=== PATIENT | female | born 1975 | race Caucasian/White ===

== ENCOUNTER 2022-09-10 20:58 | Emergency (ER) | payer OTHER, SELFPAY ==
[2022-09-10 21:10] VITALS: BP 178/85; PULSE 69; RESP 18; TEMP 36.7; O2SAT 99; BMI 34.5
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
--- NOTE | 2022-09-10 21:30 | CRLHL7_ITS ---
For Patients: As a result of the Century Cures Act, medical imaging exams and procedure reports are released immediately into your electronic medical record. You may view this report before your referring provider. If you have questions, please contact your health care provider. INDICATION: .hit head, left temporal area, REID, tinnitus TECHNIQUE: Head CT without contrast. COMPARISON: None. FINDINGS: Motion and beam hardening artifact predominantly the skullbase degrades evaluation at these levels. No intracranial hemorrhage. No discrete mass or mass effect. There is no midline shift. The basilar cisterns are patent. No hydrocephalus. The ye-white matter interface is otherwise preserved. No acute osseous abnormality. No extracalvarial soft tissue abnormality. The mastoid air cells are clear. The paranasal sinuses are well-aerated. The visualized portions of the orbits and globes are unremarkable. IMPRESSION: No acute intracranial process per unenhanced head CT given the above constraints. Please note that all CT scans at this facility use dose modulation, iterative reconstruction, and/or weight-based dosing when appropriate to reduce radiation dose to as low as reasonably achievable. Dictated by Vini Vyas MD @ 09/10/2022 10:15:53 PM (Electronically Signed)
[2022-09-10 22:59] VITALS: BP 169/84; PULSE 69; RESP 18; TEMP 36.7; O2SAT 99
[2022-09-10 23:31] VITALS: BP 169/84; PULSE 69; RESP 18; TEMP 36.7
== END 2022-09-10 23:32 | disposition home or self-care (01) ==
PROVIDERS: Emergency Provider Family Medicine
DX: S09.90XA Unspecified injury of head, initial encounter (principal); W22.8XXA Striking against or struck by other objects, initial encounter; Y99.0 Civilian activity done for income or pay
CPT/HCPCS: 70450; 99283

== ENCOUNTER 2023-03-07 12:46 | Emergency (ER) | payer OTHER, SELFPAY ==
[2023-03-07 13:13] VITALS: BP 124/81; PULSE 69; RESP 16; TEMP 36.6; O2SAT 97; BMI 37.8
[2023-03-07] MEDS: predniSONE 20 MG TABLET 60 MG PO (17:05)
--- NOTE | 2023-03-07 17:34 | ED.GENADULT ---
HPI - General Adult General Date Seen: 03/07/23 Chief complaint: Skin/Abscess/Foreign Body Stated complaint: Post op rash Time Seen by Provider: 03/07/23 16:27 Source: patient Mode of arrival: ambulatory Limitations: no limitations History of Present Illness HPI narrative: Patient is a 47-year-old who had surgery for an abdominal wall hernia on 02/27 at [facility]. She had a telephone follow-up visit with them on SaturdayMarch 05. At that time, she mentions that she developed a rash today after surgery. This started off in a rectangular area which she thought was related to the binder that she had been wearing after the surgery. They recommended that she use Dial soap and take Benadryl. She has been taking Benadryl orally once or twice a day and using topical Benadryl, but she called them today and said that the rash had spread. It is intensely itchy. She has pain related to the surgery although she is no longer using oxycodone is just using Tylenol. Apparently when she talked to the clinic today they told her it could be toxic shock and told her she needed to go to the ER right away. She has not had fevers. She did say that yesterday she felt sort of tawana, but nothing very specific. Today she feels fine. She was waiting in the lobby for almost 4 hours, and she said sitting up for that length of time was intensely uncomfortable, so when I got into the room she was tearful, because she said she was having pain from having to sit for so long. She declined any ibuprofen or Tylenol here, she says she can take some when she gets home and after we talked for a bit she was feeling much better. She has not had any vomiting since the day after surgery. The rash itself is pinpoint red spots which have spread across her abdominal wall down toward her thighs. She still has the original rectangular area as well. It remains itchy. Related Data Home Medications Medication Instructions Recorded Confirmed Benadryl 03/07/23 Tylenol 03/07/23 Zyrtec 03/07/23 albuterol sulfate 90 mcg/actuation 2 puff inhalation Q4H PRN dyspnea 03/07/23 03/07/23 aerosol inhaler (Ventolin HFA) ibuprofen 600 mg tablet 600 mg PO 3XD 03/07/23 03/07/23 methocarbamol 750 mg tablet mg PO 03/07/23 senna 03/07/23 Allergies Allergy/AdvReac Type Severity Reaction Status Date / Time albuterol AdvReac Mild Tachycardia Verified 03/07/23 16:33 [From Proventil HFA] [facility] Medical History (Updated 03/07/23 @ 16:58 by Wendy Pérez MD) History of atrial fibrillation ?Z86.79 - Personal history of other diseases of the circulatory system (ICD-10) TBI (traumatic brain injury) ?S06.9XAA - Unspecified intracranial injury with loss of consciousness status unknown, initial encounter (ICD-10) Asthma ?J45.909 - Unspecified asthma, uncomplicated (ICD-10) Surgical History History of cardiac radiofrequency ablation ?Z98.890 - Other specified postprocedural states (ICD-10) Social History Smoking Status: Never smoker Do you use any of these nicotine containing products: None Second hand tobacco smoke exposure: No How often do you have a drink containing alcohol: 2-3 times a week AUDIT-C Alcohol total score: 3 Non-prescribed substance use: denies use Exam Narrative: Exam Narrative: Vital signs reviewed. She is afebrile. In general, alert, well-appearing woman. She is breathing easily, nontoxic. Heart: Regular rate and rhythm. Lungs: Clear, no wheezes or increased work of breathing. Abdomen: She has couple of port sites, there is a small amount of erythema around these but no warmth or tenderness. No drainage. Skin: On her abdomen, she has a rectangular area of what appears to be a contact dermatitis with patchy speckled erythema, and that she has more diffuse pinpoint erythematous rash across her entire abdomen that extends down toward her thighs. There is no blistering, no dense erythema, no warmth. Const: Vital Signs, click to edit/add: Vital Signs - 24 hr 03/07/23 13:13 Temperature 97.8 F Pulse Rate [Left P ulse Oximeter] 69 Respiratory Rate 16 Blood Pressure [Ri ght Upper Arm] 124/81 Pulse Oximetry 97 Oxygen Delivery Me thod Room Air Documenting provider has reviewed patient's vital signs: yes Course Course ED Course: Reassured her that I do not see anything here that makes me suspicious for toxic shock. This does appear to have at least started as a contact dermatitis. She has been taking subtherapeutic doses of Benadryl, I think I am going to have her switch to a nonsedating antihistamine so that she does not have to take a 4 times daily dose, and I am going to add in some prednisone. I think this probably is related to something topical from her surgery, and hopefully with a little more dedicated regimen we can get this settled down. I did review with her that if the rash is changing, if she develops blistering, more dense erythema, pain, fevers, etcetera, that she should be seen again as these could indicate more infection rather than dermatitis. Likewise, if the rash does not improve or continues to worsen with this treatment, we may need to get dermatology involved. Discussed options to that pathway including talk to primary care, talking to her surgeon, or calling dermatology directly. She seems to be feeling much better at this point. Again declines the need for anything for pain here. Vital Signs Vital signs: Initial Vital Signs Temperature 97.8 F 03/07/23 13:13 Temperature Source Temporal Artery Scan 03/07/23 13:13 Pulse Rate 69 03/07/23 13:13 Respiratory Rate 16 03/07/23 13:13 Blood Pressure 124/81 03/07/23 13:13 Blood Pressure Mean 95 03/07/23 13:13 Blood Pressure Position Sitting 03/07/23 13:13 Pulse Oximetry 97 03/07/23 13:13 Oxygen Delivery Method Room Air 03/07/23 13:13 Vital Signs Temperature 97.8 F 03/07/23 13:13 Pulse Rate 69 03/07/23 13:13 Respiratory Rate 16 03/07/23 13:13 Blood Pressure 124/81 03/07/23 13:13 Pulse Oximetry 97 03/07/23 13:13 Oxygen Delivery Method Room Air 03/07/23 13:13 Temperature 97.8 F 03/07/23 13:13 Pulse Rate 69 03/07/23 13:13 Respiratory Rate 16 03/07/23 13:13 Blood Pressure 124/81 03/07/23 13:13 Pulse Oximetry 97 03/07/23 13:13 Oxygen Delivery Method Room Air 03/07/23 13:13 Discharge Plan Discharge Clinical Impression: Contact dermatitis Patient Disposition: Home, Self-Care Condition: Stable Instructions: Contact Dermatitis (DC) Additional Instructions: I would recommend switching antihistamine from Benadryl twice a day to Zyrtec or Claritin or Giselle twice a day. Take prednisone as prescribed. It seems unlikely that the reaction is related to the mesh in is more likely something that was used topically, as such, this should settle down over the next few days. If it continues to spread or does not improve, we will likely need to have you follow-up with a school examiner. If your symptoms change, if you have consolidated redness, blisters, fevers, worsening pain, etcetera, you should be seen again in the ER. Otherwise, continue your regimen as suggested by your surgeon, and contact them with any other questions. Activity Level: No Restrictions Discharge Diet: Regular Prescriptions: No Action methocarbamol 750 mg tablet PO ibuprofen 600 mg tablet 600 mg PO 3XD albuterol sulfate [Ventolin HFA] 90 mcg/actuation HFA aerosol inhaler 2 puff INHALATION Q4H PRN (Reason: dyspnea) senna Tylenol Benadryl Zyrtec Follow Up/Referrals: Provider,Not a Local [Primary Care Provider] - Stand Alone Forms: [employer] Info Instructions
== END 2023-03-07 17:14 | disposition home or self-care (01) ==
LOC: ED 17:10
PROVIDERS: Emergency Provider Emergency Medicine
DX: L25.9 Unspecified contact dermatitis, unspecified cause (principal)
CPT/HCPCS: 99282; 99283; J7512

== ENCOUNTER 2023-12-17 09:05 | Outpatient (CLI) | payer OTHER, SELFPAY | END 2023-12-17 09:06 | disposition home or self-care (01) | LOC: INJ CL 09:06 | PROVIDERS: Visit Provider Family Medicine | DX: M54.16 Radiculopathy, lumbar region (principal) | CPT/HCPCS: 64483; J1100; Q9966 ==

== ENCOUNTER 2024-07-04 15:35 | Emergency (ER) | payer OTHER, SELFPAY ==
[2024-07-04 15:38] VITALS: BP 139/87; PULSE 72; RESP 16; TEMP 36.2; O2SAT 98; BMI 38.6
--- OUTSIDE RECORDS SUMMARY | 2024-07-04 15:38 | XMS_ITS | Encounter Summary ---
Author Organization [facility] Address [address] [place] [address] Care Team Providers Care Access Tech Name Role Phone Sherin Garza MD Primary Care Provider [phone] Tanvir Peñaloza PA-C Unavailable Unavailab Johanna Swenson LPN Unavailable Unavailable Sherin Garza MD Unavailable [phone] Alisson Roth PA-C Unavailable [phone] Adelaida Waterman PA-C Unavailable [phone] Roberta Galvan [facility] Unavailable Jeremy Camejo MD Unavailable [phone] Nicolas Barragan MD Unavailable Encounter Details Date Type Department Care Team (Late st Contact Info) Description 07/27/2022 MyC Medical Advice [facility] [place] [address] [place] [address] Roberta Galvan, [facility] [address] [place] [address] Social History Tobacco Use Types Packs/Day Years Used Date Smoking Tobacco: Never Smokeless Tobacco: Never Alcohol Use Standard Drinks/Week Comments Yes 0 (1 standard drink = 0.6 oz pur e alcohol) Occasionally 1-2 /week Social Connection and Isolat ion Panel [NHANES] Answer Date Recorded In a typical week, how many times do you talk on the phone with family, friends, or neighbors? More than three times a week 02/23/2022 How often do you get togethe r with friends or relatives? Once a week 02/23/2022 How often do you attend [facility] or hindu services? More than 4 times per year 02/23/2022 Do you belong to any clubs o r organizations such as catholic groups, unions, fraternal or athletic groups, or school groups? Yes 02/23/2022 Attends Club or Organization Meetings Not on justin e 02/23/2022 Are you , , di vorced, , never , or living with a partner? Never 02/23/2022 AUDIT-C Answer Date Recorded Q1: How often do you have a drink containing alc ohol? 2-4 times a month 02/23/2022 Q2: How many drinks containi ng alcohol do you have on a typical day when you are drinking? 1 or 2 02/23/2022 Q3: How often do you have si x or more drinks on one occasion? Never 02/23/2022 Overall Financial Resource Strain (CARDIA) Answe r Date Recorded How hard is it for you to pa y for the very basics like food, housing, medical care, and heating? Somewhat hard 02/23/2022 PHQ-2 Answer Date Recorded PHQ-2 Score 1 02/23/2022 [facility] Questionnaire Answer Date Recorded Do you feel stress - tense, restless, nervous, or anxious, or unable to sleep at night because your mind is troubled all the time - these days? To some extent 02/23/2022 Exercise Vital Sign Answer Date Recorde d On average, how many days pe r week do you engage in moderate to strenuous exercise (like a brisk walk)? 2 days 02/23/2022 On average, how many minutes do you engage in exercise at this level? 60 min 02/23/2022 Hunger Vital Sign Answer Date Recorded Within the past 12 months, y ou worried that your food would run out before you got the money to buy more. Sometimes true Within the past 12 months, t he food you bought just didn't last and you didn't have money to get more. Sometimes true PRAPARE - Transportation Answer Date Re corded In the past 12 months, has l ack of transportation kept you from medical appointments or from getting medications? No 01/30 In the past 12 months, has l ack of transportation kept you from meetings, work, or from getting things needed for daily living? No 02/23/2022 Housing Stability Vital Sign Answer Stone e Recorded In the last 12 months, was t here a time when you were not able to pay the mortgage or rent on time? Patient refused 02/24/20 22 In the last 12 months, how many places have you lived? 1 02/23/2022 In the last 12 months, was t here a time when you did not have a steady place to sleep or slept in a prison (including now)? No 02/23/2022 Education Answer Date Recorded What is the highest level of school you have completed or the highest degree you have received? 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 Gender Identity Female 09/17/2018 1:36 AM CDT Sexual Orientation Straight 09/17/2018 1: 36 AM CDT Occupation Industry Job Start Date Job End Date Not on file Not on file Not on file Not on file documented as of this encounter Plan of Treatment Not on file documented as of this encounter Visit Diagnoses Not on filedocumented in this encounter Additional Health Concerns Assessment Noted Time PHQ-9 Depression Total Score: 1 01/30/20 22 10:10 AM CDT documented as of this encounter Care Teams Access Tech Relationship Specialty Start Date End Date Sherin Garza MD [address] [place] [id number] PCP - General 08/16/01 [employer], PAArsh[facility] [address] [facility] [place] [address] Physician Vat Cleaner 12/27/17 Johanna Rodríguez LPN Nurse Coordinator 12/27/17 Sherin Garza MD [address] [facility] [facility] [place] [address] Assigned PCP 06/15/18 Alisson Roth PA-C [address] [place] [address] Assigned Surgical Provider 05/14/2102/01/23 Adelaida Waterman PA-C [address] [place] [address] Assigned Sleep Provider 08/06/2104/19 [facility] [address] [place] [address] Assigned MTM Pharmacist 03/28/22 Jeremy Camejo MD [address] [place] [address] Assigned OBGYN Provider 05/26/22 Nicolas Barragan MD [address] [place] [address] Assigned Surgical Provider 02/02/23 documented as of this encounter
--- OUTSIDE RECORDS SUMMARY | 2024-07-04 15:38 | XMS_ITS | Encounter Summary ---
Author Organization [facility] Address [address] [facility] [place] [address] Care Team Providers Care Inspector Barrel Name Role Phone Sherin Garza MD Primary Care Provider [phone] Tanvir Peñaloza PA-C Unavailable Unavailab Johanna Swenson LPN Unavailable Unavailable Sherin Garza MD Unavailable [phone] Alisson Roth PA-C Unavailable [phone] Adelaida Waterman PA-C Unavailable [phone] Jeremy Camejo MD Unavailable Nicolas Barragan MD Unavailable Encounter Details Date Type Department Care Team (Late st Contact Info) Description 01/14/2023 [facility] [place] [facility] Medical Advice [facility] [address] [place] [address] [address] [place] [address] Fransisca Brown MA Social History Tobacco Use Types Packs/Day Years [...] week 02/23/2022 How often do you attend chur ch or pentecostalism services? More than 4 times per year 02/23/2022 Do you belong to any clubs o r organizations such as congregation groups, unions, fraternal or athletic groups, or [...] Answer Date Recorded PHQ-2 Score 1 02/23/2022 [facility] - Occupational Stress Questionnaire Answer Date Recorded [...] place to sleep or slept in a [place] [facility] [place] facility (including now)? No 02/23/2022 Education Answer Date Recorded What is the highest level of school you have completed or the highest degree you have received? 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 [employer] Gender Identity Female 09/17/2018 1:36 AM CDT [...] Time PHQ-9 Depression Total Score: 1 01/30/20 10:10 AM CDT documented as of this encounter Care Teams Inspector Barrel Relationship Specialty Start Date End Date Sherin Garza MD [address] [address] PCP - General 08/16/01 Tanvir Peñaloza PA-C [address] [address] Physician Molded Goods Spot Picker 12/27/17 Johanna Rodríguez LPN Nurse Coordinator 12/27/17 Sherin Garza MD [address] [address] Assigned PCP 06/15/18 Alisson Roth PA-C [address] [place] [address] Assigned Surgical Provider 05/14/2102/01/23 Adelaida Waterman PA-C [address] [place] [address] Assigned Sleep Provider 08/06/2104/19 Jeremy Camejo MD [address] [place] [address] Assigned OBGYN Provider 05/26/22 Nicolas Barragan MD [address] [place] [address] Assigned Surgical Provider 02/02/23 documented as of this encounter
--- OUTSIDE RECORDS SUMMARY | 2024-07-04 15:38 | XMS_ITS | Clinical Summary ---
Author Organization [facility] Address [address] [place] [address] Care Team Providers Care Drapery Hemmer Automatic Name Role Phone Sherin Garza MD Primary Care Provider [phone] Tanvir Peñaloza PA-C Unavailable Unavailab Johanna Swenson LPN Unavailable Unavailable Sherin Garza MD Unavailable [phone] Allergies Active Allergy Reactions Criticality Noted Date Comments Food Anaphylaxis High 11/09/2011 Strawberries, mushrooms Albuterol Palpitations Low 01/04/2012 Proventil Brand only. Tachycardia. Tolerates albuterol. Seasonal Allergies Other (See Comments) Medium 014 Runny Nose, Itchy eyes. [place] Extract Anaphylaxis High 09/22/2009 Medications Multiple Vitamins-Minerals (MULTIVITAL PO) Take 1 tablet by mouth daily Active calcium carb 1250 mg, 500 mg mash[place],/vitamin D 200 units (OSCAL WITH D) 500-200 MG-UNIT per tabletIndications :Unspecified vitamin D deficiency Take 1 tablet by mouth 2 times daily (with meals) 90 tablet 1 11/04/19 15 Active Additional Information Patient taking differently:1 tablet Oral2 TIMES DAILY, Reported on 12/12/2021 cetirizine (ZYRTEC) 10 MG tabletIndications :Allergic rhinitis Take 1 tablet (10 mg) by mouth every evening 90 tablet 1 10/24/19 19 Active amphetamine-dextr oamphetamine (ADDERALL XR) 30 MG 24 hr capsuleIndication s:Attention deficit hyperactivity disorder (ADHD), unspecified ADHD type Take 1 capsule (30 mg) by mouth daily 30 capsule 05/01/20 19 Active tiZANidine (ZANAFLEX) 4 MG tabletIndications :Lumbar back pain TAKE 1 TABLET(4 MG) BY MOUTH THREE TIMES DAILY NEEDED FOR MUSCLE SPASMS 90 tablet 3 09/14/19 20 Active buPROPion (WELLBUTRIN XL) 300 MG 24 hr tablet TK 1 T PO QD IN THE MORNING 05/12/20 20 Active hydrOXYzine (ATARAX) 25 MG tabletIndications :Generalized anxiety disorder Take 1-4 tablets (25-100 mg) by mouth 4 times daily as needed for anxiety Use 3-4 at bedtime for sleep. 1-2 during the day for anxiety. 60 tablet 1 06/10/20 20 Active EPINEPHrine (ANY BX GENERIC EQUIV) 0.3 MG/0.3ML injection 2-packIndications :Mild persistent asthma without complication Inject 0.3 mLs (0.3 mg) into the muscle once as needed for anaphylaxis 2 mL 1 06/21/20 21 Active cyanocobalamin (VITAMIN B-12) 100 MCG tablet Take 100 mcg by mouth daily Active vitamin D3 (CHOLECALCIFEROL) 10 MCG (400 UNIT) capsule Take 1 capsule by mouth daily Active naltrexone (DEPADE/REVIA) 50 MG tabletIndications :Class 2 severe obesity due to excess calories with serious comorbidity and body mass index (BMI) of 35.0 to 35.9 in adult (H) Take 1/2 tablet at noon for 1 week, then increase to 1/2 tablet in the morning and at noon as if tolerating 30 tablet 2 12/13/19 22 Active albuterol (PROVENTIL) (2.5 MG/3ML) 0.083% neb solutionIndicatio ns:Mild persistent asthma without complication Take 1 vial (2.5 mg) by nebulization every 6 hours as needed for shortness of breath / dyspnea 60 mL 1 01/05/20 22 Active albuterol (VENTOLIN HFA) 108 (90 Base) MCG/ACT inhalerIndication s:Moderate persistent asthma without complication INHALE 2 PUFFS EVERY 4 HOURS NEEDED FOR SHORTNESS OF BREATH/DYSPNEA 18 g 1 01/10/20 22 Active SUMAtriptan (IMITREX) 100 MG tabletIndications :Migraine with aura and without status migrainosus, not intractable Take 1 tablet (100 mg) by mouth at onset of headache for migraine May repeat in 2 hours if needed: max 2/da 9 tablet 4 02/24/20 22 Active fluticasone-salme terol (ADVAIR HFA) 230-21 MCG/ACT inhalerIndication s:Moderate persistent asthma without complication Inhale 2 puffs into the lungs 2 times daily 12 g 4 02/24/20 22 Active fluticasone (FLONASE) 50 MCG/ACT nasal sprayIndications: Seasonal allergic rhinitis, unspecified trigger Collins 2 sprays into both nostrils daily 48 g 4 02/24/20 22 Active gabapentin (NEURONTIN) 300 MG capsuleIndication s:Chronic midline low back pain without sciatica Take 1 capsule (300 mg) by mouth 3 times daily 90 capsule 4 03/26/20 22 Active bisacodyl (DULCOLAX) 5 MG EC tabletIndications :Colon cancer screening Take 2 tablets at 3 pm the day before your procedure. If your procedure is before 11 am, take 2 additional tablets at 11 pm. If your procedure is after 11 am, take 2 additional tablets at 6 am. For additional instructions refer to your colonoscopy prep instructions. 4 tablet 07/13/19 23 Active polyethylene glycol (GOLYTELY) 236 g suspensionIndicat ions:Colon cancer screening The night before the exam at 6 pm drink an 8-ounce glass every 15 minutes until the jug is half empty. If you arrive before 11 AM: Drink the other half of the Golytely jug at 11 PM night before procedure. If you arrive after 11 AM: Drink the other half of the Golytely jug at 6 AM day of procedure. For additional instructions refer to your colonoscopy prep instructions. 4000 mL 07/13/19 23 Active FLOVENT DISKUS 250 MCG/BLIST inhalerIndication s:Mild persistent asthma without complication INHALE 1 PUFF INTO THE LUNGS EVERY 12 HOURS 3 Inhaler 1 01/19/20 20 022 Discontin ued(Reord er (No AVS)) Active Problems Problem Noted Date Diagnosed Date Postconcussion syndrome 06/02/2021 Breast cancer screening, high risk patient 03/15 Family history of malignant neoplasm of breast 0 03/13/2021 Overview (03/13/2021): Genetic Testing Result: NEGATIVE Alla is negative for mutations in the 23 genes analyzed: JOSE ANGEL, BARD1, BRCA1, BRCA2, BRIP1, CDH1, CHEK2, DICER1, MLH1, MSH2, MSH6, NBN, NF1, PALB2, PMS2, PTEN, RAD51C, RAD51D, RECQL, SMARCA4, STK11 and TP53 (sequencing and deletion/duplication); EPCAM (deletion/duplication only). Screening: Based on this negative test result, it is important for Alla and her relatives to refer back to the family history for appropriate cancer screening. ? Based on the personal and family history information she provided, Alla has an estimated 33.3% lifetime risk of developing breast cancer based on the STEVO Risk Evaluation v8 model. As such, Alla meets current National Comprehensive Cancer Network (NCCN) guidelines for high risk breast screening. This includes annual breast MRI in addition to annual mammogram, alternating every 6 months. In addition, Alla should be receiving clinical breast exams by her physician. We discussed that Alla could participate in our Cancer Risk Management Program in which our geriatric nursing assistant provides an individual screening plan and assists with medical management. A referral was made to see DOMO Donald, for this service. ? Due to Alla's family history of ovarian cancer in her sister, Alla and other close female relatives remain at slightly increased risk for ovarian cancer. We discussed available ovarian cancer screening (pelvic exams, CA-125 blood tests, and transvaginal ultrasounds) as well as the significant limitations of this screening. As such, this screening is not typically recommended. That being said, women in this family should discuss this screening and the signs and symptoms of ovarian cancer with their primary PULL OVER MACHINE OPERATOR provider, as they may have individualized recommendations. ? Other population cancer screening options, such as those recommended by the [place] [employer] and the National Comprehensive Cancer Network (NCCN), are also appropriate for Alla and her family. These screening recommendations may change if there are changes to Alla's personal and/or family history of cancer. Final screening recommendations should be made by each individual's managing physician. Subcutaneous mass of back 01/23/2021 Overview (01/23/2021): Added automatically from request for surgery [id number] S/P LES (total abdominal hysterectomy) H/O cystostomy 12/07/2020 Chronic right shoulder pain 10/21/2013 ADHD (attention deficit hyperactivity disorder) 02/13/2013 OCD (obsessive compulsive disorder) 02/02/2013 Overview (02/02/2013): Going to [place] [facility] Generalized anxiety disorder 02/02/2013 Chronic midline low back pain without sciatica 1 08/14/2011 IBS (irritable bowel syndrome) -- age 21 012 PCOS (polycystic ovarian syndrome) -- age 23 Migraine headache 07/14/2010 Major depressive disorder, recurrent, moderate 0 12/20/2008 Overview (12/01/2013): Was on zoloft initially but had weird dreams and jittery. Did well on prozac plus wellbutrin but now worse. Obesity 04/10/2007 Assessment & Plan (12/12/2021 4:35 PM CDT): Patient was congratulated on wt loss success thus far. Healthy habits to assist with further weight loss were discussed. Liliana will start naltrexone We discussed healthy habits to assist with weight loss. Risks/ benefits and possible side effects were discussed and questions were answered. Written information was given. Moderate persistent asthma without complication 09/01/2004 Assessment & Plan (12/12/2021 4:36 PM CDT): May improve with weight loss. Liliana will continue to pre treat with Albuterol before exercise. Allergic rhinitis 05/12/2004 Resolved Problems Problem Noted Date Diagnosed Date Resolved Date Gross hematuria 12/07/2020 12/09/2020 Pelvic mass 11/30/2020 12/09/2020 Overview (11/30/2020): Added automatically from request for surgery [id number] Ovarian cyst, right 11/30/2020 12/10/19 21 Overview (11/30/2020): Added automatically from request for surgery [id number] Right ovarian cyst 11/22/2020 Neck sprain, subsequent encounter 03/24/2018 09/10/2018 Back strain, subsequent encounter 03/24/2018 09/10/2018 Episodic tension-type headac he, not intractable 03/24/2018 09/10/2018 Sprain of right rotator cuff capsule, initial encounter 12/14/2015 11/02/2020 Shoulder pain 10/26/2013 12/06/2014 [facility] 02/25/2013 12/16/2023 Overview (02/25/2013): Pt not in active care coordination. Endometriosis -- age 14 11/27/201112/30 Fibroid uterus age 14 11/27/20112017 Female genital symptoms 11/27/201112/30 CARDIOVASCULAR SCREENING; LD L GOAL LESS THAN 160 08/10/2009 12/20/2017 Moderate major depression 10/01/2008 Excessive or frequent menstruation 05/12/2004 01/17/2018 Immunizations Name Administration Dates Next Due COVID-19 MONOVALENT 12+ (Pfizer) 11/10/2020,09/30 DTAP (<7y) [birth year] Influenza (IIV3) PF 03/19/2014, 3,05/01/2012,2010,05/01/2010,05/12/2004 Influenza (intradermal) 04/06/2020 Influenza (prior to 2023) 02/24/2015,04/05/2009 Influenza Vaccine >6 months,quad, PF ,2018,04/20/2017,2015 Influenza Vaccine, 6+MO IM (QUADRIVALENT W/PRESERVATIVES) 03/22/2019 MMR 02/10/1975 Pneumococcal 23 valent 02/27/2015 Polio, Unspecified 1973,1973 TD,PF 7+ (Tenivac) 06/03/2014 TDAP Vaccine (Adacel) 12/11/2016,04/10/2007 Family History Medical History Relation Comments Heart Disease Brother 2 Narcolepsy Cousin Asthma Father Coronary Artery Disease Father Has pace maker and defibrillator Hyperlipidemia Father Hypertension Father Obesity Father Prostate Cancer Father Stomach Cancer Father Breast Cancer Maternal Aunt Three maternal a unts with breast cancer Prostate Cancer Maternal Grandfather Breast Cancer Maternal Grandmother Obesity Maternal Grandmother Asthma Mother Breast Cancer Mother diagnosed in mid -50's Restless Leg Syndrome Mother Heart Disease Other neice hole in heart Anxiety Disorder Sister Asthma Sister Cancer Sister Precancerous maximo ls in ovarian region Depression Sister Hypertension Sister Obesity Sister Restless Leg Syndrome Sister Substance Abuse Sister Colon Cancer No family hx of Relation Status Comments Brother 1 (Age 1 day) heart failu re Brother 2 Cousin Father Alive Maternal Aunt Maternal Grandfather Maternal Grandmother Mother Alive Other Paternal Grandfather Paternal Grandmother Sister Alive Social History Tobacco Use Types Packs/Day Years Used Date Smoking Tobacco: Never Smokeless Tobacco: Never Tobacco Cessation:Counseling Given: Not Answered Alcohol Use Standard Drinks/Week Comments Yes 0 [...] 02/23/2022 How often do you attend chur or rastafari services? More than 4 times per year 02/23/2022 Do you belong to any clubs o r organizations such as samaritan groups, unions, fraternal or athletic groups, or [...] Answer Date Recorded PHQ-2 Score 1 02/23/2022 [facility] - Occupational Stress [...] place to sleep or slept in a penitentiary (including now)? No 02/23/2022 Adolescent Education Answer Date Record ed Getting School Help Needed Not on file 03/29 Education Answer Date Recorded What is the highest level of school you have completed or the highest degree you have received? 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 GASOLINE LOCOMOTIVE CRANE OPERATOR Gender Identity Female 09/17/2018 1:36 AM CDT Sexual Orientation Straight 09/17/2018 1: 36 AM CDT Occupation Industry Job Start Date Job End Date Not on file Not on file Not on file Not on file Last Filed Vital Signs Vital Sign Reading Time Taken Comments Blood Pressure 120/82 08/06/2022 12:20 PM GASOLINE LOCOMOTIVE CRANE OPERATOR Pulse 63 08/06/2022 12:00 PM GASOLINE LOCOMOTIVE CRANE OPERATOR Temperature 36.6 C (97.9 F) 08/06/2022 10:50 AM GASOLINE LOCOMOTIVE CRANE OPERATOR Respiratory Rate 16 08/06/2022 12:20 PM GASOLINE LOCOMOTIVE CRANE OPERATOR Oxygen Saturation 98% 08/06/2022 12:20 PM GASOLINE LOCOMOTIVE CRANE OPERATOR Inhaled Oxygen Concentration - - Weight 99.8 kg (220 lb) 08/06/2022 10:50 AM GASOLINE LOCOMOTIVE CRANE OPERATOR Height 162.6 cm (5' 4) 08/06/2022 10:50 AM GASOLINE LOCOMOTIVE CRANE OPERATOR Body Mass Index 37.76 08/06/2022 10:50 AM GASOLINE LOCOMOTIVE CRANE OPERATOR Plan of Treatment Health Maintenance Due Date Last Done Comments CT COLONOGRAPHY 1973 FIT 1973 FLEX SIG 1975 sDNA (Cologuard) 1973 HEPATITIS B IMMUNIZATION (1 of 3 - 19+ 3-dose series) 1992 Pneumococcal Vaccine: 50+ Years (2 of 2 - PCV) 02/28/2016 02/27/2015 ASTHMA CONTROL TEST 04/04/2022 10/03/2021, 03/15/2021, 06/10/2020, Additional history exists ASTHMA ACTION PLAN 05/17/2022 05/17/2021, 1 08/11/2019, 06/10/2020, Additional history exists PHQ-9 08/01/2022 01/29/2022, 08/0 07/2021, 08/29/2021, Additional history exists MAMMO SCREENING 08/09/2022 08/09/2021, 10/29, 02/10/2020, Additional history exists ANNUAL REVIEW OF HM ORDERS 01/29/202301/29, 06/10/2020, 05/01/2019 YEARLY PREVENTIVE VISIT 02/23/2023 02/24/20 22, 01/17/2021, 05/01/2019, Additional history exists ZOSTER IMMUNIZATION (1 of 2) 2023 COVID-19 Vaccine (3 - season) 2024 11/10/2020, 10/20/2020 INFLUENZA VACCINE (#1) 2024 0, 03/22/2019, 03/22/2019, Additional history exists GLUCOSE 02/23/2025 02/23/2022, 08/0 07/2021, 08/17/2021, Additional history exists ADVANCE CARE PLANNING 01/17/2026 01/17/2021, 021 DTAP/TDAP/TD IMMUNIZATION (7 - Td or Tdap) 12/11/2026 12/11/2016, 06/03/2014, 04/10/2007, Additional history exists LIPID 02/23/2027 02/23/2022, 12/30, 05/01/2019, Additional history exists COLONOSCOPY 08/06/2032 08/06/2022, 02/0 11/2022, 09/24/2006 COLORECTAL CANCER SCREENING 08/06/2032 RSV VACCINE (1 - 1-dose 75+ series) 2048 HIV SCREENING Completed 07/01/1993 MIGRAINE ACTION PLAN Completed 07/14/2010 DEPRESSION ACTION PLAN Completed 7, 04/02/2017, 11/22/2015, Additional history exists HPV TEST Discontinued 11/04/2020, 11/03/2014 PAP Discontinued 11/04/2020, 05/0 11/2014, 02/01/2012, Additional history exists HEPATITIS C SCREENING Completed 01/29/2022 HPV IMMUNIZATION Aged Out No longer e ligible based on patient's age to complete this topic MENINGITIS IMMUNIZATION Aged Out No l onger eligible based on patient's age to complete this topic RSV MONOCLONAL ANTIBODY Aged Out No l onger eligible based on patient's age to complete this topic Procedures Procedure Name Priority Date/Time Associated Diagnosis Comments COLONOSCOPY Routine 08/06/2022 10:50 AM GASOLINE LOCOMOTIVE CRANE OPERATOR GLUCOSE Routine 02/23/2022 10:48 AM CDT Screening for diabetes mellitus LIPID REFLEX TO DIRECT LDL PANEL Routine 02/23/2022 10:48 AM CDT Screening for lipid disorders HEPATITIS C SCREEN REFLEX TO HCV RNA QUANT AND GENOTYPE Routine 01/29/2022 10:59 AM CDT Need for hepatitis C screening test MA SCREENING BILATERAL W/ ANTHONY Routine 08/09/2021 4:38 PM GASOLINE LOCOMOTIVE CRANE OPERATOR Visit for screening mammogram PAP IMAGED THIN LAYER SCREEN Routine 11/04/2020 9:00 AM CDT Screening for malignant neoplasm of cervix HPV HIGH RISK TYPES DNA CERVICAL Routine 11/04/2020 8:59 AM CDT Screening for malignant neoplasm of cervix PHQ-9 DEPRESSION SCREENING ORDER Routine 10/30/2019 ASTHMA ACTION PLAN Routine 04/02/2017 8: 56 AM CDT Mild persistent asthma without complication from Last 3 Months or Most Recently Relevant to Health Maintenance Results * COLONOSCOPY (08/06/2022 10:50 AM GASOLINE LOCOMOTIVE CRANE OPERATOR) COLONOSCOPY [facility] Patient Name: Alla Love Dias Procedure Date: 08/06/2022 10:50 AM Date of : 1975 Admit Type: Outpatient Age: 47 Gender: Female Attending MD: RUDY CUETO MD Total Sedation Time: 30 mins Instrument Name: 251 - Pediatric Colonoscope Procedure: Colonoscopy Indications: Screening for colorectal malignant neoplasm Providers: RUDY CUETO MD (Doctor) Referring MD: SHERIN GARZA MD (Referring MD) Medicines: Midazolam 2 mg IV, Fentanyl 100 micrograms IV Complications: No immediate complications. Procedure: Pre-Anesthesia Assessment: - Prior to the procedure, a History and Physical was performed, and patient medications and allergies were reviewed. The risks and benefits of the procedure and the sedation options and risks were discussed with the patient. All questions were answered and informed consent was obtained. Patient identification and proposed procedure were verified by the physician. Mental Status Examination: normal. Airway Examination: normal oropharyngeal airway and neck mobility. Prophylactic Antibiotics: The patient does not require prophylactic antibiotics. Prior Anticoagulants: The patient has taken no anticoagulant or antiplatelet agents. ASA Grade Assessment: I - A normal, healthy patient. After reviewing the risks and benefits, the patient was deemed in satisfactory condition to undergo the procedure. The anesthesia plan was to use moderate sedation / analgesia (conscious sedation). Immediately prior to administration of medications, the patient was re-assessed for adequacy to receive sedatives. The heart rate, respiratory rate, oxygen saturations, blood pressure, adequacy of pulmonary ventilation, and response to care were monitored throughout the procedure. The physical status of the patient was re-assessed after the procedure. After obtaining informed consent, the colonoscope was passed under direct vision. Throughout the procedure, the patient's blood pressure, pulse, and oxygen saturations were monitored continuously. The Olympus Pediatric Colonoscope, Model #[id number], [place] #[id number], SN#[id number] was introduced through the anus and advanced to the terminal ileum, with identification of the appendiceal orifice and IC valve. The colonoscopy was performed without difficulty. The patient tolerated the procedure well. The quality of the bowel preparation was evaluated using the BBPS ([place] Bowel Preparation Scale) with scores of: Right Colon = 3, Transverse Colon = 3 and Left Colon = 3 (entire mucosa seen well with no residual staining, small fragments of stool or opaque liquid). The total BBPS score equals 9. Findings: The perianal and digital rectal examinations were normal. The terminal ileum appeared normal. The colon (entire examined portion) appeared normal. External hemorrhoids were found during retroflexion. The hemorrhoids were small. Impression: - The examined portion of the ileum was normal. - The entire examined colon is normal. - External hemorrhoids. - No specimens collected. Recommendation: - Discharge patient to home. - Resume regular diet. - Continue present medications. - Repeat colonoscopy in 10 years for screening purposes. Procedure Code(s): --- Professional --- G0121, Colorectal cancer screening; colonoscopy on individual not meeting criteria for high risk Diagnosis Code(s): --- Professional --- Z12.11, Encounter for screening for malignant neoplasm of colon K64.4, Residual hemorrhoidal skin tags CPT copyright 2020 [place] [employer]. All rights reserved. The codes documented in this report are preliminary and upon medical research associate review may be revised to meet current compliance requirements. Electronic Signature by Dr. Rudy Cueto RUDY CUETO MD 08/06/2022 11:55:18 AM I was physically present for the entire viewing portion of the exam. RUDY CUETO MD Number of Addenda: 0 Note Initiated On: 08/06/2022 10:50 AM Procedure Date: 08/06/2022 10:50:32 AM Scope Withdrawal Time: 0 hours 9 minutes 38 seconds Total Procedure Duration: 0 hours 12 minutes 51 seconds Estimated Blood Loss: Scope In: 11:35:12 AM Scope Out: 11:48:03 AM RADIOLOGY RESULTS 08/06/2022 10:5 0 AM GASOLINE LOCOMOTIVE CRANE OPERATOR us Sherin Garza MD PROCEDURES Final Result RADIOLOGY RESULTS * (ABNORMAL) Lipid panel reflex to direct LDL Fasting (02/23/2022 10:48 AM CDT) Cholesterol 160 <200 mg/dL 02/24/2022 12:19 PM CDT [facility] Triglycerides 161(H) <150 mg/dL 02/24/2022 12:19 PM CDT [facility] Direct Measure HDL 46(L) >=50 mg/dL 02/24/2022 12:19 PM CDT [facility] LDL Cholesterol Calculated 82 <=100 mg/dL 02/24/2022 12:19 PM CDT [facility] Non HDL Cholesterol 114 <130 mg/dL 02/24/2022 12:19 PM CDT [facility] Patient Fasting > 8hrs? Yes 02/24/2022 12:19 PM CDT [facility] Blood STRUCTURE OF LEFT UPPER LIMB / Unknown Venipuncture / Unknown 02/23/2022 10:48 AM CDT 02/23/2022 11:10 AM CDT Narrative [facility] - 02/24/2022 12:19 PM CDT Cholesterol Desirable: <200 mg/dL Triglycerides Normal: Less than 150 mg/dL Borderline High: 150-199 mg/dL High: 200-499 mg/dL Very High: Greater than or equal to 500 mg/dL Direct Measure HDL Female: Greater than or equal to 50 mg/dL Male: Greater than or equal to 40 mg/dL LDL Cholesterol Desirable: <100mg/dL Above Desirable: 100-129 mg/dL Borderline High: 130-159 mg/dL High: 160-189 mg/dL Very High: >= 190 mg/dL Non HDL Cholesterol Desirable: 130 mg/dL Above Desirable: 130-159 mg/dL Borderline High: 160-189 mg/dL High: 190-219 mg/dL Very High: Greater than or equal to 220 mg/dL us Sherin Garza MD LAB - BLOOD ORDERABLES Final Re sult [facility] [address] Lab (no room number, 1st floor of clinic) [place] [address], [facility] [phone] * Glucose (02/23/2022 10:48 AM CDT) Glucose 98 70 - 99 mg/dL 02/24/2022 11:50 AM CDT [facility] Patient Fasting > 8hrs? Yes 02/24/2022 11:50 AM CDT [facility] Blood STRUCTURE OF LEFT UPPER LIMB / Unknown Venipuncture / Unknown 02/23/2022 10:48 AM CDT 02/23/2022 11:10 AM CDT us Sherin Garza MD LAB - BLOOD ORDERABLES Final Re sult LABORATORY [facility] [address] Lab (no room number, 1st floor of clinic) [place] [address], [facility] [phone] * Hepatitis C Screen Reflex to HCV RNA Quant and Genotype (01/29/2022 10:59 AM CDT) Hepatitis C Antibody Nonreactive Nonreactive 01/30/2022 10:41 AM CDT [facility] DO Blood BLOOD SPECIMEN / Unknown Venipuncture / Unknown 01/29/2022 10:59 AM CDT 01/29/2022 11:00 AM CDT Narrative [facility] - 01/30/2022 10:41 AM CDT Assay performance characteristics have not been established for newborns, infants, and children. us Estrada Shea MD LAB - BLOOD ORDERABLES [place] l Result [facility] [address] [facility] [address] [address], [facility] [phone] * MA Screen Bilateral w/Anthony (08/09/2021 4:38 PM GASOLINE LOCOMOTIVE CRANE OPERATOR) Anatomical Region Laterality Modality Breast Bilateral Mammography Narrative 08/10/2021 7:43 AM GASOLINE LOCOMOTIVE CRANE OPERATOR BILATERAL FULL FIELD DIGITAL SCREENING MAMMOGRAM WITH TOMOSYNTHESIS Performed on: 08/09/21 Compared to: 11/10/2020 and 10/09/2017 Technique: This study was evaluated with the assistance of Computer-Aided Detection. Breast Tomosynthesis was used in interpretation. Findings: The breasts are heterogeneously dense, which may obscure small masses. There is no radiographic evidence of malignancy. IMPRESSION: ACR BI-RADS Category 1: Negative RECOMMENDED FOLLOW-UP: Annual routine screening mammogram The results and recommendations of this examination will be communicated to the patient. us Sherin Garza MD IMG MAMMOGRAPHY ORDERABLES Chantale segura Result * Pap imaged thin layer screen with HPV - recommended age 30 - 65 years (select HPV order below) (11/04/2020 9:00 AM CDT) PAP NIL COPATH Copath Report Patient Name: ALLA DIAS MR#: [id number] Specimen #: [id number] Collected: 11/04/2020 Received: 11/07/2020 Reported: 11/08/2020 10:57 Ordering Phy(s): CHRIS GALVAN For improved result formatting, select 'View Enhanced Report Format' under Linked Documents section. SPECIMEN/STAIN PROCESS: Pap imaged thin layer prep screening (Surepath, FocalPoint with guided screening) Pap-Cyto x 1, HPV ordered x 1 SOURCE: Cervical Pap imaged thin layer prep screening (Surepath, FocalPoint with guided screening) SPECIMEN ADEQUACY: Satisfactory for evaluation. -Transformation zone component present. CYTOLOGIC INTERPRETATION: Negative for intraepithelial lesion or malignancy Electronically signed out by: ANGELA Mendez (ASCP) CLINICAL HISTORY: Papanicolaou Test Limitations: Cervical cytology is a screening test with limited sensitivity; regular screening is critical for cancer prevention; Pap tests are primarily effective for the diagnosis/preventi on of squamous cell carcinoma, not adenocarcinomas or other cancers. COLLECTION SITE: Client: [facility] Location: LUIS ([place]) The technical component of this testing was completed at the [facility] [employer] [facility], with the professional component performed at the [facility], [address] [place] [address] [phone] ([phone]) COPATH Cytology 11/04/2020 9:00 AM CDT 11/07/2020 9:38 AM CDT Crhis Galvan MD LAB - OPTIME CLINICAL SPECIMEN Final Result COPATH * HPV High Risk Types DNA Cervical (11/04/2020 8:59 AM CDT) HPV Source SurePath 11/04/2020 9:00 AM CDT [facility] BIPIN HPV 16 DNA Negative NEG^Nega tive 11/10/2020 2:[address] [facility] HPV 18 DNA Negative NEG^Nega tive 11/10/2020 2:[address] [facility] Other HR HPV Negative NEG^Nega tive 11/10/2020 2:[address] [facility] Final Diagnosis This patient's sample is negative for HPV DNA. 11/10/2020 2:[address] [facility] Comment: This test was developed and its performance characteristics determined by the [facility], Molecular Diagnostics Laboratory. It has not been cleared or approved by the FDA. The laboratory is regulated under CLIA as qualified to perform high-complexity testing. This test is used for clinical purposes. It should not be regarded as investigational or for research. (Note) METHODOLOGY: The Margaret roxy 4800 system uses automated extraction, simultaneous amplification of HPV (L1 region) and beta-globin, followed by real time detection of fluorescent labeled HPV and beta globin using specific oligonucleotide probes . The test specifically identifies types HPV 16 DNA and HPV 18 DNA while concurrently detecting the rest of the high risk types (31, 33, 35, 39, 45, 51, 52, 56, 58, 59, 66 or 68). COMMENTS: This test is not intended for use as a screening device for women under age 30 with normal cervical cytology. Results should be correlated with cytologic and histologic findings. Close clinical followup is recommended. Specimen Description Cervical Cells 11/04/2020 9:00 AM CDT [facility] BIPIN Cervical Cells CERVIX UTERI STRUCTURE / Unknown 11/04/2020 8:59 AM CDT 11/04/2020 9:04 AM CDT us Chris Galvan MD LAB - BLOOD ORDERABLES Final R esult [address] [address] * PHQ-9 DEPRESSION SCREENING ORDER (10/30/2019) PHQ9 SCORE 4 Narrative Hallie Amos - 10/30/2019 [facility] PROGRESS NOTE us Provider Outside OTHER Final Result from Last 3 Months or Most Recently Relevant to Health Maintenance Insurance [employer] COMMERCIAL [facility] ANTHONY CABRERA [facility] * Guarantor: Alla Dias Account Type Relation to Patient Date of Phone Billing Address Medication Therapy Self 1975 [address] [place] [address] Advance Directives For more information, please contact: [phone] Documents on File Type Date Recorded Patient Beer Cooler Expl anation Advance Directives and Living Will 01/17/2021 Health Care Directiv e 12/06/2020 * Full Code (Latest Code Status on File) Date Activated Date Inactivated Comments 12/09/2020 7:45 AM 12/21/2020 12:10 PM Question Answer Comments Code status determined by: Discussion with titus nt/ legal decision maker * Full Code Date Activated Date Inactivated Comments 12/07/2020 9:33 PM 12/09/2020 7:45 AM All basic and advanced life-sustaining interventions are performed as appropriate Question Answer Comments Code status determined by: Discussion with titus nt/ legal decision maker Healthcare Agents on File Name Relationship Healthcare Agent [facility] p Communication Shama Cabrera Sister Health Care Agent Kvng Dias Father First Alternate Health Care Agent Care Teams Drapery Hemmer Automatic Relationship Specialty Start Date End Date Sherin Garza MD [address] [place] [address] PCP - General 08/16/01 Tanvir Peñaloza, PAAsrhC [address] [place] [address] Physician Bronc Breaker 12/27/17 Johanna Rodríguez LPN Nurse Coordinator 12/27/17 Sherin Garza MD [address] [place] [address] Assigned PCP 06/15/18
--- OUTSIDE RECORDS SUMMARY | 2024-07-04 15:38 | XMS_ITS | Encounter Summary ---
Author Organization [place] Address [address] [place] [address] Care Team Providers Care County Director Welfare Name Role Phone Sherin Garza MD Primary Care Provider [phone] Tanvir Peñaloza PA-C Unavailable Unavailab Johanna Swenson LPN Unavailable Unavailable Sherin Garza MD Unavailable [phone] Roberta Galvan [facility] Unavailable [phone] Alisson Roth PA-C Unavailable [phone] Adelaida Waterman PA-C Unavailable [phone] Roberta Galvan [facility] Unavailable Jeremy Camejo MD Unavailable Nicolas Barragan MD Unavailable Encounter Details Date Type Department Care Team (Late st Contact Info) Description 06/01/2022 [facility] [place] [address] [place] [address] Roberta Galvan, [facility] [address] [facility] [place] [address] Social History Tobacco Use [...] week 02/23/2022 How often do you attend [facility] or catholic services? More than 4 times per year 02/23/2022 Do you belong to any clubs o r organizations such as sikhism groups, unions, fraternal or athletic groups, or [...] Date Recorded PHQ-2 Score 1 02/23/2022 [facility] - Occupational Stress Questionnaire Answer Date [...] place to sleep or slept in a skilled nursing (including now)? No 02/23/2022 Education Answer Date Recorded What is the highest level of school you have completed or the highest degree you have received? 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 Gender Identity Female 09/17/2018 1:36 AM CDT [...] documented as of this encounter Care Teams County Director Welfare Relationship Specialty Start Date End Date Sherin Garza MD [address] [place] [address] PCP - General 08/16/01 Tanvir Peñaloza PA-C [address] [place] [address] Physician Dual Rate Supervisor 12/27/17 Johanna Rodríguez LPN Nurse Coordinator 12/27/17 hSerin Garza MD [address] [facility] [place] [address] Assigned PCP 06/15/18 Roberta Galvan, [facility] [address] [address] Pharmacist Pharmacist 05/17/21 07/26/22 Alisson Roth PA-C [address] [place] [address] Assigned Surgical Provider 05/14/2102/01/23 Adelaida Waterman PA-C [address] [place] [address] Assigned Sleep Provider 08/06/2104/19 Roberta Galvan, [facility] [address] [address] Assigned MTM Pharmacist 03/28/22 Jeremy Camejo MD [address] [place] [address] Assigned OBGYN Provider 05/26/22 Nicolas Barragan MD [address] [place] [address] Assigned Surgical Provider 02/02/23 documented as of this encounter
--- OUTSIDE RECORDS SUMMARY | 2024-07-04 15:38 | XMS_ITS | Referral Summary ---
Author Organization [place] Address [address] [place] [address] Care Team Providers Care Traffic Coordinator Name Role Phone Sherin Garza MD Primary Care Provider [phone] Tanvir Peñaloza PA-C Unavailable Unavailab Johanna Swenson LPN Unavailable Unavailable Sherin Garza MD Unavailable [phone] Allergies Active Allergy Reactions Criticality Noted Date Comments Food Anaphylaxis High 11/09/2011 Strawberries, mushrooms Albuterol Palpitations Low 01/04/2012 Proventil Brand only. Tachycardia. Tolerates albuterol. Seasonal Allergies Other (See Comments) Medium 014 Runny Nose, Itchy eyes. [place] Extract Anaphylaxis High 09/22/2009 Medications Multiple Vitamins-Minerals (MULTIVITAL PO) Take 1 tablet by mouth daily Active calcium carb 1250 mg, 500 mg inupiat,/vitamin D 200 units (OSCAL WITH D) 500-200 [...] nasal sprayIndications: Seasonal allergic rhinitis, unspecified trigger Sherwood 2 sprays into both nostrils daily 48 [...] Cancer Risk Management Program in which our certified nursing assistant instructor provides an individual screening plan and assists [...] symptoms of ovarian cancer with their primary HYDRAULIC PRESS SERVICER provider, as they may have individualized recommendations. ? Other population cancer screening options, such as those recommended by the [place] [employer] and the National Comprehensive Cancer Network (NCCN), are also appropriate for Alla and her family. These screening recommendations may change if there are changes to Alla's personal and/or family history of cancer. Final screening recommendations should be made by each individual's managing physician. Subcutaneous mass of back 01/23/2021 Overview (01/23/2021): Added automatically from request for surgery [id number] S/P LES (total abdominal hysterectomy) H/O cystostomy 12/07/2020 Chronic right shoulder pain 10/21/2013 ADHD (attention deficit hyperactivity disorder) 02/13/2013 OCD (obsessive compulsive disorder) 02/02/2013 Overview (02/02/2013): Going to [place] [facility] Generalized anxiety disorder 02/02/2013 Chronic midline [...] (11/30/2020): Added automatically from request for surgery [id number] Ovarian cyst, right 11/30/2020 12/10/19 21 Overview (11/30/2020): Added automatically from request for surgery [id number] Right ovarian cyst 11/22/2020 Neck sprain, subsequent encounter 03/24/2018 09/10/2018 Back strain, subsequent encounter 03/24/2018 09/10/2018 Episodic tension-type headac he, not intractable 03/24/2018 09/10/2018 Sprain of right rotator cuff capsule, initial encounter 12/14/2015 11/02/2020 Shoulder pain 10/26/2013 12/06/2014 Health Fpc 02/25/2013 12/16/2023 Overview (02/25/2013): Pt not in [...] 7+ (Tenivac) 06/03/2014 TDAP Vaccine (Adacel) 12/11/2016,04/10/2007 Social History Tobacco Use Types Packs/Day Years [...] How often do you attend chur or adventism services? More than 4 times per year [...] Answer Date Recorded PHQ-2 Score 1 02/23/2022 [facility] - Occupational [...] place to sleep or slept in a correction (including now)? No 02/23/2022 Adolescent Education Answer [...] PM CDT Legal Sex Female 4:00 AM CONTINUOUS IMPROVEMENT LEAD Gender Identity Female 09/17/2018 1:36 AM CDT Sexual Orientation Straight 09/17/2018 1: 36 AM CDT Occupation Industry Job Start Date Job End Date Not on file Not on file Not on file Not on file Last Filed Vital Signs Vital Sign Reading Time Taken Comments Blood Pressure 120/82 08/06/2022 12:20 PM CONTINUOUS IMPROVEMENT LEAD Pulse 63 08/06/2022 12:00 PM CONTINUOUS IMPROVEMENT LEAD Temperature 36.6 C (97.9 F) 08/06/2022 10:50 AM CONTINUOUS IMPROVEMENT LEAD Respiratory Rate 16 08/06/2022 12:20 PM CONTINUOUS IMPROVEMENT LEAD Oxygen Saturation 98% 08/06/2022 12:20 PM CONTINUOUS IMPROVEMENT LEAD Inhaled Oxygen Concentration - - Weight 99.8 kg (220 lb) 08/06/2022 10:50 AM CONTINUOUS IMPROVEMENT LEAD Height 162.6 cm (5' 4) 08/06/2022 10:50 AM CONTINUOUS IMPROVEMENT LEAD Body Mass Index 37.76 08/06/2022 10:50 AM CONTINUOUS IMPROVEMENT LEAD Plan of Treatment Not on file Procedures Procedure Name Priority Date/Time Associated Diagnosis Comments COLONOSCOPY Routine 08/06/2022 10:50 AM CONTINUOUS IMPROVEMENT LEAD GLUCOSE Routine 02/23/2022 10:48 AM CDT Screening for diabetes mellitus LIPID REFLEX TO DIRECT LDL PANEL Routine 02/23/2022 10:48 AM CDT Screening for lipid disorders HEPATITIS C SCREEN REFLEX TO HCV RNA QUANT AND GENOTYPE Routine 01/29/2022 10:59 AM CDT Need for hepatitis C screening test MA SCREENING BILATERAL W/ ANTHONY Routine 08/09/2021 4:38 PM CONTINUOUS IMPROVEMENT LEAD Visit for screening mammogram PAP IMAGED THIN [...] Maintenance Results * COLONOSCOPY (08/06/2022 10:50 AM CONTINUOUS IMPROVEMENT LEAD) COLONOSCOPY [facility] Patient Name: Alla Dias Procedure Date: 08/06/2022 10:50 AM Date [...] monitored continuously. The Olympus Pediatric Colonoscope, Model #[id number]-LM418N, Endora #251, SN#[id number] was introduced through the anus and advanced to the terminal ileum, with identification of the appendiceal orifice and IC valve. The colonoscopy was performed without difficulty. The patient tolerated the procedure well. The quality of the bowel preparation was evaluated using the BBPS ([place] Bowel Preparation Scale) with scores of: Right [...] Residual hemorrhoidal skin tags CPT copyright 2020 [place] [employer]. All rights reserved. The codes documented in this report are preliminary and upon commissary agent review may be revised to meet current [...] AM RADIOLOGY RESULTS 08/06/2022 10:5 0 AM CONTINUOUS IMPROVEMENT LEAD Sherin Garza MD PROCEDURES Final Result RADIOLOGY [...] - BLOOD ORDERABLES Final Re sult LABORATORY [facility] [address] [place] [address] Lab (no room number, 1st [facility] [place] [address], [facility] [phone] * Glucose (02/23/2022 10:48 AM CDT) Glucose 98 70 - 99 mg/dL 02/24/2022 11:50 AM CDT OX LABORATORY Patient Fasting > 8hrs? Yes 02/24/2022 11:50 AM CDT OX LABORATORY Blood STRUCTURE OF LEFT UPPER LIMB / Unknown Venipuncture / Unknown 02/23/2022 10:48 AM CDT 02/23/2022 11:10 AM CDT Sherin Garza MD LAB - BLOOD ORDERABLES Final Re sult Performing Organization Address City/[facility]/ZIP Co de Phone Number LABORATORY [facility] [address] [place] [address] Lab (no room number, [facility]st [facility]) [place] [address], [facility] [phone] * Hepatitis C Screen Reflex to HCV [...] been established for newborns, infants, and children. Estrada Shea MD LAB - BLOOD ORDERABLES Chantale l Result UM SPECIALTY CORE/PROT/ENDO UM Specialty Core/Prot/Endo [address] [facility] [address], [address] [place] [address], [facility] [phone] * MA Screen Bilateral w/Anthony (08/09/2021 4:38 PM CONTINUOUS IMPROVEMENT LEAD) Anatomical Region Laterality Modality Breast Bilateral Mammography Narrative 08/10/2021 7:43 AM CONTINUOUS IMPROVEMENT LEAD BILATERAL FULL FIELD DIGITAL SCREENING MAMMOGRAM WITH [...] order below) (11/04/2020 9:00 AM CDT) PAP JIMBO Reddy Report Patient Name: ALLA DIAS MR#: [id number] Specimen #: [id number] Collected: 11/04/2020 Received: 11/07/2020 Reported: 11/08/2020 10:57 [...] adenocarcinomas or other cancers. COLLECTION SITE: Client: [facility] Location: EAOB (R) The technical component of this testing was completed at the [facility], with the professional component performed at the [facility], [address] [place] [phone] ([phone]) COPATH Cytology 11/04/2020 9:00 AM CDT 11/07/2020 9:38 AM CDT Chris Galvan MD LAB - OPTIME CLINICAL SPECIMEN Final Result COPATH * HPV High Risk Types DNA Cervical (11/04/2020 8:59 AM CDT) HPV Source SurePath 11/04/2020 9:00 AM CDT [facility] BIP[facility] HPV 16 DNA Negative NEG^Nega tive 11/10/2020 2:11 PM CDT [facility] HPV 18 DNA Negative NEG^Nega tive 11/10/2020 2:11 PM CDT [facility] Other HR HPV Negative NEG^Nega tive 11/10/2020 2:11 PM CDT [facility] Final Diagnosis This patient's sample is negative for HPV DNA. 11/10/2020 2:11 PM CDT [facility] Comment: This test was developed and its performance characteristics determined by the [facility], Molecular Diagnostics Laboratory. It has not been [...] Description Cervical Cells 11/04/2020 9:00 AM CDT [facility] Cervical Cells CERVIX UTERI STRUCTURE / Unknown 11/04/2020 8:59 AM CDT 11/04/2020 9:04 AM CDT Chris Galvan MD LAB - BLOOD ORDERABLES Final R esult [facility] [address] [place] [address] [address] [address] * PHQ-9 DEPRESSION SCREENING ORDER (10/30/2019) PHQ9 SCORE 4 Narrative Hallie Amos - 10/30/2019 [facility] PROGRESS NOTE us Provider Outside OTHER Final Result from Last 3 Months or Most Recently Relevant to Health Maintenance Insurance [facility] COMMERCIAL [employer] * Guarantor: Alla Dias Account Type Relation to Patient Date of Phone Billing Address Medication Therapy Self 1975 [address] [address] Advance Directives For more information, please contact: [phone] Documents on File Type Date Recorded Patient 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 Expl 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 Advance Directives and Living Will 01/17/2021 Health Care Directiv e 12/06/2020 * Full Code (Latest Code Status on File) Date Activated Date Inactivated Comments 12/09/2020 7:45 AM 12/21/2020 12:10 PM Question Answer Comments Code status determined by: Discussion with patie nt/ legal decision maker * Full Code Date Activated Date Inactivated Comments 12/07/2020 9:33 PM 12/09/2020 7:45 AM All basic and advanced life-sustaining interventions are performed as appropriate Question Answer Comments Code status determined by: Discussion with patie nt/ legal decision maker Healthcare Agents on File Name Relationship Healthcare Agent Relationshi p Communication Shama Palencia Health Care Agent Kvng Parr First Alternate Health Care Agent Care Teams Traffic Coordinator Relationship Specialty Start Date End Date Sherin Garza MD [address] [employer] [place] [id number] PCP - General 08/16/01 Tanvir Peñaloza PA-C [address] [place] [address] Physician Coal Mine Inspector 12/27/17 Johanna Rodríguez LPN Nurse Coordinator 12/27/17 Sherin Garza MD [address] [employer] [place] [address] Assigned PCP 06/15/18
--- OUTSIDE RECORDS SUMMARY | 2024-07-04 15:38 | XMS_ITS | Encounter Summary ---
Author Organization [place] Address [address] [place] [address]. [place] [address] Care Team Providers Care Communicable Disease Specialist Name Role Phone Sherin Garza MD Primary Care Provider [phone] Tanvir Peñaloza PA-C Unavailable Unavailab Johanna Swenson LPN Unavailable Unavailable Sherin Garza MD Unavailable [phone] Chris Galvan MD Unavailable [phone] Roberta Galvan [facility] Unavailable Alisson Roth PA-C Unavailable [phone] Adelaida Waterman PA-C Unavailable [phone] Roberta Galvan [facility] Unavailable [phone] Jeremy Camejo MD Unavailable Nicolas Barragan MD Unavailable [phone] Encounter Details Date Type Department Care Team (Late st Contact Info) Description 05/09/2022 [facility] [address] [place] [phone] Nikki Ferris Social History Tobacco Use Types Packs/Day Years [...] How often do you attend chur or voodoo services? More than 4 times per year 02/23/2022 Do you belong to any clubs o r organizations such as quaker groups, unions, fraternal or athletic groups, or [...] Answer Date Recorded PHQ-2 Score 1 02/23/2022 [facility] - Occupational Stress Questionnaire Answer Date Recorded [...] place to sleep or slept in a halfway (including now)? No 02/23/2022 Education Answer Date Recorded What is the highest level of school you have completed or the highest degree you have received? 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 No / Unsure 04/18/2022 10:06 AM CDT documented as of this encounter Plan of Treatment Not on file documented as of this encounter Visit Diagnoses Not on filedocumented in this encounter Additional Health Concerns Assessment Noted Time PHQ-9 Depression Total Score: 1 01/30/20 22 10:10 AM CDT documented as of this encounter Care Teams Communicable Disease Specialist Relationship Specialty Start Date End Date Sherin Garza MD [address] [place] [address] PCP - General 08/16/01 Tanvir Peñaloza PA-C [address] [facility] [place] [address] Physician Public Affairs Manager 12/27/17 Johanna Rodríguez LPN Nurse Coordinator 12/27/17 Sherin Garza MD [address] [facility] [place] [address] Assigned PCP 06/15/18 Chris Galvan MD [address] [facility] [address] [place] [address] Assigned OBGYN Provider 11/13/2005/25 Roberta Galvan, [facility] [address] [address] Pharmacist Pharmacist 05/17/21 07/26/22 Alisson Roth PA-C [address] [place] [id number] Assigned Surgical Provider 05/14/2102/01/23 Adelaida Waterman PA-C [address] [place] [address] Assigned Sleep Provider 08/06/2104/19 Roberta Galvan, [facility] [address] [address] Assigned MTM Pharmacist 03/28/22 Jeremy Camejo MD [address] [place] [address] Assigned OBGYN Provider 05/26/22 Nicolas Barragan MD [address] [place] [address] Assigned Surgical Provider 02/02/23 documented as of this encounter
--- OUTSIDE RECORDS SUMMARY | 2024-07-04 15:38 | XMS_ITS | Clinical Summary ---
Author Organization [facility] Address [address] [place] [id number] Phone [email or web address] Care Team Providers Care Senior Private Client Advisor Name Role Phone Unavailable Primary Care Provider Unavailabl e Allergies No known active allergies Medications albuterol (2.5 MG/3ML) 0.083% nebulizer solution Inhale 2.5 mg every 6 hours as needed. 01/04/2022 Active albuterol HFA 108 (90 Base) MCG/ACT inhaler Inhale 2 puffs every 30 minutes as needed. 01/09/2022 Active amphetamine-dex troamphetamine XR (ADDERALL XR) 30 MG 24 hr capsule Take 30 mg by mouth once daily as needed. 12/03/2022 Active Active Problems Problem Noted Date Diagnosed Date Closed head injury 07/11/2023 Asthma 06/12/2006 Social History Tobacco Use Types Packs/Day Years Used Date Smoking Tobacco: Never Assessed Stress Answer Date Recorded Stress in your Life Not on file 05/04/2024 Dealing with Stress 3 05/04/2024 Comments Unknown Sex and Gender Information Value Date Recorded Sex Assigned at Female 07/11/2023 3:34 PM [employer] Legal Sex Female 8:35 AM CDT Gender Identity Female 07/11/2023 3:34 PM [employer] Sexual Orientation Not on file Plan of Treatment Health Maintenance Due Date Last Done Comments Dental Cleaning/Exam 1973 HIV Screening 1973 Hepatitis C Screening 1973 Polio Immunization (3 of 3 - 4-dose series) 1977 1973, 1973 Asthma Spirometry 1978 Cervical Cancer Screening 1989 Hep B Infection Screening - Triple Screen 1991 Hepatitis B Immunization (1 of 3 - 19+ 3-dose series) 1992 Breast Cancer Screening 2003 Colorectal Cancer Screening 2003 Pneumococcal: Ped (0 to 5 Yrs) and At-Risk Member (6 to 64 Yrs) (2 of 2 - PCV) 02/28/2016 02/27/2015 Annual Preventive Exam 05/01/2020 , 01/17/2018, 12/11/2016, Additional history exists Zoster Immunization (1 of 2) 2023 Covid-19 Immunization (3 - season) 2024 11/10/2020, 10/20/2020 Influenza Immunization (#1) 03/01/202401/30, 03/19/2014, 03/11/2013, Additional history exists Tetanus Diphtheria and Pertussis Immunization (7 - Td or Tdap) 12/11/2026 12/11/2016, 06/03/2014, 04/10/2007, Additional history exists HIB Immunization Aged Out No longer e ligible based on patient's age to complete this topic HPV Immunization Aged Out No longer e ligible based on patient's age to complete this topic Hepatitis A Immunization Aged Out No longer eligible based on patient's age to complete this topic Insurance [facility]
--- OUTSIDE RECORDS SUMMARY | 2024-07-04 15:38 | XMS_ITS | Clinical Summary ---
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 medical imagingexams and procedure reports are released immediately into your electronicmedical record. You may view this report before your referring provider.If you have questions, please contact your health care provider. Indication: Injury and pain Technique: Right ankle 3 views. Comparison: None Findings: Lateral soft tissue swelling. No acute fracture. Small chronic ossicleadjacent to the tip of the lateral malleolus and additional chronicossicle adjacent to the tip of the medial malleolus. Narrowing at themedial mortise with mild spurring at the anterior tibial plafond. Normalcalcaneal alignment. Small posterior calcaneal spur. Impression: No evidence of acute fracture. Sequela of prior trauma to the ankle withmild tibiotalar degenerative joint disease. Dictated by Vini Reyes MD @ 04/05/2024 9:24:41 PM (Electronically Signed) us Yeison Villalta MD GENERAL IMAGING Final Resul t * SCAN-OPERATIVE/PROCEDURE REPORT (04/03/2024 12:00 AM CDT) us Scanner OTHER Final Result * XR MAMMO LOU BILAT SCREEN (03/12/2024 7:30 AM CDT) Anatomical Region Laterality Modality BREASTS, Breast Left, Breast Right Bilateral Mammography Impressions 03/12/2024 2:33 PM CDT There is no radiographic evidence for malignancy. Recommend annual mammograms. MAMMOGRAM ASSESSMENT: ACR 1 Negative PATIENTS: You will also receive a letter with your examination results in an easy to read format. If you have questions about your results, please contact your referring provider. Narrative 03/12/2024 2:33 PM CDT For Patients: As a result of the Century Cures Act, medical imaging exams and procedure reports are released immediately into your electronic medical record. You may view this report before your referring provider. If you have questions, please contact your health care provider. XR MAMMO LOU BILAT SCREEN [[id number]] CLINICAL HISTORY: This is an asymptomatic 48 y.o. patient. INDICATION FOR EXAM: Mammogram Screening. TECHNIQUE: CC & MLO views were obtained. This study was evaluated with the assistance of Computer-Aided Detection. Breast Tomosynthesis was used in interpretation. COMPARISON FILM: Yes 11/28/22 [facility] 08/09/21 [facility] FINDINGS: The breasts are heterogeneously dense, which may obscure small masses. There are no dominant masses, suspicious micro calcifications or areas of architectural distortion. us Amy FRANCOIS MAMMO Final Res ult from Last 3 Months or Most Recently Relevant to Health Maintenance Insurance HP BIPINJEFF [id number] ALLEGIANCE CBCS NON CORVEL Advance Directives * Full Code (Latest Code Status on File) Date Activated Date Inactivated Comments 02/27/2023 10:18 AM 02/28/2023 2:41 PM Question Answer Comments Code Status Discussion: Reviewed Preferences Care Teams Fountain Dispenser Relationship Specialty Start Date End Date Pcp, No . PCP - General 03/05/24 Vini Gong PsyD, LP [address] [place] [address] Psychology 11/29/21 Morelia Tineo, NIKKI [address] [id number] [place] [address] Occupational Therapy 11/30/21 Danuta Mata [address] [place] [address] Care Guide 01/17/22
--- OUTSIDE RECORDS SUMMARY | 2024-07-04 15:38 | XMS_ITS | Encounter Summary ---
Author Organization [place] Address [address] [facility] [place] [address] Care Team Providers Care Chemical Milling Processor Name Role Phone Sherin Garza MD Primary Care Provider [phone] Tanvir Peñaloza PA-C Unavailable Unavailab Johanna Swenson LPN Unavailable Unavailable Sherin Garza MD Unavailable [phone] Roberta Galvan [facility] Unavailable Alisson Roth PA-C Unavailable [phone] Adelaida Waterman PA-C Unavailable [phone] Roberta Galvan [facility] Unavailable Jeremy Camejo MD Unavailable Nicolas Barragan MD Unavailable [phone] Encounter Details Date Type Department Care Team (Late st Contact Info) Description 06/11/2022 [facility] [place] [address] [facility] [address] [place] [address] Sherin Garza MD [address] [facility] [place] [address] Social History Tobacco Use Types Packs/Day Years [...] week 02/23/2022 How often do you attend [facility] or worship services? 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 Gender Identity Female 09/17/2018 1:36 AM CDT [...] documented as of this encounter Care Teams Chemical Milling Processor Relationship Specialty Start Date End Date Sherin Garza MD [address] [facility] [place] [address] PCP - General 08/16/01 O'Tanvir Brothers PA-C [address] [facility] [place] [address] Physician Machine Zipper Trimmer 12/27/17 Johanna Rodríguez LPN Nurse Coordinator 12/27/17 Sherin Garza MD [address] [facility] [place] [address] Assigned PCP 06/15/18 Roberta Galvan, [facility] [address] [place] [address] Pharmacist Pharmacist 05/17/21 07/26/22 Alisson Roth PA-C [address] [place] [address] Assigned Surgical Provider 05/14/2102/01/23 Adelaida Waterman PA-C [address] [place] [address] Assigned Sleep Provider 08/06/2104/19 Roberta Galvan, [facility] [address] [address] Assigned MTM Pharmacist 03/28/22 Jeremy Camejo MD [address] [place] [address] Assigned OBGYN Provider 05/26/22 Nicolas Barragan MD 9 [place] [address] Assigned Surgical Provider 02/02/23 documented as of this encounter
--- OUTSIDE RECORDS SUMMARY | 2024-07-04 15:38 | XMS_ITS | Encounter Summary ---
Author Organization [place] Address [address] [place] [address]. [place] [address] Care Team Providers Care Wharf Tally Clerk Name Role Phone Sherin Garza MD Primary Care Provider [phone] Tanvir Peñaloza PA-C Unavailable Unavailab Johanna Swenson LPN Unavailable Unavailable Sherin Garza MD Unavailable [phone] Chris Galvan MD Unavailable [phone] Roberta Galvan [facility] Unavailable [phone] Alisson Roth PA-C Unavailable + [phone] Adelaida Waterman PA-C Unavailable [phone] Roberta Galvan [facility] Unavailable [phone] Jeremy Camejo MD Unavailable [phone] Nicolas Barragan MD Unavailable [phone] Encounter Details Date Type Department Care Team (Late st Contact Info) Description 05/09/2022 [facility] [address] [place] [address] Nikki Ferris Social History Tobacco Use [...] any clubs o r organizations such as moravian groups, unions, fraternal or athletic groups, or [...] Answer Date Recorded PHQ-2 Score 1 02/23/2022 [facility] - Occupational Stress Questionnaire Answer [...] place to sleep or slept in a nursing home (including now)? No 02/23/2022 Education Answer Date Recorded What is the highest level of school you have completed or the highest degree you have received? 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 Gender Identity Female 09/17/2018 1:36 AM CDT [...] documented as of this encounter Care Teams Wharf Tally Clerk Relationship Specialty Start Date End Date Sherin Garza MD [address] [place] [address] PCP - General 08/16/01 Tanvir Peñaloza PA-C [address] [facility] [place] [address] Physician Windmill Mechanic 12/27/17 Johanna Rodríguez LPN Nurse Coordinator 12/27/17 Sherin Garza MD [address] [facility] [place] [address] Assigned PCP 06/15/18 Chris Galvan MD [address] [facility] [address] [place] [address] Assigned OBGYN Provider 11/13/2005/25 Roberta Galvan, [facility] [address] [address] Pharmacist Pharmacist 05/17/21 07/26/22 Alisson Roth PA-C [address] [place] [address] Assigned Surgical Provider 05/14/2102/01/23 Adelaida Waterman PA-C [address] [place] [address] Assigned Sleep Provider 08/06/2104/19 Roberta Galvan, [facility] [address] [address] Assigned MTM Pharmacist 03/28/22 Jeremy Camejo MD [address] [place] [address] Assigned OBGYN Provider 05/26/22 Nicolas Barragan MD 9 [place] [address] Assigned Surgical Provider 02/02/23 documented as of this encounter
--- OUTSIDE RECORDS SUMMARY | 2024-07-04 15:39 | XMS_ITS | Encounter Summary ---
Author Organization [place] Address [address] [facility] [address] Care Team Providers Care Wrestling Coach Name Role Phone Sherin Garza MD Primary Care Provider [phone] Tanvir Peñaloza PA-C Unavailable Unavailab Johanna Swenson LPN Unavailable Unavailable Sherin Garza MD Unavailable [phone] Chris Galvan MD Unavailable [phone] Roberta Galvan [facility] Unavailable Alisson Roth PA-C Unavailable [phone] Adelaida Waterman PA-C Unavailable [phone] Roberta Galvan [facility] Unavailable [phone] Roberta Galvan [facility] Unavailable [phone] Jeremy Camejo MD Unavailable [phone] Nicolas Barragan MD Unavailable [phone] Encounter Details Date Type Department Care Team (Late st Contact Info) Description 07/20/2021 [facility] [place] [address] [facility] [address] [place] [address] Sherin Garza MD [address] [facility] [place] [address] Social History Tobacco Use Types Packs/Day Years Used Date Smoking Tobacco: Never Smokeless Tobacco: Never Alcohol Use Standard Drinks/Week Comments Yes 0 (1 standard drink = 0.6 oz pur e alcohol) Occasionally 1-2 /week Social Connection and Isolation Panel [NHANES] A nswer Date Recorded Frequency of Communication w ith Friends and Family Twice a week 05/01/2019 Frequency of Social Gatherin gs with Friends and Family Once a week 05/01/2019 Attends [employer] Services Patient declined 07/2018 Active Member of Clubs or Organizations Yes 05/01/2019 Attends Club or Organization Meetings 1 to 4 lu es per year 05/01/2019 Marital Status Never 05/01/2019 AUDIT-C Answer Date Recorded Q1: How often do you have a drink containing alc ohol? 2-3 times a week 05/01/2019 Q2: How many drinks containi ng alcohol do you have on a typical day when you are drinking? 1 or 2 05/01/2019 Q3: How often do you have si x or more drinks on one occasion? Never 05/01/2019 Overall Financial Resource Strain (CARDIA) Answe r Date Recorded How hard is it for you to pa y for the very basics like food, housing, medical care, and heating? Somewhat hard 05/01/2019 PHQ-2 Answer Date Recorded PHQ-2 Total Score (Adult) - Positive if 3 or more points; Administer PHQ-9 if positive 1 01/17/2021 [facility] - Occupational Stress Questionnaire Answer Date Recorded Feeling of Stress Very much 05/01/2019 Hunger Vital Sign Answer Date Recorded Within the past 12 months, y ou worried that your food would run out before you got the money to buy more. Often true Within the past 12 months, t he food you bought just didn't last and you didn't have money to get more. Sometimes true 07/2018 PRAPARE - Transportation Answer Date Re corded In the past 12 months, has l ack of transportation kept you from medical appointments or from getting medications? No 07/2018 In the past 12 months, has l ack of transportation kept you from meetings, work, or from getting things needed for daily living? No 05/01/2019 Education Answer Date Recorded What is the highest level of school you have completed or the highest degree you have received? 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 D RING ASSEMBLER documented in this encounter Plan of Treatment Not on file documented as of this encounter Visit Diagnoses Not on filedocumented in this encounter Additional Health Concerns Assessment Noted Time PHQ-9 Depression Total Score: 3 01/19/20 21 7:03 AM CDT documented as of this encounter Care Teams Wrestling Coach Relationship Specialty Start Date End Date Sherin Garza MD [address] [place] [address] PCP - General 08/16/01 Tanvir Peñaloza PAArshC [address] [place] [address] Physician Mailroom Supervisor 12/27/17 Johanna Rodríguez LPN Nurse Coordinator 12/27/17 Sherin Garza MD [address] [place] [address] Assigned PCP 06/15/18 Chris Galvan MD [address] [facility] [address] [place] [address] Assigned OBGYN Provider 11/13/2005/25 Roberta Galvan [facility] [address] [address] Pharmacist Pharmacist 05/17/21 07/26/22 Alisson Roth PA-C [address] [place] [address] Assigned Surgical Provider 05/14/2102/01/23 Adelaida Waterman PA-C [address] [place] [address] Assigned Sleep Provider 08/06/2104/19 Roberta Galvan [facility] [address] [address] Assigned MTM Pharmacist 12/23/21 Roberta Galvan [facility] [address] [address] Assigned MTM Pharmacist 03/28/22 Jeremy Camejo MD [facility] [place] [address] Assigned OBGYN Provider 05/26/22 Nicolas Barragan MD [address] [place] [address] Assigned Surgical Provider 02/02/23 documented as of this encounter
--- OUTSIDE RECORDS SUMMARY | 2024-07-04 15:39 | XMS_ITS | Encounter Summary ---
Author Organization [place] Address [address] [facility] [place] [address] Care Team Providers Care Single Pass Soil Stabilizer Operator Name Role Phone Sherin Garza MD Primary Care Provider [phone] Tanvir Peñaloza PA-C Unavailable Unavailab Johanna Swenson LPN Unavailable Unavailable Sherin Garza MD Unavailable [phone] Chris Galvan MD Unavailable [phone] Roberta Galvan [facility] Unavailable [phone] Alisson Roth PA-C Unavailable [phone] Adelaida Waterman PA-C Unavailable [phone] Roberta Galvan [facility] Unavailable [phone] Roberta Galvan [facility] Unavailable [phone] Jeremy Camejo MD Unavailable Nicolas Barragan MD Unavailable [phone] Encounter Details Date Type Department Care Team (Late st Contact Info) Description 08/29/2021 [facility] Medical Advice [facility] [address] [place] [address] [address] [place] [address] Peace Llanos CMA Social History Tobacco Use Types Packs/Day Years [...] and Family Once a week 05/01/2019 Attends [employer] Patient declined 07/2018 Active Member of [...] points; Administer PHQ-9 if positive 1 01/17/2021 [facility] Occupat ional Health - Occupational Stress [...] PM CDT Legal Sex Female 4:00 AM VAT PACKER Gender Identity Female 09/17/2018 1:36 AM CDT Sexual Orientation Straight 09/17/2018 1: 36 AM CDT Occupation Industry Job Start Date Job End Date Not on file Not on file Not on file Not on file COVID-19 Exposure Response Date Recorded In the last month, have you been in contact with someone who was confirmed or suspected to have Coronavirus / COVID-19? No / Unsure 08/17/2021 3:57 PM VAT PACKER documented as of this encounter Plan of Treatment Not on file documented as of this encounter Visit Diagnoses Not on filedocumented in this encounter Additional Health Concerns Assessment Noted Time PHQ-9 Depression Total Score: 5 09/09/19 7:01 AM VAT PACKER documented as of this encounter Care Teams Single Pass Soil Stabilizer Operator Relationship Specialty Start Date End Date Sherin Garza MD [address] [employer] [facility] [place] [address] PCP - General 08/16/01 Tanvir Peñaloza, PA-C [address] [facility] [place] [address] Physician Osteopathic Physician 12/27/17 Johanna Rodríguez LPN Nurse Coordinator 12/27/17 Sherin Garza MD [address] [facility] [place] [address] Assigned PCP 06/15/18 Chris Galvan MD [address] [facility] [address] [place] [address] Assigned OBGYN Provider 11/13/2005/25 Roberta Galvan, [facility] [address] [address] Pharmacist Pharmacist 05/17/21 07/26/22 Alisson Roth PA-C [address] [place] [address] Assigned Surgical Provider 05/14/2102/01/23 Adelaida Waterman PA-C [address] [place] [address] Assigned Sleep Provider 08/06/2104/19 Roberta Galvan, [facility] [address] [id number] Assigned MTM Pharmacist 12/23/21 Roberta Galvan, [facility] [address] [address] Assigned MTM Pharmacist 03/28/22 Jeremy Camejo MD [address] [place] [address] Assigned OBGYN Provider 05/26/22 Nicolas Barragan MD [address] [place] [address] Assigned Surgical Provider 02/02/23 documented as of this encounter
--- OUTSIDE RECORDS SUMMARY | 2024-07-04 15:39 | XMS_ITS | Encounter Summary ---
Author Organization [place] Address [facility] [place] [address] Care Team Providers Care It Operations Specialist Name Role Phone Sherin Garza MD Primary Care Provider [phone] Tanvir Peñaloza PA-C Unavailable Unavailab Johanna Swenson LPN Unavailable Unavailable Sherin Garza MD Unavailable [phone] Jose M Bearden Unavailable Unavailable Chris Galvan MD Unavailable [phone] Roberta Galvan [facility] Unavailable [phone] Alisson Roth PA-C Unavailable [phone] Adelaida Waterman PA-C Unavailable [phone] Roberta Galvan [facility] Unavailable Roberta Galvan [facility] Unavailable [phone] Jeremy Camejo MD Unavailable [phone] Nicolas Barragan MD Unavailable [phone] Encounter Details Date Type Department Care Team (Late st Contact Info) Description 05/14/2021 [facility] Medical Advice [facility] Scheduling [facility] [place] [address] [address] Alex Social History Tobacco Use Types Packs/Day Years [...] and Family Once a week 05/01/2019 Attends [employer] Services Patient declined 07/2018 Active Member of [...] points; Administer PHQ-9 if positive 1 01/17/2021 [facility] Occupat ional Health - [...] PM CDT Legal Sex Female 4: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 [place] [address] PCP - General 08/16/01 Tanvir Peñaloza PA-C [address] [place] [employer] [facility] [place] [address] Physician Copper Roller Handler Printing 12/27/17 Johanna Rodríguez LPN Nurse Coordinator 12/27/17 Sherin Garza MD [address] [facility] [place] [address] Assigned PCP 06/15/18 Jose M Bearden Personal Advocate & Liaison (PAL) 05/01/19 05/16/21 Chris Galvan MD [address] [facility] [address] [place] [address] Assigned OBGYN Provider 11/13/2005/25 Roberta Galvan [facility] [address] [place] [address] Pharmacist Pharmacist 05/17/21 07/26/22 Alisson Roth PA-C [address] [place] [address] Assigned Surgical Provider 05/14/2102/01/23 Adelaida Waterman PA-C [address] [place] [address] Assigned Sleep Provider 08/06/2104/19 Roberta Galvan, [facility] [address] [address] Assigned MTM Pharmacist 12/23/21 Roberta Galvan, [facility] [address] [address] Assigned MTM Pharmacist 03/28/22 Jeremy Camejo MD [address] [place] [address] Assigned OBGYN Provider 05/26/22 Nicolas Barragan MD [address] [place] [address] Assigned Surgical Provider 02/02/23 documented as of this encounter
--- OUTSIDE RECORDS SUMMARY | 2024-07-04 15:39 | XMS_ITS | Encounter Summary ---
Author Organization [place] Address [address] [place] [address] Care Team Providers Care Payroll Accounting Clerk Name Role Phone Sherin Garza MD Primary Care Provider [phone] Tanvir Peñaloza PA-C Unavailable Unavailab Johanna Swenson LPN Unavailable Unavailable Sherin Garza MD Unavailable [phone] Chris Galvan MD Unavailable [phone] Roberta Galvan [facility] Unavailable Alisson Roth PA-C Unavailable + [phone] Adelaida Waterman PA-C Unavailable [phone] Roberta Galvan [facility] Unavailable Roberta Galvan [facility] Unavailable [phone] Jeremy Camejo MD Unavailable [phone] Nicolas Barragan MD Unavailable [phone] Encounter Details Date Type Department Care Team (Late st Contact Info) Description 07/10/2021 [facility] [address] [address] Alayna Garcia Social History Tobacco Use Types Packs/Day Years [...] and Family Once a week 05/01/2019 Attends [employer] Services Patient declined 07/2018 Active Member of [...] points; Administer PHQ-9 if positive 1 01/17/2021 [facility] Occupat ional Health - Occupational [...] PM CDT Legal 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 Female 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 Gender Identity Female 09/17/2018 1:36 AM CDT [...] documented as of this encounter Care Teams Payroll Accounting Clerk Relationship Specialty Start Date End Date Sherin Garza MD [address] [facility] [place] [address] PCP - General 08/16/01 Tanvir Peñaloza PA-C [address] [place] [address] [place] [address] Physician Drawing Tender 12/27/17 Johanna Rodríguez LPN Nurse Coordinator 12/27/17 Sherin Garza MD [address] [facility] [place] [address] Assigned PCP 06/15/18 Chris Galvan MD [address] [facility] [address] [place] [address] Assigned OBGYN Provider 11/13/2005/25 Roberta Galvan [facility] [address] [id number] Pharmacist Pharmacist 05/17/21 07/26/22 Alisson Roth PA-C [address] [place] [address] Assigned Surgical Provider 05/14/2102/01/23 Adelaida Waterman PA-C [address] [address] Assigned Sleep Provider 08/06/2104/19 Roberta Galvan [facility] [address] [place] [address] Assigned MTM Pharmacist 12/23/21 Roberta Galvan [facility] [address] [place] [address] Assigned MTM Pharmacist 03/28/22 Jeremy Camejo MD [facility] [place] [address] Assigned OBGYN Provider 05/26/22 Nicolas Barragan MD [address] [place] [address] Assigned Surgical Provider 02/02/23 documented as of this encounter
--- OUTSIDE RECORDS SUMMARY | 2024-07-04 15:39 | XMS_ITS | Encounter Summary ---
Author Organization [place] Address [address] [facility] [place] [address] Care Team Providers Care 3Rd Mate Name Role Phone Sherin Garza MD Primary Care Provider [phone] Tanvir Peñaloza PA-C Unavailable Unavailab Johanna Swenson LPN Unavailable Unavailable Sherin Garza MD Unavailable [phone] Chris Galvan MD Unavailable [phone] Roberta Galvan [facility] Unavailable Alisson Roth PA-C Unavailable + [phone] Adelaida Waterman PA-C Unavailable [phone] Roberta Galvan [facility] Unavailable [phone] Roberta Galvan [facility] Unavailable [phone] Jeremy Camejo MD Unavailable Nicolas Barragan MD Unavailable [phone] Encounter Details Date Type Department Care Team (Late st Contact Info) Description 10/13/[address] 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 No / Unsure 10/05/2021 7:05 AM CDT documented as of this encounter Plan of Treatment Not on file documented as of this encounter Visit Diagnoses Not on filedocumented in this encounter Additional Health Concerns Assessment Noted Time PHQ-9 Depression Total Score: 5 09/09/19 7:01 AM STILL OPERATOR WHISKEY documented as of this encounter Care Teams 3Rd Mate Relationship Specialty Start Date End Date Sherin Garza MD [address] [facility] [place] [address] PCP - General 08/16/01 Tanvir Peñaloza, PA-C [address] [facility] [place] [address] Physician Transcribing Machine Mechanic 12/27/17 Johanna Rodríguez LPN Nurse Coordinator 12/27/17 Sherin Garza MD [address] [facility] [place] [address] Assigned PCP 06/15/18 Chris Galvan MD [address] [facility] [address] [place] [address] Assigned OBGYN Provider 11/13/2005/25 Roberta Galvan, [facility] [address] [address] Pharmacist Pharmacist 05/17/21 07/26/22 Alisson Roth PA-C [address] [place] [address] Assigned Surgical Provider 05/14/2102/01/23 Adelaida Waterman PA-C [address] [place] [address] Assigned Sleep Provider 08/06/2104/19 Roberta Galvan, [facility] [address] [address] Assigned MTM Pharmacist 12/23/21 Roberta Galvan, [facility] [address] [address] Assigned MTM Pharmacist 03/28/22 Jeremy Camejo MD [address] [place] [address] Assigned OBGYN Provider 05/26/22 Nicolas Barragan MD [address] [place] [address] Assigned Surgical Provider 02/02/23 documented as of this encounter
--- OUTSIDE RECORDS SUMMARY | 2024-07-04 15:39 | XMS_ITS | Encounter Summary ---
Author Organization [place] Address [facility] [place] [address] Care Team Providers Care Homebirth Midwife Name Role Phone Sherin Garza MD Primary Care Provider [phone] Tanvir Peñaloza PA-C Unavailable Unavailab Johanna Swenson LPN Unavailable Unavailable Sherin Garza MD Unavailable [phone] Chris Galvan MD Unavailable [phone] Roberta Galvan [facility] Unavailable Alisson Roth PA-C Unavailable + [phone] Adelaida Waterman PA-C Unavailable + [phone] Roberta Galvan [facility] Unavailable [phone] Jeremy Camejo MD Unavailable Nicolas Barragan MD Unavailable [phone] Reason for Visit * Reason Onset Date Comments MyChart Communication 04/23/2022 Nebulizer supplies Encounter Details Date Type Department Care Team (Latest Contact Info) Description 04/23/2022 [facility] [place] [address] [facility] [address] [place] [address] Sherin Garza MD [address] [facility] [place] [address] [place] Communication (Nebulizer supplies) Social History Tobacco Use Types Packs/Day Years [...] week 02/23/2022 How often do you attend [facility] or restorationist services? More than 4 times per year 02/23/2022 Do you belong to any clubs o r organizations such as caodaism groups, unions, fraternal or athletic groups, or [...] Answer Date Recorded PHQ-2 Score 1 02/23/2022 [facility] of Occupat ional Health - Occupational Stress [...] place to sleep or slept in a mcfp (including now)? No 02/23/2022 Education Answer Date Recorded What is the highest level of school you have completed or the highest degree you have received? 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 Carleen Sánchez on 04/24/2022 at 7:22 AM * Telephone Encounter - Sherin Garza MD - 04/23/2022 5:11 PM CDT Please hand fax * Telephone Encounter - Chelo Victoria RN - 04/23/2022 2:[address] Garza, Please se [facility] message from pt regarding nebulizer supplies. DME order pended Thank you Chelo Victoria RN on 04/23/2022 at 3:11 PM documented in this encounter Plan of Treatment Not on file documented as of this encounter Visit Diagnoses Diagnosis Moderate persistent asthma without complication- Primary Unspecified asthma documented in this encounter Additional Health Concerns Assessment Noted Time PHQ-9 Depression Total Score: 1 01/30/20 22 10:10 AM CDT documented as of this encounter Care Teams Homebirth Midwife Relationship Specialty Start Date End Date Sherin Garza MD [address] [place] [address] PCP - General 08/16/01 Tanvir Peñaloza, PAArshC [address] [place] [address] Physician Recycle Driver 12/27/17 Johanna Rodríguez LPN Nurse Coordinator 12/27/17 Sherin Garza MD [address] [place] [address] Assigned PCP 06/15/18 Chris Galvan MD [address] [address] Assigned OBGYN Provider 11/13/2005/25 Roberta Galvan, [facility] [address] [address] Pharmacist Pharmacist 05/17/21 07/26/22 Alisson Roth PA-C [address] [place] [address] Assigned Surgical Provider 05/14/2102/01/23 Adelaida Waterman PA-C [address] [place] [address] Assigned Sleep Provider 08/06/2104/19 Roberta Galvan [facility] [address] [address] Assigned MTM Pharmacist 03/28/22 Jeremy Camejo MD [address] [place] [address] Assigned OBGYN Provider 05/26/22 Nicolas Barragan MD [address] [place] [address] Assigned Surgical Provider 02/02/23 documented as of this encounter
--- OUTSIDE RECORDS SUMMARY | 2024-07-04 15:39 | XMS_ITS | Encounter Summary ---
Author Organization [place] Address [address] [facility] [place] [address] Care Team Providers Care Grounds/Maintenance Specialist Name Role Phone Sherin Garza MD Primary Care Provider [phone] Tanvir Peñaloza PA-C Unavailable Unavailab Johanna Swenson LPN Unavailable Unavailable Sherin Garza MD Unavailable [phone] Chris Galvan MD Unavailable [phone] Roberta Galvan [facility] Unavailable [phone] Alisson Roth PA-C Unavailable [phone] Adelaida Waterman PA-C Unavailable + [phone] Roberta Galvan [facility] Unavailable [phone] Roberta Galvan [facility] Unavailable [phone] Jeremy Camejo MD Unavailable Nicolas Barragan MD Unavailable [phone] Encounter Details Date Type Department Care Team (Late st Contact Info) Description 08/08/2021 [facility] [place] [address] [facility] [address] [place] [address] Sherin Garza MD [address] [facility] [place] [address] Social History Tobacco Use Types Packs/Day Years [...] and Family Once a week 05/01/2019 Attends Adventism Services Patient declined 07/2018 Active Member of [...] points; Administer PHQ-9 if positive 1 01/17/2021 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 No / Unsure 08/09/2021 9:40 AM BASKETBALL REFEREE documented as of this encounter Miscellaneous Notes * Telephone Encounter - Jayda Nesbitt LPN - 08/09/2021 7:50 AM CST Referral is not in chart, tried to do referral for ENT specialty care and it does not come up, states not found.please put referral in, it is in message dated 07/31/21. Jayda Nesbitt LPN ETBALL REFEREE documented in this encounter Plan of Treatment Not on file documented as of this encounter Visit Diagnoses Not on filedocumented in this encounter Additional Health Concerns Assessment Noted Time PHQ-9 Depression Total Score: 3 01/19/20 21 7:03 AM CDT documented as of this encounter Care Teams Grounds/Maintenance Specialist Relationship Specialty Start Date End Date Sherin Garza MD [email or web address] [place] [address] PCP - General 08/16/01 Tanvir Peñaloza, TONY [address] [email or web address] [place] [address] Physician Telephone Lineman 12/27/17 Johanna Rodríguez LPN Nurse Coordinator 12/27/17 Sherin Garza MD [address] [facility] [place] [address] Assigned PCP 06/15/18 Chris Galvan MD [address] [facility] [address] [place] [address] Assigned OBGYN Provider 11/13/2005/25 Roberta Galvan, [facility] [address] [address] Pharmacist Pharmacist 05/17/21 07/26/22 Alisson Roth PA-C [address] [place] [address] Assigned Surgical Provider 05/14/2102/01/23 Adelaida Waterman PA-C [address] [place] [address] Assigned Sleep Provider 08/06/2104/19 Roberta Galvan, [facility] [address] [address] Assigned MTM Pharmacist 12/23/21 Roberta Galvan, [facility] [address] [address] Assigned MTM Pharmacist 03/28/22 Jeremy Camejo MD [address] [address] Assigned OBGYN Provider 05/26/22 Nicolas Barragan MD [address] [place] [address] Assigned Surgical Provider 02/02/23 documented as of this encounter
--- OUTSIDE RECORDS SUMMARY | 2024-07-04 15:39 | XMS_ITS | Encounter Summary ---
Author Organization [place] Address [address] [facility] [place] [address] Care Team Providers Care Sensor Specialist Name Role Phone Sherin Garza MD Primary Care Provider [phone] Tanvir Peñaloza PA-C Unavailable Unavailab Johanna Swenson LPN Unavailable Unavailable Sherin Garza MD Unavailable [phone] Chris Galvan MD Unavailable [phone] Roberta Galvan [facility] Unavailable Alisson Roth PA-C Unavailable + [phone] Adelaida Waterman PA-C Unavailable + [phone] Roberta Galvan [facility] Unavailable [phone] Jeremy Camejo MD Unavailable [phone] Nicolas Barragan MD Unavailable [phone] Encounter Details Date Type Department Care Team (Late st Contact Info) Description 05/07/2022 [facility] [address] [place] [address] Zackary Matamoros Social History Tobacco Use Types Packs/Day Years [...] week 02/23/2022 How often do you attend [facility] or baptism services? More than 4 times per year 02/23/2022 Do you belong to any clubs o r organizations such as anabaptist groups, unions, fraternal or athletic groups, or [...] Answer Date Recorded PHQ-2 Score 1 02/23/2022 [facility] Questionnaire Answer Date Recorded [...] place to sleep or slept in a long term (including now)? No 02/23/2022 Education Answer Date Recorded What is the highest level of school you have completed or the highest degree you have received? 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 Gender Identity Female 09/17/2018 1:36 AM CDT [...] documented as of this encounter Care Teams Sensor Specialist Relationship Specialty Start Date End Date Sherin Garza MD [address] [facility] [place] [address] PCP - General 08/16/01 Tanvir Peñaloza PA-C [address] [facility] [place] [address] Physician Pump Servicer 12/27/17 Johanna Rodríguez LPN Nurse Coordinator 12/27/17 Sherin Garza MD [address] [facility] [place] [address] Assigned PCP 06/15/18 Chris Galvan MD [address] [facility] [address] [place] [address] Assigned OBGYN Provider 11/13/2005/25 Roberta Galvan [facility] [address] [id number] Pharmacist Pharmacist 05/17/21 07/26/22 Alisson Roth PA-C [address] [place] [address] Assigned Surgical Provider 05/14/2102/01/23 Adelaida Waterman PA-C [address] [place] [address] Assigned Sleep Provider 08/06/2104/19 Roberta Galvan [facility] [address] [address] Assigned MTM Pharmacist 03/28/22 Jeremy Camejo MD [address] [place] [address] Assigned OBGYN Provider 05/26/22 Nicolas Barragan MD [address] [place] [address] Assigned Surgical Provider 02/02/23 documented as of this encounter
--- OUTSIDE RECORDS SUMMARY | 2024-07-04 15:39 | XMS_ITS | Encounter Summary ---
Author Organization [place] Address [address] [place] [address] Care Team Providers Care Real Time Trader Name Role Phone Sherin Garza MD Primary Care Provider [phone] Tanvir Peñaloza PA-C Unavailable Unavailab Johanna Swenson LPN Unavailable Unavailable Sherin Garza MD Unavailable [phone] Jose M Bearden Unavailable Unavailable Chris Galvan MD Unavailable [phone] Vini Joyce MD Unavailable [phone] Roberta Galvan [facility] Unavailable Alisson Roth PA-C Unavailable [phone] Adelaida Waterman PA-C Unavailable + [phone] Roberta Galvan [facility] Unavailable Roberta Galvan [facility] Unavailable [phone] Jeremy Camejo MD Unavailable [phone] Nicolas Barragan MD Unavailable [phone] Encounter Details Date Type Department Care Team (Late st Contact Info) Description 03/14/2021 [facility] Medical Advice [facility] [address] [place] [address] [address] [place] [address] Janina Hussein, MEDICAL COLLECTIONS SPECIALIST Social History Tobacco Use Types Packs/Day Years [...] and Family Once a week 05/01/2019 Attends Hoahaoism Services Patient declined 07/2018 Active Member of [...] points; Administer PHQ-9 if positive 1 01/17/2021 [facility] - Occupational Stress Questionnaire Answer [...] PM CDT Legal 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 [place] [address] Physician Marketing Representative 12/27/17 Johanna Rodríguez LPN Nurse Coordinator 12/27/17 Sherin Garza MD [address] [facility] [place] [address] Assigned PCP 06/15/18 Jose M Bearden Personal Advocate & Liaison (PAL) 05/01/19 05/16/21 Chris Galvan MD [address] [place] [address] Assigned OBGYN Provider 11/13/2005/25 Vini Joyce MD [address] [place] [address] Assigned Surgical Provider 01/29/21 Roberta Galvan, [facility] [address] [id number] Pharmacist Pharmacist 05/17/21 07/26/22 Alisson Roth PA-C [address] [place] [address] Assigned Surgical Provider 05/14/2102/01/23 Adelaida Waterman PA-C [address] [place] [address] Assigned Sleep Provider 08/06/2104/19 Roberta Galvan [facility] [address] [id number] Assigned MTM Pharmacist 12/23/21 Roberta Galvan, [facility] [address] [id number] Assigned MTM Pharmacist 03/28/22 Jeremy Camejo MD [address] [place] [address] Assigned OBGYN Provider 05/26/22 Nicolas Barragan MD 9 [place] [address] Assigned Surgical Provider 02/02/23 documented as of this encounter
--- OUTSIDE RECORDS SUMMARY | 2024-07-04 15:39 | XMS_ITS | Encounter Summary ---
Author Organization [place] Address [address] [facility] [place] [address] Care Team Providers Care Clinical Coordinator Name Role Phone Sherin Garza MD Primary Care Provider [phone] Tanvir Peñaloza PA-C Unavailable Unavailab Johanna Swenson LPN Unavailable Unavailable Sherin Garza MD Unavailable [phone] Chris Galvan MD Unavailable [phone] Roberta Galvan [facility] Unavailable Alisson Roth PA-C Unavailable + [phone] Adelaida Waterman PA-C Unavailable + [phone] Roberta Galvan [facility] Unavailable [phone] Roberta Galvan [facility] Unavailable [phone] Jeremy Camejo MD Unavailable Nicolas Barragan MD Unavailable [phone] Encounter Details Date Type Department Care Team (Late st Contact Info) Description 11/30/2021 [facility] [address] [address] Susie [place] RN Social History Tobacco Use Types Packs/Day Years [...] points; Administer PHQ-9 if positive 0 09/07/2021 [facility] of Occupat ional Health - Occupational Stress [...] PM CDT Legal Sex Female 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 No / Unsure 11/16/2021 3:58 PM CDT documented as of this encounter Plan of Treatment Not on file documented as of this encounter Visit Diagnoses Not on filedocumented in this encounter Additional Health Concerns Assessment Noted Time PHQ-9 Depression Total Score: 5 09/09/19 22 7:01 AM SHOT FIREMAN documented as of this encounter Care Teams Clinical Coordinator Relationship Specialty Start Date End Date Sherin Garza MD [address] [facility] [place] [address] PCP - General 08/16/01 Tanvir Peñaloza, PA-C [address] [facility] [place] [address] Physician Acid Tank Cleaner 12/27/17 Johanna Rodríguez LPN Nurse Coordinator 12/27/17 Sherin Garza MD [address] [facility] [place] [address] Assigned PCP 06/15/18 Chris Galvan MD [address] [facility] [address] [place] [address] Assigned OBGYN Provider 11/13/2005/25 Rboerta Galvan, [facility] [address] [address] Pharmacist Pharmacist 05/17/21 07/26/22 Alisson Roth PA-C [address] [place] [address] Assigned Surgical Provider 05/14/2102/01/23 Adelaida Waterman PA-C [address] [place] [address] Assigned Sleep Provider 08/06/2104/19 Roberta Galvan, [facility] [address] [id number] Assigned MTM Pharmacist 12/23/21 Roberta Galvan, [facility] [address] [address] Assigned MTM Pharmacist 03/28/22 Jeremy Camejo MD [address] [place] [address] Assigned OBGYN Provider 05/26/22 Nicolas Barragan MD [address] [place] [address] Assigned Surgical Provider 02/02/23 documented as of this encounter
--- OUTSIDE RECORDS SUMMARY | 2024-07-04 15:39 | XMS_ITS | Encounter Summary ---
Author Organization [place] Address [address] [facility] [place] [address] Care Team Providers Care Aquatics Lifeguard Name Role Phone Sherin Garza MD Primary Care Provider [phone] Tanvir Peñaloza PA-C Unavailable Unavailab Johanna Swenson LPN Unavailable Unavailable Sherin Garza MD Unavailable [phone] Chris Galvan MD Unavailable [phone] Roberta Galvan [facility] Unavailable [phone] Alisson Roth PA-C Unavailable [phone] Adelaida Waterman PA-C Unavailable [phone] Roberta Galvan [facility] Unavailable [phone] Roberta Galvan [facility] Unavailable [phone] Jeremy Camejo MD Unavailable [phone] Nicolas Barragan MD Unavailable [phone] Encounter Details Date Type Department Care Team (Late st Contact Info) Description 10/17/2021 [facility] [place] [address] [facility] [address] [place] [address] Alisson Roth PA-C [address] [place] [address] Social History Tobacco Use Types Packs/Day Years [...] and Family Once a week 05/01/2019 Attends [employer] Patient declined 07/2018 Active Member of [...] points; Administer PHQ-9 if positive 0 09/07/2021 [facility] of Occupat ional Health - Occupational Stress [...] PM CDT Legal 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 Female 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 Gender Identity Female 09/17/2018 1:36 AM [...] Depression Total Score: 5 09/09/19 7:01 AM CONVERTING SUPERVISOR documented as of this encounter Care Teams Aquatics Lifeguard Relationship Specialty Start Date End Date Sherin Garza MD [address] [employer] [facility] [place] [address] PCP - General 08/16/01 Tanvir Peñaolza PAArshC [address] [place] [address] [facility] [place] [address] Physician Mechanism Assembler 12/27/17 Johanna Rodríguez LPN Nurse Coordinator 12/27/17 Sherin Garza MD [address] [place] [address] [facility] [place] [address] Assigned PCP 06/15/18 Chris Galvan MD [address] [facility] [address] [place] [address] Assigned OBGYN Provider 11/13/2005/25 Roberta Galvan, [facility] [address] [address] Pharmacist Pharmacist 05/17/21 07/26/22 Alisson Roth PA-C [address] [place] [address] Assigned Surgical Provider 05/14/2102/01/23 Adelaida Waterman PA-C [address] [place] [address] Assigned Sleep Provider 08/06/2104/19 Roberta Galvan, [facility] [address] [address] Assigned MTM Pharmacist 12/23/21 [facility] [address] [address] Assigned MTM Pharmacist 03/28/22 Jeremy Camejo MD [address] [place] [address] Assigned OBGYN Provider 05/26/22 Nicolas Barragan MD [address] [place], [place] [address] Assigned Surgical Provider 02/02/23 documented as of this encounter
--- OUTSIDE RECORDS SUMMARY | 2024-07-04 15:39 | XMS_ITS | Encounter Summary ---
Author Organization [place] Address [address] [facility] [place] [address] Care Team Providers Care Shipping Manager Name Role Phone Sherin Garza MD Primary Care Provider [phone] Tanvir Peñaloza PA-C Unavailable Unavailab Johanna Swenson LPN Unavailable Unavailable Sherin Garza MD Unavailable [phone] Chris Galvan MD Unavailable [phone] Roberta Galvan [facility] Unavailable Alisson Roth PA-C Unavailable [phone] Adelaida Waterman PA-C Unavailable Roberta Galvan [facility] Unavailable Jeremy Camejo MD Unavailable Nicolas Barragan MD Unavailable [phone] Encounter Details Date Type Department Care Team (Late st Contact Info) Description 04/23/2022 [facility] [place] [address] [facility] [address] [place] [address] Sherin Garza MD [address] [place] [address] [place] [address] Social History Tobacco Use [...] often do you attend chur ch or uatsdin services? More than 4 times per year 02/23/2022 Do you belong to any clubs o r organizations such as worship groups, unions, fraternal or athletic groups, or [...] Answer Date Recorded PHQ-2 Score 1 02/23/2022 [facility] Occupat ional Health - Occupational [...] or rent on time? Patient refused 02/24/20 In the last 12 months, how many places have you lived? 1 02/23/2022 In the last 12 months, was t here a time when you did not have a steady place to sleep or slept in a mcc (including now)? No 02/23/2022 Education Answer Date Recorded What is the highest level of school you have completed or the highest degree you have received? 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 ASSESSMENT SPECIALIST Gender Identity Female 09/17/2018 1:36 AM CDT [...] documented as of this encounter Care Teams Shipping Manager Relationship Specialty Start Date End Date Sherin Garza MD [address] [facility] [address] PCP - General 08/16/01 Tanvir Peñaloza PA-C [address] [facility] [address] Physician Photo Mask Pattern Generator 12/27/17 Johanna Rodríguez LPN Nurse Coordinator 12/27/17 Sherin Garza MD [address] [facility] [place] [address] Assigned PCP 06/15/18 Chris Galvan MD [address] [facility] [address] [place] [address] Assigned OBGYN Provider 11/13/2005/25 Roberta Galvan, [facility] [address] [place], [place] [address] Pharmacist Pharmacist 05/17/21 07/26/22 Alisson Roth PA-C [address] [place] [address] Assigned Surgical Provider 05/14/2102/01/23 Adelaida Waterman PA-C [address] [place] [address] Assigned Sleep Provider 08/06/2104/19 Roberta Galvan, [facility] [address] [place] [address] Assigned MTM Pharmacist 03/28/22 Jeremy Camejo MD [address] [place] [address] Assigned OBGYN Provider 05/26/22 Nicolas Barragan MD 9 [place], [place] [address] Assigned Surgical Provider 02/02/23 documented as of this encounter
--- OUTSIDE RECORDS SUMMARY | 2024-07-04 15:39 | XMS_ITS | Encounter Summary ---
Author Organization [place] Address [address] [facility] [place] [address] Care Team Providers Care Slitter And Cutter Operator Name Role Phone Sherin Garza MD Primary Care Provider [phone] Tanvir Peñaloza PA-C Unavailable Unavailab Johanna Swenson LPN Unavailable Unavailable Sherin Garza MD Unavailable [phone] Chris Galvan MD Unavailable [phone] Roberta Galvan [facility] Unavailable [phone] Alisson Roth PA-C Unavailable [phone] Adelaida Waterman PA-C Unavailable + [phone] Roberta Galvan [facility] Unavailable [phone] Roberta Galvan [facility] Unavailable [phone] Jeremy Camejo MD Unavailable Nicolas Barragan MD Unavailable [phone] Encounter Details Date Type Department Care Team (Late st Contact Info) Description 12/11/2021 [facility] [address] [place] [address] Kaela Tee, TEJAS Social History Tobacco Use Types Packs/Day Years [...] points; Administer PHQ-9 if positive 0 09/07/2021 [facility] of Occupat ional Health - Occupational [...] CDT 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 No / Unsure 11/16/2021 3:58 PM CDT documented as of this encounter Plan of Treatment Not on file documented as of this encounter Visit Diagnoses Not on filedocumented in this encounter Additional Health Concerns Assessment Noted Time PHQ-9 Depression Total Score: 5 09/09/19 22 7:01 AM AUTO SUSPENSION AND STEERING MECHANIC documented as of this encounter Care Teams Slitter And Cutter Operator Relationship Specialty Start Date End Date Sherin Garza MD [address] [place] [employer] [facility] [place] [address] PCP - General 08/16/01 Tanvir Peñaloza PAArshC [address] [facility] [place] [address] Physician Lie Detector Operator 12/27/17 Johanna Rodríguez LPN Nurse Coordinator 12/27/17 Sherin Garza MD [address] [facility] [place] [address] Assigned PCP 06/15/18 Chris Galvan MD [address] [facility] [address] [place] [address] Assigned OBGYN Provider 11/13/2005/25 Roberta Galvan, [facility] [address] [address] Pharmacist Pharmacist 05/17/21 07/26/22 Alisson Roth PA-C [address] [place] [address] Assigned Surgical Provider 05/14/2102/01/23 Adelaida Waterman PA-C [address] [place] [address] Assigned Sleep Provider 08/06/2104/19 Roberta Galvan [facility] [address] [address] Assigned MTM Pharmacist 12/23/21 Roberta Galvan, [facility] [address] [place] [address] Assigned MTM Pharmacist 03/28/22 Jeremy Camejo MD [address] [place] [address] Assigned OBGYN Provider 05/26/22 Nicolas Barragan MD 9 [place] [address] Assigned Surgical Provider 02/02/23 documented as of this encounter
--- OUTSIDE RECORDS SUMMARY | 2024-07-04 15:39 | XMS_ITS | Encounter Summary ---
Author Organization [place] Address [address] [facility] [place] [address] Care Team Providers Care Spiritual Minister Name Role Phone Sherin Garza MD Primary Care Provider [phone] Tanvir Peñaloza PA-C Unavailable Unavailab Johanna Swenson LPN Unavailable Unavailable Sherin Garza MD Unavailable [phone] Chris Galvan MD Unavailable [phone] Roberta Galvan [facility] Unavailable Alisson Roth PA-C Unavailable + [phone] Adelaida Waterman PA-C Unavailable + [phone] Roberta Galvan [facility] Unavailable [phone] Roberta Galvan [facility] Unavailable [phone] Jeremy Camejo MD Unavailable Nicolas Barragan MD Unavailable [phone] Encounter Details Date Type Department Care Team (Late st Contact Info) Description 05/22/[address] 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 Gender Identity Female 09/17/2018 1:36 AM CDT [...] documented as of this encounter Care Teams Spiritual Minister Relationship Specialty Start Date End Date Sherin Garza MD [address] [facility] [place] [address] PCP - General 08/16/01 Tanvir Peñaloza PAArshC [address] [facility] [place] [address] Physician Prep Room Supervisor 12/27/17 Johanna Rodríguez LPN Nurse Coordinator 12/27/17 Sherin Garza MD [address] [facility] [place] [address] Assigned PCP 06/15/18 Chris Galvan MD [address] [facility] [address] [place] [address] Assigned OBGYN Provider 11/13/2005/25 Roberta Galvan [facility] [address] [address] Pharmacist Pharmacist 05/17/21 07/26/22 Alisson Roth PA-C [address] [place] [address] Assigned Surgical Provider 05/14/2102/01/23 Adelaida Waterman PA-C [address] [place] [address] Assigned Sleep Provider 08/06/2104/19 Roberta Galvan [facility] [address] [address] Assigned MTM Pharmacist 12/23/21 Roberta Galvan [facility] [address] [address] Assigned MTM Pharmacist 03/28/22 Jeremy Camejo MD [address] [place] [address] Assigned OBGYN Provider 05/26/22 Nicolas Barragan MD [address] [place] [address] Assigned Surgical Provider 02/02/23 documented as of this encounter
--- OUTSIDE RECORDS SUMMARY | 2024-07-04 15:39 | XMS_ITS | Encounter Summary ---
Author Organization [place] Address [address] [facility] [address] Care Team Providers Care Caterpillar Operator Name Role Phone Sherin Garza MD Primary Care Provider [phone] Tanvir Peñaloza PA-C Unavailable Unavailab Johanna Swenson LPN Unavailable Unavailable Sherin Garza MD Unavailable [phone] Chris Galvan MD Unavailable [phone] Roberta Galvan [facility] Unavailable [phone] Alisson Roth PA-C Unavailable [phone] Adelaida Waterman PA-C Unavailable + [phone] Roberta Galvan [facility] Unavailable [phone] Roberta Galvan [facility] Unavailable [phone] Jeremy Camejo MD Unavailable Nicolas Barragan MD Unavailable [phone] Encounter Details Date Type Department Care Team (Late st Contact Info) Description 10/20/2021 [facility] [address] [address] Adelaida Waterman PA-C [address] [facility] [address] [place] [address] Social History Tobacco Use Types Packs/Day Years [...] and Family Once a week 05/01/2019 Attends Mormonism Services Patient declined 07/2018 Active Member of [...] points; Administer PHQ-9 if positive 0 09/07/2021 [facility] Occupat ional [facility] - Occupational Stress Questionnaire Answer Date [...] PM CDT Legal Sex Female 4:00 AM 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 QUALITY Gender Identity Female 09/17/2018 1:36 AM CDT [...] Depression Total Score: 5 09/09/19 7:01 AM 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 QUALITY documented as of this encounter Care Teams Caterpillar Operator Relationship Specialty Start Date End Date Sherin Garza MD [address] [facility] [facility] [place] [address] PCP - General 08/16/01 Tanvir Peñaloza, PAArshC [address] [facility] [place] [address] Physician Sample Tester 12/27/17 Johanna Rodríguez LPN Nurse Coordinator 12/27/17 Sherin Garza MD [address] [facility] [place] [address] Assigned PCP 06/15/18 Chris Galvan MD [address] [facility] [address] [place] [address] Assigned OBGYN Provider 11/13/2005/25 Roberta Galvan [facility] [address] [address] Pharmacist Pharmacist 05/17/21 07/26/22 Alisson Roth PA-C [address] [place] [address] Assigned Surgical Provider 05/14/2102/01/23 Adelaida Waterman PA-C [address] [place] [address] Assigned Sleep Provider 08/06/2104/19 Roberta Galvan, [facility] [address] [address] Assigned MTM Pharmacist 12/23/21 Roberta Galavn, [facility] [address] [id number] Assigned MTM Pharmacist 03/28/22 Jeremy Camejo MD [address] [place] [address] Assigned OBGYN Provider 05/26/22 Nicolas Barragan MD [address] [place], [place] [address] Assigned Surgical Provider 02/02/23 documented as of this encounter
--- OUTSIDE RECORDS SUMMARY | 2024-07-04 15:39 | XMS_ITS | Encounter Summary ---
Author Organization [place] Address [address] [facility] [place] [address] Care Team Providers Care Approver Name Role Phone Sherin Garza MD Primary Care Provider [phone] Tanvir Peñaloza PA-C Unavailable Unavailab Johanna Swenson LPN Unavailable Unavailable Sherin Garza MD Unavailable [phone] Chris Galvan MD Unavailable [phone] Roberta Galvan [facility] Unavailable [phone] Alisson Roth PA-C Unavailable [phone] Adelaida Waterman PA-C Unavailable + [phone] Roberta Galvan [facility] Unavailable [phone] Roberta Galvan [facility] Unavailable [phone] Jeremy Camejo MD Unavailable Nicolas Barragan MD Unavailable [phone] Encounter Details Date Type Department Care Team (Late st Contact Info) Description 08/01/2021 [facility] [place] [address] [facility] [address] [place] [address] Alisson Roth PA-C [address] [place] [address] Social History Tobacco Use Types Packs/Day Years [...] and Family Once a week 05/01/2019 Attends Holiness Services Patient declined 07/2018 Active Member of [...] points; Administer PHQ-9 if positive 1 01/17/2021 [facility] of Occupat ional Health [...] PM CDT 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 Gender Identity Female 09/17/2018 1:36 AM CDT [...] documented as of this encounter Care Teams Approver Relationship Specialty Start Date End Date Sherin Garza MD [address] [facility] [place] [address] PCP - General 08/16/01 aTnvir Peñaloza, PA-C [address] [place] [address] Physician Core Feeder 12/27/17 Johanna Rodríguez LPN Nurse Coordinator 12/27/17 Sherin Garza MD [address] [facility] [place] [address] Assigned PCP 06/15/18 Chris Galvan MD [address] [facility] [address] [place] [address] Assigned OBGYN Provider 11/13/2005/25 Roberta Galvan, [facility] [address] [address] Pharmacist Pharmacist 05/17/21 07/26/22 Alisson Roth PA-C [address] [place] [address] Assigned Surgical Provider 05/14/2102/01/23 Adelaida Waterman PA-C [address] [place] [address] Assigned Sleep Provider 08/06/2104/19 Roberta Galvan, [facility] [address] [address] Assigned MTM Pharmacist 12/23/21 Roberta Galvan, [facility] [address] [address] Assigned MTM Pharmacist 03/28/22 Jeremy Camejo MD [address] [place] [address] Assigned OBGYN Provider 05/26/22 Nicolas Barragan MD [address] [place] [address] Assigned Surgical Provider 02/02/23 documented as of this encounter
--- OUTSIDE RECORDS SUMMARY | 2024-07-04 15:39 | XMS_ITS | Encounter Summary ---
Author Organization [place] Address [address] [facility] [place] [address] Care Team Providers Care Box Toe Stitcher Name Role Phone Sherin Garza MD Primary Care Provider [phone] Tanvir Peñaloza PA-C Unavailable Unavailab Johanna Swenson LPN Unavailable Unavailable Sherin Garza MD Unavailable [phone] Chris Galvan MD Unavailable [phone] Roberta Galvan [facility] Unavailable Alisson Roth PA-C Unavailable + [phone] Adelaida Waterman PA-C Unavailable + [phone] Roberta Galvan [facility] Unavailable [phone] Roberta Galvan [facility] Unavailable [phone] Jeremy Camejo MD Unavailable Nicolas Barragan MD Unavailable [phone] Encounter Details Date Type Department Care Team (Late st Contact Info) Description 08/09/2021 [facility] [address] [address] Nikki Ferris Social History Tobacco Use Types [...] and Family Once a week 05/01/2019 Attends Sikhism Services Patient declined 07/2018 Active Member of [...] points; Administer PHQ-9 if positive 1 01/17/2021 [facility] of Occupat ional Health - Occupational [...] PM CDT Legal Sex Female 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 No / Unsure 08/09/2021 9:40 AM TECHNICAL HEALTHCARE CONSULTANT documented as of this encounter Plan of Treatment Not on file documented as of this encounter Visit Diagnoses Not on filedocumented in this encounter Additional Health Concerns Assessment Noted Time PHQ-9 Depression Total Score: 3 01/19/20 7:03 AM CDT documented as of this encounter Care Teams Box Toe Stitcher Relationship Specialty Start Date End Date Sherin Garza MD [address] [place] [address] PCP - General 08/16/01 OTanvir Pierre, PA-C [address] [place] [address] Physician Back Digger Operator 12/27/17 Johanna Rodríguez LPN Nurse Coordinator 12/27/17 Sherin Garza MD [address] [place] [address] Assigned PCP 06/15/18 Chris Galvan MD [address] [facility] [address] [place] [address] Assigned OBGYN Provider 11/13/2005/25 Roberta Galvan [facility] [address] [address] Pharmacist Pharmacist 05/17/21 07/26/22 Alisson Roth PA-C [address] [place] [address] Assigned Surgical Provider 05/14/2102/01/23 Adelaida Waterman PA-C [address] [place] [address] Assigned Sleep Provider 08/06/2104/19 Roberta Galvan, [facility] [address] [id number] Assigned MTM Pharmacist 12/23/21 Roberta Galvan, [facility] [address] [address] Assigned MTM Pharmacist 03/28/22 Jeremy Camejo MD [address] [place] [address] Assigned OBGYN Provider 05/26/22 Nicolas Barragan MD [address] [place] [address] Assigned Surgical Provider 02/02/23 documented as of this encounter
--- OUTSIDE RECORDS SUMMARY | 2024-07-04 15:39 | XMS_ITS | Encounter Summary ---
Author Organization [place] Address [address] [facility] [place] [address] Care Team Providers Care Ring Facer Name Role Phone Sherin Garza MD Primary Care Provider [phone] Tanvir Peñaloza PA-C Unavailable Unavailab Johanna Swenson LPN Unavailable Unavailable Sherin Garza MD Unavailable [phone] Chris Galvan MD Unavailable [phone] Roberta Galvan [facility] Unavailable Alisson Roth PA-C Unavailable [phone] Adelaida Waterman PA-C Unavailable Roberta Galvan [facility] Unavailable Jeremy Camejo MD Unavailable Nicolas Barragan MD Unavailable Encounter Details Date Type Department Care Team (Late st Contact Info) Description 03/28/2022 [facility] Surgical Weight Loss [facility] [place] [address] [facility] [address] [place] [address] Alisson Roth PA-C [address] [facility] [address] [place] [address] Social History Tobacco Use Types Packs/Day Years [...] How often do you attend chur or jainism services? More than 4 times per year 02/23/2022 Do you belong to any clubs o r organizations such as restoration groups, unions, fraternal or athletic groups, or [...] Answer Date Recorded PHQ-2 Score 1 02/23/2022 [facility] of Occupat ional Health - Occupational Stress [...] PM CDT Legal Sex Female 4:00 AM STUDENT Gender Identity Female 09/17/2018 1:36 AM CDT [...] suspected to have Coronavirus/COVID-19? No / Unsure 03/14/2022 7:54 AM CDT documented as of this encounter Plan of Treatment Not on file documented as of this encounter Visit Diagnoses Not on filedocumented in this encounter Additional Health Concerns Assessment Noted Time PHQ-9 Depression Total Score: 1 01/30/20 22 10:10 AM CDT documented as of this encounter Care Teams Ring Facer Relationship Specialty Start Date End Date Sherin Garza MD [address] [facility] [place] [address] PCP - General 08/16/01 Tanvir Peñaloza PA-C [address] [facility] [place] [address] Physician Dental Amalgam Processor 12/27/17 Johanna Rodríguez LPN Nurse Coordinator 12/27/17 Sherin Garza MD [address] [facility] [place] [address] Assigned PCP 06/15/18 Chris Galvan MD [address] [facility] [address] [place] [address] Assigned OBGYN Provider 11/13/2005/25 Roberta Galvan, [facility] [address] [address] Pharmacist Pharmacist 05/17/21 07/26/22 Alisson Roth PA-C [address] [place] [address] Assigned Surgical Provider 05/14/2102/01/23 Adelaida Waterman PA-C [address] [place] [address] Assigned Sleep Provider 08/06/2104/19 Roberta Galvan, [facility] [address] [address] Assigned MTM Pharmacist 03/28/22 Jeremy Camejo MD [address] [facility] [place] [address] Assigned OBGYN Provider 05/26/22 Nicolas Barragan MD 9 [place] [address] Assigned Surgical Provider 02/02/23 documented as of this encounter
--- OUTSIDE RECORDS SUMMARY | 2024-07-04 15:39 | XMS_ITS | Encounter Summary ---
Author Organization [place] Address [address] [place] [address] Care Team Providers Care Mechanic Senior Name Role Phone Sherin Garza MD Primary Care Provider [phone] Tanvir Peñaloza PA-C Unavailable Unavailab Johanna Swenson LPN Unavailable Unavailable Sherin Garza MD Unavailable [phone] Chris Galvan MD Unavailable [phone] Roberta Galvan [facility] Unavailable Alisson Roth PA-C Unavailable [phone] Adelaida Waterman PA-C Unavailable + [phone] Roberta Galvan [facility] Unavailable Roberta Galvan [facility] Unavailable [phone] Jeremy Camejo MD Unavailable Nicolas Barragan MD Unavailable [phone] Encounter Details Date Type Department Care Team (Late st Contact Info) Description 05/17/2021 [facility] [place] [facility] [address] 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 Gender Identity Female 09/17/2018 1:36 AM [...] documented as of this encounter Care Teams Mechanic Senior Relationship Specialty Start Date End Date Sherin Garza MD [address] [employer] [facility] [place] [address] PCP - General 08/16/01 Tanvir Peñaloza, PA-C [address] [employer] [facility] [place] [address] Physician Senior Speech Pathologist 12/27/17 Johanna Rodríguez LPN Nurse Coordinator 12/27/17 Sherin Garza MD [address] [employer] [facility] [place] [address] Assigned PCP 06/15/18 Chris Galvan MD [address] [place] [address] Assigned OBGYN Provider 11/13/2005/25 Roberta Galvan, [facility] [address] [address] Pharmacist Pharmacist 05/17/21 07/26/22 Alisson Roth PA-C [address] [place] [address] Assigned Surgical Provider 05/14/2102/01/23 Adelaida Waterman PA-C [address] [place] [address] Assigned Sleep Provider 08/06/2104/19 Roberta Galvan, [facility] [address] [id number] Assigned MTM Pharmacist 12/23/21 Robetra Galvan, [facility] [address] [address] Assigned MTM Pharmacist 03/28/22 Jeremy Camejo MD [address] [place] [address] Assigned OBGYN Provider 05/26/22 Nicolas Barragan MD [address] [place] [address] Assigned Surgical Provider 02/02/23 documented as of this encounter
--- OUTSIDE RECORDS SUMMARY | 2024-07-04 15:39 | XMS_ITS | Encounter Summary ---
Author Organization [place] Address [address] [facility] [place] [address] Care Team Providers Care Front Desk Name Role Phone Sherin Garza MD Primary Care Provider [phone] Tanvir Peñaloza PA-C Unavailable Unavailab Johanna Swenson LPN Unavailable Unavailable Sherin Garza MD Unavailable [phone] Jose M Bearden Unavailable Unavailable Chris Galvan MD Unavailable [phone] Vini Joyce MD Unavailable [phone] Roberta Galvan [facility] Unavailable Alisson Roth PA-C Unavailable + [phone] Adelaida Waterman PA-C Unavailable + [phone] Roberta Galvan [facility] Unavailable Roberta Galvan [facility] Unavailable Jeremy Camejo MD Unavailable Nicolas Barragan MD Unavailable [phone] Reason for Visit * Reason Onset Date Comments MyChart Communication 05/05/2021 e-visit Encounter Details Date Type Department Care Team (Latest Contact Info) Description 05/05/2021 [facility] [address] [facility] [address] [place] [phone] Sherin Garza MD [address] [facility] [place] [address] MyChart Communication (e-visit) Social History Tobacco Use Types Packs/Day Years [...] and Family Once a week 05/01/2019 Attends Orthodoxy Services Patient declined 07/2018 Active Member of [...] points; Administer PHQ-9 if positive 1 01/17/2021 [facility] of Occupat ional Health - Occupational Stress [...] PM CDT 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 Gender Identity Female 09/17/2018 1:36 AM [...] documented as of this encounter Care Teams Front Desk Relationship Specialty Start Date End Date Sherin Garza MD [address] [employer] [facility] [place] [address] PCP - General 08/16/01 Tanvir Peñaloza, PAArshC [address] [employer] [address] [facility] [place] [address] Physician Language Instructor 12/27/17 Johanna Rodríguez LPN Nurse Coordinator 12/27/17 Sherin Garza MD [address] [employer] [facility] [place] [address] Assigned PCP 06/15/18 Jose M Bearden Personal Advocate & Liaison (PAL) 05/01/19 05/16/21 Chris Galvan MD [address] [facility] [address] [place] [address] Assigned OBGYN Provider 11/13/2005/25 Vini Joyce MD [address] [place] [address] Assigned Surgical Provider 01/29/21 Roberta Galvan, [facility] [address] [id number] Pharmacist Pharmacist 05/17/21 07/26/22 Alisson Roth PA-C [address] [place] [address] Assigned Surgical Provider 05/14/2102/01/23 Adelaida Waterman PA-C [address] [place] [address] Assigned Sleep Provider 08/06/2104/19 Roberta Galvan, [facility] [address] [id number] Assigned MTM Pharmacist 12/23/21 Roberta Galvan, [facility] [address] [id number] Assigned MTM Pharmacist 03/28/22 Jeremy Camejo MD [address] [place] [address] Assigned OBGYN Provider 05/26/22 Nicolas Barragan MD [address] [place] [address]24[address] Assigned Surgical Provider 02/02/23 documented as of this encounter
--- OUTSIDE RECORDS SUMMARY | 2024-07-04 15:39 | XMS_ITS | Encounter Summary ---
Author Organization [place] Address [address] [place] [address] Care Team Providers Care Parquetry Floor Layer Name Role Phone Sherin Garza MD Primary Care Provider [phone] Tanvir Peñaloza PA-C Unavailable Unavailab Johanna Swenson LPN Unavailable Unavailable Sherin Garza MD Unavailable [phone] Chris Galvan MD Unavailable [phone] Roberta Galvan [facility] Unavailable Alisson Roth PA-C Unavailable [phone] Adelaida Waterman PA-C Unavailable + [phone] Roberta Galvan [facility] Unavailable [phone] Roberta Galvan [facility] Unavailable [phone] Jeremy Camejo MD Unavailable Nicolas Barragan MD Unavailable [phone] Encounter Details Date Type Department Care Team (Late st Contact Info) Description 02/24/2022 [facility] [place] Medical [facility] [place] [address] [facility] [address] [place] [address] Sherin Garza MD [address] [facility] [place] [address] Social History Tobacco Use Types Packs/Day Years [...] How often do you attend chur or mandaeism services? 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 No / Unsure 02/23/2022 9:37 AM CDT documented as of this encounter Plan of Treatment Not on file documented as of this encounter Visit Diagnoses Not on filedocumented in this encounter Additional Health Concerns Assessment Noted Time PHQ-9 Depression Total Score: 1 01/30/20 22 10:10 AM CDT documented as of this encounter Care Teams Parquetry Floor Layer Relationship Specialty Start Date End Date Sherin Garza MD [address] [facility] [place] [address] PCP - General 08/16/01 Tanvir Peñaloza PA-C [address] [facility] [place] [address] Physician Director Stage 12/27/17 Johanna Rodríguez LPN Nurse Coordinator 12/27/17 Sherin Garza MD [address] [facility] [place] [address] Assigned PCP 06/15/18 Chris Galvan MD [address] [facility] [address] [place] [address] Assigned OBGYN Provider 11/13/2005/25 Roberta Galvan, [facility] [address] [id number] Pharmacist Pharmacist 05/17/21 07/26/22 Alisson Roth PA-C [address] [place] [address] Assigned Surgical Provider 05/14/2102/01/23 Adelaida Waterman PA-C [address] [place] [address] Assigned Sleep Provider 08/06/2104/19 Roberta Galvan, [facility] [address] [address] Assigned MTM Pharmacist 12/23/21 Roberta Galvan [facility] [address] [place] [address] Assigned MTM Pharmacist 03/28/22 Jeremy Camejo MD [address] [place] [address] Assigned OBGYN Provider 05/26/22 Nicolas Barragan MD 9 [place] [address] Assigned Surgical Provider 02/02/23 documented as of this encounter
--- OUTSIDE RECORDS SUMMARY | 2024-07-04 15:39 | XMS_ITS | Encounter Summary ---
Author Organization [place] Address [address] [facility] [place] [address] Care Team Providers Care Veneer Sorter Name Role Phone Sherin Garza MD Primary Care Provider [phone] Tanvir Peñaloza PA-C Unavailable Unavailab Johanna Swenson LPN Unavailable Unavailable Sherin Garza MD Unavailable [phone] Jose M Bearden Unavailable Unavailable Chris Galvan MD Unavailable [phone] Vini Joyce MD Unavailable [phone] Roberta Galvan [facility] Unavailable Alisson Roth PA-C Unavailable + [phone] Adelaida Waterman PA-C Unavailable [phone] Roberta Galvan [facility] Unavailable Roberta Galvan [facility] Unavailable Jeremy Camejo MD Unavailable Nicolas Barragan MD Unavailable [phone] Encounter Details Date Type Department Care Team (Late st Contact Info) Description 05/09/2021 [facility] [address] [facility] [address] [place] [address] Sherin Garza MD [address] [place] [address] Social History Tobacco Use Types Packs/Day Years [...] and Family Once a week 05/01/2019 Attends Quaker Services Patient declined 07/2018 Active Member of [...] points; Administer PHQ-9 if positive 1 01/17/2021 [facility] of Occupat ional Health - [...] PM CDT 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 Gender Identity Female 09/17/2018 1:36 AM CDT [...] documented as of this encounter Care Teams Veneer Sorter Relationship Specialty Start Date End Date Sherin Garza MD [address] [place] [address] PCP - General 08/16/01 Tanvir Peñaloza, PAArshC [address] [place] [address] Physician Boat Engines Installer 12/27/17 Johanna Rodríguez LPN Nurse Coordinator 12/27/17 Sherin Garza MD [address] [facility] [place] [address] Assigned PCP 06/15/18 Jose M Bearden Personal Advocate & Liaison (PAL) 05/01/19 05/16/21 Chris Galvan MD [address] [place] [address] Assigned OBGYN Provider 11/13/2005/25 Vini Joyce MD [address] [place] [address] Assigned Surgical Provider 01/29/21 Roberta Galvan, [facility] [address] [address] Pharmacist Pharmacist 05/17/21 07/26/22 Alisson Roth PA-C [address] [place] [address] Assigned Surgical Provider 05/14/2102/01/23 Adelaida Waterman PA-C [address] [place] [address] Assigned Sleep Provider 08/06/2104/19 Roberta Galvan, [facility] [address] [address] Assigned MTM Pharmacist 12/23/21 Roberta Galvan, [facility] [address] [address] Assigned MTM Pharmacist 03/28/22 Jeremy Camejo MD [address] [place] [address] Assigned OBGYN Provider 05/26/22 Nicolas Barragan MD [address] [place] [address] Assigned Surgical Provider 02/02/23 documented as of this encounter
--- OUTSIDE RECORDS SUMMARY | 2024-07-04 15:39 | XMS_ITS | Encounter Summary ---
Author Organization [place] Address [address] [facility] [place] [address] Care Team Providers Care Bariatric Physician Name Role Phone Sherin Garza MD Primary Care Provider [phone] Tanvir Peñaloza PA-C Unavailable Unavailab Johanna Swenson LPN Unavailable Unavailable Sherin Garza MD Unavailable [phone] Jose M Bearden Unavailable Unavailable Chris Galvan MD Unavailable [phone] Vini Joyce MD Unavailable [phone] Roberta Galvan [facility] Unavailable Alisson Roth PA-C Unavailable [phone] Adelaida Waterman PA-C Unavailable [phone] Roberta Galvan [facility] Unavailable Roberta Galvan [facility] Unavailable Jeremy Camejo MD Unavailable [phone] Nicolas Barragan MD Unavailable Encounter Details Date Type Department Care Team (Late st Contact Info) Description 05/05/2021 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 Gender Identity Female 09/17/2018 1:36 AM CDT [...] documented as of this encounter Care Teams Bariatric Physician Relationship Specialty Start Date End Date Sherin Garza MD [address] [facility] [place] [address] PCP - General 08/16/01 Tanvir Peñaloza, PA-C [address] [place] [employer] [facility] [place] [address] Physician Park Worker 12/27/17 Johanna Rodríguez LPN Nurse Coordinator 12/27/17 Sherin Garza MD [address] [employer] [facility] [place] [address] Assigned PCP 06/15/18 Jose M Bearden Personal Advocate & Liaison (PAL) 05/01/19 05/16/21 Chris Galvan MD [address] [place] [address] Assigned OBGYN Provider 11/13/2005/25 Vini Joyce MD [address] [place] [address] Assigned Surgical Provider 01/29/21 Roberta Galvan, [facility] [address] [address] Pharmacist Pharmacist 05/17/21 07/26/22 Alisson Roth PA-C [address] [place] [address] Assigned Surgical Provider 05/14/2102/01/23 Adelaida Waterman PA-C [address] [place] [address] Assigned Sleep Provider 08/06/2104/19 Roberta Galvan [facility] [address] [place] [address] Assigned MTM Pharmacist 12/23/21 [facility] [address] [address] Assigned MTM Pharmacist 03/28/[address] [facility] [place] [address] Assigned OBGYN Provider 05/26/22 Nicolas Barragan MD [address] [place] [address] Assigned Surgical Provider 02/02/23 documented as of this encounter
--- OUTSIDE RECORDS SUMMARY | 2024-07-04 15:40 | XMS_ITS | Encounter Summary ---
Author Organization [place] Address [address] [facility] [place] [address] Care Team Providers Care Dietary Cook Name Role Phone Sherin Garza MD Primary Care Provider [phone] Tanvir Peñaloza PA-C Unavailable Unavailab Johanna Swenson LPN Unavailable Unavailable Sherin Garza MD Unavailable [phone] Jose M Bearden Unavailable Unavailable Chris Galvan MD Unavailable [phone] Asaf Perales MD Unavailable Trinh Jacobson-C Unavailable Vini Joyce MD Unavailable [phone] Roberta Galvan [facility] Unavailable [phone] Alisson Roth-C Unavailable [phone] Adelaida Waterman-C Unavailable [phone] Roberta Galvan [facility] Unavailable [phone] Roberta Galvan [facility] Unavailable [phone] Jeremy Camejo MD Unavailable [phone] Nicolas Barragan MD Unavailable [phone] Encounter Details Date Type Department Care Team (Late st Contact Info) Description 12/07/2020 MyC Medical Advice [facility] [place] [address] [place] [address] Mack Brown Social History Tobacco Use Types Packs/Day Years Used Date Smoking Tobacco: Never Smokeless Tobacco: Never Alcohol Use Standard Drinks/Week Comments Yes 0 (1 standard drink = 0.6 oz pur e alcohol) 1-2 drinks a week Social Connection and Isolation Panel [NHANES] A nswer Date Recorded Frequency of Communication w ith Friends and Family Twice a week 05/01/2019 Frequency of Social Gatherin gs with Friends and Family Once a week 05/01/2019 Attends Cheondoism Services Patient declined 07/2018 Active Member of [...] hard 05/01/2019 PHQ-2 Answer Date Recorded PHQ-2 Score 2 07/05/2019 [facility] of Occupat ional Health - Occupational Stress [...] PM CDT 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 No / Unsure 12/07/2020 5:57 AM CDT documented as of this encounter Plan of Treatment Not on file documented as of this encounter Visit Diagnoses Not on filedocumented in this encounter Additional Health Concerns Assessment Noted Time PHQ-9 Depression Total Score: 12 020 7:08 AM CDT documented as of this encounter Care Teams Dietary Cook Relationship Specialty Start Date End Date Sherin Garza MD [address] [facility] [place] [address] PCP - General 08/16/01 Tanvir Peñaloza, PAArshC [address] [place] [address] Motility Count [facility] [place] [address] Physician Coke Wheeler 12/27/17 Johanna Rodríguez LPN Nurse Coordinator 12/27/17 Sherin Garza MD [address] [place] Motility Count [facility] [place] [address] Assigned PCP 06/15/18 Jose M Bearden Personal Advocate & Liaison (PAL) 05/01/19 05/16/21 Chris Galvan MD [address] [place] [address] Assigned OBGYN Provider 11/13/2005/25 Asaf Perales MD [address] [place] [address] Assigned Surgical Provider 12/18/2012/31/20 Trinh Jacobson PA-C [address] [place] [address] Assigned Surgical Provider 01/01/21 Vini Joyce MD [address] [facility] [address] [place] [address] Assigned Surgical Provider 01/29/21 Roberta Galvan [facility] [address] [place], [place] [address] Pharmacist Pharmacist 05/17/21 07/26/22 Alisson Roth PA-C [address] [place] [address] Assigned Surgical Provider 05/14/2102/01/23 Adelaida Waterman PA-C [address] [place] [address] Assigned Sleep Provider 08/06/2104/19 Roberta Galvan [facility] [address] [address] Assigned MTM Pharmacist 12/23/21 Roberta Galvan [facility] [address] [place] [address] Assigned MTM Pharmacist 03/28/22 Jeremy Camejo MD [address] [place] [address] Assigned OBGYN Provider 05/26/22 Nicolas Barragan MD [address] [place], [place] [address] Assigned Surgical Provider 02/02/23 documented as of this encounter
--- OUTSIDE RECORDS SUMMARY | 2024-07-04 15:40 | XMS_ITS | Encounter Summary ---
Author Organization [place] Address [address] [facility] [place] [address] Care Team Providers Care Footwear Sales Representative Name Role Phone Sherin Garza MD Primary Care Provider [phone] Tanvir Peñaloza PA-C Unavailable Unavailab Johanna Swenson LPN Unavailable Unavailable Sherin Garza MD Unavailable [phone] Jose M Bearden Unavailable Unavailable Chris Galvan MD Unavailable [phone] Asaf Perales MD Unavailable [phone] Trinh Jacobson-C Unavailable Vini Joyce MD Unavailable [phone] Roberta Galvan [facility] Unavailable Alisson Roth-C Unavailable [phone] Adelaida Waterman-C Unavailable [phone] Roberta Galvan [facility] Unavailable [phone] Roberta Galvan [facility] Unavailable [phone] Jeremy Camejo MD Unavailable Nicolas Barragan MD Unavailable [phone] Encounter Details Date Type Department Care Team (Late st Contact Info) Description 12/13/2020 MyC Medical Advice [facility] [address] [place] [address] Trinh Jacobson PA-C [address] [place] [address] Social History Tobacco Use Types Packs/Day Years [...] and Family Once a week 05/01/2019 Attends Baptism Services Patient declined 07/2018 Active Member of [...] 05/01/2019 PHQ-2 Answer Date Recorded PHQ-2 Score 1 12/15/2020 [facility] [place] of Occupat ional Health - Occupational Stress [...] PM CDT 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 No / Unsure 12/15/2020 4:33 PM CDT documented as of this encounter Plan of Treatment Not on file documented as of this encounter Visit Diagnoses Not on filedocumented in this encounter Additional Health Concerns Assessment Noted Time PHQ-9 Depression Total Score: 12 020 7:08 AM CDT documented as of this encounter Care Teams Footwear Sales Representative Relationship Specialty Start Date End Date Sherin Garza MD [address] [employer] [facility] [place] [address] PCP - General 08/16/01 Tanvir Peñaloza PAArshC [address] [place] [employer] [facility] [place] [address] Physician Storage Garage Manager 12/27/17 Johanna Rodríguez LPN Nurse Coordinator 12/27/17 Sherin Garza MD [address] [employer] [facility] [place] [address] Assigned PCP 06/15/18 Jose M Bearden Personal Advocate & Liaison (PAL) 05/01/19 05/16/21 Chris Galvan MD [address] [place] [address] Assigned OBGYN Provider 11/13/2005/25 Asaf Perales MD [address] [place] [address] Assigned Surgical Provider 12/18/2012/31/20 Trinh Jacobson PA-C [address] [place], [place] [address] Assigned Surgical Provider 01/01/21 Vini Joyce MD [address] [place] [address] Assigned Surgical Provider 01/29/21 Roberta Galvan [facility] [address] [place] [address] Pharmacist Pharmacist 05/17/21 07/26/22 Alisson Roth PA-C [address] [place] [address] Assigned Surgical Provider 05/14/2102/01/23 Adelaida Waterman PA-C [address] [place] [address] Assigned Sleep Provider 08/06/2104/19 Roberta Galvan [facility] [address] [place] [address] Assigned MTM Pharmacist 12/23/21 Roberta Galvan [facility] [address] [place] [address] Assigned MTM Pharmacist 03/28/22 Jeremy Camejo MD [address] [place] [address] Assigned OBGYN Provider 05/26/22 Nicolas Barragan MD [address] [place] [address] Assigned Surgical Provider 02/02/23 documented as of this encounter
--- OUTSIDE RECORDS SUMMARY | 2024-07-04 15:40 | XMS_ITS | Encounter Summary ---
Author Organization [place] Address [address] [facility] [place] [address] Care Team Providers Care Certified Diabetes Educator Name Role Phone Sherin Garza MD Primary Care Provider [phone] Tanvir Peñaloza PA-C Unavailable Unavailab Johanna Swenson LPN Unavailable Unavailable Sherin Garza MD Unavailable [phone] Jose M Bearden Unavailable Unavailable Chris Galvan MD Unavailable [phone] Vini Joyce MD Unavailable [phone] Roberta Galvan [facility] Unavailable [phone] Alisson Roth PA-C Unavailable [phone] Adelaida Waterman PA-C Unavailable [phone] Roberta Galvan [facility] Unavailable [phone] Roberta Galvan [facility] Unavailable [phone] Jeremy Camejo MD Unavailable Nicolas Barragan MD Unavailable [phone] Encounter Details Date Type Department Care Team (Late st Contact Info) Description 02/03/[address] [place] [address] Sherin Garza MD [address] [place] [address] Social History Tobacco Use Types Packs/Day Years [...] and Family Once a week 05/01/2019 Attends Evangelical Services Patient declined 07/2018 Active Member of [...] points; Administer PHQ-9 if positive 1 01/17/2021 [facility] of Occupat ional Health - Occupational [...] PM CDT 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 No / Unsure 01/23/2021 2:21 PM CDT documented as of this encounter Miscellaneous Notes * Telephone Encounter - Kaela Brewer RN - 02/03/2021 12:05 PM CDT Spoke to patient. She said she has never received a call from Nathaniel. Tried to connect patient with number provided. Number is disconnected (incorrect number) so unable to transfer. Patient states to call her back if Nathaniel gets in touch and can get correct phone number. Kaela Bolton RN, BSN * Telephone Encounter - Pema Mccall - 02/03/2021 11:14 AM CDT Reason for Call: Other Detailed comments: Nathaniel [facility] wants to give an FYI to Dr. Chris Galvan and I didn't see what pool I can rout it to, this is an FYI: Nathaniel is a cse software development manager for she has an open case for the patient and hasn't been able to reachher recently, she will attempt to reach out to the patient again and if she not able to reach her she will close the case, if patient comes into the clinic please advise that she can reach she can connect with case management at if she needs to. Nathaniel direct number is [phone] if any questions she asked for this FYI to be givento Dr. Galvan and her PCP, she had been disconnect and also waited over 13 minutes,and did not want to be transferred again Best Time: Anytime Can we leave a detailed message on this number? YES Call taken on 02/03/2021 at 11:23 AM by Pema Mccall documented in this encounter Plan of Treatment Not on file documented as of this encounter Visit Diagnoses Not on filedocumented in this encounter Additional Health Concerns Assessment Noted Time PHQ-9 Depression Total Score: 3 01/19/20 21 7:03 AM CDT documented as of this encounter Care Teams Certified Diabetes Educator Relationship Specialty Start Date End Date Sherin Garza MD [address] [place] [address] PCP - General 08/16/01 Tanvir Peñaloza, PAArshC [address] [place] [address] Physician Offshore Diver 12/27/17 Johanna Rodríguez LPN Nurse Coordinator 12/27/17 Sherin Garza MD [address] [place] [address] Assigned PCP 06/15/18 Jose M Bearden Personal Advocate & Liaison (PAL) 05/01/19 05/16/21 Chris Galvan MD [address] [place] [address] Assigned OBGYN Provider 11/13/2005/25 Vini Joyce MD [address] [place] [address] Assigned Surgical Provider 01/29/21 Roberta Galvan, [facility] [address] [address] Pharmacist Pharmacist 05/17/21 07/26/22 Alisson Roth PA-C [address] [place] [address] Assigned Surgical Provider 05/14/2102/01/23 Adelaida Waterman PA-C [address] [place] [address] Assigned Sleep Provider 08/06/2104/19 Roberta Galvan [facility] [address] [id number] Assigned MTM Pharmacist 12/23/21 Roberta Galvan, [facility] [address] [id number] Assigned MTM Pharmacist 03/28/22 Jeremy Camejo MD [address] [place] [address] Assigned OBGYN Provider 05/26/22 Nicolas Barragan MD [address] [place], [place] [address] Assigned Surgical Provider 02/02/23 documented as of this encounter
--- OUTSIDE RECORDS SUMMARY | 2024-07-04 15:40 | XMS_ITS | Encounter Summary ---
Author Organization [place] Address [address] [facility] [place] [address] Care Team Providers Care Geothermal Sheet Metal Worker Name Role Phone Sherin Garza MD Primary Care Provider [phone] Tanvir Peñaloza PA-C Unavailable Unavailab Johanna Swenson LPN Unavailable Unavailable Sherin Garza MD Unavailable [phone] Jose M Bearden Unavailable Unavailable Chris Galvan MD Unavailable [phone] Trinh JacobsonC Unavailable Vini Joyce MD Unavailable [phone] Roberta Galvan [facility] Unavailable Alisson RothC Unavailable Adelaida WatermanC Unavailable [phone] Roberta Galvan [facility] Unavailable Roberta Galvan [facility] Unavailable [phone] Jeremy Camejo MD Unavailable Nicolas Barragan MD Unavailable [phone] Encounter Details Date Type Department Care Team (Late st Contact Info) Description 01/19/2021 [facility] [address] 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 No / Unsure 01/18/2021 7:57 AM CDT documented as of this encounter Plan of Treatment Not on file documented as of this encounter Visit Diagnoses Not on filedocumented in this encounter Additional Health Concerns Assessment Noted Time PHQ-9 Depression Total Score: 3 01/19/20 7:03 AM CDT documented as of this encounter Care Teams Geothermal Sheet Metal Worker Relationship Specialty Start Date End Date Sherin Garza MD [address] [facility] [place] [address] PCP - General 08/16/01 Tanvir Peñaloza, PAArshC [address] [facility] [place] [address] Physician Forestry Workers 12/27/17 Johanna Rodríguez LPN Nurse Coordinator 12/27/17 Sherin Garza MD [address] [facility] [place] [address] Assigned PCP 06/15/18 Jose M Bearden Personal Advocate & Liaison (PAL) 05/01/19 05/16/21 Chris Galvan MD [address] [facility] [address] [place] [address] Assigned OBGYN Provider 11/13/2005/25 Trinh Jacobson PA-C [address] [place] [address] Assigned Surgical Provider 01/01/21 Vini Joyce MD [address] [place] [address] Assigned Surgical Provider 01/29/21 Roberta Galvan [facility] [address] [address] Pharmacist Pharmacist 05/17/21 07/26/22 Alisson Roth PA-C [address] [place] [address] Assigned Surgical Provider 05/14/2102/01/23 Adelaida Waterman PA-C [address] [place] [address] Assigned Sleep Provider 08/06/2104/19 Roberta Galvan [facility] [address] [id number] Assigned MTM Pharmacist 12/23/21 Roberta Galvan [facility] [address] [address] Assigned MTM Pharmacist 03/28/22 Jeremy Camejo MD [address] [place] [address] Assigned OBGYN Provider 05/26/22 Nicolas Barragan MD [address] [place] [address] Assigned Surgical Provider 02/02/23 documented as of this encounter
--- OUTSIDE RECORDS SUMMARY | 2024-07-04 15:40 | XMS_ITS | Encounter Summary ---
Author Organization [place] Address [address] [facility] [place] [address] Care Team Providers Care Manual Plate Filler Name Role Phone Sherin Garza MD Primary Care Provider [phone] Tanvir Peñaloza PA-C Unavailable Unavailab Johanna Swenson LPN Unavailable Unavailable Sherin Garza MD Unavailable [phone] Jose M Bearden Unavailable Unavailable Chris Galvan MD Unavailable [phone] Asaf Perales MD Unavailable [phone] Trinh Jacobson-C Unavailable Vini Joyce MD Unavailable [phone] Roberta Galvan [facility] Unavailable [phone] Alisson Roth-C Unavailable [phone] Adelaida Waterman PA-C Unavailable [phone] Roberta Galvan [facility] Unavailable [phone] Roberta Galvan [facility] Unavailable [phone] Jeremy Camejo MD Unavailable Nicolas Barragan MD Unavailable [phone] Reason for Visit * Reason Onset Date Comments Appointment 12/14/2020 2 week post surg stephen catheter removal Encounter Details Date Type Department Care Team (Late st Contact Info) Description 12/14/[address] 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 She is currently scheduled for 01/04/21, but that would be 4 weeks post surgery. Two weeks would be around 12/21/20. Please give her a call back to discuss scheduling options. Thank you! Action Taken: Message routed to: Other: Uro scheduling Travel Screening: Not Applicable documented in this encounter Plan of Treatment Not on file documented as of this encounter Visit Diagnoses Not on filedocumented in this encounter Additional Health Concerns Assessment Noted Time PHQ-9 Depression Total Score: 12 03/25/ 020 7:08 AM CDT documented as of this encounter Care Teams Manual Plate Filler Relationship Specialty Start Date End Date Sherin Garza MD [address] [place] [address] PCP - General 08/16/01 Tanvir Peñaloza PA-C [address] [place] [address] Physician Heavy Duty Truck Mechanic 12/27/17 Johanna Rodríguez LPN Nurse Coordinator 12/27/17 Sherin Garza MD [address] [place] [address] Assigned PCP 06/15/18 Jose M Bearden Personal Advocate & Liaison (PAL) 05/01/19 05/16/21 Chris Galvan MD [address] [place] [address] Assigned OBGYN Provider 11/13/2005/25 Asaf Perales MD [address] [place] [address] Assigned Surgical Provider 12/18/2012/31/20 Trinh Jacobson PA-C [address] [place] [address] Assigned Surgical Provider 01/01/21 Vini Joyce MD [address] [place] [address] Assigned Surgical Provider 01/29/21 [facility] [address] [place] [address] Pharmacist Pharmacist 05/17/21 07/26/22 Alisson Roth PA-C [address] [place] [address] Assigned Surgical Provider 05/14/2102/01/23 Adelaida Waterman PA-C [address] [place] [address] Assigned Sleep Provider 08/06/2104/19 Roberta Galvan [facility] [address] [place] [address] Assigned MTM Pharmacist 12/23/21 Roberta Galvan [facility] [address] [place] [address] Assigned MTM Pharmacist 03/28/22 Jeremy Camejo MD [address] [place] [address] Assigned OBGYN Provider 05/26/22 Nicolas Barragan MD [address] [place] [address] Assigned Surgical Provider 02/02/23 documented as of this encounter
--- OUTSIDE RECORDS SUMMARY | 2024-07-04 15:40 | XMS_ITS | Encounter Summary ---
Author Organization [place] Address [address] [facility] [address] Care Team Providers Care Trauma Registrar Name Role Phone Sherin Garza MD Primary Care Provider [phone] Tanvir Peñaloza PA-C Unavailable Unavailab Johanna Swenson LPN Unavailable Unavailable Sherin Garza MD Unavailable [phone] Jose M Bearden Unavailable Unavailable Chris Galvan MD Unavailable [phone] Vini Joyce MD Unavailable [phone] Roberta Galvan [facility] Unavailable Alisson Roth PA-C Unavailable [phone] Adelaida Waterman PA-C Unavailable [phone] Roberta Galvan [facility] Unavailable Roberta Gavlan [facility] Unavailable [phone] Jeremy Camejo MD Unavailable Nicolas Barragan MD Unavailable [phone] Encounter Details Date Type Department Care Team (Late st Contact Info) Description 02/28/2021 [facility] [address] [place] [address] Nikki Ferris Social History Tobacco Use Types [...] points; Administer PHQ-9 if positive 1 01/17/2021 [facility] of Occupat ional Health - [...] PM CDT 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 No / Unsure 02/10/2021 9:31 AM CDT documented as of this encounter Plan of Treatment Not on file documented as of this encounter Visit Diagnoses Not on filedocumented in this encounter Additional Health Concerns Assessment Noted Time PHQ-9 Depression Total Score: 3 01/19/20 7:03 AM CDT documented as of this encounter Care Teams Trauma Registrar Relationship Specialty Start Date End Date Sherin Garza MD [address] [facility] [place] [address] PCP - General 08/16/01 Tanvir Peñaloza PAArshC [address] [facility] [place] [address] Physician Replanting Machine Crewman 12/27/17 Johanna Rodríguez LPN Nurse Coordinator 12/27/17 Sherin Garza MD [address] [facility] [place] [address] Assigned PCP 06/15/18 Jose M Bearden Personal Advocate & Liaison (PAL) 05/01/19 05/16/21 Chris Galvan MD [address] [facility] [address] [place] [address] Assigned OBGYN Provider 11/13/2005/25 Vini Joyce MD [address] [place] [address] Assigned Surgical Provider 01/29/21 Roberta Galvan, [facility] [address] [address] Pharmacist Pharmacist 05/17/21 07/26/22 Alisson Roth PA-C [address] [place] [address] Assigned Surgical Provider 05/14/2102/01/23 Adelaida Waterman PA-C [address] [place] [address] Assigned Sleep Provider 08/06/2104/19 Roberta Galvan, [facility] [address] [address] Assigned MTM Pharmacist 12/23/21 Roberta Galvan, [facility] [address] [address] Assigned MTM Pharmacist 03/28/22 Jeremy Camejo MD [address] [place] [address] Assigned OBGYN Provider 05/26/22 Nicolas Barragan MD [address] [place] [address] Assigned Surgical Provider 02/02/23 documented as of this encounter
--- OUTSIDE RECORDS SUMMARY | 2024-07-04 15:40 | XMS_ITS | Encounter Summary ---
Author Organization [place] Address [address] [facility] [place] [address] Care Team Providers Care Fagot Heater Name Role Phone Sherin Garza MD Primary Care Provider [phone] Tanvir Peñaloza PA-C Unavailable Unavailab Johanna Swenson LPN Unavailable Unavailable Sherin Garza MD Unavailable [phone] Jose M Bearden Unavailable Unavailable Chris Galvan MD Unavailable [phone] Asaf Perales MD Unavailable [phone] Trinh Jacobson-C Unavailable Vini Joyce MD Unavailable [phone] Roberta Galvan [facility] Unavailable Alisson Roth-C Unavailable [phone] Adelaida Waterman-C Unavailable [phone] Roberta Galvan [facility] Unavailable [phone] Roberta Galvan [facility] Unavailable [phone] Jeremy Camejo MD Unavailable Nicolas Barragan MD Unavailable [phone] Encounter Details Date Type Department Care Team (Late st Contact Info) Description 11/15/2020 [facility] [address] [facility] [address] [place] [address] Chris Galvan MD [address] [facility] [address] [place] [address] Social History Tobacco Use Types Packs/Day Years [...] and Family Once a week 05/01/2019 Attends Spiritism Services Patient declined 07/2018 Active Member of [...] Answer Date Recorded PHQ-2 Score 2 07/05/2019 [facility] of Occupat ional Health - Occupational Stress [...] PM CDT 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 No / Unsure 11/15/2020 4:15 PM CDT documented as of this encounter Plan of Treatment Not on file documented as of this encounter Visit Diagnoses Not on filedocumented in this encounter Additional Health Concerns Assessment Noted Time PHQ-9 Depression Total Score: 12 020 7:08 AM CDT documented as of this encounter Care Teams Fagot Heater Relationship Specialty Start Date End Date Sherin Garza MD [address] [place] [address] PCP - General 08/16/01 Tanvir Peñaloza, PAArshC [address] [facility] [place] [address] Physician Substance Abuse Therapist 12/27/17 Johanna Rodríguez LPN Nurse Coordinator 12/27/17 Sherin Garza MD [address] [facility] [place] [address] Assigned PCP 06/15/18 Jose M Bearden Personal Advocate & Liaison (PAL) 05/01/19 05/16/21 Chris Galvan MD [address] [place] [address] Assigned OBGYN Provider 11/13/2005/25 Asaf Perales MD [address] [place], [place] [address] Assigned Surgical Provider 12/18/2012/31/20 Trinh Jacobson PA-C [address] [place], [place] [address] Assigned Surgical Provider 01/01/21 Vini Joyce MD [address] [place] [address] Assigned Surgical Provider 01/29/21 Roberta Galvan, [facility] [address] [address] Pharmacist Pharmacist 05/17/21 07/26/22 Alisson Roth PA-C [address] [place] [address] Assigned Surgical Provider 05/14/2102/01/23 Adelaida Waterman PA-C [address] [place] [address] Assigned Sleep Provider 08/06/2104/19 Roberta Galvan, [facility] [address] [id number] Assigned MTM Pharmacist 12/23/21 Roberta Galvan [facility] [address] [place] [address] Assigned MTM Pharmacist 03/28/22 Jeremy Camejo MD [address] [place] [address] Assigned OBGYN Provider 05/26/22 Nicolas Barragan MD [address] [place] [address] Assigned Surgical Provider 02/02/23 documented as of this encounter
--- OUTSIDE RECORDS SUMMARY | 2024-07-04 15:40 | XMS_ITS | Encounter Summary ---
Author Organization [place] Address [address] [facility] [place] [address] Care Team Providers Care Manager Cancer Name Role Phone Sherin Garza MD Primary Care Provider [phone] Tanvir Peñaloza PA-C Unavailable Unavailab Johanna Swenson LPN Unavailable Unavailable Sherin Garza MD Unavailable [phone] Jose M Bearden Unavailable Unavailable Chris Galvan MD Unavailable [phone] Asaf Perales MD Unavailable Trinh Jacobson-C Unavailable Vini Joyce MD Unavailable [phone] Roberta Galvan [facility] Unavailable [phone] Alisson Roth-C Unavailable [phone] Adelaida Waterman PA-C Unavailable [phone] Roberta Galvan [facility] Unavailable [phone] Roberta Galvan [facility] Unavailable [phone] Jeremy Camejo MD Unavailable Nicolas Barragan MD Unavailable [phone] Reason for Visit * Reason Onset Date Comments Refill Request 12/06/2020 montelukast (SIN GULAIR) 10 MG tablet Encounter Details Date Type Department Care Team (Late st Contact Info) Description 12/06/2020 Telephone [facility] [place] [address] [facility] [address] [place] [address] Sherin Garza MD [address] [facility] [place] [address] Refill Request (montelukast (SINGULAIR) 10 MG tablet) Social History Tobacco Use Types Packs/Day Years [...] and Family Once a week 05/01/2019 Attends Buddhism Services Patient declined 07/2018 Active Member of [...] Answer Date Recorded PHQ-2 Score 2 07/05/2019 [facility] [place] of Occupat ional Health - Occupational Stress [...] PM CDT Legal 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 She agreed toschedule Px, but decided she would call back at a later date. Susan Luevano CMA,AAMA * Telephone Encounter - Sherin Garza MD - 12/13/2020 10:30 PM CDT Still not scheduled, please call patient to schedule * Telephone Encounter - Peace Llanos CMA - 12/09/2020 7:28 AM CDT Message sent via App[employer] with act and to schedule physical Peace Llanos MA 7:28 AM 12/09/2020 * Telephone Encounter - Shrein Garza MD - 12/07/2020 4:34 PM CDT Please contact to get updated ACT and schedule physical, was due in August * Telephone Encounter - Phuc Coronado RN - 12/07/2020 4:05 PM CDT Routing refill request to provider for review/approval because: Labs out of range: ACT Phuc Mercado RN documented in this encounter Plan of Treatment Not on file documented as of this encounter Visit Diagnoses Diagnosis Moderate persistent asthma without complication Unspecified asthma documented in this encounter Additional Health Concerns Assessment Noted Time PHQ-9 Depression Total Score: 12 020 7:08 AM CDT documented as of this encounter Care Teams Manager Cancer Relationship Specialty Start Date End Date Sherin Garza MD [address] [facility] [place] [address] PCP - General 08/16/01 Tanvir Peñaloza, PAArshC [address] [facility] [place] [address] Physician Furniture Crater 12/27/17 Johanna Rodríguez LPN Nurse Coordinator 12/27/17 Sherin Garza MD [address] [facility] [place] [address] Assigned PCP 06/15/18 Jose M Bearden Personal Advocate & Liaison (PAL) 05/01/19 05/16/21 Chris Galvan MD [address] [facility] [address] [place] [address] Assigned OBGYN Provider 11/13/2005/25 Asaf Perales MD [address] [place] [address] Assigned Surgical Provider 12/18/2012/31/20 Trinh Jacobson PA-C [address] [place] [address] Assigned Surgical Provider 01/01/21 Vini Joyce MD [address] [place] [address] Assigned Surgical Provider 01/29/21 Roberta Galvan, [facility] [address] [address] Pharmacist Pharmacist 05/17/21 07/26/22 Alsison Roth PA-C [address] [place] [address] Assigned Surgical Provider 05/14/2102/01/23 Adelaida Waterman PA-C [address] [place] [address] Assigned Sleep Provider 08/06/2104/19 Roberta Galvan, [facility] [address] [address] Assigned MTM Pharmacist 12/23/21 Roberta Galvan, [facility] [address] [place] [address] Assigned MTM Pharmacist 03/28/22 Jeremy Cmaejo MD [address] [place] [address] Assigned OBGYN Provider 05/26/22 Nicolas Barragan MD [address] [place] [address] Assigned Surgical Provider 02/02/23 documented as of this encounter
--- OUTSIDE RECORDS SUMMARY | 2024-07-04 15:40 | XMS_ITS | Encounter Summary ---
Author Organization [place] Address [address] [place] [address] Care Team Providers Care Caterpillar Tractor Operator Name Role Phone Sherin Garza MD Primary Care Provider [phone] Tanvir Peñaloza PA-C Unavailable Unavailab Johanna Swenson LPN Unavailable Unavailable Sherin Garza MD Unavailable [phone] Jose M Bearden Unavailable Unavailable Chris Galvan MD Unavailable [phone] Asaf Perales MD Unavailable Trinh Jacobson-C Unavailable Vini Joyce MD Unavailable [phone] Roberta Galvan [facility] Unavailable [phone] Alisson Roth-C Unavailable [phone] Adelaida Waterman-C Unavailable [phone] Roberta Galvan [facility] Unavailable [phone] Roberta Galvan [facility] Unavailable [phone] Jeremy Camejo MD Unavailable Nicolas Barragan MD Unavailable [phone] Encounter Details Date Type Department Care Team (Late st Contact Info) Description 12/12/2020 [facility] [address] [facility] [address] [place] [address] Chris Galvan MD [address] [facility] [address] [place] [address] Social History Tobacco Use Types Packs/Day Years [...] and Family Once a week 05/01/2019 Attends Nondenominational Services Patient declined 07/2018 Active Member of [...] Answer Date Recorded PHQ-2 Score 1 12/15/2020 [facility] [place] of Occupat ional Health - Occupational Stress [...] PM CDT 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 Tigre Cortes RN * Telephone Encounter - Chris Galvan MD - 12/12/2020 2:20 PM CDT This drain port was placed by Urology (Dr. Perales), so see if they can get her in to look at it inthe next day or two. * Telephone Encounter - Sharon Cortes RN - 12/12/2020 1:54 PM CDT Please address the my chart message. Tigre Cortes RN documented in this encounter Plan of Treatment Not on file documented as of this encounter Visit Diagnoses Not on filedocumented in this encounter Additional Health Concerns Assessment Noted Time PHQ-9 Depression Total Score: 12 020 7:08 AM CDT documented as of this encounter Care Teams Caterpillar Tractor Operator Relationship Specialty Start Date End Date Sherin Garza MD [email or web address] [place] [address] PCP - General 08/16/01 Tanvir Peñaloza PA-C [email or web address] [place] [address] Physician Television News Anchor 12/27/17 Johanna Rodríguez LPN Nurse Coordinator 12/27/17 Sherin Garza MD [email or web address] [place] [address] Assigned PCP 06/15/18 Jose M Bearden Personal Advocate & Liaison (PAL) 05/01/19 05/16/21 Chris Galvan MD [address] [place] [address] Assigned OBGYN Provider 11/13/2005/25 Asaf Perales MD [address] [place] [address] Assigned Surgical Provider 12/18/2012/31/20 Trinh Jacobson PA-C [address] [place] [address] Assigned Surgical Provider 01/01/21 Vini Joyce MD [address] [place] [address] Assigned Surgical Provider 01/29/21 Roberta Galvan, [facility] [address] [address] Pharmacist Pharmacist 05/17/21 07/26/22 Alisson Roth PA-C [address] [place] [address] Assigned Surgical Provider 05/14/2102/01/23 Adelaida Waterman PA-C [address] [place] [address] Assigned Sleep Provider 08/06/2104/19 Roberta Galvan, [facility] [address] [place] [address] Assigned MTM Pharmacist 12/23/21 [facility] [address] [address] Assigned MTM Pharmacist 03/28/22 Jeremy Camejo MD [facility] [place] [place] [address] Assigned OBGYN Provider 05/26/22 Nicolas Barragan MD [address] [place] [address] Assigned Surgical Provider 02/02/23 documented as of this encounter
--- OUTSIDE RECORDS SUMMARY | 2024-07-04 15:40 | XMS_ITS | Encounter Summary ---
Author Organization [place] Address [address] [facility] [place] [address] Care Team Providers Care Tool Planner Name Role Phone Sherin Garza MD Primary Care Provider [phone] Tanvir Peñaloza PA-C Unavailable Unavailab Johanna Swenson LPN Unavailable Unavailable Sherin Garza MD Unavailable [phone] Jose M Bearden Unavailable Unavailable Chris Galvan MD Unavailable [phone] Vini Joyce MD Unavailable [phone] Roberta Galvan [facility] Unavailable Alisson Roth PA-C Unavailable [phone] Adelaida Waterman PA-C Unavailable [phone] Roberta Galvan [facility] Unavailable [phone] Roberta Galvan [facility] Unavailable Jeremy Camejo MD Unavailable [phone] Nicolas Barragan MD Unavailable [phone] Encounter Details Date Type Department Care Team (Late st Contact Info) Description 02/28/2021 [facility] Medical Advice [facility] [address] 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 Gender Identity Female 09/17/2018 1:36 AM [...] documented as of this encounter Care Teams Tool Planner Relationship Specialty Start Date End Date Sherin Garza MD [address] [facility] [place] [address] PCP - General 08/16/01 Tanvir Peñaloza, PA-C [address] [facility] [place] [address] Physician Diabetes Clinical Manager 12/27/17 Johanna Rodríguez LPN Nurse Coordinator 12/27/17 Sherin Garza MD [address] [facility] [place] [address] Assigned PCP 06/15/18 Jose M Bearden Personal Advocate & Liaison (PAL) 05/01/19 05/16/21 Chris Galvan MD [address] [facility] [address] [place] [address] Assigned OBGYN Provider 11/13/2005/25 Vini Joyce MD [address] [facility] [address] [place] [address] Assigned Surgical Provider 01/29/21 Roberta Galvan, [facility] [address] [place] [address] Pharmacist Pharmacist 05/17/21 07/26/22 Alisson Roth PA-C [address] [place] [address] Assigned Surgical Provider 05/14/2102/01/23 Adelaida Waterman PA-C [address] [place] [address] Assigned Sleep Provider 08/06/2104/19 Roberta Galvan, [facility] [address] [address] Assigned MTM Pharmacist 12/23/21 Roberta Galvan, [facility] [address] [address] Assigned MTM Pharmacist 03/28/22 Jeremy Camejo MD [address] [place] [address] Assigned OBGYN Provider 05/26/22 Nicolas Barragan MD [address] [place] [address] Assigned Surgical Provider 02/02/23 documented as of this encounter
--- OUTSIDE RECORDS SUMMARY | 2024-07-04 15:40 | XMS_ITS | Encounter Summary ---
Author Organization [place] Address [address] [place] [address] Care Team Providers Care Instructor Pilot Name Role Phone Sherin Garza MD Primary Care Provider [phone] Tanvir Peñaloza PA-C Unavailable Unavailab Johanna Swenson LPN Unavailable Unavailable Sherin Garza MD Unavailable [phone] Jose M Bearden Unavailable Unavailable Chris Galvan MD Unavailable [phone] Asaf Perales MD Unavailable [phone] Trinh Jacobson-C Unavailable Vini Joyce MD Unavailable [phone] Roberta Galvan [facility] Unavailable [phone] Alisson Roth-C Unavailable [phone] Adelaida Waterman PA-C Unavailable [phone] Roberta Galvan [facility] Unavailable [phone] Roberta Galvan [facility] Unavailable [phone] Jeremy Camejo MD Unavailable Nicolas Barragan MD Unavailable [phone] Reason for Visit * Reason Onset Date Comments Refill Request 09/12/2020 fluticasone-salm eterol (AIRDUO RESPICLICK) 232-14 MCG/ACT inhaler Encounter Details Date Type Department Care Team (Late st Contact Info) Description 09/12/2020 Refill M [facility] [place] [address] 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 Jayda Nesbitt LPN * Telephone Encounter - Janian Hussein CMA - 09/14/2020 9:48 AM CDT LVM to CB. Janina Hussein MA * Telephone Encounter - Sherin Garza MD - 09/13/2020 7:06 PM CDT Please call to schedule physical * Telephone Encounter - Yolie Fishman RN - 09/13/2020 2:32 PM CDT Routing refill request to provider for review/approval because: Labs not current: ACT Patient previously given praveena. Yolie Perez, RN, BSN documented in this encounter Plan of Treatment Not on file documented as of this encounter Visit Diagnoses Diagnosis Moderate persistent asthma without complication Unspecified asthma documented in this encounter Additional Health Concerns Assessment Noted Time PHQ-9 Depression Total Score: 12 020 7:08 AM CDT documented as of this encounter Care Teams Instructor Pilot Relationship Specialty Start Date End Date Sherin Garza MD [address] [facility] [place] [address] PCP - General 08/16/01 Tanvir Peñaloza PA-C [address] [facility] [place] [address] Physician Scrummaster 12/27/17 Johanna Rodríguez LPN Nurse Coordinator 12/27/17 Sherin Garza MD [address] [facility] [place] [address] Assigned PCP 06/15/18 Jose M Bearden Personal Advocate & Liaison (PAL) 05/01/19 05/16/21 Chris Galvan MD [address] [facility] [address] [place] [address] Assigned OBGYN Provider 11/13/2005/25 Asaf Perales MD [address] [place] [address] Assigned Surgical Provider 12/18/2012/31/20 Trinh Jacobson PA-C [address] [place] [address] Assigned Surgical Provider 01/01/21 Vini Joyce MD [address] [place] [address] Assigned Surgical Provider 01/29/21 Roberta Galvan, [facility] [address] [address] Pharmacist Pharmacist 05/17/21 07/26/22 Alisson Roth PA-C [address] [place] [address] Assigned Surgical Provider 05/14/2102/01/23 Adelaida Waterman PA-C [address] [place] [address] Assigned Sleep Provider 08/06/2104/19 Roberta Galvan, [facility] [address] [address] Assigned MTM Pharmacist 12/23/21 Roberta Galvan, [facility] [address] [address] Assigned MTM Pharmacist 03/28/22 Jeremy Camejo MD [address] [place] [address] Assigned OBGYN Provider 05/26/22 Nicolas Barragan MD [address] [place] [address] Assigned Surgical Provider 02/02/23 documented as of this encounter
--- OUTSIDE RECORDS SUMMARY | 2024-07-04 15:40 | XMS_ITS | Encounter Summary ---
Author Organization [place] Address [address] [facility] [address] Care Team Providers Care Finish Carpenter Name Role Phone Sherin Garza MD Primary Care Provider [phone] Tanvir Peñaloza PA-C Unavailable Unavailab Johanna Swenson LPN Unavailable Unavailable Sherin Garza MD Unavailable [phone] Jose M Bearden Unavailable Unavailable Chris Galvan MD Unavailable [phone] Asaf Perales MD Unavailable Trinh Jacobson-C Unavailable Vini Joyce MD Unavailable [phone] Roberta Galvan [facility] Unavailable [phone] Alisson Roth-C Unavailable [phone] Adelaida Waterman-C Unavailable [phone] Roberta Galvan [facility] Unavailable [phone] Roberta Galvan [facility] Unavailable [phone] Jeremy Camejo MD Unavailable Nicolas Barragan MD Unavailable [phone] Encounter Details Date Type Department Care Team (Late st Contact Info) Description 09/21/2020 MyC Medical Advice [facility] [place] [address] [facility] [address] [place] [address] Jayda Nesbitt LPN Social History Tobacco Use Types Packs/Day Years [...] and Family Once a week 05/01/2019 Attends Gnosticist Services Patient declined 07/2018 Active Member of [...] Answer Date Recorded PHQ-2 Score 2 07/05/2019 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 Gender Identity Female 09/17/2018 1:36 AM CDT [...] documented as of this encounter Care Teams Finish Carpenter Relationship Specialty Start Date End Date Sherin Garza MD [address] [facility] [place] [address] PCP - General 08/16/01 Tanvir Peñaloza, PA-C [address] [facility] [place] [address] Physician Screw Machine Setter 12/27/17 Johanna Rodríguez LPN Nurse Coordinator 12/27/17 Sherin Garza MD [address] [facility] [place] [address] Assigned PCP 06/15/18 Jsoe M Bearden Personal Advocate & Liaison (PAL) 05/01/19 05/16/21 Chris Galvan MD [address] [facility] [address] [place] [address] Assigned OBGYN Provider 11/13/2005/25 Asaf Perales MD [address] [place] [address] Assigned Surgical Provider 12/18/2012/31/20 Trinh Jacobson PA-C [address] [place] [address] Assigned Surgical Provider 01/01/21 Vini Joyce MD [address] [facility] [address] [place] [address] Assigned Surgical Provider 01/29/21 Roberta Galvan [facility] [address] [place], [place] [address] Pharmacist Pharmacist 05/17/21 07/26/22 Alisson Roth PA-C [address] [place] [address] Assigned Surgical Provider 05/14/2102/01/23 Adelaida Waterman PA-C [address] [place] [address] Assigned Sleep Provider 08/06/2104/19 Roberta Galvan [facility] [address] [place], [place] [address] Assigned MTM Pharmacist 12/23/21 Roberta Galvan, [facility] [address] [address] Assigned MTM Pharmacist 03/28/22 Jeremy Camejo MD [address] [place] [address] Assigned OBGYN Provider 05/26/22 Nicolas Barragan MD [address] [place] [address] Assigned Surgical Provider 02/02/23 documented as of this encounter
--- OUTSIDE RECORDS SUMMARY | 2024-07-04 15:40 | XMS_ITS | Encounter Summary ---
Author Organization [place] Address [address] [facility] [place] [address] Care Team Providers Care Grader Marker Name Role Phone Sherin Garza MD Primary Care Provider [phone] Tanvir Peñaloza PA-C Unavailable Unavailab Johanna Swenson LPN Unavailable Unavailable Sherin Garza MD Unavailable [phone] Jose M [place]arden Unavailable Unavailable Chris Galvan MD Unavailable [phone] Asaf Perales MD Unavailable Trinh Jacobson-C Unavailable [phone] Vini Joyce MD Unavailable [phone] Roberta Galvan [facility] Unavailable [phone] Alisson Roth-C Unavailable [phone] Adelaida Waterman-C Unavailable [phone] Roberta Galvan [facility] Unavailable [phone] Roberta Galvan [facility] Unavailable [phone] Jeremy Camejo MD Unavailable Nicolas Barragan MD Unavailable [phone] Encounter Details Date Type Department Care Team (Late st Contact Info) Description 11/16/2020 [facility] [address] [facility] [address] [place] [address] Chris Galvan MD [address] [facility] [address] [place] [address] Social History Tobacco Use Types Packs/Day Years [...] and Family Once a week 05/01/2019 Attends Anabaptism Services Patient declined 07/2018 Active Member of [...] Answer Date Recorded PHQ-2 Score 2 07/05/2019 [facility] [place] of Occupat ional Health - Occupational [...] PM CDT 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 So unfortunately I can't yet get her scheduled until those results are back. * Telephone Encounter - Ave Smith RN - 11/16/2020 12:35 PM CDT Please see my chart message. Ave Smith RN documented in this encounter Plan of Treatment Not on file documented as of this encounter Visit Diagnoses Not on filedocumented in this encounter Additional Health Concerns Assessment Noted Time PHQ-9 Depression Total Score: 12 020 7:08 AM CDT documented as of this encounter Care Teams Grader Marker Relationship Specialty Start Date End Date Sherin Garza MD [address] [facility] [place] [address] PCP - General 08/16/01 Tanvir Peñaloza PA-C [address] [place] [employer] [facility] [place] [address] Physician Pruner 12/27/17 Johanna Rodríguez LPN Nurse Coordinator 12/27/17 Sherin Garza MD [address] [employer] [facility] [place] [address] Assigned PCP 06/15/18 Jose M Bearden Personal Advocate & Liaison (PAL) 05/01/19 05/16/21 Chris Galvan MD [address] [place] [employer] [address] [place] [address] Assigned OBGYN Provider 11/13/2005/25 Asaf Perales MD [address] [place] [address] Assigned Surgical Provider 12/18/2012/31/20 Trinh Jacobson PA-C [address] [place] [address] Assigned Surgical Provider 01/01/21 Vini Joyce MD [address] [place] [address] Assigned Surgical Provider 01/29/21 [facility] [address] [address] Pharmacist Pharmacist 05/17/21 07/26/22 Alisson Roth PA-C [address] [place] [address] Assigned Surgical Provider 05/14/2102/01/23 Adelaida Waterman PA-C [address] [place] [address] Assigned Sleep Provider 08/06/2104/19 Roberta Galvan, [facility] [address] [address] Assigned MTM Pharmacist 12/23/21 Roberta Galvan, [facility] [address] [address] Assigned MTM Pharmacist 03/28/22 Jeremy Camejo MD [address] [place] [address] Assigned OBGYN Provider 05/26/22 Nicolas Barragan MD [address] [place], [place] [address] Assigned Surgical Provider 02/02/23 documented as of this encounter
--- OUTSIDE RECORDS SUMMARY | 2024-07-04 15:40 | XMS_ITS | Encounter Summary ---
Author Organization [place] Address [address] [facility] [place] [address] Care Team Providers Care Bundle Tier And Labeler Name Role Phone Sherin Garza MD Primary Care Provider [phone] Tanvir Peñaloza PA-C Unavailable Unavailab Johanna Swenson LPN Unavailable Unavailable Sherin Garza MD Unavailable [phone] Jose M Bearden Unavailable Unavailable Chris Galvan MD Unavailable [phone] Vini Joyce MD Unavailable [phone] Roberta Galvan [facility] Unavailable [phone] Alisson Roth PA-C Unavailable + [phone] Adelaida Waterman PA-C Unavailable [phone] Roberta Galvan [facility] Unavailable [phone] Roberta Galvan [facility] Unavailable [phone] Jeremy Camejo MD Unavailable Nicolas Barragan MD Unavailable [phone] Reason for Referral * Consultation (Routine) - Closed Specialty Diagnoses / Procedures Referred By Contac t Referred To Contact Bariatric Diagnoses Class 2 obesity due to excess calories without serious comorbidity with body mass index (BMI) of 39.0 to 39.9 in adult Sherin Garza MD [address] [place] [address] [place] [address] Phone: tel: fax: [facility] [place] [address], [address] [place] [address] Phone: tel: fax: Referral ID Status Reason Start Date Expiration Date Visits Re quested Visits Authorized [id number] Closed 03/15/2021 03/15/2022 1 1 Question Answer [facility] Medical Weight Management Preferred Location: [facility] Comprehensive Weight - [place] Scheduling Instructions: Please call to schedule your appointment Comments Please be aware that coverage of these services is subject to the terms and limitations of your health insurance plan. Call member services at your health plan with any benefit or coverage questions. Please call to schedule your appointment Encounter Details Date Type Department Care Team (Late st Contact Info) Description 03/13/2021 MyC Medical Advice [facility] [place] [address] [facility] [address] [place] [address] Sherin Garza MD [address] [place] [address] [place] [address] Family history of malignant neoplasm of breast (Primary Dx); Breast cancer screening, high risk patient; Class 2 obesity due to excess calories without serious comorbidity with body mass index (BMI) of 39.0 to 39.9 in adult Social History Tobacco Use Types Packs/Day Years [...] and Family Once a week 05/01/2019 Attends Faith Services Patient declined 07/2018 Active Member of [...] points; Administer PHQ-9 if positive 1 01/17/2021 [facility] of Occupat ional Health - Occupational Stress [...] PM CDT 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 as calculated from the following: Height as of 02/10/21: 1.626 m (5' 4). Weight as of 02/10/21: 101.7 kg (224 lb 4.8 oz). * Telephone Encounter - Janina Hussein CMA - 03/14/2021 7:50 AM CDT Mychart sent with ACT * Telephone Encounter - Sherin Garza MD - 03/13/2021 3:54 PM CDT Needs udpated ACT, please contact to obtain. ACT Total Scores 05/01/2019 07/10/2019 06/10/2020 ACT TOTAL SCORE - - - ASTHMA ER VISITS - - - ASTHMA HOSPITALIZATIONS - - - ACT TOTAL SCORE (Goal Greater than or Equal to 20) 12 22 16 In the past 12 months, how many times did you visit the emergency room for your asthma without being admitted to the hospital? 1 0 0 In the past 12 months, how many times were you hospitalized overnight because of your asthma? 0 0 0 documented in this encounter Plan of Treatment Scheduled Referrals Name Type Priority Associated Diagnoses Orde r Schedule Comprehensive Weight Management Referral Routine: Next available opening Class 2 obesity due to excess calories without serious comorbidity with body mass index (BMI) of 39.0 to 39.9 in adult Expected: 03/15/2021 (Approximate), Expires: 03/15/2022 documented as of this encounter Visit Diagnoses Diagnosis Family history of malignant neoplasm of breast- Primary Breast cancer screening, high risk patient Screening mammogram for high-risk patient Class 2 obesity due to excess calories without serious comorbidity with body mass index (BMI) of 39.0 to 39.9 in adult documented in this encounter Additional Health Concerns Assessment Noted Time PHQ-9 Depression Total Score: 3 01/19/20 21 7:03 AM CDT documented as of this encounter Care Teams Bundle Tier And Labeler Relationship Specialty Start Date End Date Sherin Garza MD [address] [place] [address] PCP - General 08/16/01 Tanvir Peñaloza PA-C [address] [place] [address] Physician Hull And Deck Remover 12/27/17 Johanna Rodríguez LPN Nurse Coordinator 12/27/17 Sherin Garza MD [address] [place] [address] Assigned PCP 06/15/18 Jose M Bearden Personal Advocate & Liaison (PAL) 05/01/19 05/16/21 Chris Galvan MD [address] [place] [address] Assigned OBGYN Provider 11/13/2005/25 Vini Joyce MD [address] [place] [address] Assigned Surgical Provider 01/29/21 [facility] [address] [place] [address] Pharmacist Pharmacist 05/17/21 07/26/22 Alisson Roth PA-C [address] [place] [address] Assigned Surgical Provider 05/14/2102/01/23 Adelaida Waterman PA-C [address] [place] [address] Assigned Sleep Provider 08/06/2104/19 Roberta Galvan, [facility] [address] [place], [place] [address] Assigned MTM Pharmacist 12/23/21 Roberta Galvan, [facility] [address] [place] [address] Assigned MTM Pharmacist 03/28/22 Jeremy Camejo MD [address] [place] [address] Assigned OBGYN Provider 05/26/22 Nicolas Barragan MD [address] [place], [place] [address] Assigned Surgical Provider 02/02/23 documented as of this encounter
--- OUTSIDE RECORDS SUMMARY | 2024-07-04 15:40 | XMS_ITS | Encounter Summary ---
Author Organization [place] Address [address] [facility] [place] [address] Care Team Providers Care Software Engineer Sales Name Role Phone Sherin Garza MD Primary Care Provider [phone] Tanvir Peñaloza PA-C Unavailable Unavailab Johanna Swenson LPN Unavailable Unavailable Sherin Garza MD Unavailable [phone] Jose M Bearden Unavailable Unavailable Chris Galvan MD Unavailable [phone] Asaf Perales MD Unavailable Trinh Jacobson-C Unavailable Vini Joyce MD Unavailable [phone] Roberta Galvan [facility] Unavailable [phone] Alisson Roth-C Unavailable [phone] Adelaida Waterman-C Unavailable [phone] Roberta Galvan [facility] Unavailable [phone] Roberta Galvan [facility] Unavailable [phone] Jeremy Camejo MD Unavailable Nicolas Barragan MD Unavailable [phone] Encounter Details Date Type Department Care Team (Late st Contact Info) Description 12/28/2020 MyC Medical Advice [facility] [place] [address] [place] [address] Mack Brown Social History Tobacco [...] and Family Once a week 05/01/2019 Attends [employer]dan[employer] Services Patient declined 07/2018 Active Member of [...] Answer Date Recorded PHQ-2 Score 1 12/15/2020 [facility] [...] PM CDT 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 No / Unsure 12/26/2020 12:21 PM CDT documented as of this encounter Plan of Treatment Not on file documented as of this encounter Visit Diagnoses Not on filedocumented in this encounter Additional Health Concerns Assessment Noted Time PHQ-9 Depression Total Score: 12 020 7:08 AM CDT documented as of this encounter Care Teams Software Engineer Sales Relationship Specialty Start Date End Date Sherin Garza MD [address] [facility] [place] [address] PCP - General 08/16/01 Tanvir Peñaloza, PAArshC [address] [place] [address] [place] [address] Physician College [employer] University Registrar 12/27/17 Johanna Rodríguez LPN Nurse Coordinator 12/27/17 Sherin Garza MD [address] [facility] [place] [address] Assigned PCP 06/15/18 Jose M Bearden Personal Advocate & Liaison (PAL) 05/01/19 05/16/21 Chris Galvan MD [address] [place] [address] Assigned OBGYN Provider 11/13/2005/25 Asaf Perales MD [address] [place] [address] Assigned Surgical Provider 12/18/2012/31/20 Trinh Jacobson PA-C [address] [place] [address] Assigned Surgical Provider 01/01/21 Vini Joyce MD [address] [facility] [address] [place] [address] Assigned Surgical Provider 01/29/21 Roberta Galvan [facility] [address] [place], [place] [address] Pharmacist Pharmacist 05/17/21 07/26/22 Alisson Roth PA-C [address] [place] [address] Assigned Surgical Provider 05/14/2102/01/23 Adelaida Waterman PA-C [address] [place] [address] Assigned Sleep Provider 08/06/2104/19 Roberta Galvan [facility] [address] [place], [place] [address] Assigned MTM Pharmacist 12/23/21 Roberta Galvan [facility] [address] [place] [address] Assigned MTM Pharmacist 03/28/22 Jeremy Camejo MD [address] [place] [address] Assigned OBGYN Provider 05/26/22 Nicolas Barragan MD [address] [place], [place] [address] Assigned Surgical Provider 02/02/23 documented as of this encounter
--- OUTSIDE RECORDS SUMMARY | 2024-07-04 15:40 | XMS_ITS | Encounter Summary ---
Author Organization [place] Address [address] [facility] [address] Care Team Providers Care Ham Stringer Name Role Phone Sherin Garza MD Primary Care Provider [phone] Tanvir Peñaloza PA-C Unavailable Unavailab Johanna Swenson LPN Unavailable Unavailable Sherin Garza MD Unavailable [phone] Jose M Bearden Unavailable Unavailable Chris Galvan MD Unavailable [phone] Vini Joyce MD Unavailable [phone] Roberta Galvan [facility] Unavailable Alisson Roth PA-C Unavailable [phone] Adelaida Waterman PA-C Unavailable [phone] Roberta Galvan [facility] Unavailable Roberta Galvan [facility] Unavailable Jeremy Camejo MD Unavailable Nicolas Barragan MD Unavailable [phone] Encounter Details Date Type Department Care Team (Late st Contact Info) Description 02/08/2021 External Order Results [facility] [address] [place] [address] Outside, Provider Family history of malignant neoplasm of breast; Family history of malignant neoplasm of ovary; Family history of prostate cancer Social History Tobacco Use Types Packs/Day Years [...] points; Administer PHQ-9 if positive 1 01/17/2021 [facility] - Occupational Stress Questionnaire Answer Date [...] PM CDT 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 Gender Identity Female 09/17/2018 1:36 AM CDT [...] on file documented as of this encounter Procedures Procedure Name Priority Date/Time Associated Diagnosis Comments LABORATORY MISCELLANEOUS ORDER Routine 02/08/2021 Family history of malignant neoplasm of breast Family history of malignant neoplasm of ovary Family history of prostate cancer documented in this encounter Results * Other Laboratory; [facility]; BRCANext-Expanded panel, genetic testing (Laboratory Miscellaneous Order) (02/08/2021) See Scanned Report [facility] 02/08/2021 us Venita Maldonado [facility] LAB - BLOOD ORDERABLES Final Re sult [facility] [address] [place], [place] [address] documented in this encounter Visit Diagnoses Diagnosis Family history of malignant neoplasm of breast Family history of malignant neoplasm of ovary Family history of prostate cancer Family history of malignant neoplasm of prostate documented in this encounter Additional Health Concerns Assessment Noted Time PHQ-9 Depression Total Score: 3 01/19/20 21 7:03 AM CDT documented as of this encounter Care Teams Ham Stringer Relationship Specialty Start Date End Date Sherin Garza MD [address] [place] [address] PCP - General 08/16/01 Tanvir Peñaloza PA-C [address] [place] [address] Physician Combat Information Center Officer 12/27/17 Johanna Rodríguez LPN Nurse Coordinator 12/27/17 Sherin Garza MD [address] [facility] [place] [address] Assigned PCP 06/15/18 Jose M Bearden Personal Advocate & Liaison (PAL) 05/01/19 05/16/21 Chris Galvan MD [address] [place] [address] Assigned OBGYN Provider 11/13/2005/25 Vini Joyce MD [address] [place] [address] Assigned Surgical Provider 01/29/21 Roberta Galvan [facility] [address] [place] [address] Pharmacist Pharmacist 05/17/21 07/26/22 Alisson Roth PA-C [address] [place] [address] Assigned Surgical Provider 05/14/2102/01/23 Adelaida Waterman PA-C [address] [place] [address] Assigned Sleep Provider 08/06/2104/19 Roberta Galvan [facility] [address] [address] Assigned MTM Pharmacist 12/23/21 Roberta Galvan [facility] [address] [address] Assigned MTM Pharmacist 03/28/22 Jeremy Camejo MD [address] [place] [address] Assigned OBGYN Provider 05/26/22 Nicolas Barragan MD [address] [place] [address] Assigned Surgical Provider 02/02/23 documented as of this encounter
--- OUTSIDE RECORDS SUMMARY | 2024-07-04 15:40 | XMS_ITS | Encounter Summary ---
Author Organization [place] Address [address] [facility] [place] [address] Care Team Providers Care Rn Resource Nurse Name Role Phone Sherin Garza MD Primary Care Provider [phone] Tanvir Peñaloza PA-C Unavailable Unavailab Johanna Swenson LPN Unavailable Unavailable Sherin Garza MD Unavailable [phone] Jose M Bearden Unavailable Unavailable Chris Galvan MD Unavailable [phone] Trinh JacobsonC Unavailable Vini Joyce MD Unavailable [phone] Roberta Galvan [facility] Unavailable Alisson RothC Unavailable Adelaida WatermanC Unavailable [phone] Roberta Galvan [facility] Unavailable Roberta Galvan [facility] Unavailable [phone] Jeremy Camejo MD Unavailable Nicolas Barragan MD Unavailable [phone] Encounter Details Date Type Department Care Team (Late st Contact Info) Description 01/18/2021 [facility] [address] 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 Patient would like to try metformin. Per office visit notes it was advised as an option pending blood work. Patient's most recent A1C: Lab Results Component Value Date A1C 5.0 01/17/2021 A1C 4.9 06/12/2017 A1C 5.3 11/22/2015 A1C 4.8 08/21/2006 Per lab note: no sign of diabetes or pre-diabetes. Please advise. Thanks! Kaela Bolton RN, BSN documented in this encounter Plan of Treatment Not on file documented as of this encounter Visit Diagnoses Diagnosis PCOS (polycystic ovarian syndrome) -- age 23- Primary Polycystic ovaries documented in this encounter Additional Health Concerns Assessment Noted Time PHQ-9 Depression Total Score: 3 01/19/20 7:03 AM CDT documented as of this encounter Care Teams Rn Resource Nurse Relationship Specialty Start Date End Date Sherin Garza MD [address] [place] [address] PCP - General 08/16/01 Tanvir Peñaloza PA-C [address] [facility] [place] [address] Physician Gas Tender 12/27/17 Johanna Rodríguez LPN Nurse Coordinator 12/27/17 Sherin Garza MD [address] [facility] [place] [address] Assigned PCP 06/15/18 Jose M Bearden Personal Advocate & Liaison (PAL) 05/01/19 05/16/21 Chris Galvan MD [address] [place] [address] Assigned OBGYN Provider 11/13/2005/25 Trinh Jacobson PA-C [address] [place] [address] Assigned Surgical Provider 01/01/21 Vini Joyce MD [address] [place], [place] [address] Assigned Surgical Provider 01/29/21 Roberta Galvan, [facility] [address] [address] Pharmacist Pharmacist 05/17/21 07/26/22 Alisson Roth PA-C [address] [place] [address] Assigned Surgical Provider 05/14/2102/01/23 Adelaida Waterman PA-C [address] [address] Assigned Sleep Provider 08/06/2104/19 Roberta Galvan, [facility] [address] [address] Assigned MTM Pharmacist 12/23/21 Roberta Galvan, [facility] [address] [place] [address] Assigned MTM Pharmacist 03/28/22 Jeremy Camejo MD [address] [place] [address] Assigned OBGYN Provider 05/26/22 Nicolas Barragan MD [address] [place] [address] Assigned Surgical Provider 02/02/23 documented as of this encounter
--- OUTSIDE RECORDS SUMMARY | 2024-07-04 15:40 | XMS_ITS | Encounter Summary ---
Author Organization [place] Address [address] [facility] [place] [address] Care Team Providers Care Firer Locomotive Crane Name Role Phone Sherin Garza MD Primary Care Provider [phone] Tanvir Peñaloza PA-C Unavailable Unavailab Johanna Swenson LPN Unavailable Unavailable Sherin Garza MD Unavailable [phone] Jose M Bearden Unavailable Unavailable Chris Galvan MD Unavailable [phone] Asaf Perales MD Unavailable Trinh Jacobson-C Unavailable Vini Joyce MD Unavailable [phone] Roberta Galvan [facility] Unavailable Alisson Roth-C Unavailable [phone] Adelaida Waterman-C Unavailable [phone] Roberta Galvan [facility] Unavailable [phone] Roberta Galvan [facility] Unavailable [phone] Jeremy Camejo MD Unavailable Nicolas Barragan MD Unavailable [phone] Encounter Details Date Type Department Care Team (Late st Contact Info) Description 11/14/2020 [facility] [address] [facility] [address] [place] [address] Chris Galvan MD [address] [facility] [address] [place] [address] Social History Tobacco Use Types Packs/Day Years [...] and Family Once a week 05/01/2019 Attends [employer] Services Patient declined 07/2018 Active Member of [...] Answer Date Recorded PHQ-2 Score 2 07/05/2019 [facility] of Occupat ional Health - Occupational Stress [...] PM CDT 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 But usually if the VB is not severe (soaking maxpad Q hour or worse), the 1 week between now and her appt will not affect anything going on. * Telephone Encounter - Farhana Nathan RN - 11/14/2020 1:[address] Galvan, See [facility] message. U/s tomorrow and appt with you on the Is this okay unless sx worsen? Farhana Gonzalez R.N. documented in this encounter Plan of Treatment Not on file documented as of this encounter Visit Diagnoses Not on filedocumented in this encounter Additional Health Concerns Assessment Noted Time PHQ-9 Depression Total Score: 12 020 7:08 AM CDT documented as of this encounter Care Teams Firer Locomotive Crane Relationship Specialty Start Date End Date Sherin Garza MD [address] [place] [address] PCP - General 08/16/01 Tanvir Peñaloza PA-C [address] [place] [address] Physician Biomedical Photographer 12/27/17 Johanna Rodríguez LPN Nurse Coordinator 12/27/17 Sherin Garza MD [address] [place] [address] Assigned PCP 06/15/18 Jose M Bearden Personal Advocate & Liaison (PAL) 05/01/19 05/16/21 Chris Galvan MD [address] [place] [address] Assigned OBGYN Provider 11/13/2005/25 Asaf Perales MD [address] [place] [address] Assigned Surgical Provider 12/18/2012/31/20 Trinh Jacobson PA-C [address] [place] [address] Assigned Surgical Provider 01/01/21 Vini Joyce MD [address] [place] [address] Assigned Surgical Provider 01/29/21 Roberta Galvan, [facility] [address] [address] Pharmacist Pharmacist 05/17/21 07/26/22 Alisson Roth PA-C [address] [place] [address] Assigned Surgical Provider 05/14/2102/01/23 Adelaida Waterman PA-C [address] [place] [address] Assigned Sleep Provider 08/06/2104/19 Roberta Galvan [facility] [address] [address] Assigned MTM Pharmacist 12/23/21 Roberta Galvan, [facility] [address] [id number] Assigned MTM Pharmacist 03/28/22 Jeremy Camejo MD [address] [place] [address] Assigned OBGYN Provider 05/26/22 Nicolas Barragan MD [address] [place] [address] Assigned Surgical Provider 02/02/23 documented as of this encounter
--- OUTSIDE RECORDS SUMMARY | 2024-07-04 15:40 | XMS_ITS | Encounter Summary ---
Author Organization [place] Address [address] [place] [address] Care Team Providers Care Qa Lead Name Role Phone Sherin Garza MD Primary Care Provider [phone] Tanvir Peñaloza PA-C Unavailable Unavailab Johanna Swenson LPN Unavailable Unavailable Sherin Garza MD Unavailable [phone] Jose M Bearden Unavailable Unavailable Chris Galvan MD Unavailable [phone] Asaf Perales MD Unavailable [phone] Trinh Jacobson-C Unavailable Vini Joyce MD Unavailable [phone] Roberta Galvan [facility] Unavailable Alisson Roth-C Unavailable [phone] Adelaida Waterman-C Unavailable [phone] Roberta Galvan [facility] Unavailable [phone] Roberta Galvan [facility] Unavailable [phone] Jeremy Camejo MD Unavailable Nicolas Barragan MD Unavailable [phone] Encounter Details Date Type Department Care Team (Late st Contact Info) Description 12/09/2020 [facility] [address] [facility] [address] [place] [address] Peace Llanos CMA Social History Tobacco [...] and Family Once a week 05/01/2019 Attends Confucianist Services Patient declined 07/2018 Active Member of [...] Answer Date Recorded PHQ-2 Score 2 07/05/2019 [facility] of Occupat ional Health - Occupational [...] CDT Legal Sex Female 4:00 AM MANAGER CCU Gender Identity Female 09/17/2018 1:36 AM CDT [...] documented as of this encounter Care Teams Qa Lead Relationship Specialty Start Date End Date Sherin Garza MD [address] [facility] [place] [address] PCP - General 08/16/01 Tanvir Peñaloza, PAArshC [address] [facility] [place] [address] Physician Pan Puller 12/27/17 Johanna Rodríguez LPN Nurse Coordinator 12/27/17 Sherin Garza MD [address] [facility] [place] [address] Assigned PCP 06/15/18 Jose M Bearden Personal Advocate & Liaison (PAL) 05/01/19 05/16/21 Chris Galvan MD [address] [place] [address] Assigned OBGYN Provider 11/13/2005/25 Asaf Perales MD [address] [place], [place] [address] Assigned Surgical Provider 12/18/2012/31/20 Trinh Jacobson PA-C [address] [place] [address] Assigned Surgical Provider 01/01/21 Vini Joyce MD [address] [facility] [address] [place] [address] Assigned Surgical Provider 01/29/21 Roberta Galvan [facility] [address] [address] Pharmacist Pharmacist 05/17/21 07/26/22 Alisson Roth PA-C [address] [place] [address] Assigned Surgical Provider 05/14/2102/01/23 Adelaida Waterman PA-C [address] [place] [address] Assigned Sleep Provider 08/06/2104/19 Roberta Galvan [facility] [address] [address] Assigned MTM Pharmacist 12/23/21 Roberta Galvan [facility] [address] [place] [address] Assigned MTM Pharmacist 03/28/22 Jeremy Camejo MD [address] [place] [address] Assigned OBGYN Provider 05/26/22 Nicolas Barragan MD [address] [place] [address] Assigned Surgical Provider 02/02/23 documented as of this encounter
--- OUTSIDE RECORDS SUMMARY | 2024-07-04 15:40 | XMS_ITS | Encounter Summary ---
Author Organization [place] Address [address] [facility] [place] [address] Care Team Providers Care Soda Tester Name Role Phone Sherin Garza MD Primary Care Provider [phone] Tanvir Peñaloza PA-C Unavailable Unavailab Johanna Swenson LPN Unavailable Unavailable Sherin Garza MD Unavailable [phone] Jose M Bearden Unavailable Unavailable Chris Galvan MD Unavailable [phone] Asaf Perales MD Unavailable Trinh Jacobson-C Unavailable Vini Joyce MD Unavailable [phone] Roberta Galvan [facility] Unavailable [phone] Alisson Roth-C Unavailable [phone] Adelaida Waterman-C Unavailable [phone] Roberta Galvan [facility] Unavailable [phone] Roberta Galvan [facility] Unavailable [phone] Jeremy Camejo MD Unavailable Nicolas Barragan MD Unavailable [phone] Encounter Details Date Type Department Care Team (Late st Contact Info) Description 12/27/2020 MyC Medical Advice [facility] [place] [address] [facility] [address] [place] [address] Sherin Garza MD [address] [facility] [place] [address] Social History Tobacco Use Types Packs/Day Years [...] and Family Once a week 05/01/2019 Attends Sabianism Services Patient declined 07/2018 Active Member of [...] Answer Date Recorded PHQ-2 Score 1 12/15/2020 [facility] [place] of Occupat ional Health - Occupational Stress [...] PM CDT 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 Kaela [place] RN, BSN documented in this encounter Plan of Treatment Not on file documented as of this encounter Visit Diagnoses Not on filedocumented in this encounter Additional Health Concerns Assessment Noted Time PHQ-9 Depression Total Score: 12 020 7:08 AM CDT documented as of this encounter Care Teams Soda Tester Relationship Specialty Start Date End Date Sherin Garza MD [address] [place] [address] PCP - General 08/16/01 Tanvir Peñaloza PA-C [address] [place] [address] Physician Slot Floor Person 12/27/17 Johanna Rodríguez LPN Nurse Coordinator 12/27/17 Sherin Garza MD [address] [facility] [address] Assigned PCP 06/15/18 Jose M Bearden Personal Advocate & Liaison (PAL) 05/01/19 05/16/21 Chris Galvan MD [address] [place] [address] Assigned OBGYN Provider 11/13/2005/25 Asaf Perales MD [address] [place], [place] [address] Assigned Surgical Provider 12/18/2012/31/20 Trinh Jacobson PA-C [address] [place] [address] Assigned Surgical Provider 01/01/21 Vini Joyce MD [address] [place] [address] Assigned Surgical Provider 01/29/21 [facility] [address] [facility] [place] [address] Pharmacist Pharmacist 05/17/21 07/26/22 Alisson Roth PA-C [address] [place] [address] Assigned Surgical Provider 05/14/2102/01/23 Adelaida Waterman PA-C [address] [place] [address] Assigned Sleep Provider 08/06/2104/19 Roberta Galvan [facility] [address] [address] Assigned MTM Pharmacist 12/23/21 Roberta Galvan [facility] [address] [address] Assigned MTM Pharmacist 03/28/22 Jeremy Camejo MD [address] [place] [address] Assigned OBGYN Provider 05/26/22 Nicolas Barragan MD [address] [place], [place] [address] Assigned Surgical Provider 02/02/23 documented as of this encounter
--- OUTSIDE RECORDS SUMMARY | 2024-07-04 15:40 | XMS_ITS | Encounter Summary ---
Author Organization [place] Address [address] [facility] [place] [address] Care Team Providers Care Mule Developer Name Role Phone Sherin Garza MD Primary Care Provider [phone] Tanvir Peñaloza PA-C Unavailable Unavailab Johanna Swenson LPN Unavailable Unavailable Sherin Garza MD Unavailable [phone] Jose M Bearden Unavailable Unavailable Chris Galvan MD Unavailable [phone] Asaf Perales MD Unavailable Trinh Jacobson-C Unavailable Vini Joyce MD Unavailable [phone] Roberta Galvan [facility] Unavailable Alisson Roth-C Unavailable [phone] Adelaida Waterman-C Unavailable [phone] Roberta Galvan [facility] Unavailable [phone] Roberta Galvan [facility] Unavailable [phone] Jeremy Camejo MD Unavailable Nicolas Barragan MD Unavailable [phone] Encounter Details Date Type Department Care Team (Late st Contact Info) Description 10/14/2020 MyC Medical Advice [facility] [place] [address] [facility] [address] [place] [address] Jayda Nesbitt [...] and Family Once a week 05/01/2019 Attends Episcopalian Services Patient declined 07/2018 Active Member of [...] Answer Date Recorded PHQ-2 Score 2 07/05/2019 [facility] [place] of Occupat ional Health - Occupational Stress [...] PM CDT Legal 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 [facility] [place] [address] PCP - General 08/16/01 Tanvir Peñaloza, PA-C [address] [facility] [place] [address] Physician Library Science Professor 12/27/17 Johanna Rodríguez LPN Nurse Coordinator 12/27/17 Sherin Garza MD [address] [facility] [place] [address] Assigned PCP 06/15/18 Jose M Bearden Personal Advocate & Liaison (PAL) 05/01/19 05/16/21 Chris Galvan MD [address] [facility] 100 [place] [address] Assigned OBGYN Provider 11/13/2005/25 Asaf Perales MD [address] [place] [address] Assigned Surgical Provider 12/18/2012/31/20 Trinh Jacobson PA-C [address] [place] [address] Assigned Surgical Provider 01/01/21 Vini Joyce MD [address] [facility] 300 [place] [address] Assigned Surgical Provider 01/29/21 Roberta Galvan [facility] [address] [place], [place] [address] Pharmacist Pharmacist 05/17/21 07/26/22 Alisson Roth PA-C [address] [place] [address] Assigned Surgical Provider 05/14/2102/01/23 Adelaida Waterman PA-C [address] [place] [address] Assigned Sleep Provider 08/06/2104/19 Roberta Galvan [facility] [address] [place], [place] [address] Assigned MTM Pharmacist 12/23/21 Roberta Galvan, [facility] [address] [address] Assigned MTM Pharmacist 03/28/22 Jeremy Camejo MD [address] [place] [address] Assigned OBGYN Provider 05/26/22 Nicolas Barragan MD [address] [place] [address] Assigned Surgical Provider 02/02/23 documented as of this encounter
--- OUTSIDE RECORDS SUMMARY | 2024-07-04 15:40 | XMS_ITS | Encounter Summary ---
Author Organization [place] Address [address] [facility] [place] [address] Care Team Providers Care Currency Exchange Specialist Name Role Phone Sherin Garza MD Primary Care Provider [phone] Tanvir Peñaloza PA-C Unavailable Unavailab Johanna Swenson LPN Unavailable Unavailable Sherin Garza MD Unavailable [phone] Jose M Bearden Unavailable Unavailable Chris Galvan MD Unavailable [phone] Asaf Perales MD Unavailable [phone] Trinh Jacobson-C Unavailable Vini Joyce MD Unavailable [phone] Roberta Galvan [facility] Unavailable [phone] Alisson Roth-C Unavailable [phone] Adelaida Waterman-C Unavailable [phone] Roberta Galvan [facility] Unavailable [phone] Roberta Galvan [facility] Unavailable [phone] Jeremy Camejo MD Unavailable [phone] Nicolas Barragan MD Unavailable [phone] Encounter Details Date Type Department Care Team (Late st Contact Info) Description 12/27/[address] 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 Gender Identity Female 09/17/2018 1:36 AM [...] documented as of this encounter Care Teams Currency Exchange Specialist Relationship Specialty Start Date End Date Sherin Garza MD [address] [facility] [place] [address] PCP - General 08/16/01 Tanvir Peñaloza, PAArshC [address] [facility] [place] [address] Physician Program Manufacturing Leader 12/27/17 Johanna Rodríguez LPN Nurse Coordinator 12/27/17 Sherin Garza MD [address] [facility] [place] [address] Assigned PCP 06/15/18 Jose M Bearden Personal Advocate & Liaison (PAL) 05/01/19 05/16/21 Chris Galvan MD [address] [place] [address] Assigned OBGYN Provider 11/13/2005/25 Asaf Perales MD [address] [place] [address] Assigned Surgical Provider 12/18/2012/31/20 Trinh Jacobson PA-C [address] [place] [address] Assigned Surgical Provider 01/01/21 Vini Joyce MD [address] [facility] [address] [place] [address] Assigned Surgical Provider 01/29/21 Roberta Galvan [facility] [address] [place], [place] [address] Pharmacist Pharmacist 05/17/21 07/26/22 Alisson Roth PA-C [address] [place] [address] Assigned Surgical Provider 05/14/2102/01/23 Adelaida Waterman PA-C [address] [place] [address] Assigned Sleep Provider 08/06/2104/19 Roberta Galvan [facility] [address] [address] Assigned MTM Pharmacist 12/23/21 Roberta Gavlan [facility] [address] [place] [address] Assigned MTM Pharmacist 03/28/22 Jeremy Camejo MD [address] [place] [address] Assigned OBGYN Provider 05/26/22 Nicolas Barragan MD 9 [place] [address] Assigned Surgical Provider 02/02/23 documented as of this encounter
--- OUTSIDE RECORDS SUMMARY | 2024-07-04 15:41 | XMS_ITS | Encounter Summary ---
Author Organization [place] Address [address] [facility] [place] [address] Care Team Providers Care Pointer Machine Operator Name Role Phone Sherin Garza MD Primary Care Provider [phone] Tanvir Peñaloza PA-C Unavailable Unavailab Johanna Swenson LPN Unavailable Unavailable Sherin Garza MD Unavailable [phone] Jose M Bearden Unavailable Unavailable Mack Arteaga Unavailable [phone] Chris Galvan MD Unavailable [phone] Asaf Perales MD Unavailable Trinh Jacobson-C Unavailable Vini Joyce MD Unavailable [phone] Roberta Galvan [facility] Unavailable Alisson Roth-C Unavailable [phone] Adelaida Waterman-C Unavailable [phone] Roberta Galvan [facility] Unavailable [phone] Roberta Galvan [facility] Unavailable [phone] Jeremy Camejo MD Unavailable Nicolas Barragan MD Unavailable Encounter Details Date Type Department Care Team (Latest Contact Info) Description 05/01/2019 Historic Results Social History Tobacco Use Types Packs/Day Years [...] and Family Once a week 05/01/2019 Attends Pentecostal Services Patient declined 07/2018 Active Member of [...] 05/01/2019 PHQ-2 Answer Date Recorded PHQ-2 Score 6 05/01/2019 [facility] - Occupational Stress Questionnaire Answer Date [...] CDT Legal Sex Female 4:00 AM MANAGER UNIT Gender Identity Female 09/17/2018 1:36 AM CDT [...] Assessment Noted Time PHQ-9 Depression Total Score: 15 019 7:03 AM CDT documented as of this encounter Care Teams Pointer Machine Operator Relationship Specialty Start Date End Date Sherin Garza MD [address] [employer] [facility] [address] PCP - General 08/16/01 Tanvir Peñaloza, PAArshC [address] [employer] [facility] [address] Physician Clam Bed Worker 12/27/17 Johanna Rodríguez LPN Nurse Coordinator 12/27/17 Sherin Garza MD [address] [employer] [facility] [place] [address] Assigned PCP 06/15/18 Jose M Bearden Personal Advocate & Liaison (PAL) 05/01/19 05/16/21 Mack Arteaga LSW Lead Delivery Of Shopping News Primary Care - CC 05/22/1909/15 Chris Galvan MD [address] [facility] [address] [place] [address] Assigned OBGYN Provider 11/13/2005/25 Asaf Perales MD [address] [place] [address] Assigned Surgical Provider 12/18/20 12/31/20 Trinh Jacobson PA-C [address] [place] [address] Assigned Surgical Provider 01/01/21 01/28/21 Vini Joyce MD [address] [facility] [address] [place], [place] [address] Assigned Surgical Provider 01/29/21 05/13/21 Roberta Galvan, [facility] [address] [address] Pharmacist Pharmacist 05/17/21 07/26/22 Alisson Roth PA-C [address] [place] [address] Assigned Surgical Provider 05/14/21 02/01/23 Adelaiad Waterman PA-C [address] [place] [address] Assigned Sleep Provider 08/06/2104/19 Roberta Galvan, [facility] [address] [address] Assigned MTM Pharmacist 12/23/21 Roberta Galvan, [facility] [address] [address] Assigned MTM Pharmacist 03/28/22 Jeremy Camejo MD [address] [place] [address] Assigned OBGYN Provider 05/26/22 Nicolas Barragan MD [address] [place], [place] [address] Assigned Surgical Provider 02/02/23 10/21/23 documented as of this encounter
--- OUTSIDE RECORDS SUMMARY | 2024-07-04 15:41 | XMS_ITS | Encounter Summary ---
Author Organization [place] Address [address] [facility] [place] [address] Care Team Providers Care Youth Officer Name Role Phone Sherin Garza MD Primary Care Provider [phone] Tanvir Peñaloza PA-C Unavailable Unavailab Johanna Swenson LPN Unavailable Unavailable Sherin Garza MD Unavailable [phone] Jose M Bearden Unavailable Unavailable Mack Arteaga Unavailable [phone] Chris Galvan MD Unavailable [phone] Asaf Perales MD Unavailable [phone] Trinh Jacobson-C Unavailable Vini Joyce MD Unavailable [phone] Roberta Galvan [facility] Unavailable Alisson Roth-C Unavailable [phone] Adelaida Waterman-C Unavailable [phone] Roberta Galvan [facility] Unavailable [phone] Roberta Galvan [facility] Unavailable Jeremy Camejo MD Unavailable Nicolas Barragan MD Unavailable [phone] Encounter Details Date Type Department Care Team (Late st Contact Info) Description 02/03/2019 MyC Medical Advice [facility] [place] [address] [facility] [address] [place] [address] Monet Herrera, CHAIR PAD MAKER Social History Tobacco Use Types Packs/Day Years Used Date Smoking Tobacco: Never Smokeless Tobacco: Never Alcohol Use Standard Drinks/Week Comments Yes 0 (1 standard drink = 0.6 oz pur e alcohol) 1-2 drinks a week PHQ-2 Answer Date Recorded PHQ-2 Score 1 07/08/2018 Comments No Sex and Gender Information Value Date Recorded Sex Assigned at Female 10/27/2020 11:13 PM CDT Legal Sex Female 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 Gender Identity Female 09/17/2018 1:36 AM CDT [...] Assessment Noted Time PHQ-9 Depression Total Score: 7 10/01/19 19 3:59 PM CDT documented as of this encounter Care Teams Youth Officer Relationship Specialty Start Date End Date Sherin Garza MD [address] [place] [address] [place] [address] PCP - General 08/16/01 Tanvir Peñaloza, PA-C [address] [place] [address] [place] [address] Physician Cotton Roll Packer 12/27/17 Johanna Rodríguez LPN Nurse Coordinator 12/27/17 Sherin Garza MD [address] [place] [address] [place] [address] Assigned PCP 06/15/18 Jose M Bearden Personal Advocate & Liaison (PAL) 05/01/19 05/16/21 Mack Arteaga LSW Lead Parts Counter Specialist Primary Care - CC 05/22/1909/15 Chris Galvan MD [address] [place] [address] Assigned OBGYN Provider 11/13/2005/25 Asaf Perales MD [address] [place], [place] [address] Assigned Surgical Provider 12/18/20 12/31/20 Trinh Jacobson PA-C [address] [place] [address] Assigned Surgical Provider 01/01/21 01/28/21 Vini Joyce MD [address] [place] [address] Assigned Surgical Provider 01/29/21 05/13/21 Roberta Galvan [facility] [address] [place] [address] Pharmacist Pharmacist 05/17/21 07/26/22 Alisson Roth PA-C [address] [place] [address] Assigned Surgical Provider 05/14/21 02/01/23 Adelaida Waterman PA-C [address] [place] [address] Assigned Sleep Provider 08/06/2104/19 Roberta Galvan [facility] [address] [address] Assigned MTM Pharmacist 12/23/21 Roberta Galvan, [facility] [address] [address] Assigned MTM Pharmacist 03/28/22 Jeremy Camejo MD [address] [place] [address] Assigned OBGYN Provider 05/26/22 Nicolas Barragan MD 9 [place] [address] Assigned Surgical Provider 02/02/23 10/21/23 documented as of this encounter
--- OUTSIDE RECORDS SUMMARY | 2024-07-04 15:41 | XMS_ITS | Encounter Summary ---
Author Organization [place] Address [address] [place] [address] Care Team Providers Care Chemistry Physics Teacher Name Role Phone Sherin Garza MD Primary Care Provider [phone] Tanvir Peñaloza PA-C Unavailable Unavailab Johanna Swenson LPN Unavailable Unavailable Sherin Garza MD Unavailable [phone] Jose M Bearden Unavailable Unavailable Chris Galvan MD Unavailable [phone] Asaf Perales MD Unavailable Trinh Jacobson-C Unavailable Vini Joyce MD Unavailable [phone] Roberta Galvan [facility] Unavailable [phone] Alisson Roth-C Unavailable [phone] Adelaida Waterman-C Unavailable [phone] Roberta Galvan [facility] Unavailable [phone] Roberta Galvan [facility] Unavailable [phone] Jeremy Camejo MD Unavailable [phone] Nicolas Barragan MD Unavailable [phone] Encounter Details Date Type Department Care Team (Late st Contact Info) Description 02/24/2020 MyC Medical Advice [facility] [address] [place] [address] ThomasmelissamirellaSasha, CLAIM INSPECTOR [address] [place] [address] Social History Tobacco Use Types Packs/Day Years [...] and Family Once a week 05/01/2019 Attends Jainism Services Patient declined 07/2018 Active Member of [...] Answer Date Recorded PHQ-2 Score 2 07/05/2019 [facility] [place] of Occupat ional Health - Occupational Stress [...] CDT 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 No / Unsure 02/10/2020 8:04 AM CDT documented as of this encounter Plan of Treatment Not on file documented as of this encounter Visit Diagnoses Not on filedocumented in this encounter Additional Health Concerns Assessment Noted Time PHQ-9 Depression Total Score: 6 07/05/19 20 7:03 AM TECHNICAL LABORATORY ASST documented as of this encounter Care Teams Chemistry Physics Teacher Relationship Specialty Start Date End Date Sherin Garza MD [address] [place] [address] PCP - General 08/16/01 Tanvir Peñaloza, PAArshC [address] [place] [address] [facility] [place] [address] Physician Lockstitch Shoulder Joiner 12/27/17 Johanna Rodríguez LPN Nurse Coordinator 12/27/17 Sherin Garza MD [address] [place] [facility] [place] [address] Assigned PCP 06/15/18 Jose M Bearden Personal Advocate & Liaison (PAL) 05/01/19 05/16/21 Chris Galvan MD [address] [place] [address] Assigned OBGYN Provider 11/13/2005/25 Asaf Perales MD [address] [place] [address] Assigned Surgical Provider 12/18/2012/31/20 Trinh Jacobson PA-C [address] [place], [place] [address] Assigned Surgical Provider 01/01/21 Vini Joyce MD [address] [place] [address] Assigned Surgical Provider 01/29/21 Roberta Galvan, [facility] [address] [address] Pharmacist Pharmacist 05/17/21 07/26/22 Alisson Roth PA-C [address] [place] [address] Assigned Surgical Provider 05/14/2102/01/23 Adelaida Waterman PA-C [address] [place] [address] Assigned Sleep Provider 08/06/2104/19 Roberta Galvan, [facility] [address] [address] Assigned MTM Pharmacist 12/23/21 Roberta Galvan [facility] [address] [place] [address] Assigned MTM Pharmacist 03/28/22 Jeremy Camejo MD [address] [place] [address] Assigned OBGYN Provider 05/26/22 Nicolas Barragan MD [address] [place] [address] Assigned Surgical Provider 02/02/23 documented as of this encounter
--- OUTSIDE RECORDS SUMMARY | 2024-07-04 15:41 | XMS_ITS | Encounter Summary ---
Author Organization [place] Address [address] [facility] [place] [address] Care Team Providers Care Steno Pool Supervisor Name Role Phone Sherin Garza MD Primary Care Provider [phone] Tanvir Peñaloza PA-C Unavailable Unavailab Johanna Swenson LPN Unavailable Unavailable Sherin Garza MD Unavailable [phone] Jose M Bearden Unavailable Unavailable Chris Galvan MD Unavailable [phone] Asaf Perales MD Unavailable Trinh Jacobson-C Unavailable [phone] Vini Joyce MD Unavailable [phone] Roberta Galvan [facility] Unavailable [phone] Alisson Roth-C Unavailable [phone] Adelaida Waterman-C Unavailable [phone] Roberta Galvan [facility] Unavailable [phone] Roberta Galvan [facility] Unavailable [phone] Jeremy Camejo MD Unavailable Nicolas Barragan MD Unavailable [phone] Reason for Visit * Reason Comments Medication Refill Encounter Details Date Type Department Care Team (Late st Contact Info) Description 10/06/2019 Refill [facility] [place] [address] [place] [address] Sherin Garza MD [address] [facility] [place] [id number] Medication Refill Social History Tobacco Use Types Packs/Day Years [...] Answer Date Recorded PHQ-2 Score 2 07/05/2019 [facility] [place] of Occupat ional Health - Occupational Stress [...] PM CDT 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 No / Unsure 09/22/2019 4:12 PM CDT documented as of this encounter Miscellaneous Notes * Telephone Encounter - Kalli Harvey RN - 10/06/2019 1:58 PM CDT Prescription approved per [facility] Refill Protocol. Kalli Harvey RN [facility] documented in this encounter Plan of Treatment Not on file documented as of this encounter Visit Diagnoses Diagnosis Mild persistent asthma without complication Unspecified asthma documented in this encounter Additional Health Concerns Assessment Noted Time PHQ-9 Depression Total Score: 6 07/05/19 20 7:03 AM BIOCHEMISTRY TEACHER documented as of this encounter Care Teams Steno Pool Supervisor Relationship Specialty Start Date End Date Sherin Garza MD [address] [place] [address] PCP - General 08/16/01 OTanvir Pierre, PA-C [address] [place] [address] Physician Merchandise Presentation Manager 12/27/17 Johanna Rodríguez LPN Nurse Coordinator 12/27/17 Sherin Garza MD [address] [facility] [place] [address] Assigned PCP 06/15/18 Jose M Bearden Personal Advocate & Liaison (PAL) 05/01/19 05/16/21 Chris Galvan MD [address] [place] [address] Assigned OBGYN Provider 11/13/2005/25 Asaf Perales MD [address] [place] [address] Assigned Surgical Provider 12/18/2012/31/20 Trinh Jacobson PA-C [address] [place], [place] [address] Assigned Surgical Provider 01/01/21 Vini Joyce MD [address] [place] [address] Assigned Surgical Provider 01/29/21 [facility] [address] [place] [address] Pharmacist Pharmacist 05/17/21 07/26/22 Alisson Roth PA-C [address] [place] [address] Assigned Surgical Provider 05/14/2102/01/23 Adelaida Waterman PA-C [address] [place] [address] [place] [address] Assigned Sleep Provider 08/06/2104/19 Roberta Galvan, [facility] [address] [address] Assigned MTM Pharmacist 12/23/21 Roberta Galvan, [facility] [address] [address] Assigned MTM Pharmacist 03/28/22 Jeremy Camejo MD [address] [place] [address] Assigned OBGYN Provider 05/26/22 Nicolas Barragan MD [address] [place], [place] [address] Assigned Surgical Provider 02/02/23 documented as of this encounter
--- OUTSIDE RECORDS SUMMARY | 2024-07-04 15:41 | XMS_ITS | Encounter Summary ---
Author Organization [place] Address [address] [place] [address] Care Team Providers Care Body Design Checker Name Role Phone Sherin Garza MD Primary Care Provider [phone] Tanvir Peñaloza PA-C Unavailable Unavailab Johanna Swenson LPN Unavailable Unavailable Sherin Garza MD Unavailable [phone] Sherin Garza MD Unavailable [phone] Jose M Bearden Unavailable Unavailable Mack Arteaga Unavailable [phone] Chris Galvan MD Unavailable [phone] Asaf Perales MD Unavailable [phone] Trinh JacobsonC Unavailable Vini Joyce MD Unavailable [phone] Roberta Galvan [facility] Unavailable [phone] Alisson Roth PA-C Unavailable [phone] Adelaida WatermanC Unavailable [phone] Roberta Galavn [facility] Unavailable [phone] Roberta Galvan [facility] Unavailable [phone] Jeremy Camejo MD Unavailable Nicolas Barragan MD Unavailable [phone] Reason for Visit * Reason Onset Date Comments Refill Request 08/16/2017 Adderall XR 30 m g Encounter Details Date Type Department Care Team (Late st Contact Info) Description 08/16/2017 MyC Medical Advice [facility] [place] [address] [place] [address] Sherni Garza MD [address] [facility] [place] [address] Refill Request (Adderall XR 30 mg) Social History Tobacco Use Types Packs/Day Years Used Date Smoking Tobacco: Never Smokeless Tobacco: Never Alcohol Use Standard Drinks/Week Comments Yes 0 (1 standard drink = 0.6 oz pur e alcohol) 1-2 drinks a week Comments No Sex and Gender Information Value Date Recorded Sex Assigned at Female 10/27/2020 11:13 PM CDT Legal 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 Peace Llanos MA H SCIENCE TEACHER * Telephone Encounter - Sherin Garza MD - 08/16/2017 2:42 PM CST Prescription done, script signed H SCIENCE TEACHER * Telephone Encounter - Cally Rai RN - 08/16/2017 1:58 PM EARTH SCIENCE TEACHER Refill request for: ADDERALL XR 30 MG QD Assuming - Place RX up front. Please reply to this Swiftot message when this has been done. Last rx written: 06/11/17 # 30 [place] RECORDS MANAGEMENT MANAGER reviewed- last filled: 03/20/17 Last OV: 04/02/17 for cough Unable to fill per standing order routed to Dr. Garza for approval. Cally Rai, RN H SCIENCE TEACHER documented in this encounter Plan of Treatment Not on file documented as of this encounter Visit Diagnoses Diagnosis Attention deficit hyperactivity disorder (ADHD), unspecified ADHD type documented in this encounter Additional Health Concerns Assessment Noted Time PHQ-9 Depression Total Score: 2 04/02/20 8:47 AM CDT documented as of this encounter Care Teams Body Design Checker Relationship Specialty Start Date End Date Sherin Garza MD [address] [place] [address] PCP - General 08/16/01 Sherin Garza MD [address] [place] [address] PCP - Assigned PCP 01/26/18 09/02/18 Tanvir Peñaloza PA-C [address] [place] [address] Physician Twist Tester 12/27/17 Johanna Rodríguez LPN Nurse Coordinator 12/27/17 Sherin Garza MD [address] [place] [address] Assigned PCP 06/15/18 Jose M Bearden Personal Advocate & Liaison (PAL) 05/01/19 05/16/21 Mack Arteaga LSW Lead Washer Operator Primary Care - CC 05/22/1909/15 Chris Galvan MD [address] [place] [address] Assigned OBGYN Provider 11/13/2005/25 Asaf Perales MD [address] [place], [place] [address] Assigned Surgical Provider 12/18/20 12/31/20 Trinh Jacobson PA-C [address] [place], [place] [address] Assigned Surgical Provider 01/01/21 01/28/21 Vini Joyce MD [address] [facility] [address] [place] [address] Assigned Surgical Provider 01/29/21 05/13/21 Roberta Galvan [facility] [address] [place] [address] Pharmacist Pharmacist 05/17/21 07/26/22 Alisson Roth PA-C [address] [place] [address] Assigned Surgical Provider 05/14/21 02/01/23 Adelaida Waterman PA-C [address] [place] [address] Assigned Sleep Provider 08/06/2104/19 Roberta Galvan [facility] [address] [place], [place] [address] Assigned MTM Pharmacist 12/23/21 Roberta Galvan [facility] [address] [place] [address] Assigned MTM Pharmacist 03/28/22 Jeremy Camejo MD [address] [place] [address] Assigned OBGYN Provider 05/26/22 Nicolas Barragan MD [address] [place] [address] Assigned Surgical Provider 02/02/23 10/21/23 documented as of this encounter
--- OUTSIDE RECORDS SUMMARY | 2024-07-04 15:41 | XMS_ITS | Encounter Summary ---
Author Organization [place] Address [address] [facility] [place] [address] Care Team Providers Care Plug Stitcher Name Role Phone Sherin Garza MD Primary Care Provider [phone] Tanvir Peñaloza PA-C Unavailable Unavailab Johanna Swenson LPN Unavailable Unavailable Sherin Garza MD Unavailable [phone] Jose M Bearden Unavailable Unavailable Mack Arteaga Unavailable [phone] Chris Galvan MD Unavailable [phone] Asaf Perales MD Unavailable Trinh Jacobson-C Unavailable Vini Joyce MD Unavailable [phone] Roberta Galvan [facility] Unavailable Alisson Roth-C Unavailable [phone] Adelaida Waterman-C Unavailable [phone] Roberta Galvan [facility] Unavailable [phone] Roberta Galvan [facility] Unavailable [phone] Jeremy Camejo MD Unavailable Nicolas Barragan MD Unavailable Reason for Visit * Reason Onset Date Comments Formulary Issue 10/01/2018 hydroxyzine caps on back order Medication Change 10/01/2018 to hydroxyzine tabs Encounter Details Date Type Department Care Team (Late st Contact Info) Description 10/01/2018 MyC Medical Advice [facility] [place] [address] [facility] [address] [place] [address] Sherin Garza MD [address] [facility] [place] [address] Formulary Issue (hydroxyzine caps on back ... 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 Requesting alternative form or change in pharmacy. Will await pt's return message. Mary Anne Godwin RN documented in this encounter Plan of Treatment Not on file documented as of this encounter Visit Diagnoses Diagnosis Generalized anxiety disorder documented in this encounter Additional Health Concerns Assessment Noted Time PHQ-9 Depression Total Score: 7 10/01/19 19 3:59 PM CDT documented as of this encounter Care Teams Plug Stitcher Relationship Specialty Start Date End Date Sherin Garza MD [address] [facility] [address] [place] [address] PCP - General 08/16/01 Tanvir Peñaloza PA-C [address] [place] [address] Physician Oil Field Equipment Mechanic 12/27/17 Johanna Rodríguez LPN Nurse Coordinator 12/27/17 Sherin Garza MD [address] [facility] [address] [place] [address] Assigned PCP 06/15/18 Jose M Bearden Personal Advocate & Liaison (PAL) 05/01/19 05/16/21 Mack Arteaga [facility] Lead Assembler Filters Primary Care - CC 05/22/1909/15 Chris Galvan MD [address] [place] [address] Assigned OBGYN Provider 11/13/2005/25 Asaf Perales MD [address] [place] [address] Assigned Surgical Provider 12/18/20 12/31/20 Trinh Jacobson PA-C [address] [place] [address] Assigned Surgical Provider 01/01/21 01/28/21 Vini Joyce MD [address] [place] [address] Assigned Surgical Provider 01/29/21 05/13/21 Roberta Galvan, [facility] [address] [address] Pharmacist Pharmacist 05/17/21 07/26/22 Alisson Roth PA-C [address] [place] [address] Assigned Surgical Provider 05/14/21 02/01/23 Adelaida Waterman PA-C [address] [place] [address] Assigned Sleep Provider 08/06/2104/19 Roberta Galvan, [facility] [address] [address] Assigned MTM Pharmacist 12/23/21 Roberta Galvan, [facility] [address] [address] Assigned MTM Pharmacist 03/28/22 Jeremy Camejo MD [address] [place] [address] Assigned OBGYN Provider 05/26/22 Nicolas Barragan MD [address] [place], [place] [address] Assigned Surgical Provider 02/02/23 10/21/23 documented as of this encounter
--- OUTSIDE RECORDS SUMMARY | 2024-07-04 15:41 | XMS_ITS | Encounter Summary ---
Author Organization [place] Address [address] [facility] [place] [address] Care Team Providers Care [facility] Name Role Phone Sherin Garza MD Primary Care Provider [phone] Tanvir Peñaloza PA-C Unavailable Unavailab Johanna Swenson LPN Unavailable Unavailable Sherin Garza MD Unavailable [phone] Jose M Bearden Unavailable Unavailable Chris Galvan MD Unavailable [phone] Asaf Perales MD Unavailable Trinh Jacobson-C Unavailable Vini Joyce MD Unavailable [phone] Roberta Galvan [facility] Unavailable Alisson Roth-C Unavailable [phone] Adelaida Waterman-C Unavailable [phone] Roberta Galvan [facility] Unavailable [phone] Roberta Galvan [facility] Unavailable [phone] Jeremy Camejo MD Unavailable Nicolas Barragan MD Unavailable [phone] Encounter Details Date Type Department Care Team (Late st Contact Info) Description 08/22/2020 MyC Medical Advice [facility] [address] [facility] [address] [place] [address] Charmaine Raymond CMA Social History Tobacco Use Types Packs/Day [...] Answer Date Recorded PHQ-2 Score 2 07/05/2019 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 Gender Identity Female 09/17/2018 1:36 [...] documented as of this encounter Care Teams [facility] Relationship Specialty Start Date End Date Sherin Garza MD [address] [place] [address] PCP - General 08/16/01 OTanvir Pierre, PA-C [address] [place] [address] Physician Head Lineman 12/27/17 Johanna Rodríguez LPN Nurse Coordinator 12/27/17 Sherin Garza MD [address] [facility] [place] [address] Assigned PCP 06/15/18 Jose M Bearden Personal Advocate & Liaison (PAL) 05/01/19 05/16/21 Chris Galvan MD [address] [place] [address] Assigned OBGYN Provider 11/13/2005/25 Asaf Perales MD [address] [facility] [address] [place] [address] Assigned Surgical Provider 12/18/2012/31/20 Trinh Jacobson PA-C [address] [place] [address] Assigned Surgical Provider 01/01/21 Vini Joyce MD [address] [facility] [address] [place] [address] Assigned Surgical Provider 01/29/21 Roberta Galvan, [facility] [address] [place], [place] [address] Pharmacist Pharmacist 05/17/21 07/26/22 Alisson Roth PA-C [address] [place] [address] Assigned Surgical Provider 05/14/2102/01/23 Adelaida Waterman PA-C [address] [place] [address] Assigned Sleep Provider 08/06/2104/19 Roberta Galvan [facility] [address] [address] Assigned MTM Pharmacist 12/23/21 Roberta Galvan [facility] [address] [place] [address] Assigned MTM Pharmacist 03/28/22 Jeremy Camejo MD [address] [place] [address] Assigned OBGYN Provider 05/26/22 Nicolas Barragan MD [address] [place], [place] [address] Assigned Surgical Provider 02/02/23 documented as of this encounter
--- OUTSIDE RECORDS SUMMARY | 2024-07-04 15:41 | XMS_ITS | Encounter Summary ---
Author Organization [place] Address [address] [facility] [place] [address] Care Team Providers Care Senior Product Integrity Engineer Name Role Phone Sherin Garza MD Primary Care Provider [phone] Tanvir Peñaloza PA-C Unavailable Unavailab Johanna Swenson LPN Unavailable Unavailable Sherin Garza MD Unavailable [phone] Jose M Bearden Unavailable Unavailable Chris Galvan MD Unavailable [phone] Asaf Perales MD Unavailable Trinh Jacobson-C Unavailable [phone] Vini Joyce MD Unavailable [phone] Roberta Galvan [facility] Unavailable [phone] Alisson Roth-C Unavailable [phone] Adelaida Waterman-C Unavailable [phone] Roberta Galvan [facility] Unavailable [phone] Roberta Galvan [facility] Unavailable [phone] Jeremy Camejo MD Unavailable Nicolas Barragan MD Unavailable [phone] Encounter Details Date Type Department Care Team (Late st Contact Info) Description 05/24/2020 MyC Medical Advice [facility] [place] [address] [place] [address] Sherin Garza MD [address] [facility] [place] [address] Social History Tobacco Use Types Packs/Day Years [...] and Family Once a week 05/01/2019 Attends [employer] Patient declined 07/2018 Active Member of [...] Answer Date Recorded PHQ-2 Score 2 07/05/2019 [facility] [place] of Occupat ional Health - Occupational Stress [...] PM CDT Legal Sex Female 4:00 AM TEST 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 Gender Identity Female 09/17/2018 1:36 AM CDT [...] documented as of this encounter Care Teams Senior Product Integrity Engineer Relationship Specialty Start Date End Date Sherin Garza MD [address] [facility] [place] [address] PCP - General 08/16/01 Tnavir Peñaloza PA-C [address] [facility] [place] [address] Physician Community Outreach Specialist 12/27/17 Johanna Rodríguez LPN Nurse Coordinator 12/27/17 Sherin Garza MD [address] [facility] [place] [address] Assigned PCP 06/15/18 Jose M Bearden Personal Advocate & Liaison (PAL) 05/01/19 05/16/21 Chris Galvan MD [address] [facility] [address] [place] [address] Assigned OBGYN Provider 11/13/2005/25 Asaf Perales MD [address] [place] [address] Assigned Surgical Provider 12/18/2012/31/20 Trinh Jacobson PA-C [address] [place] [address] Assigned Surgical Provider 01/01/21 Vini Joyce MD [address] [facility] [address] [place], [place] [address] Assigned Surgical Provider 01/29/21 Roberta Galvan [facility] [address] [id number] Pharmacist Pharmacist 05/17/21 07/26/22 Alisson Roth PA-C [address] [place] [address] Assigned Surgical Provider 05/14/2102/01/23 Adelaida Waterman PA-C [address] [place] [address] Assigned Sleep Provider 08/06/2104/19 Roberta Galvan [facility] [address] [id number] Assigned MTM Pharmacist 12/23/21 Roberta Galvan [facility] [address] [id number] Assigned MTM Pharmacist 03/28/22 Jeremy Camejo MD [address] [place] [address] Assigned OBGYN Provider 05/26/22 Nicolas Barragan MD [address] [place] [address] Assigned Surgical Provider 02/02/23 documented as of this encounter
--- OUTSIDE RECORDS SUMMARY | 2024-07-04 15:41 | XMS_ITS | Encounter Summary ---
Author Organization [place] Address [address] [place] [address] Care Team Providers Care Hansard Reporter Name Role Phone Sherin Garza MD Primary Care Provider [phone] Tanvir Peñaloza PA-C Unavailable Unavailab Johanna Swenson LPN Unavailable Unavailable Sherin Garza MD Unavailable [phone] Jose M Bearden Unavailable Unavailable Mack Arteaga Unavailable [phone] Chris Galvan MD Unavailable [phone] Asaf Perales MD Unavailable [phone] Trinh Jacobson-C Unavailable Vini Joyce MD Unavailable [phone] Roberta Galvan [facility] Unavailable Alisson Roth-C Unavailable [phone] Adelaida Waterman-C Unavailable [phone] Roberta Galvan [facility] Unavailable [phone] Roberta Galvan [facility] Unavailable Jeremy Camejo MD Unavailable Nicolas Barragan MD Unavailable [phone] Reason for Visit * Reason Comments Medication Refill tiZANidine (ZANAFLEX ) 4 MG tablet Encounter Details Date Type Department Care Team (Late st Contact Info) Description 09/14/2019 Refill [facility] [place] [address] [place] [address] Sherin Garza MD [address] [facility] [place] [address] Medication Refill (tiZANidine (ZANAFLEX) 4 MG tablet ) Social History Tobacco Use Types Packs/Day Years [...] and Family Once a week 05/01/2019 Attends [employer] [facility] Patient declined 07/2018 Active Member of [...] Answer Date Recorded PHQ-2 Score 2 07/05/2019 [facility] [place] of Occupat ional Health - Occupational Stress [...] PM CDT Legal Sex Female 4:00 AM WELFARE MANAGER Gender Identity Female 09/17/2018 1:36 AM CDT Sexual Orientation Straight 09/17/2018 1: 36 AM CDT Occupation Industry Job Start Date Job End Date Not on file Not on file Not on file Not on file documented as of this encounter Miscellaneous Notes * Telephone Encounter - Jose M Bearden CNA - 09/17/2019 1:14 PM CDT Pt has more intermediate card tender counselor that usually she sees once a week. However, their office is experiencing closings. Offered telemedicine with CORR[facility] Baez in the future, which pt declines for now. Gave pt my personal extension to call me if she is in need of that service in the future. Pt verbalized understanding. Pt also notes continuing pain that she has been evaluated for; she denies any new symptoms. Pt has neck surgery tentatively scheduled . Jose M Bearden, LISA at 1:15 PM on September 17, 2019 [facility] [phone] * Telephone Encounter - Jose M Bearden CNA - 09/15/2019 9:18 AM CDT Called pt. Attempt #1. No answer, LVM to call back on my personal extension. If pt calls back: Can offer phone visit with [facility] per Sasha - she would prefer to reach out to schedule pt if possible Jose M Bearden, EMT at 9:19 AM on September 15, 2019 [facility] [phone] * Telephone Encounter - Sherin Garza MD - 09/14/2019 5:15 PM CDT Refilled - please check with patient about how she is doing. Hasn't seen [facility] recently. Sherin Garza MD * Telephone Encounter - Cally Rai RN - 09/14/2019 5:01 PM CDT Requested Prescriptions Pending Prescriptions Disp Refills ??? tiZANidine (ZANAFLEX) 4 MG tablet [Pharmacy Med Name: TIZANIDINE 4MG TABLETS] 90 tablet 3 Sig: TAKE 1 TABLET(4 MG) BY MOUTH THREE TIMES DAILY NEEDED FOR MUSCLE SPASMS There is no refill protocol information for this order Last Written Prescription Date: 05/01/19 Last Fill Quantity: 90, # refills: 3 Last office visit: 05/01/2019 with prescribing provider: Future Office Visit: documented in this encounter Plan of Treatment Not on file documented as of this encounter Visit Diagnoses Diagnosis Lumbar back pain Lumbago documented in this encounter Additional Health Concerns Assessment Noted Time PHQ-9 Depression Total Score: 6 07/05/19 20 7:03 AM WELFARE MANAGER documented as of this encounter Care Teams Hansard Reporter Relationship Specialty Start Date End Date Sherin Garza MD [address] [place] [address] PCP - General 08/16/01 Tanvir Peñaloza PA-C [address] [place] [address] Physician Director Data Management 12/27/17 Johanna Rodríguez LPN Nurse Coordinator 12/27/17 Sherin Garza MD [address] [place] [address] Assigned PCP 06/15/18 Jose M Bearden Personal Advocate & Liaison (PAL) 05/01/19 05/16/21 Mack ArteagaJERROD Lead Legal Support Analyst Primary Care - CC 05/22/1909/15 Chris Galvan MD [address] [place] [address] Assigned OBGYN Provider 11/13/2005/25 Asaf Perales MD [address] [place] [address] Assigned Surgical Provider 12/18/20 12/31/20 Trinh Jacobson PA-C [address] [place], [place] [address] Assigned Surgical Provider 01/01/21 01/28/21 Vini Joyce MD [address] [place] [address] Assigned Surgical Provider 01/29/21 05/13/21 [facility] [address] [place] [address] Pharmacist Pharmacist 05/17/21 07/26/22 Alisson Roth PA-C [address] [place] [address] Assigned Surgical Provider 05/14/21 02/01/23 Adelaida Waterman PA-C [address] [place] [address] [place] [address] Assigned Sleep Provider 08/06/2104/19 Roberta Galvan, [facility] [address] [address] Assigned MTM Pharmacist 12/23/21 Roberta Galvan, [facility] [address] [address] Assigned MTM Pharmacist 03/28/22 Jeremy Camejo MD [address] [place] [address] Assigned OBGYN Provider 05/26/22 Nicolas Barragan MD [address] [place], [place] [address] Assigned Surgical Provider 02/02/23 10/21/23 documented as of this encounter
--- OUTSIDE RECORDS SUMMARY | 2024-07-04 15:41 | XMS_ITS | Encounter Summary ---
Author Organization [place] Address [address] [facility] [place] [address] Care Team Providers Care Social Worker Psychiatric Name Role Phone Sherin Garza MD Primary Care Provider [phone] Tanvir Peñaloza PA-C Unavailable Unavailab Johanna Swenson LPN Unavailable Unavailable Sherin Garza MD Unavailable [phone] Jose M Bearden Unavailable Unavailable Chris Galvan MD Unavailable [phone] Asaf Perales MD Unavailable Trinh Jacobson-C Unavailable Vini Joyce MD Unavailable [phone] Roberta Galvan [facility] Unavailable Alisson Roth-C Unavailable [phone] Adelaida Waterman-C Unavailable [phone] Roberta Galvan [facility] Unavailable [phone] Roberta Galvan [facility] Unavailable [phone] Jeremy Camejo MD Unavailable [phone] Nicolas Barragan MD Unavailable [phone] Encounter Details Date Type Department Care Team (Late st Contact Info) Description 08/16/2020 [facility] [address] [facility] [address] [place] [address] Trinh Navarro, MA Social History Tobacco Use Types Packs/Day [...] and Family Once a week 05/01/2019 Attends [employer] Patient declined 07/2018 Active Member of [...] Answer Date Recorded PHQ-2 Score 2 07/05/2019 [facility] of Occupat ional Health - Occupational [...] PM CDT Legal Sex Female 4:00 AM SCRUB WOMAN Gender Identity Female 09/17/2018 1:36 AM CDT [...] documented as of this encounter Care Teams Social Worker Psychiatric Relationship Specialty Start Date End Date Sherin Garza MD [address] [facility] [place] [address] PCP - General 08/16/01 OTanvir Pierre, PA-C [address] [facility] [place] [address] Physician Electronic Bench Technician 12/27/17 Johanna Rodríguez LPN Nurse Coordinator 12/27/17 Sherin Garza MD [address] [facility] [place] [address] Assigned PCP 06/15/18 Jose M Bearden Personal Advocate & Liaison (PAL) 05/01/19 05/16/21 Chris Galvan MD [address] [place] [address] Assigned OBGYN Provider 11/13/2005/25 Asaf Perales MD [address] [facility] [address] [place] [address] Assigned Surgical Provider 12/18/2012/31/20 Trinh Jacobson PA-C [address] [place] [address] Assigned Surgical Provider 01/01/21 Vini Joyce MD [address] [facility] [address] [place] [address] Assigned Surgical Provider 01/29/21 Roberta Galvan, [facility] [address] [place], [place] [address] Pharmacist Pharmacist 05/17/21 07/26/22 Alisson Roth PA-C [address] [place] [address] Assigned Surgical Provider 05/14/2102/01/23 Adelaida Waterman PA-C [address] [place] [address] Assigned Sleep Provider 08/06/2104/19 Roberta Galvan [facility] [address] [address] Assigned MTM Pharmacist 12/23/21 Roberta Galvan [facility] [address] [place] [address] Assigned MTM Pharmacist 03/28/22 Jeremy Camejo MD [address] [place] [address] Assigned OBGYN Provider 05/26/22 Nicolas Barragan MD [address] [place], [place] [address] Assigned Surgical Provider 02/02/23 documented as of this encounter
--- OUTSIDE RECORDS SUMMARY | 2024-07-04 15:41 | XMS_ITS | Encounter Summary ---
Author Organization [place] Address [address] [place] [address] Care Team Providers Care Human Relations Professor Name Role Phone Sherin Garza MD Primary Care Provider [phone] Tanvir Peñaloza PA-C Unavailable Unavailab Johanna Swenson LPN Unavailable Unavailable Sherin Garza MD Unavailable [phone] Jose M Bearden Unavailable Unavailable Mack Arteaga Unavailable [phone] Chris Galvan MD Unavailable [phone] Asaf Perales MD Unavailable Trinh Jacobson-C Unavailable Vini Joyce MD Unavailable [phone] Roberta Galvan [facility] Unavailable [phone] Alisson Roth-C Unavailable [phone] Adelaida Waterman-C Unavailable [phone] Roberta Galvan [facility] Unavailable [phone] Roberta Galvan [facility] Unavailable Jeremy Camejo MD Unavailable Nicolas Barragan MD Unavailable [phone] Reason for Visit * Reason Onset Date Comments Refill Request 10/21/2018 Encounter Details Date Type Department Care Team (Late st Contact Info) Description 10/21/2018 [facility] [address] [facility] [address] [place] [address] Sherin Garza MD [address] [facility] [place] [address] Refill Request Social History Tobacco Use Types Packs/Day Years [...] PM CDT Legal Sex Female 4:00 AM RELEASE MANAGER Gender Identity Female 09/17/2018 1:36 AM CDT Sexual Orientation Straight 09/17/2018 1: 36 AM CDT Occupation Industry Job Start Date Job End Date Not on file Not on file Not on file Not on file documented as of this encounter Miscellaneous Notes * Telephone Encounter - Mary Anne Godwin RN - 10/23/2018 10:47 AM CDT ACCOUNTS PAYABLE REPRESENTATIVE checked-no concerns. Routing refill request to provider for review/approval because: Drug not on the [facility] refill protocol. Mary Anne Godwin RN - Triage [facility] documented in this encounter Plan of Treatment Not on file documented as of this encounter Visit Diagnoses Diagnosis Attention deficit hyperactivity disorder (ADHD), unspecified ADHD type documented in this encounter Additional Health Concerns Assessment Noted Time PHQ-9 Depression Total Score: 7 10/01/19 19 3:59 PM CDT documented as of this encounter Care Teams Human Relations Professor Relationship Specialty Start Date End Date Sherin Garza MD [address] [facility] [place] [address] PCP - General 08/16/01 Tanvir Peñaloza PA-C [address] [facility] [place] [address] Physician Service Aide 12/27/17 Johanna Rodríguez LPN Nurse Coordinator 12/27/17 Sherin Garza MD [address] [facility] [place] [address] Assigned PCP 06/15/18 Jose M Bearden Personal Advocate & Liaison (PAL) 05/01/19 05/16/21 Mack Arteaga REGIONAL SALES LEADER Lead Tire Maintenance Technician Primary Care - CC 05/22/1909/15 Chris Galvan MD [address] [place] [address] Assigned OBGYN Provider 11/13/2005/25 Asaf Perales MD [address] [place] [address] Assigned Surgical Provider 12/18/20 12/31/20 Trinh Jacobson PA-C [address] [place] [address] Assigned Surgical Provider 01/01/21 01/28/21 Vini Joyce MD [address] [place] [address] Assigned Surgical Provider 01/29/21 05/13/21 Roberta Galvan, [facility] [address] [address] Pharmacist Pharmacist 05/17/21 07/26/22 Alisson Roth PA-C [address] [place] [address] Assigned Surgical Provider 05/14/21 02/01/23 Adelaida Waterman PA-C [address] [place] [address] Assigned Sleep Provider 08/06/2104/19 Roberta Galvan, [facility] [address] [place] [address] Assigned MTM Pharmacist 12/23/21 Roberta Galvan, [facility] [address] [place] [address] Assigned MTM Pharmacist 03/28/22 Jeremy Camejo MD [address] [place] [address] Assigned OBGYN Provider 05/26/22 Nicolas Barragan MD [address] [place] [address] Assigned Surgical Provider 02/02/23 10/21/23 documented as of this encounter
--- OUTSIDE RECORDS SUMMARY | 2024-07-04 15:41 | XMS_ITS | Encounter Summary ---
Author Organization [place] Address [address] [facility] [place] [address] Care Team Providers Care Medical Administrative Technician Name Role Phone Sherin Garza MD Primary Care Provider [phone] Tanvir Peñaloza PA-C Unavailable Unavailab Johanna Swenson LPN Unavailable Unavailable Sherin Garza MD Unavailable [phone] Jose M Bearden Unavailable Unavailable Mack Arteaga Unavailable [phone] Chris Galvan MD Unavailable [phone] Asaf Perales MD Unavailable Trinh Jacobson-C Unavailable Vini Joyce MD Unavailable [phone] Roberta Galvan [facility] Unavailable [phone] Alisson Roth-C Unavailable [phone] Adelaida Waterman-C Unavailable [phone] Roberta Galvan [facility] Unavailable [phone] Roberta Galvan [facility] Unavailable Jeremy Camejo MD Unavailable Nicolas Barragan MD Unavailable [phone] Reason for Visit * Reason Onset Date Comments Refill Request 03/25/2019 buPROPion (WELLB UTRIN SR) 150 MG 12 hr tablet Encounter Details Date Type Department Care Team (Late st Contact Info) Description 03/25/2019 Refill [facility] [place] [address] [facility] [address] [place] [phone] Sherin Garza MD [address] [facility] [place] [address] Refill Request (buPROPion (WELLBUTRIN SR) 150 MG 12 hr tablet) Social History Tobacco Use Types Packs/Day [...] PM CDT Legal Sex Female 4:00 AM VALUATION CONSULTANT Gender Identity Female 09/17/2018 1:36 AM CDT Sexual Orientation Straight 09/17/2018 1: 36 AM CDT Occupation Industry Job Start Date Job End Date Not on file Not on file Not on file Not on file documented as of this encounter Miscellaneous Notes * Telephone Encounter - Joi Fischer, RN - 03/25/2019 3:40 PM CDT Prescription approved per [facility] Refill Protocol. Joi Wing RN March 25, 2019 3:40 PM documented in this encounter Plan of Treatment Not on file documented as of this encounter Visit Diagnoses Diagnosis Moderate episode of recurrent major depressive disorder (H) documented in this encounter Additional Health Concerns Assessment Noted Time PHQ-9 Depression Total Score: 7 10/01/19 19 3:59 PM CDT documented as of this encounter Care Teams Medical Administrative Technician Relationship Specialty Start Date End Date Sherin Garza MD [facility] [place] [address] PCP - General 08/16/01 Tanvir Peñaloza PA-C [address] [facility] [address] [place] [address] Physician Glass Vial Filler 12/27/17 Johanna Rodríguez LPN Nurse Coordinator 12/27/17 Sherin Garza MD [address] [facility] [place] [address] Assigned PCP 06/15/18 Jose M Bearden Personal Advocate & Liaison (PAL) 05/01/19 05/16/21 Mack Arteaga LSW Lead Public Utilities Sales Representative Primary Care - CC 05/22/1909/15 Chris Galvan MD [address] [place] [address] Assigned OBGYN Provider 11/13/2005/25 Asaf Perales MD [address] [place] [address] Assigned Surgical Provider 12/18/20 12/31/20 Trinh Jacobson PA-C [address] [place] [address] Assigned Surgical Provider 01/01/21 01/28/21 Vini Joyce MD [address] [place] [address] Assigned Surgical Provider 01/29/21 05/13/21 Roberta Galvan, [facility] [address] [facility] [place] [address] Pharmacist Pharmacist 05/17/21 07/26/22 Alisson Roth PA-C [address] [place] [address] Assigned Surgical Provider 05/14/21 02/01/23 Adelaida Waterman PA-C [address] [place] [address] Assigned Sleep Provider 08/06/2104/19 Roberta Galvan [facility] [address] [address] Assigned MTM Pharmacist 12/23/21 Roberta Galvan [facility] [address] [address] Assigned MTM Pharmacist 03/28/22 Jeremy Camejo MD [address] [place] [address] Assigned OBGYN Provider 05/26/22 Nicolas Barragan MD [address] [place] [address] Assigned Surgical Provider 02/02/23 10/21/23 documented as of this encounter
--- OUTSIDE RECORDS SUMMARY | 2024-07-04 15:41 | XMS_ITS | Encounter Summary ---
Author Organization [place] Address [address] [facility] [place] [address] Care Team Providers Care Diaper Folder Name Role Phone Sherin Garza MD Primary Care Provider [phone] Tanvir Peñaloza PA-C Unavailable Unavailab Johanna Swenson LPN Unavailable Unavailable Sherin Garza MD Unavailable [phone] Sherin Garza MD Unavailable [phone] Jose M Bearden Unavailable Unavailable Mack Arteaga Unavailable [phone] Chris Galvan MD Unavailable [phone] Asaf Perales MD Unavailable [phone] Trinh JacobsonC Unavailable [phone] Vini Joyce MD Unavailable [phone] Roberta Galvan [facility] Unavailable [phone] Alisson Roth PA-C Unavailable [phone] Adelaida WatermanC Unavailable [phone] Roberta Galvan [facility] Unavailable [phone] Roberta Galvan [facility] Unavailable [phone] Jeremy Camejo MD Unavailable Nicolas Barragan MD Unavailable [phone] Encounter Details Date Type Department Care Team (Late st Contact Info) Description 06/12/2017 Documentation Only [facility] [place] [address] [facility] [address] [place] [phone] Sherin Garza MD [address] [facility] [place] [address] Social History Tobacco Use Types Packs/Day Years Used Date Smoking Tobacco: Never Smokeless Tobacco: Never Alcohol Use Standard Drinks/Week Comments Yes 0 (1 standard drink = 0.6 oz pur e alcohol) 1-2 drinks a week Comments No Sex and Gender Information Value Date Recorded Sex Assigned at Female 10/27/2020 11:13 PM CDT Legal Sex Female 4:00 AM FOOD PROCESSOR Gender Identity Female 09/17/2018 1:36 AM CDT [...] Time PHQ-9 Depression Total Score: 2 04/02/20 17 8:47 AM CDT documented as of this encounter Care Teams Diaper Folder Relationship Specialty Start Date End Date Sherin Garza MD [address] [place] [address] [place] [address] PCP - General 08/16/01 Sherin Garza MD [address] [place] [address] [place] [address] PCP - Assigned PCP 01/26/18 09/02/18 Tanvir Peñaloza PA-C [address] [facility] [place] [address] Physician A&P Mechanic 12/27/17 Johanna Rodríguez LPN Nurse Coordinator 12/27/17 Sherin Garza MD [address] [facility] [place] [address] Assigned PCP 06/15/18 Jose M Bearden Personal Advocate & Liaison (PAL) 05/01/19 05/16/21 Jenni Mack SCANNING SUPERVISOR Lead Imaging System Administrator Primary Care - CC 05/22/1909/15 Chris Galvan MD [address] [place] [address] Assigned OBGYN Provider 11/13/2005/25 Asaf Perales MD [address] [place] [address] Assigned Surgical Provider 12/18/20 12/31/20 Trinh Jacobson PA-C [address] [place], [place] [address] Assigned Surgical Provider 01/01/21 01/28/21 Vini Joyce MD [address] [place] [address] Assigned Surgical Provider 01/29/21 05/13/21 Roberta Galvan, [facility] [address] [place] [address] Pharmacist Pharmacist 05/17/21 07/26/22 Alisson Roth PA-C [address] [place] [address] Assigned Surgical Provider 05/14/21 02/01/23 Adelaida Waterman PA-C [address] [address] Assigned Sleep Provider 08/06/2104/19 Roberta Galvan, [facility] [address] [address] Assigned MTM Pharmacist 12/23/21 Roberta Galvan, [facility] [address] [id number] Assigned MTM Pharmacist 03/28/22 Jeremy Camejo MD [address] [place] [address] Assigned OBGYN Provider 05/26/22 Nicolas Barragan MD [address] [place] [address] Assigned Surgical Provider 02/02/23 10/21/23 documented as of this encounter
--- OUTSIDE RECORDS SUMMARY | 2024-07-04 15:41 | XMS_ITS | Encounter Summary ---
Author Organization [place] Address [address] [facility] [place] [address] Care Team Providers Care Destination Specialist Name Role Phone Sherin Garza MD Primary Care Provider [phone] Tanvir Peñaloza PA-C Unavailable Unavailab Johanna Swenson LPN Unavailable Unavailable Sherin Garza MD Unavailable [phone] Jose M Bearden Unavailable Unavailable Mack Arteaga Unavailable [phone] Chris Galvan MD Unavailable [phone] Asaf Perales MD Unavailable Trinh Jacobson-C Unavailable Vini Joyce MD Unavailable [phone] Roberta Galvan [facility] Unavailable Alisson Roth-C Unavailable [phone] Adelaida Waterman-C Unavailable [phone] Roberta Galvan [facility] Unavailable [phone] Roberta Galvan [facility] Unavailable [phone] Jeremy Camejo MD Unavailable Nicolas Barragan MD Unavailable [phone] Reason for Visit * Reason Comments Medication Refill Encounter Details Date Type Department Care Team (Late st Contact Info) Description 06/23/2019 Refill [facility] [place] [address] [facility] [address] [place] [address] Sherin Garza MD [address] [facility] [place] [address] Medication Refill Social History Tobacco Use Types [...] 05/01/2019 PHQ-2 Answer Date Recorded PHQ-2 Score 4 05/06/2019 [facility] [place] of Occupat ional Health - Occupational Stress [...] PM CDT Legal Sex Female 4:00 AM MAIL CARRIERS SUPERVISOR Gender Identity Female 09/17/2018 1:36 AM CDT Sexual Orientation Straight 09/17/2018 1: 36 AM CDT Occupation Industry Job Start Date Job End Date Not on file Not on file Not on file Not on file documented as of this encounter Miscellaneous Notes * Telephone Encounter - Peace Llanos CMA - 07/10/2019 11:33 AM MAIL CARRIERS SUPERVISOR Duplicate encounter Peace Llanos MA 11:33 AM 07/10/2019 CARRIERS SUPERVISOR * Telephone Encounter - Chelsi Calvert MA - 07/03/2019 9:19 AM MAIL CARRIERS SUPERVISOR Called patient- no answer. Lvm to call clinic to schedule an appointment. Still waiting for ACT questionnaire. Chelsi Calvert MA CARRIERS SUPERVISOR * Telephone Encounter - Chelsi Calvert MA - 06/29/2019 8:57 AM MAIL CARRIERS SUPERVISOR Called patient- no answer. Lvm to call clinic to schedule an appointment. Chelsi Calvert MA CARRIERS SUPERVISOR * Telephone Encounter - Chelsi Calvert MA - 06/26/2019 9:47 AM MAIL CARRIERS SUPERVISOR Called patient- no answer. Lvm to call clinic to schedule an appointment. Sent ACT in mail. Await response. Chelsi Calvert MA CARRIERS SUPERVISOR * Telephone Encounter - Sherin Garza MD - 06/26/2019 8:27 AM CST Please call to do ACT and schedule follow-up CARRIERS SUPERVISOR * Telephone Encounter - Kaela Brewer, RN - 06/26/2019 8:10 AM MAIL CARRIERS SUPERVISOR fluticasone (FLOVENT DISKUS) 250 MCG/BLIST inhaler Last written prescription date: 03/25/19 Last fill quantity: 3 Inhaler, # refills: 0 Last office visit: 05/01/19 Future office visit: N/A Is this a controlled substance? No Routing refill request to provider for review/approval because: Asthma control assessment score within normal limits in last 6 months CARRIERS SUPERVISOR documented in this encounter Plan of Treatment Not on file documented as of this encounter Visit Diagnoses Diagnosis Mild persistent asthma without complication Unspecified asthma documented in this encounter Additional Health Concerns Assessment Noted Time PHQ-9 Depression Total Score: 14 019 7:04 AM MAIL CARRIERS SUPERVISOR documented as of this encounter Care Teams Destination Specialist Relationship Specialty Start Date End Date Sherin Garza MD [address] [place] [address] PCP - General 08/16/01 O'Tanvir Brothers, PAArshC [address] [place] [address] Physician Electronics System Mechanic 12/27/17 Johanna Rodríguez LPN Nurse Coordinator 12/27/17 Sherin Garza MD [address] [place] [address] Assigned PCP 06/15/18 Jose M Bearden Personal Advocate & Liaison (PAL) 05/01/19 05/16/21 Mack Arteaga CANDLE WRAPPER Lead Minister Assistant Primary Care - CC 05/22/1909/15 Chris Galvan MD [address] [place] [address] Assigned OBGYN Provider 11/13/2005/25 Asaf Perales MD [address] [place], [place] [address] Assigned Surgical Provider 12/18/20 12/31/20 Trinh Jacobson PA-C [address] [place], [place] [address] Assigned Surgical Provider 01/01/21 01/28/21 Vini Joyce MD [address] [place] [address] Assigned Surgical Provider 01/29/21 05/13/21 [facility] [address] [place] [address] Pharmacist Pharmacist 05/17/21 07/26/22 Alisson Roth PA-C [address] [place] [address] Assigned Surgical Provider 05/14/21 02/01/23 Adelaida Waterman PA-C [address] [place] [address] Assigned Sleep Provider 08/06/2104/19 Roberta Galvan [facility] [address] [address] Assigned MTM Pharmacist 12/23/21 Roberta Galvan [facility] [address] [address] Assigned MTM Pharmacist 03/28/22 Jeremy Camejo MD [address] [place] [address] Assigned OBGYN Provider 05/26/22 Nicolas Barragan MD [address] [place] [address] Assigned Surgical Provider 02/02/23 10/21/23 documented as of this encounter
--- OUTSIDE RECORDS SUMMARY | 2024-07-04 15:41 | XMS_ITS | Encounter Summary ---
Author Organization [place] Address [address] [facility] [place] [address] Care Team Providers Care Manufacturing Weaver Name Role Phone Sherin Garza MD Primary Care Provider [phone] Tanvir Peñaloza PA-C Unavailable Unavailab Johanna Swenson LPN Unavailable Unavailable Sherin Garza MD Unavailable [phone] Jose M Bearden Unavailable Unavailable Chris Galvan MD Unavailable [phone] Asaf Perales MD Unavailable Trinh Jacobson-C Unavailable Vini Joyce MD Unavailable [phone] Roberta Galvan [facility] Unavailable Alisson Roth-C Unavailable [phone] Adelaida Waterman-C Unavailable [phone] Roberta Galvan [facility] Unavailable [phone] Roberta Galvan [facility] Unavailable [phone] Jeremy Camejo MD Unavailable Nicolas Barragan MD Unavailable [phone] Encounter Details Date Type Department Care Team (Late st Contact Info) Description 02/04/[address] [facility] [place] [address] [facility] [address] [place] [address] Sherin Garza MD [address] [facility] [place] [address] Social History Tobacco Use Types Packs/Day Years [...] and Family Once a week 05/01/2019 Attends Restorationist Services Patient declined 07/2018 Active Member of [...] Answer Date Recorded PHQ-2 Score 2 07/05/2019 [facility] [place] of Occupat ional Health - Occupational Stress [...] PM CDT Legal Sex Female 4:00 AM ROOM ATTENDANTS Gender Identity Female 09/17/2018 1:36 AM CDT [...] Time PHQ-9 Depression Total Score: 6 07/05/19 7:03 AM ROOM ATTENDANTS documented as of this encounter Care Teams Manufacturing Weaver Relationship Specialty Start Date End Date Sherin Garza MD [address] [employer] [facility] [place] [address] PCP - General 08/16/01 Tanvir Peñaloza, PAArshC [address] [place] [address] [facility] [place] [address] Physician Oliving Machine Operator 12/27/17 Johanna Rodríguez LPN Nurse Coordinator 12/27/17 Sherin Garza MD [address] [place] [address] [facility] [place] [address] Assigned PCP 06/15/18 Jose M Bearden Personal Advocate & Liaison (PAL) 05/01/19 05/16/21 Chris Galvan MD [address] [facility] [address] [place] [address] Assigned OBGYN Provider 11/13/2005/25 Asaf Perales MD [address] [place] [address] Assigned Surgical Provider 12/18/2012/31/20 Trinh Jacobson PA-C [address] [place] [address] Assigned Surgical Provider 01/01/21 Vini Joyce MD [address] [facility] [address] [place] [address] Assigned Surgical Provider 01/29/21 Roberta Galvan [facility] [address] [id number] Pharmacist Pharmacist 05/17/21 07/26/22 Alisson Roth PA-C [address] [place] [address] Assigned Surgical Provider 05/14/2102/01/23 Adelaida Waterman PA-C [address] [place] [address] Assigned Sleep Provider 08/06/2104/19 Roberta Galvan [facility] [address] [id number] Assigned MTM Pharmacist 12/23/21 Roberta Galvan [facility] [address] [id number] Assigned MTM Pharmacist 03/28/22 Jeremy Camejo MD [address] [place] [address] Assigned OBGYN Provider 05/26/22 Nicolas Barragan MD [address] [place] [address] Assigned Surgical Provider 02/02/23 documented as of this encounter
--- OUTSIDE RECORDS SUMMARY | 2024-07-04 15:41 | XMS_ITS | Encounter Summary ---
Author Organization [place] Address [address] [facility] [place] [address] Care Team Providers Care Chemical Process Operator Name Role Phone Sherin Garza MD Primary Care Provider [phone] Tanvir Peñaloza PA-C Unavailable Unavailab Johanna Swenson LPN Unavailable Unavailable Sherin Garza MD Unavailable [phone] Jose M Bearden Unavailable Unavailable Mack Arteaga Unavailable [phone] Chris Galvan MD Unavailable [phone] Asaf Perales MD Unavailable Trinh Jacobson-C Unavailable Vini Joyce MD Unavailable [phone] Roberta Galvan [facility] Unavailable Alisson Roth-C Unavailable [phone] Adelaida Waterman-C Unavailable [phone] Roberta Galvan [facility] Unavailable [phone] Roberta Galvan [facility] Unavailable [phone] Jeremy Camejo MD Unavailable Nicolas Barragan MD Unavailable [phone] Encounter Details Date Type Department Care Team (Late st Contact Info) Description 07/03/2019 MyC Medical Advice [facility] [place] [address] [facility] [address] [place] [address] Chelsi Calvert MA Social History Tobacco Use Types Packs/Day [...] and Family Once a week 05/01/2019 Attends Mandaeism Services Patient declined 07/2018 Active Member of [...] Answer Date Recorded PHQ-2 Score 2 07/05/2019 [facility] [place] of Occupat ional Health - Occupational Stress [...] PM CDT Legal Sex Female 4:00 AM INFERTILITY MEDICAL ASSISTANT Gender Identity Female 09/17/2018 1:36 AM CDT Sexual Orientation Straight 09/17/2018 1: 36 AM CDT Occupation Industry Job Start Date Job End Date Not on file Not on file Not on file Not on file documented as of this encounter Miscellaneous Notes * Telephone Encounter - Peace Llanos CMA - 07/10/2019 11:26 AM INFERTILITY MEDICAL ASSISTANT Questionnaire completed routing to PCP as FYI PHQ-9 SCORE 05/01/2019 05/06/2019 07/04/2019 PHQ-9 Total Score - - - PHQ-9 Total Score MyChart 15 (Moderately severe depression) 14 (Moderate depression) 6 (Mild depression) PHQ-9 Total Score 15 14 6 BLANQUITA-7 SCORE 05/01/2019 05/06/2019 07/04/2019 Total Score - - - Total Score - 16 (severe anxiety) 10 (moderate anxiety) Total Score 13 16 10 ACT Score 22 Peace Llanos MA 11:30 AM 07/10/2019 RTILITY MEDICAL ASSISTANT documented in this encounter Plan of Treatment Not on file documented as of this encounter Visit Diagnoses Not on filedocumented in this encounter Additional Health Concerns Assessment Noted Time PHQ-9 Depression Total Score: 6 07/05/19 20 7:03 AM INFERTILITY MEDICAL ASSISTANT documented as of this encounter Care Teams Chemical Process Operator Relationship Specialty Start Date End Date Sherin Garza MD [address] [facility] [address] [place], [place] [address] PCP - General 08/16/01 Tanvir Peñaloza, PAArshC [address] [facility] [place] [address] Physician Biomedical Engineering Professor 12/27/17 Johanna Rodríguez LPN Nurse Coordinator 12/27/17 Sherin Garza MD [address] [place] [address] Assigned PCP 06/15/18 Jose M Bearden Personal Advocate & Liaison (PAL) 05/01/19 05/16/21 Mack Arteaga [facility] Lead Travel Nurse Primary Care - CC 05/22/1909/15 Chris Galvan MD [address] [place] [address] Assigned OBGYN Provider 11/13/2005/25 Asaf Perales MD [address] [place] [address] Assigned Surgical Provider 12/18/20 12/31/20 Trinh Jacobson PA-C [address] [place] [address] Assigned Surgical Provider 01/01/21 01/28/21 Vini Joyce MD [address] [place] [address] Assigned Surgical Provider 01/29/21 05/13/21 Roberta Galvan, [facility] [address] [facility] [place] [address] Pharmacist Pharmacist 05/17/21 07/26/22 Alisson Roth PA-C [address] [place] [address] Assigned Surgical Provider 05/14/21 02/01/23 Adelaida Waterman PA-C [address] [place] [address] Assigned Sleep Provider 08/06/2104/19 Roberta Galvan, [facility] [address] [address] Assigned MTM Pharmacist 12/23/21 Roberta Galvan, [facility] [address] [address] Assigned MTM Pharmacist 03/28/22 Jeremy Camejo MD [address] [place] [address] Assigned OBGYN Provider 05/26/22 Nicolas Barragan MD [address] [place] [address] Assigned Surgical Provider 02/02/23 10/21/23 documented as of this encounter
--- OUTSIDE RECORDS SUMMARY | 2024-07-04 15:41 | XMS_ITS | Encounter Summary ---
Author Organization [place] Address [address] [facility] [place] [address] Care Team Providers Care Policy Change Clerks Supervisor Name Role Phone Sherin Garza MD Primary Care Provider [phone] Tanvir Peñaloza PA-C Unavailable Unavailab Johanna Swenson LPN Unavailable Unavailable Sherin Garza MD Unavailable [phone] Jose M Bearden Unavailable Unavailable Chris Galvan MD Unavailable [phone] Asaf Perales MD Unavailable Trinh Jacobson-C Unavailable Vini Joyce MD Unavailable [phone] Roberta Galvan [facility] Unavailable [phone] Alisson Roth-C Unavailable [phone] Adelaida Waterman-C Unavailable [phone] Roberta Galvan [facility] Unavailable [phone] Roberta Galvan [facility] Unavailable [phone] Jeremy Camejo MD Unavailable Nicolas Barragan MD Unavailable [phone] Encounter Details Date Type Department Care Team (Late st Contact Info) Description 10/07/2019 MyC Medical Advice [facility] [address] [facility] [address] [place] [address] ThomasmelissamirellaSasha, MATTE CUTTER [address] [place] [address] Social History Tobacco Use Types Packs/Day Years [...] and Family Once a week 05/01/2019 Attends Congregation Services Patient declined 07/2018 Active Member of [...] Answer Date Recorded PHQ-2 Score 2 07/05/2019 [facility] [place] of Occupat ional Health - Occupational Stress [...] PM CDT Legal Sex Female 4:00 AM SURFBOARD MAKER Gender Identity Female 09/17/2018 1:36 AM [...] Total Score: 6 07/05/19 20 7:03 AM SURFBOARD MAKER documented as of this encounter Care Teams Policy Change Clerks Supervisor Relationship Specialty Start Date End Date Sherin Garza MD [address] [employer] [place] [address] PCP - General 08/16/01 Tanvir Peñaloza, PAArshC [address] [place] [employer] [facility] [place] [address] Physician Middle School Pe Teacher 12/27/17 Johanna Rodríguez LPN Nurse Coordinator 12/27/17 Sherin Garza MD [address] [place] [employer] [facility] [place] [address] Assigned PCP 06/15/18 Jose M Bearden Personal Advocate & Liaison (PAL) 05/01/19 05/16/21 Chris Galvan MD [address] [place] [address] Assigned OBGYN Provider 11/13/2005/25 Asaf Perales MD [address] [place] [address] Assigned Surgical Provider 12/18/2012/31/20 Trinh Jacobson PA-C [address] [place], [place] [address] Assigned Surgical Provider 01/01/21 Vini Joyce MD [address] [place] [address] Assigned Surgical Provider 01/29/21 Roberta Galvan, [facility] [address] [address] Pharmacist Pharmacist 05/17/21 07/26/22 Alisson Roth PA-C [address] [place] [address] Assigned Surgical Provider 05/14/2102/01/23 Adelaida Waterman PA-C [address] [place] [address] Assigned Sleep Provider 08/06/2104/19 Roberta Galvan, [facility] [address] [address] Assigned MTM Pharmacist 12/23/21 Roberta Galvan [facility] [address] [place] [address] Assigned MTM Pharmacist 03/28/22 Jeremy Camejo MD [address] [place] [address] Assigned OBGYN Provider 05/26/22 Nicolas Barragan MD [address] [place] [address] Assigned Surgical Provider 02/02/23 documented as of this encounter
--- OUTSIDE RECORDS SUMMARY | 2024-07-04 15:41 | XMS_ITS | Encounter Summary ---
Author Organization [place] Address [address] [facility] [place] [address] Care Team Providers Care Management Trainee Program Stores Name Role Phone Sherin Garza MD Primary Care Provider [phone] Tanvir Peñaloza PA-C Unavailable Unavailab Johanna Swenson LPN Unavailable Unavailable Sherin Garza MD Unavailable [phone] Sherin Garza MD Unavailable [phone] Jose M Bearden Unavailable Unavailable Mack Arteaga Unavailable [phone] Chris Galvan MD Unavailable [phone] Asaf Perales MD Unavailable [phone] Trinh JacobsonC Unavailable Vini Joyce MD Unavailable [phone] Roberta Galvan [facility] Unavailable [phone] Alisson Roth PA-C Unavailable [phone] Adelaida WatermanC Unavailable [phone] Roberta Galvan [facility] Unavailable [phone] Roberta Galvan [facility] Unavailable [phone] Jeremy Camejo MD Unavailable Nicolas Barragan MD Unavailable Reason for Referral * Diagnostic Imaging Ultrasound - Closed Specialty Diagnoses / Procedures Referred By Fito carranza Referred To Contact Diagnoses Enlarged uterus Procedures US Pelvic Complete with Transvaginal Sherin Garza MD [address] [facility] [place] [address] Phone: tel: fax: Referral ID Status Reason Start Date Expiration Date Visits Re quested Visits Authorized [id number] Closed 08/18/2018 08/18/2019 1 1 SLINGER Encounter Details Date Type Department Care Team (Late st Contact Info) Description 08/18/2018 [facility] [address] [facility] [address] [place] [address] Sherin Garza MD [address] [facility] [place] [address] Enlarged uterus (Primary Dx) Social History Tobacco Use Types [...] PM CDT Legal Sex Female 4:00 AM SAND SLINGER Gender Identity Female 09/17/2018 1:36 AM CDT Sexual Orientation Straight 09/17/2018 1: 36 AM CDT Occupation Industry Job Start Date Job End Date Not on file Not on file Not on file Not on file documented as of this encounter Plan of Treatment Not on file documented as of this encounter Results * (ABNORMAL) US Pelvic Complete with Transvaginal (09/10/2018 8:49 AM CDT) Anatomical Region Laterality Modality Abdomen/Pelvis Ultrasound Narrative 09/12/2018 4:49 AM CDT ULTRASOUND - PELVIC LITHARGE SUPERVISOR [facility] [address] [place] [address] Referring MD: Sherin Garza [facility] CLINICAL INFORMATION Indications for ultrasound: Enlarged uterus on MRI LMP: 9 months ago Hormones: none Measurements: Uterus: 17.4 x 13.5 x 10.3cm. Position is anteverted. Contour is echoodense. Endo cav: 22.2 mm Prominent Cervix: wnl Right ovary:nv Left ovary: 3.7 x 3.7 x 3.4 cm. Simple cyst 2.9 x 2.1 x 2.3 cm Cul de sac: no free fluid *Other findings: exam limited due to poor penetration of sound/ Body habitus Complete pelvic ultrasound utilizing both abdominal and vaginal transducers. Small ,simple left ovarian cyst. Mass within the uterus of mixed echogenicity. Possible etiologies include but are not limited to large degenerating centrally located myoma. Prominent endometrial lining. Possible submucous myoma. Clinical correlation suggested. FRANCO SAAH M.D. us Sherin Garza MD IMG US ORDERABLES Final Result documented in this encounter Visit Diagnoses Diagnosis Enlarged uterus- Primary Hypertrophy of uterus Enlarged uterus Hypertrophy of uterus documented in this encounter Additional Health Concerns Assessment Noted Time PHQ-9 Depression Total Score: 3 04/17/20 18 7:06 AM CDT documented as of this encounter Care Teams Management Trainee Program Stores Relationship Specialty Start Date End Date Sherin Garza MD [address] [employer] [place] [address] PCP - General 08/16/01 Sherin Garza MD [address] [employer] [place] [address] PCP - Assigned PCP 01/26/18 09/02/18 Tanvir Peñaloza PA-C [address] [facility] [address] Physician Branch Operations Manager 12/27/17 Johanna Rodríguez LPN Nurse Coordinator 12/27/17 Sherin Garza MD [address] [facility] [address] Assigned PCP 06/15/18 Jose M Bearden Personal Advocate & Liaison (PAL) 05/01/19 05/16/21 Mack Arteaga LSW Lead Real Estate Financial Analyst Primary Care - CC 05/22/1909/15 Chris Galvan MD [address] [place] [address] Assigned OBGYN Provider 11/13/2005/25 Asaf Perales MD [address] [place] [address] Assigned Surgical Provider 12/18/20 12/31/20 Trinh Jacobson PA-C [address] [place] [address] Assigned Surgical Provider 01/01/21 01/28/21 Vini Joyce MD [address] [place] [address] Assigned Surgical Provider 01/29/21 05/13/21 Roberta Galvan, [facility] [address] [place] [address] Pharmacist Pharmacist 05/17/21 07/26/22 Alisson Roth PA-C [address] [place] [address] Assigned Surgical Provider 05/14/21 02/01/23 Adelaida Waterman PA-C [address] [place] [address] Assigned Sleep Provider 08/06/2104/19 Roberta Galvan, [facility] [address] [id number] Assigned MTM Pharmacist 12/23/21 Roberta Galvan, [facility] [address] [id number] Assigned MTM Pharmacist 03/28/22 Jeremy Camejo MD [address] [place] [address] Assigned OBGYN Provider 05/26/22 Nicolas Barragan MD [address] [place] [address] Assigned Surgical Provider 02/02/23 10/21/23 documented as of this encounter
--- OUTSIDE RECORDS SUMMARY | 2024-07-04 15:41 | XMS_ITS | Encounter Summary ---
Author Organization [place] Address [address] [facility] [place] [address] Care Team Providers Care Custom Feed Mill Operator Helper Name Role Phone Sherin Garza MD Primary Care Provider [phone] Tanvir Peñaloza PA-C Unavailable Unavailab Johanna Swenson LPN Unavailable Unavailable Sherin Garza MD Unavailable [phone] Jose M Bearden Unavailable Unavailable Chris Galvan MD Unavailable [phone] Asaf Perales MD Unavailable Trinh Jacobson-C Unavailable Vini Joyce MD Unavailable [phone] Roberta Galvan [facility] Unavailable Alisson Roth-C Unavailable [phone] Adelaida Waterman-C Unavailable [phone] Roberta Galvan [facility] Unavailable [phone] Roberta Galvan [facility] Unavailable [phone] Jeremy Camejo MD Unavailable Nicolas Barragan MD Unavailable [phone] Encounter Details Date Type Department Care Team (Late st Contact Info) Description 07/06/2020 MyC Medical Advice [facility] [place] [address] [facility] [address] [place] [address] Sherin Garza MD [address] [facility] [place] [address] Social History Tobacco Use Types Packs/Day Years [...] Answer Date Recorded PHQ-2 Score 2 07/05/2019 [facility] [place] of Occupat ional Health - Occupational Stress [...] PM CDT Legal Sex Female 4:00 AM SPEEDBOAT DRIVER Gender Identity Female 09/17/2018 1:36 AM CDT [...] have Coronavirus / COVID-19? No / Unsure 07/08/2020 9:40 PM SPEEDBOAT DRIVER documented as of this encounter Plan of Treatment Not on file documented as of this encounter Visit Diagnoses Not on filedocumented in this encounter Additional Health Concerns Assessment Noted Time PHQ-9 Depression Total Score: 12 020 7:08 AM CDT documented as of this encounter Care Teams Custom Feed Mill Operator Helper Relationship Specialty Start Date End Date Sherin Garza MD [address] [employer] [place] [address] PCP - General 08/16/01 Tanvir Peñaloza, PAArshC [address] [employer] [facility] [place] [address] Physician Green End Worker 12/27/17 Johanna Rodríguez LPN Nurse Coordinator 12/27/17 Sherin Garza MD [address] [employer] [facility] [place] [address] Assigned PCP 06/15/18 Jose M Bearden Personal Advocate & Liaison (PAL) 05/01/19 05/16/21 Chris Galvan MD [address] [place] [address] Assigned OBGYN Provider 11/13/2005/25 Asaf Perales MD [address] [place] [address] Assigned Surgical Provider 12/18/2012/31/20 Trinh Jacobson PA-C [address] [place], [place] [address] Assigned Surgical Provider 01/01/21 Vini Joyce MD [address] [place] [address] Assigned Surgical Provider 01/29/21 Roberta Galvan, [facility] [address] [place], [place] [address] Pharmacist Pharmacist 05/17/21 07/26/22 Alisson Roth PA-C [address] [place] [address] Assigned Surgical Provider 05/14/2102/01/23 Adelaida Waterman PA-C [address] [place] [address] Assigned Sleep Provider 08/06/2104/19 Roberta Galvan, [facility] [address] [address] Assigned MTM Pharmacist 12/23/21 Roberta Galvan [facility] [address] [place] [address] Assigned MTM Pharmacist 03/28/22 Jeremy Camejo MD [address] [place] [address] Assigned OBGYN Provider 05/26/22 Nicolas Barragan MD [address] [place] [address] Assigned Surgical Provider 02/02/23 documented as of this encounter
--- OUTSIDE RECORDS SUMMARY | 2024-07-04 15:41 | XMS_ITS | Encounter Summary ---
Author Organization [place] Address [address] [facility] [place] [address] Care Team Providers Care Director Of Guidance Name Role Phone Sherin Garza MD Primary Care Provider [phone] Tanvir Peñaloza PA-C Unavailable Unavailab Johanna Swenson LPN Unavailable Unavailable Sherin Garza MD Unavailable [phone] Jose M Bearden Unavailable Unavailable Chris Galvan MD Unavailable [phone] Asaf Perales MD Unavailable Trinh JacobsonC Unavailable Vini Joyce MD Unavailable [phone] Roberta Galvan [facility] Unavailable [phone] Alisson Roth-C Unavailable [phone] Adelaida Waterman-C Unavailable [phone] Roberta Galvan [facility] Unavailable [phone] Roberta Galvan [facility] Unavailable [phone] Jeremy Camejo MD Unavailable Nicolas Barragan MD Unavailable [phone] Reason for Referral * Mental Health Outpatient (Routine) - Closed Specialty Diagnoses / Procedures Referred By Fito carranza Referred To Contact Diagnoses Obsessive-compulsive disorder, unspecified type Generalized anxiety disorder Attention deficit hyperactivity disorder (ADHD), unspecified ADHD type Moderate episode of recurrent major depressive disorder (H) Sherin Garza MD [address] [place] [address] [place] [address] Phone: tel: fax: Referral ID Status Reason Start Date Expiration Date Visits Re quested Visits Authorized [id number] Closed 12/07/2019 12/06/2020 1 1 Question Answer Child/Adolescent or Adult Adult Which Service? Outpatient Treatment Outpatient Treatment Individual/Couples/Family/Group Therapy/Health Psychology Adult Therapy Locations [facility]: [facility] Scheduling Note: We will contact you to schedule the appointment or please call with any questions Comments All scheduling is subject to the client's specific insurance plan & benefits, provider/location availability, and provider clinical specialities. Please arrive 15 minutes early for your first appointment and bring your completed paperwork. Please be aware that coverage of these services is subject to the terms and limitations of your health insurance plan. Call member services at your health plan with any benefit or coverage questions. Encounter Details Date Type Department Care Team (Latest Contact Info) Description 11/21/2019 [facility] [place] [address] [place] [address] Sherin Garza MD [address] [place] [address] [place] [address] Obsessive-compulsive disorder, unspecified type (Primary Dx); Generalized anxiety disorder; Attention deficit hyperactivity disorder (ADHD), unspecified ADHD type; Moderate episode of recurrent major depressive disorder (H) Social History Tobacco Use Types Packs/Day Years [...] Answer Date Recorded PHQ-2 Score 2 07/05/2019 [employer] of Occupat ional Health - Occupational Stress [...] PM CDT Legal Sex Female 4:00 AM COLOR EXPERT Gender Identity Female 09/17/2018 1:36 AM CDT Sexual Orientation Straight 09/17/2018 1: 36 AM CDT Occupation Industry Job Start Date Job End Date Not on file Not on file Not on file Not on file documented as of this encounter Miscellaneous Notes * Telephone Encounter - Sherin Garza MD - 12/07/2019 5:51 PM CDT Patient was called but did not schedule, mental health referral placed. * Telephone Encounter - Sherin Garza MD - 11/30/2019 1:52 PM CDT That would be great. Do you call her to schedule? Sherin Garza MD * Telephone Encounter - Sherin Garza MD - 11/30/2019 1:27 PM CDT Do you have recommendations for longer term therapist or want to see her again? * Telephone Encounter - Janina Hussein CMA - 11/24/2019 7:39 AM CDT Routing to PCP. Janina Hussein MA documented in this encounter Plan of Treatment Scheduled Referrals Name Type Priority Associated Diagnoses Orde r Schedule MENTAL HEALTH REFERRAL - Adult; Outpatient Treatment; Individual/Couples/Fami ly/Group Therapy/Health Psychology; [facility]: [facility] ; We will contact you to schedule the appointment or please call with any questions Referral Routine Obsessive-compulsive disorder, unspecified type Generalized anxiety disorder Attention deficit hyperactivity disorder (ADHD), unspecified ADHD type Moderate episode of recurrent major depressive disorder (H) Ordered: 12/07/2019 documented as of this encounter Visit Diagnoses Diagnosis Obsessive-compulsive disorder, unspecified type- Primary Generalized anxiety disorder Attention deficit hyperactivity disorder (ADHD), unspecified ADHD type Moderate episode of recurrent major depressive disorder (H) documented in this encounter Additional Health Concerns Assessment Noted Time PHQ-9 Depression Total Score: 6 01/05/20 20 7:03 AM COLOR EXPERT documented as of this encounter Care Teams Director Of Guidance Relationship Specialty Start Date End Date Sherin Garza MD [address] [facility] [address] [place] [address] PCP - General 08/16/01 Tanvir Peñaloza PA-C [address] [facility] [place] [address] Physician Facilities Project Manager 12/27/17 Johanna Rodríguez LPN Nurse Coordinator 12/27/17 Sherin Garza MD [address] [facility] [place] [address] Assigned PCP 06/15/18 Jose M Bearden Personal Advocate & Liaison (PAL) 05/01/19 05/16/21 Chris Galvan MD [address] [place] [address] Assigned OBGYN Provider 11/13/2005/25 Asaf Perales MD [address] [place] [address] Assigned Surgical Provider 12/18/2012/31/20 Trinh Jacobson PA-C [address] [place] [address] Assigned Surgical Provider 01/01/21 Vini Joyce MD [address] [place] [address] Assigned Surgical Provider 01/29/21 Roberta Galvan, [facility] [address] [place] [address] Pharmacist Pharmacist 05/17/21 07/26/22 Alisson Roth PA-C [address] [place] [address] Assigned Surgical Provider 05/14/2102/01/23 Adelaida Waterman PA-C [address] [place] [address] Assigned Sleep Provider 08/06/2104/19 Roberta Galvan, [facility] [address] [address] Assigned MTM Pharmacist 12/23/21 Roberta Galvan, [facility] [address] [place] [id number] Assigned MTM Pharmacist 03/28/22 Jeremy Camejo MD [address] [place] [address] Assigned OBGYN Provider 05/26/22 Nicolas Barragan MD [address] [place], [place] [address] Assigned Surgical Provider 02/02/23 documented as of this encounter
--- OUTSIDE RECORDS SUMMARY | 2024-07-04 15:42 | XMS_ITS | Encounter Summary ---
Author Organization [place] Address [address] [facility] [place] [address] Care Team Providers Care Mason Liner Name Role Phone Sherin Garza MD Primary Care Provider [phone] Tanvir Peñaloza PA-C Unavailable Unavailab Johanna Swenson LPN Unavailable Unavailable Sherin Garza MD Unavailable [phone] Sherin Garza MD Unavailable [phone] Jose M Bearden Unavailable Unavailable Mack Arteaga Unavailable [phone] Chris Galvan MD Unavailable [phone] Asaf Perales MD Unavailable [phone] Trinh JacobsonC Unavailable Vini Joyce MD Unavailable Roberta Galvan [facility] Unavailable [phone] Alisson Roth PA-C Unavailable [phone] Adelaida WatermanC Unavailable [phone] Roberta Galvan [facility] Unavailable [phone] Roberta Galvan [facility] Unavailable [phone] Jeremy Camejo MD Unavailable Nicolas Barragan MD Unavailable Encounter Details Date Type Department Care Team (Late st Contact Info) Description 10/24/2015 [facility] Medical Advice [address] [place] [id number] Mary Anne Cornell, WASHER HAND Social History Tobacco Use Types Packs/Day Years Used Date Smoking Tobacco: Never Smokeless Tobacco: Never Alcohol Use Standard Drinks/Week Comments Yes 0 (1 standard drink = 0.6 oz pur e alcohol) 1-2 drinks a week Comments No Sex and Gender Information Value Date Recorded Sex Assigned at Female 10/27/2020 11:13 PM CDT Legal Sex Female 4:00 AM FLOWER MAKER Gender Identity Female 09/17/2018 1:36 AM [...] Noted Time PHQ-9 Depression Total Score: 2 07/16/19 16 7:55 AM FLOWER MAKER documented as of this encounter Care Teams Mason Liner Relationship Specialty Start Date End Date Sherin Garza MD [address] [employer] [place] [address] PCP - General 08/16/01 Sherin Garza MD [address] [employer] [place] [address] PCP - Assigned PCP 01/26/18 09/02/18 Tanvir Peñaloza, LEONARDC [address] [employer] [place] [address] Physician Grating Machine Operator 12/27/17 Johanna Rodríguez LPN Nurse Coordinator 12/27/17 Sherin Garza MD [address] [employer] [place] [address] Assigned PCP 06/15/18 Jose M Bearden Personal Advocate & Liaison (PAL) 05/01/19 05/16/21 Mack ArteagaJERROD Lead Firearms Inspector Primary Care - CC 05/22/1909/15 Chris Galvan MD [address] [place] [address] Assigned OBGYN Provider 11/13/2005/25 Asaf Perales MD [address] [place], [place] [address] Assigned Surgical Provider 12/18/20 12/31/20 Trinh Jacobson PA-C [address] [place] [address] Assigned Surgical Provider 01/01/21 01/28/21 Vini Joyce MD [address] [place] [address] Assigned Surgical Provider 01/29/21 05/13/21 [facility] [address] [place] [address] Pharmacist Pharmacist 05/17/21 07/26/22 Alisson Roth PA-C [address] [place] [address] Assigned Surgical Provider 05/14/21 02/01/23 Adelaida Waterman PA-C [address] [place] [address] Assigned Sleep Provider 08/06/2104/19 Roberta Galvan [facility] [address] [address] Assigned MTM Pharmacist 12/23/21 Roberta Galvan [facility] [address] [address] Assigned MTM Pharmacist 03/28/22 Jeremy Camejo MD [address] [place] [address] Assigned OBGYN Provider 05/26/22 Nicolas Barragan MD [address] [place] [address] Assigned Surgical Provider 02/02/23 10/21/23 documented as of this encounter
--- OUTSIDE RECORDS SUMMARY | 2024-07-04 15:42 | XMS_ITS | Encounter Summary ---
Author Organization [place] Address [address] [facility] [place] [address] Care Team Providers Care Privacy Compliance Manager Name Role Phone Sherin Garza MD Primary Care Provider [phone] Tanvir Peñaloza PA-C Unavailable Unavailab Johanna Swenson LPN Unavailable Unavailable Sherin Garza MD Unavailable [phone] Sherin Garza MD Unavailable [phone] Jose M Bearden Unavailable Unavailable Mack Arteaga Unavailable [phone] Chris Galvan MD Unavailable [phone] Asaf Perales MD Unavailable [phone] Trinh JacobsonC Unavailable Vini Joyce MD Unavailable [phone] Roberta Galvan [facility] Unavailable [phone] Alisson Roth PA-C Unavailable [phone] Adelaida WatermanC Unavailable [phone] Roberta Galvan [facility] Unavailable [phone] Roberta Galvan [facility] Unavailable [phone] Jeremy Camejo MD Unavailable Nicolas Barragan MD Unavailable [phone] Encounter Details Date Type Department Care Team (Late st Contact Info) Description 12/10/2016 MyC Medical Advice [facility] [place] [address] [facility] [address] [place] [phone] Roro Haddad M, ASSURANCE OFFICER Social History Tobacco Use Types Packs/Day Years Used Date Smoking Tobacco: Never Smokeless Tobacco: Never Alcohol Use Standard Drinks/Week Comments Yes 0 (1 standard drink = 0.6 oz pur e alcohol) 1-2 drinks a week Comments No Sex and Gender Information Value Date Recorded Sex Assigned at Female 10/27/2020 11:13 PM CDT Legal Sex Female 4:00 AM VP INFORMATICS Gender Identity Female 09/17/2018 1:36 AM CDT [...] Time PHQ-9 Depression Total Score: 2 04/02/20 16 4:49 PM CDT documented as of this encounter Care Teams Privacy Compliance Manager Relationship Specialty Start Date End Date Sherin Garza MD [address] [place] [address] PCP - General 08/16/01 Sherin Garza MD [address] [place] [address] PCP - Assigned PCP 01/26/18 09/02/18 Tanvir Peñaloza PA-C [facility] [address] [place] [address] Physician Derrick Boat Lever Operator 12/27/17 Johanna Rodríguez LPN Nurse Coordinator 12/27/17 Sherin Garza MD [facility] [place] [address] Assigned PCP 06/15/18 Jose M Bearden Personal Advocate & Liaison (PAL) 05/01/19 05/16/21 Kaelyngeeta MackJERROD Lead Grinder Set Up Operator Internal Primary Care - CC 05/22/1909/15 Chris Galvan MD [address] [place] [address] Assigned OBGYN Provider 11/13/2005/25 Asaf Perales MD [address] [place] [address] Assigned Surgical Provider 12/18/20 12/31/20 Trinh Jacobson PA-C [address] [place], [place] [address] Assigned Surgical Provider 01/01/21 01/28/21 Vini Joyce MD [address] [place] [address] Assigned Surgical Provider 01/29/21 05/13/21 [facility] [address] [place] [address] Pharmacist Pharmacist 05/17/21 07/26/22 Alisson Roth PA-C [address] [place] [address] Assigned Surgical Provider 05/14/21 02/01/23 Adelaida Waterman PA-C [address] [place] [address] Assigned Sleep Provider 08/06/2104/19 Roberta Galvan, [facility] [address] [address] Assigned MTM Pharmacist 12/23/21 Roberta Galvan [facility] [address] [place] [address] Assigned MTM Pharmacist 03/28/22 Jeremy Camejo MD [address] [place] [address] Assigned OBGYN Provider 05/26/22 Nicolas Barragan MD [address] [place], [place] [address] Assigned Surgical Provider 02/02/23 10/21/23 documented as of this encounter
--- OUTSIDE RECORDS SUMMARY | 2024-07-04 15:42 | XMS_ITS | Encounter Summary ---
Author Organization [facility] Address [address] [facility] [place] [address] Care Team Providers Care Rat Poisoner Name Role Phone Sherin Garza MD Primary Care Provider [phone] Tanvir Peñaloza PA-C Unavailable Unavailab Johanna Swenson LPN Unavailable Unavailable Sherin Garza MD Unavailable [phone] Sherin Garza MD Unavailable [phone] Jose M Bearden Unavailable Unavailable Mack Arteaga Unavailable [phone] Chris Galvan MD Unavailable [phone] Asaf Perales MD Unavailable [phone] Trinh JacobsonC Unavailable Vini Joyce MD Unavailable [phone] Robetra Galvan [facility] Unavailable [phone] Alisson Roth PA-C Unavailable [phone] Adelaida WatermanC Unavailable [phone] Roberta Galvan [facility] Unavailable [phone] Roberta Galvan [facility] Unavailable [phone] Jeremy Camejo MD Unavailable Nicolas Barragan MD Unavailable [phone] Reason for Referral * - Closed Specialty Diagnoses / Procedures Referred By Fito carranza Referred To Contact Diagnoses Major depressive disorder, recurrent episode, in partial or unspecified remission Sherin Garza MD Phone: tel: fax: Referral ID Status Reason Start Date Expiration Date Visits Re quested Visits Authorized [id number] Closed 12/31/2012 06/29/2013 1 1 Comments Your provider has referred you to: [facility] - Child, Adolescent, and Adult Referrals (Behavioral Healthcare Providers [phone]), Adult Psychiatry - [place] - Dr. Vini Torres - Order/Referral from Patient's Primary Care Physician Required -[facility], , [facility]) [phone] Dr. Madrigal and Insurance Phone [facility] at [phone] Numbers for Patients to Verify Coverage: [facility]' Triage (can handle any insurance services include adult psychiatry) at [phone] Please be aware that coverage of these services is subject to the terms and limitations of your health insurance plan. Call member services at your health plan with any benefit or coverage questions. Please bring the following to your appointment: >> Any x-rays, CTs or MRIs which have been performed. Contact the facility where they were done to arrange for spanish moss picker prior to your scheduled appointment. Any new CT, MRI or other procedures ordered by your specialist must be performed at a [facility] facility or coordinated by your clinic's referral office. >> List of current medications >> This referral request >> Any documents/labs given to you for this referral Reason for Visit * Reason Onset Date Comments Orders 12/30/2012 Psychiatrist Encounter Details Date Type Department Care Team (Late st Contact Info) Description 12/30/2012 MyC Medical Advice [facility] [address] [place] [address] Sherin Garza MD [address] [facility] [place] [address] Orders (Psychiatrist) Social History Tobacco Use Types Packs/Day Years Used Date Smoking Tobacco: Never Smokeless Tobacco: Never Alcohol Use Standard Drinks/Week Comments Yes 0 (1 standard drink = 0.6 oz pur e alcohol) 1-2 drinks a week Comments No Sex and Gender Information Value Date Recorded Sex Assigned at Female 10/27/2020 11:13 PM CDT Legal Sex Female 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 Gay Niño RN * Telephone Encounter - Trinh Navarro - 12/31/2012 10:12 AM CDT Patient calling to follow up on her Piictu message she sent Dr Garza. She does want to have a referral to see a psychiatrist please call her cell or mychart her with referral info. documented in this encounter Plan of Treatment Scheduled Referrals Name Type Priority Associated Diagnoses Orde r Schedule MENTAL HEALTH REFERRAL Referral Routine Recur Major Depre, Part Remis Ordered: 12/31/2012 documented as of this encounter Visit Diagnoses Diagnosis Recur Major Depre, Part Remis- Primary Major depressive disorder, recurrent episode, in partial or unspecified remission documented in this encounter Care Teams Rat Poisoner Relationship Specialty Start Date End Date Sherin Garza MD [address] [employer] [place] [address] PCP - General 08/16/01 Sherin Garza MD [address] [facility] [place] [place] [address] PCP - Assigned PCP 01/26/18 09/02/18 Tanvir Peñaloza PA-C [address] [facility] [place] [place] [address] Physician Warp Knitting Machine Operator 12/27/17 Johanna Rodríguez LPN Nurse Coordinator 12/27/17 Sherin Garza MD [facility] [facility] [place] [address] Assigned PCP 06/15/18 Jose M Bearden Personal Advocate & Liaison (PAL) 05/01/19 05/16/21 Mack Arteaga LSW Lead Flight Mechanic Primary Care - CC 05/22/1909/15 Chris Galvan MD [address] [place] [address] Assigned OBGYN Provider 11/13/2005/25 Asaf Perales MD [address] [place] [address] Assigned Surgical Provider 12/18/20 12/31/20 Trinh Jacobson PA-C [address] [place] [address] Assigned Surgical Provider 01/01/21 01/28/21 Vini Joyce MD [address] [place] [address] Assigned Surgical Provider 01/29/21 05/13/21 Roberta Galvan, [facility] [address] [address] Pharmacist Pharmacist 05/17/21 07/26/22 Alisson Roth PA-C [address] [place] [address] Assigned Surgical Provider 05/14/21 02/01/23 Adelaida Waterman PA-C [address] [place] [address] Assigned Sleep Provider 08/06/2104/19 Roberta Galvan, [facility] [address] [address] Assigned MTM Pharmacist 12/23/21 Roberta Galvan, [facility] [address] [address] Assigned MTM Pharmacist 03/28/22 Jeremy Camejo MD [address] [place] [address] Assigned OBGYN Provider 05/26/22 Nicolas Barragan MD [address] [place] [address] Assigned Surgical Provider 02/02/23 10/21/23 documented as of this encounter
--- OUTSIDE RECORDS SUMMARY | 2024-07-04 15:42 | XMS_ITS | Encounter Summary ---
Author Organization [facility] Address [address] [place] [address] Care Team Providers Care Floating Derrick Operator Name Role Phone Sherin Garza MD Primary Care Provider [phone] Tanvir Peñaloza PA-C Unavailable Unavailab Johanna Swenson LPN Unavailable Unavailable Sherin Garza MD Unavailable [phone] Sherin Garza MD Unavailable [phone] Jose M Bearden Unavailable Unavailable Mack Arteaga Unavailable [phone] Chris Galvan MD Unavailable [phone] Asaf Perales MD Unavailable [phone] Trinh JacobsonC Unavailable Vini Joyce MD Unavailable [phone] Roberta Galvan [facility] Unavailable [phone] Alisson Roth PA-C Unavailable [phone] Adelaida WatermanC Unavailable [phone] Roberta Galvan [facility] Unavailable [phone] Roberta Galvan [facility] Unavailable [phone] Jeremy Camejo MD Unavailable Nicolas Barragan MD Unavailable Encounter Details Date Type Department Care Team (Late st Contact Info) Description 11/10/2013 [facility] Medical Advice [facility] [address] [place] [address] [place] [id number] Chiqui Lopez LPN Social History Tobacco Use Types Packs/Day Years Used Date Smoking Tobacco: Never Smokeless Tobacco: Never Alcohol Use Standard Drinks/Week Comments Yes 0 (1 standard drink = 0.6 oz pur e alcohol) 1-2 drinks a week Comments No Sex and Gender Information Value Date Recorded Sex Assigned at Female 10/27/2020 11:13 PM CDT Legal Sex Female 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 Gender Identity Female 09/17/2018 1:36 AM CDT Sexual Orientation Straight 09/17/2018 1: 36 AM CDT Occupation Industry Job Start Date Job End Date Not on file Not on file Not on file Not on file documented as of this encounter Plan of Treatment Not on file documented as of this encounter Visit Diagnoses Not on filedocumented in this encounter Care Teams Floating Derrick Operator Relationship Specialty Start Date End Date Sherin Garza MD [address] [place] [address] PCP - General 08/16/01 Sherin Garza MD [address] [place] [address] PCP - Assigned PCP 01/26/18 09/02/18 Tanvir Peñaloza PA-C [address] [place] [address] Physician Dairy Lab Technician 12/27/17 Johanna Rodríguez LPN Nurse Coordinator 12/27/17 Sherin Garza MD [address] [place] [address] Assigned PCP 06/15/18 Jose M Bearden Personal Advocate & Liaison (PAL) 05/01/19 05/16/21 Mack Arteaga, DOUGH CATCHER Lead Agents' Records Clerk Primary Care - CC 05/22/1909/15 Chris Galvan MD [address] [place] [address] Assigned OBGYN Provider 11/13/2005/25 Asaf Perales MD [address] [place], [place] [address] Assigned Surgical Provider 12/18/20 12/31/20 Trinh Jacobson PA-C [address] [place], [place] [address] Assigned Surgical Provider 01/01/21 01/28/21 Vini Joyce MD [address] [place] [address] Assigned Surgical Provider 01/29/21 05/13/21 Roberta Galvan, [facility] [address] [place], [place] [id number] Pharmacist Pharmacist 05/17/21 07/26/22 Alisson Roth PA-C [address] [place], [place] [address] Assigned Surgical Provider 05/14/21 02/01/23 Adelaida Waterman PA-C [address] [place], [place] [address] Assigned Sleep Provider 08/06/2104/19 Roberta Galvan, [facility] [address] [address] Assigned MTM Pharmacist 12/23/21 Roberta Galvan, [facility] [address] [address] Assigned MTM Pharmacist 03/28/22 Jeremy Camejo MD [address] [place] [address] Assigned OBGYN Provider 05/26/22 Nicolas Barragan MD [address] [place] [address] Assigned Surgical Provider 02/02/23 10/21/23 documented as of this encounter
--- OUTSIDE RECORDS SUMMARY | 2024-07-04 15:42 | XMS_ITS | Encounter Summary ---
Author Organization [facility] Address [address] [place] [address] Care Team Providers Care Coal Cutter Name Role Phone Sherin Garza MD Primary Care Provider [phone] Tanvir Peñaloza PA-C Unavailable Unavailab Johanna Swenson LPN Unavailable Unavailable Sherin Garza MD Unavailable [phone] Sherin Garza MD Unavailable [phone] Jose M Bearden Unavailable Unavailable Mack Arteaga Unavailable [phone] Chris Galvan MD Unavailable [phone] Asaf Perales MD Unavailable [phone] Trinh JacobsonC Unavailable Vini Joyce MD Unavailable [phone] Roberta Galvan [facility] Unavailable [phone] Alisson Roth PA-C Unavailable [phone] Adelaida WatermanC Unavailable [phone] Roberta Galvan [facility] Unavailable [phone] Roberta Galvan [facility] Unavailable [phone] Jeremy Camejo MD Unavailable Nicolas Barragan MD Unavailable [phone] Encounter Details Date Type Department Care Team (Late st Contact Info) Description 01/07/2012 [facility] [place] [facility] [address] [place] [address] [place] [phone] Sherin Garza MD [address] [facility] [place] [address] Social History Tobacco Use Types Packs/Day Years Used Date Smoking Tobacco: Never Smokeless Tobacco: Never Alcohol Use Standard Drinks/Week Comments Yes 0 (1 standard drink = 0.6 oz pur e alcohol) 1-2 drinks a week Comments No Sex and Gender Information Value Date Recorded Sex Assigned at Female 10/27/2020 11:13 PM CDT Legal Sex Female 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 Gender Identity Female 09/17/2018 1:36 AM CDT Sexual Orientation Straight 09/17/2018 1: 36 AM CDT Occupation Industry Job Start Date Job End Date Not on file Not on file Not on file Not on file documented as of this encounter Plan of Treatment Not on file documented as of this encounter Visit Diagnoses Not on filedocumented in this encounter Care Teams Coal Cutter Relationship Specialty Start Date End Date Sherin Garza MD [address] [employer] [place] [address] PCP - General 08/16/01 Sherin Garza MD [address] [facility] [place] [address] PCP - Assigned PCP 01/26/18 09/02/18 Tanvir Peñaloza PA-C [address] [employer] [place] [address] Physician Escort Car Driver 12/27/17 Johanna Rodríguez LPN Nurse Coordinator 12/27/17 Sherin Garza MD [address] [facility] [place] [address] Assigned PCP 06/15/18 Jose M Bearden Personal Advocate & Liaison (PAL) 05/01/19 05/16/21 Mack ArteagaJERROD Lead Timber Watchman Primary Care - CC 05/22/1909/15 Chris Galvan MD [address] [place] [address] Assigned OBGYN Provider 11/13/2005/25 Asaf Perales MD [address] [place] [address] Assigned Surgical Provider 12/18/20 12/31/20 Trinh Jacobson PA-C [address] [place] [address] Assigned Surgical Provider 01/01/21 01/28/21 Vini Joyce MD [address] [place] [address] Assigned Surgical Provider 01/29/21 05/13/21 [facility] [address] [place] [address] Pharmacist Pharmacist 05/17/21 07/26/22 Alisson Roth PA-C [address] [place] [address] Assigned Surgical Provider 05/14/21 02/01/23 Adelaida Waterman PA-C [address] [place] [address] Assigned Sleep Provider 08/06/2104/19 Roberta Galvan [facility] [address] [address] Assigned MTM Pharmacist 12/23/21 Roberta Galvan [facility] [address] [address] Assigned MTM Pharmacist 03/28/22 Jeremy Camejo MD [address] [place] [address] Assigned OBGYN Provider 05/26/22 Nicolas Barragan MD [address] [place], [place] [address] Assigned Surgical Provider 02/02/23 10/21/23 documented as of this encounter
--- OUTSIDE RECORDS SUMMARY | 2024-07-04 15:42 | XMS_ITS | Encounter Summary ---
Author Organization [facility] Address [address] [facility] [place] [address] Care Team Providers Care Director Of Audiology Name Role Phone Sherin Garza MD Primary Care Provider [phone] Tanvir Peñaloza PA-C Unavailable Unavailab Johanna Swenson LPN Unavailable Unavailable Sherin Garza MD Unavailable [phone] Sherin Garza MD Unavailable [phone] Jose M Bearden Unavailable Unavailable Mack Arteaga Unavailable [phone] Chris Galvan MD Unavailable [phone] Asaf Perales MD Unavailable [phone] Trinh JacobsonC Unavailable Vini Joyce MD Unavailable [phone] Roberta Galvan [facility] Unavailable [phone] Alisson Roth PA-C Unavailable [phone] Adelaida WatermanC Unavailable [phone] Roberta Galvan [facility] Unavailable [phone] Roberta Galvan [facility] Unavailable [phone] Jeremy Camejo MD Unavailable Nicolas Barragan MD Unavailable [phone] Reason for Visit * Reason Onset Date Comments Refill Request 07/16/2015 venlafaxine Encounter Details Date Type Department Care Team (Late st Contact Info) Description 07/16/2015 [facility] [address] [facility] [place] [address] Sherin Garza MD [address] [facility] [place] [address] Refill Request (venlafaxine) Social History Tobacco Use Types Packs/Day Years Used Date Smoking Tobacco: Never Smokeless Tobacco: Never Alcohol Use Standard Drinks/Week Comments Yes 0 (1 standard drink = 0.6 oz pur e alcohol) 1-2 drinks a week Comments No Sex and Gender Information Value Date Recorded Sex Assigned at Female 10/27/2020 11:13 PM CDT 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 ANIC WELDER TRUCK DRIVER * Telephone Encounter - Stephanie Cordova - 07/16/2015 5:25 PM CST Venlafaxine ER 150MG Last Written Prescription Date: 11/03/14 Last Fill Quantity: 90, # refills: 1 Last Office Visit with [facility] primary care provider: 11/03/14 BP Readings from Last 3 Encounters: 11/03/14 116/81 01/29/14 106/80 12/01/13 112/76 Pulse: (for Fetzima) AST 18 01/04/2012 ALT 11 01/04/2012 CHOL 145 11/03/2014 HDL 42 11/03/2014 LDL 83 11/03/2014 TRIG 99 11/03/2014 CHOLHDLRATIO 3.5 11/03/2014 CREATININE Date Value Ref Range Status 01/04/2012 0.59 0.52 - 1.04 mg/dL Final ] Last PHQ-9 score on record= PHQ-9 SCORE 07/14/2015 Total Score - Total Score MyChart 2 (Minimal depression) Total Score 2 ANIC WELDER TRUCK DRIVER documented in this encounter Plan of Treatment Not on file documented as of this encounter Visit Diagnoses Diagnosis Major depression in complete remission (H)- Primary Major depressive disorder, single episode in full remission documented in this encounter Additional Health Concerns Assessment Noted Time PHQ-9 Depression Total Score: 2 07/16/19 16 7:55 AM MECHANIC WELDER TRUCK DRIVER documented as of this encounter Care Teams Director Of Audiology Relationship Specialty Start Date End Date Sherin Garza MD [address] [employer] [place] [address] PCP - General 08/16/01 Sherin Garza MD [address] [address] [place] [address] PCP - Assigned PCP 01/26/18 09/02/18 Tanvir Peñaloza, PAArshC [address] [employer] [address] [place] [address] Physician Family Welfare Social Work Professor 12/27/17 Johanna Rodríguez LPN Nurse Coordinator 12/27/17 Sherin Garza MD [address] [employer] [address] [place] [address] Assigned PCP 06/15/18 Jose M Bearden Personal Advocate & Liaison (PAL) 05/01/19 05/16/21 Mack Arteaga LSW Lead Mortgage Protection Specialist Primary Care - CC 05/22/1909/15 Chris Galvan MD [address] [place] [address] Assigned OBGYN Provider 11/13/2005/25 Asaf Perales MD [address] [place], [place] [address] Assigned Surgical Provider 12/18/20 12/31/20 Trinh Jacobson PA-C [address] [place], [place] [address] Assigned Surgical Provider 01/01/21 01/28/21 Vini Joyce MD [address] [place] [address] Assigned Surgical Provider 01/29/21 05/13/21 Roberta Galvan [facility] [address] [id number] Pharmacist Pharmacist 05/17/21 07/26/22 Alisson Roth PA-C [address] [place] [address] Assigned Surgical Provider 05/14/21 02/01/23 Adelaida Waterman PA-C [address] [place] [address] Assigned Sleep Provider 08/06/2104/19 Roberta Galvan [facility] [address] [id number] Assigned MTM Pharmacist 12/23/21 Roberta Galvan [facility] [address] [place] [address] Assigned MTM Pharmacist 03/28/22 Jeremy Camejo MD [address] [place] [address] Assigned OBGYN Provider 05/26/22 Nicolas Barragan MD [address] [place] [address] Assigned Surgical Provider 02/02/23 10/21/23 documented as of this encounter
--- OUTSIDE RECORDS SUMMARY | 2024-07-04 15:42 | XMS_ITS | Encounter Summary ---
Author Organization [place] Address [address] [place] [address] Care Team Providers Care Jewelry Drill Operator Name Role Phone Sherin Garza MD Primary Care Provider [phone] Tanvir Peñaloza PA-C Unavailable Unavailab Johanna Swenson LPN Unavailable Unavailable Sherin Garza MD Unavailable [phone] Sherin Garza MD Unavailable [phone] Jose M Bearden Unavailable Unavailable Mack Arteaga Unavailable [phone] Chris Galvan MD Unavailable [phone] Asaf Perales MD Unavailable [phone] Trinh JacobsonC Unavailable [phone] Vini Joyce MD Unavailable [phone] Roberta Galvan [facility] Unavailable [phone] Alisson Roth PA-C Unavailable [phone] Adelaida WatermanC Unavailable [phone] Roberta Galvan [facility] Unavailable [phone] Roberta Galvan [facility] Unavailable [phone] Jeremy Camejo MD Unavailable Nicolas Barragan MD Unavailable Reason for Visit * Reason Onset Date Comments Refill Request 12/03/2016 Adderall Encounter Details Date Type Department Care Team (Late st Contact Info) Description 12/03/2016 Refill [facility] [place] [address] [facility] [address] [place] [phone] Sherin Garza MD [address] [facility] [place] [address] Refill Request (Adderall) Social History Tobacco Use Types Packs/Day Years Used Date Smoking Tobacco: Never Smokeless Tobacco: Never Alcohol Use Standard Drinks/Week Comments Yes 0 (1 standard drink = 0.6 oz pur e alcohol) 1-2 drinks a week Comments No Sex and Gender Information Value Date Recorded Sex Assigned at Female 10/27/2020 11:13 PM CDT Legal Sex 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 Garza for 12/11, informed pt script is at assistant front office manager on first floor for bulk picker. Thanks Jj Doyle Team Coodinator * Telephone Encounter - Sherin Garza MD - 12/04/2016 2:01 PM CDT Needs appointment scheduled - please call. Prescription x1 only until seen * Telephone Encounter - Jeanie Chew RN - 12/04/2016 1:28 PM CDT Adderall XR 30 mg qd Last Written Prescription Date: 08/28/16 Last Fill Quantity: 30, # refills: 0 Last Office [place] [facility] [place] prescribing provider: 11/22/15 Future Office visit: Next 5 appointments (look out 90 days) Dec 11, 2016 12:10 PM CDT SHORT with Sherin Garza MD [facility] ([facility] [address] [facility] [address] [place] [address] Routing refill request to provider for review/approval because: Drug not on the [facility] refill protocol or controlled substance Lyndsey forming press operator Nurse documented in this encounter Plan of Treatment Not on file documented as of this encounter Visit Diagnoses Diagnosis Attention deficit hyperactivity disorder (ADHD), unspecified ADHD type documented in this encounter Additional Health Concerns Assessment Noted Time PHQ-9 Depression Total Score: 2 04/02/20 16 4:49 PM CDT documented as of this encounter Care Teams Jewelry Drill Operator Relationship Specialty Start Date End Date Sherin Garza MD [address] [place] [address] [place] [address] PCP - General 08/16/01 Sherin Garza MD [address] [place] [address] [place] [address] PCP - Assigned PCP 01/26/18 09/02/18 Tanvir Peñaloza PA-C [address] [place] [address] [place] [address] Physician Associate Professor Of History 12/27/17 Johanna Rodríguez LPN Nurse Coordinator 12/27/17 Sherin Garza MD [address] [place] [address] [place] [address] Assigned PCP 06/15/18 Jose M Bearden Personal Advocate & Liaison (PAL) 05/01/19 05/16/21 Mack Arteaga LSW Lead Laser Set Up Operator Primary Care - CC 05/22/1909/15 Chris Galvan MD [address] [place] [address] Assigned OBGYN Provider 11/13/2005/25 Asaf Perales MD [address] [place] [address] Assigned Surgical Provider 12/18/20 12/31/20 Trinh Jacobson PA-C [address] [place], [place] [address] Assigned Surgical Provider 01/01/21 01/28/21 Vini Joyce MD [address] [place] [address] Assigned Surgical Provider 01/29/21 05/13/21 [facility] [address] [place] [address] Pharmacist Pharmacist 05/17/21 07/26/22 Alisson Roth PA-C [address] [place] [address] Assigned Surgical Provider 05/14/21 02/01/23 Adelaida Waterman PA-C [address] [place] [address] Assigned Sleep Provider 08/06/2104/19 Roberta Galvan [facility] [address] [address] Assigned MTM Pharmacist 12/23/21 Roberta Galvan [facility] [address] [address] Assigned MTM Pharmacist 03/28/22 Jeremy Camejo MD [address] [place] [address] Assigned OBGYN Provider 05/26/22 Nicolas Barragan MD [address] [place] [address] Assigned Surgical Provider 02/02/23 10/21/23 documented as of this encounter
--- OUTSIDE RECORDS SUMMARY | 2024-07-04 15:42 | XMS_ITS | Encounter Summary ---
Author Organization [place] Address [address] [place] [address] Care Team Providers Care Solar Sales Associate Name Role Phone Sherin Garza MD Primary Care Provider [phone] Tanvir Peñaloza PA-C Unavailable Unavailab Johanna Swenson LPN Unavailable Unavailable Sherin Garza MD Unavailable [phone] Sherin Garza MD Unavailable [phone] Jose M Bearden Unavailable Unavailable Mack rAteaga Unavailable [phone] Chris Galvan MD Unavailable [phone] Asaf Perales MD Unavailable [phone] Trinh JacobsonC Unavailable [phone] Vini Joyce MD Unavailable [phone] Roberta Galvan [facility] Unavailable [phone] Alisson Roth PA-C Unavailable [phone] Adelaida WatermanC Unavailable [phone] Roberta Galvan [facility] Unavailable [phone] Roberta Galvan [facility] Unavailable [phone] Jeremy Camejo MD Unavailable Nicolas Barragan MD Unavailable Encounter Details Date Type Department Care Team (Late st Contact Info) Description 10/06/2008 MyC Medical Advice Initial Department Nikki Ferris Social History Tobacco Use Types Packs/Day Years Used Date Smoking Tobacco: Never Alcohol Use Standard Drinks/Week Comments Yes 0 (1 standard drink = 0.6 oz pur e alcohol) 1-2 drinks a week Comments No Sex and Gender Information Value Date Recorded Sex Assigned at Female 10/27/2020 11:13 PM CDT 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 Gender Identity Female 09/17/2018 1:36 AM CDT Sexual Orientation Straight 09/17/2018 1: 36 AM CDT Occupation Industry Job Start Date Job End Date Not on file Not on file Not on file Not on file documented as of this encounter Plan of Treatment Not on file documented as of this encounter Visit Diagnoses Not on filedocumented in this encounter Care Teams Solar Sales Associate Relationship Specialty Start Date End Date Sherin Garaz MD [address] [place] [address] PCP - General 08/16/01 Sherin Garza MD [address] [place] [address] PCP - Assigned PCP 01/26/18 09/02/18 Tanvir Peñaloza PA-C [address] [place] [address] Physician Diet Attendant 12/27/17 Johanna Rodríguez LPN Nurse Coordinator 12/27/17 Sherin Garza MD [address] [place] [address] Assigned PCP 06/15/18 Jose M Bearden Personal Advocate & Liaison (PAL) 05/01/19 05/16/21 Mack Arteaga LSW Lead Foundry Engineer Primary Care - CC 05/22/1909/15 Chris Galvan MD [address] [place] [address] Assigned OBGYN Provider 11/13/2005/25 Asaf Perales MD [address] [place], [place] [address] Assigned Surgical Provider 12/18/20 12/31/20 Trinh Jacobson PA-C [address] [place], [place] [address] Assigned Surgical Provider 01/01/21 01/28/21 Vini Joyce MD [address] [place] [address] Assigned Surgical Provider 01/29/21 05/13/21 Roberta Galvan [facility] [address] [place] [address] Pharmacist Pharmacist 05/17/21 07/26/22 Alisson Roth PA-C [address] [place] [address] Assigned Surgical Provider 05/14/21 02/01/23 Adelaida Waterman PA-C [address] [place] [address] Assigned Sleep Provider 08/06/2104/19 Roberta Galvan [facility] [address] [address] Assigned MTM Pharmacist 12/23/21 Robreta Galvan [facility] [address] [address] Assigned MTM Pharmacist 03/28/22 Jeremy Camejo MD [address] [place] [address] Assigned OBGYN Provider 05/26/22 Nicolas Barragan MD [address] [place] [address] Assigned Surgical Provider 02/02/23 10/21/23 documented as of this encounter
--- OUTSIDE RECORDS SUMMARY | 2024-07-04 15:42 | XMS_ITS | Encounter Summary ---
Author Organization [place] Address [address] [facility] [place] [address] Care Team Providers Care Special Police Name Role Phone Sherin Garza MD Primary Care Provider [phone] Tanvir Peñaloza PA-C Unavailable Unavailab Johanna Swenson LPN Unavailable Unavailable Sherin Garza MD Unavailable [phone] Sherin Garza MD Unavailable [phone] Jose M Bearden Unavailable Unavailable Mack Arteaga Unavailable [phone] Chris Galvan MD Unavailable [phone] Asaf Perales MD Unavailable [phone] Trinh JacobsonC Unavailable Vini Joyce MD Unavailable [phone] Roberta Galvan [facility] Unavailable [phone] Alisson Roth PA-C Unavailable [phone] Adelaida WatermanC Unavailable [phone] Roberta Galvan [facility] Unavailable [phone] Roberta Galvan [facility] Unavailable [phone] Jeremy Camejo MD Unavailable Nicolas Barragan MD Unavailable Reason for Visit * Reason Onset Date Comments Medication Question 07/31/2011 Alternate or PA for Wellbutrin Encounter Details Date Type Department Care Team (Late st Contact Info) Description 07/31/2011 MyC Medical Advice [address] [place] [phone] Sherin Garza MD [address] [place] [address] Medication Question (Alternate or PA for W... 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 See My Chart. Gay Niño RN 01/08/11 PHQ 9 was a 2. IFIED PHYSICIAN ASSISTANT documented in this encounter Plan of Treatment Not on file documented as of this encounter Visit Diagnoses Diagnosis Screening for depression- Primary documented in this encounter Care Teams Special Police Relationship Specialty Start Date End Date Sherin Garza MD [address] [place] [address] PCP - General 08/16/01 Sherin Garza MD [address] [place], [place] [address] PCP - Assigned PCP 01/26/18 09/02/18 Tanvir Peñaloza PA-C [address] [facility] [place] [address] Physician Public Speaking Instructor 12/27/17 Johanna Rodríguez LPN Nurse Coordinator 12/27/17 Sherin Garza MD [address] [facility] [address] [place] [address] Assigned PCP 06/15/18 Jose M Bearden Personal Advocate & Liaison (PAL) 05/01/19 05/16/21 Mack Arteaga SUPERVISOR SLEEPING BAG DEPARTMENT Lead Balance And Hairspring Assembler Primary Care - CC 05/22/1909/15 Chris Galvan MD [address] [place] [address] Assigned OBGYN Provider 11/13/2005/25 Asaf Perales MD [address] [place] [address] Assigned Surgical Provider 12/18/20 12/31/20 Trinh Jacobson PA-C [address] [place] [address] Assigned Surgical Provider 01/01/21 01/28/21 Vini Joyce MD [address] [place] [address] Assigned Surgical Provider 01/29/21 05/13/21 Roberta Galvan, [facility] [address] [address] Pharmacist Pharmacist 05/17/21 07/26/22 Alisson Roth PA-C [address] [place] [address] Assigned Surgical Provider 05/14/21 02/01/23 Adelaida Waterman PA-C [address] [place] [address] Assigned Sleep Provider 08/06/2104/19 Roberta Galvan, [facility] [address] [address] Assigned MTM Pharmacist 12/23/21 Roberta Galvan, [facility] [address] [address] Assigned MTM Pharmacist 03/28/22 Jeremy Camejo MD [address] [place] [address] Assigned OBGYN Provider 05/26/22 Nicolas Barragan MD [address] [place], [place] [address] Assigned Surgical Provider 02/02/23 10/21/23 documented as of this encounter
--- OUTSIDE RECORDS SUMMARY | 2024-07-04 15:42 | XMS_ITS | Encounter Summary ---
Author Organization [place] Address [address] [facility] [place] [address] Care Team Providers Care Master In Chancery Name Role Phone Sherin Garza MD Primary Care Provider [phone] Tanvir Peñaloza PA-C Unavailable Unavailab Johanna Swenson LPN Unavailable Unavailable Sherin Garza MD Unavailable [phone] Sherin Garza MD Unavailable [phone] Jose M Bearden Unavailable Unavailable Mack Arteaga Unavailable [phone] Chris Galvan MD Unavailable [phone] Asaf Perales MD Unavailable [phone] Trinh JacobsonC Unavailable [phone] Vini Joyce MD Unavailable [phone] Roberta Galvan [facility] Unavailable [phone] Alisson Roth PA-C Unavailable [phone] Adelaida WatermanC Unavailable [phone] Roberta Galvan [facility] Unavailable [phone] Roberta Galvan [facility] Unavailable [phone] Jeremy Camejo MD Unavailable Nicolas Barragan MD Unavailable Encounter Details Date Type Department Care Team (Late st Contact Info) Description 07/13/2016 MyC Medical Advice [facility] [place] [address] [facility] [address] [place] [phone] Jayashree Balesica Darling Social History Tobacco Use Types Packs/Day Years Used Date Smoking Tobacco: Never Smokeless Tobacco: Never Alcohol Use Standard Drinks/Week Comments Yes 0 (1 standard drink = 0.6 oz pur e alcohol) 1-2 drinks a week Comments No Sex and Gender Information Value Date Recorded Sex Assigned at Female 10/27/2020 11:13 PM CDT Legal Sex Female 4:00 AM REGISTERED NURSES Gender Identity Female 09/17/2018 1:36 AM CDT [...] documented as of this encounter Care Teams Master In Chancery Relationship Specialty Start Date End Date Sherin Garza MD [address] [employer] [place] [address] PCP - General 08/16/01 Sherin Garza MD [address] [employer] [place] [address] PCP - Assigned PCP 01/26/18 09/02/18 Tanvir Peñaloza PA-C [address] [employer] [place] [address] Physician Agricultural Aircraft Pilot 12/27/17 Johanna Rodríguez LPN Nurse Coordinator 12/27/17 Sherin Garza MD [facility] [employer] [place] [address] Assigned PCP 06/15/18 Jose M Bearden Personal Advocate & Liaison (PAL) 05/01/19 05/16/21 Jenni MackJERROD Lead Head Of English Primary Care - CC 05/22/1909/15 Chris Galvan MD [address] [place] [address] Assigned OBGYN Provider 11/13/2005/25 Asaf Perales MD [address] [place] [address] Assigned Surgical Provider 12/18/20 12/31/20 Trinh Jacobson PA-C [address] [place], [place] [address] Assigned Surgical Provider 01/01/21 01/28/21 Vini Joyce MD [address] [place] [address] Assigned Surgical Provider 01/29/21 05/13/21 [facility] [address] [place] [address] Pharmacist Pharmacist 05/17/21 07/26/22 Alisson Roth PA-C [address] [place] [address] Assigned Surgical Provider 05/14/21 02/01/23 Adelaida Waterman PA-C [address] [place] [address] Assigned Sleep Provider 08/06/2104/19 Roberta Galvan [facility] [address] [address] Assigned MTM Pharmacist 12/23/21 Roberta Galvan [facility] [address] [address] Assigned MTM Pharmacist 03/28/22 Jeremy Camejo MD [address] [place] [address] Assigned OBGYN Provider 05/26/22 Nicolas Barragan MD [address] [place], [place] [address] Assigned Surgical Provider 02/02/23 10/21/23 documented as of this encounter
--- OUTSIDE RECORDS SUMMARY | 2024-07-04 15:42 | XMS_ITS | Encounter Summary ---
Author Organization [place] Address [address] [facility] [place] [address] Care Team Providers Care Structural Steel Trades Worker Name Role Phone Sherin Garza MD Primary Care Provider [phone] Tanvir Peñaloza PA-C Unavailable Unavailab Johanna Swenson LPN Unavailable Unavailable Sherin Garza MD Unavailable [phone] Sherin Garza MD Unavailable [phone] Jose M Bearden Unavailable Unavailable Mack Arteaga Unavailable [phone] Chris Galvan MD Unavailable [phone] Asaf Perales MD Unavailable [phone] Trinh JacobsonC Unavailable Vini [place] MD Unavailable [phone] Roberta Galvna [facility] Unavailable [phone] Alisson Roth PA-C Unavailable [phone] Adelaida WatermanC Unavailable [phone] Roberta Galvan [facility] Unavailable [phone] Roberta Galvan [facility] Unavailable [phone] Jeremy Camejo MD Unavailable Nicolas Barragan MD Unavailable Reason for Visit * Reason Onset Date Comments Refill Request 11/10/2015 CETIRIZINE 10MG Encounter Details Date Type Department Care Team (Late st Contact Info) Description 11/10/[address] [facility] [address] [facility] [place] [phone] Sherin Garza MD [address] [place] [address] [place] [address] Refill Request (CETIRIZINE 10MG) Social History Tobacco Use Types Packs/Day Years Used Date Smoking Tobacco: Never Smokeless Tobacco: Never Alcohol Use Standard Drinks/Week Comments Yes 0 (1 standard drink = 0.6 oz pur e alcohol) 1-2 drinks a week Comments No Sex and Gender Information Value Date Recorded Sex Assigned at Female 10/27/2020 11:13 PM CDT Legal Sex Female 4:00 AM DECK SUPERVISOR Gender Identity Female 09/17/2018 1:36 AM CDT Sexual Orientation Straight 09/17/2018 1: 36 AM CDT Occupation Industry Job Start Date Job End Date Not on file Not on file Not on file Not on file documented as of this encounter Miscellaneous Notes * Telephone Encounter - Arlyn Morris - 11/14/2015 3:40 PM CDT Patient has made appointment for 11/[address] Garza Thanks Jj Doyle Team Coodinator * Telephone Encounter - Arlyn Morris - 11/10/2015 12:15 PM CDT LVM for patient to callback Thanks Jj Doyle Team Coodinator * Telephone Encounter - Cally Bo RN - 11/10/2015 11:29 AM CDT Prescription refilled x 1 per [facility] Refill Protocol. Patient due for annual physical. Email not listed in chart, patient will not get [employer] message notification. Routing to Station Nurse Pool, please call to assist patient in scheduling a FASTING physical. * Telephone Encounter - Radha Bartlett - 11/10/2015 9:24 AM CDT CETIRIZINE 10MG Last Written Prescription Date: 11/03/2014 Last Fill Quantity: 90, # refills: 4 Last Office Visit with [facility], P or [facility] prescribing provider: 07/21/2015 documented in this encounter Plan of Treatment Not on file documented as of this encounter Visit Diagnoses Diagnosis Allergic rhinitis- Primary Allergic rhinitis, cause unspecified documented in this encounter Additional Health Concerns Assessment Noted Time PHQ-9 Depression Total Score: 2 07/16/19 16 7:55 AM DECK SUPERVISOR documented as of this encounter Care Teams Structural Steel Trades Worker Relationship Specialty Start Date End Date Sherin Garza MD [address] [place] [address] PCP - General 08/16/01 Sherin Garza MD [address] [place] [address] PCP - Assigned PCP 01/26/18 09/02/18 Tanvir Peñaloza, PAArshC [address] [place] [address] Physician Puff Ironer 12/27/17 Johanna Rodríguez LPN Nurse Coordinator 12/27/17 Sherin Garza MD [address] [place] [address] Assigned PCP 06/15/18 Jose M Bearden Personal Advocate & Liaison (PAL) 05/01/19 05/16/21 Mack Arteaga LSW Lead Hood Fitter Primary Care - CC 05/22/1909/15 Chris Galvan MD [address] [place] [address] Assigned OBGYN Provider 11/13/2005/25 Asaf Perales MD [address] [place], [place] [address] Assigned Surgical Provider 12/18/20 12/31/20 Trinh Jacobson PA-C [address] [place], [place] [address] Assigned Surgical Provider 01/01/21 01/28/21 Vini Joyce MD [address] [place] [address] Assigned Surgical Provider 01/29/21 05/13/21 Roberta Galvan [facility] [address] [place] [address] Pharmacist Pharmacist 05/17/21 07/26/22 Alisson Roth PA-C [address] [place] [address] Assigned Surgical Provider 05/14/21 02/01/23 Adelaida Waterman PA-C [address] [place] [address] Assigned Sleep Provider 08/06/2104/19 Roberta Galvan [facility] [address] [place] [address] Assigned MTM Pharmacist 12/23/21 Roberta Galvan, [facility] [address] [place] [address] Assigned MTM Pharmacist 03/28/22 Jeremy Camejo MD [address] [place] [address] Assigned OBGYN Provider 05/26/22 Nicolas Barragan MD [address] [place] [address] Assigned Surgical Provider 02/02/23 10/21/23 documented as of this encounter
--- OUTSIDE RECORDS SUMMARY | 2024-07-04 15:42 | XMS_ITS | Encounter Summary ---
Author Organization [place] Address [address] [facility] [place] [address] Care Team Providers Care Finishing Powder Press Operator Name Role Phone Sherin Garza MD Primary Care Provider [phone] Tanvir Peñaloza PA-C Unavailable Unavailab Johanna Swenson LPN Unavailable Unavailable Sherin Garza MD Unavailable [phone] Sherin Garza MD Unavailable [phone] Jose M Bearden Unavailable Unavailable Mack Arteaga Unavailable [phone] Chris Galvan MD Unavailable [phone] Asaf Perales MD Unavailable [phone] Trinh JacobsonC Unavailable Vini Joyce MD Unavailable [phone] Roberta Galvan [facility] Unavailable [phone] Alisson Roth PA-C Unavailable [phone] Adelaida WatermanC Unavailable [phone] Roberta Galvan [facility] Unavailable [phone] Roberta Galvan [facility] Unavailable [phone] Jeremy Camejo MD Unavailable Nicolas Barragan MD Unavailable [phone] Encounter Details Date Type Department Care Team (Late st Contact Info) Description 01/11/2011 [facility] [place] [address] [place] [phone] [facility] Social History Tobacco Use Types Packs/Day Years Used Date Smoking Tobacco: Never Alcohol Use Standard Drinks/Week Comments Yes 0 (1 standard drink = 0.6 oz pur e alcohol) 1-2 drinks a week Comments No Sex and Gender Information Value Date Recorded Sex Assigned at Female 10/27/2020 11:13 PM CDT Legal Sex Female 4:00 AM MARKETING SENIOR RECRUITER Gender Identity Female 09/17/2018 1:36 AM CDT Sexual Orientation Straight 09/17/2018 1: 36 AM CDT Occupation Industry Job Start Date Job End Date Not on file Not on file Not on file Not on file documented as of this encounter Plan of Treatment Not on file documented as of this encounter Visit Diagnoses Not on filedocumented in this encounter Care Teams Finishing Powder Press Operator Relationship Specialty Start Date End Date Sherin Garza MD [address] [place] [address] PCP - General 08/16/01 Sherin Garza MD [address] [place] [address] PCP - Assigned PCP 01/26/18 09/02/18 Tanvir Peñaloza PA-C [address] [place] [address] Physician Spot Welder 12/27/17 Johanna Rodríguez LPN Nurse Coordinator 12/27/17 Sherin Garza MD [address] [place] [address] Assigned PCP 06/15/18 Jose M Bearden Personal Advocate & Liaison (PAL) 05/01/19 05/16/21 Mack Arteaga LSW Lead Legal Researcher Primary Care - CC 05/22/1909/15 Chris Galvan MD [address] [place] [address] Assigned OBGYN Provider 11/13/2005/25 Asaf Perales MD [address] [place], [place] [address] Assigned Surgical Provider 12/18/20 12/31/20 Trinh Jacobson PA-C [address] [place], [place] [address] Assigned Surgical Provider 01/01/21 01/28/21 Vini Joyce MD [address] [place] [address] Assigned Surgical Provider 01/29/21 05/13/21 Roberta Galvan, [facility] [address] [place] [address] Pharmacist Pharmacist 05/17/21 07/26/22 Alisson Roth PA-C [address] [place], [place] [address] Assigned Surgical Provider 05/14/21 02/01/23 Adelaida Waterman PA-C [address] [place] [address] Assigned Sleep Provider 08/06/2104/19 Roberta Galvan, [facility] [address] [address] Assigned MTM Pharmacist 12/23/21 Roberta Galvan, [facility] [address] [address] Assigned MTM Pharmacist 03/28/22 Jeremy Camejo MD [address] [place] [address] Assigned OBGYN Provider 05/26/22 Nicolas Barragan MD [address] [place] [address] Assigned Surgical Provider 02/02/23 10/21/23 documented as of this encounter
--- OUTSIDE RECORDS SUMMARY | 2024-07-04 15:42 | XMS_ITS | Encounter Summary ---
Author Organization [place] Address [address] [facility] [address] Care Team Providers Care Airframe Technician Name Role Phone Sherin Garza MD Primary Care Provider [phone] Tanvir Peñaloza PA-C Unavailable Unavailab Johanna Swenson LPN Unavailable Unavailable Sherin Garza MD Unavailable [phone] Sherin Garza MD Unavailable [phone] Jose M Bearden Unavailable Unavailable Mack Arteaga Unavailable [phone] Chris Galvan MD Unavailable [phone] Asaf Perales MD Unavailable [phone] Trinh JacobsonC Unavailable Vini Joyce MD Unavailable [phone] Roberta Galvan [facility] Unavailable [phone] Alisson Roth PA-C Unavailable [phone] Adelaida WatermanC Unavailable [phone] Roberta Galvan [facility] Unavailable [phone] Roberta Galvan [facility] Unavailable [phone] Jeremy Camejo MD Unavailable Nicolas Barragan MD Unavailable Reason for Visit * Reason Onset Date Comments Refill Request 09/11/2011 wellbutrin alter caitlin Encounter Details Date Type Department Care Team (Late st Contact Info) Description 09/11/2011 [facility] [address] [facility] [place] [phone] Sherin Garza MD [address] [place] [address] [place] [address] Refill Request (wellbutrin alternate) Social History Tobacco Use Types Packs/Day Years Used Date Smoking Tobacco: Never Alcohol Use Standard Drinks/Week Comments Yes 0 (1 standard drink = 0.6 oz pur e alcohol) 1-2 drinks a week Comments No Sex and Gender Information Value Date Recorded Sex Assigned at Female 10/27/2020 11:13 PM CDT Legal Sex Female 4:00 AM SHALE MINER BLASTING Gender Identity Female 09/17/2018 1:36 AM CDT Sexual Orientation Straight 09/17/2018 1: 36 AM CDT Occupation Industry Job Start Date Job End Date Not on file Not on file Not on file Not on file documented as of this encounter Miscellaneous Notes * Telephone Encounter - Gisell Sánchez - 09/11/2011 3:43 PM CDT Last office visit 07/14/10 Last mychart 07/31/11 discusses changing to twice daily generic dosing Last PHQ-9 score on record= 12, 07/31/11 * Telephone Encounter - Gisell Sánchez - 09/11/2011 3:40 PM CDTMessage from [facility]: Original authorizing provider: MD Farhana Renae would like a refill of the following medications: buPROPion (WELLBUTRIN XL) 150 MG 24 hr tablet [Sherin Garza MD] Preferred pharmacy: [facility] [address] & Comment: I would like to try the other medication we discussed previously instead of this one. Please send to [facility] on [address] in [place]. Please call me at [phone] with any questions. documented in this encounter Plan of Treatment Not on file documented as of this encounter Visit Diagnoses Diagnosis Moderate major depression (H)- Primary Major depressive disorder, single episode, moderate documented in this encounter Care Teams Airframe Technician Relationship Specialty Start Date End Date Sherin Garza MD [address] [facility] [address] PCP - General 08/16/01 Sherin Garza MD [address] [place] [employer] [facility] [place] [address] PCP - Assigned PCP 01/26/18 09/02/18 Tanvir Peñaloza, PAArshC [address] [place] [address] [employer] [facility] [place] [address] Physician Stitcher Tape Controlled Machine 12/27/17 Johanna Rodríguez LPN Nurse Coordinator 12/27/17 Sherin Garza MD [address] [place] [employer] [facility] [place] [address] Assigned PCP 06/15/18 Jose M Bearden Personal Advocate & Liaison (PAL) 05/01/19 05/16/21 Mack Arteaga LSW Lead Sort Line Primary Care - CC 05/22/1909/15 Chris Galvan MD [address] [facility] [address] [place] [address] Assigned OBGYN Provider 11/13/2005/25 Asaf Perales MD [address] [place] [address] Assigned Surgical Provider 12/18/20 12/31/20 Trinh Jacobson PA-C [address] [place] [address] Assigned Surgical Provider 01/01/21 01/28/21 Vini Joyce MD [address] [place] [address] Assigned Surgical Provider 01/29/21 05/13/21 Roberta Galvan [facility] [address] [id number] Pharmacist Pharmacist 05/17/21 07/26/22 Alisson Roth PA-C [address] [place] [address] Assigned Surgical Provider 05/14/21 02/01/23 Adelaida Waterman PA-C [address] [place] [address] Assigned Sleep Provider 08/06/2104/19 Roberta Galvan [facility] [address] [address] Assigned MTM Pharmacist 12/23/21 Roberta Galvan [facility] [address] [address] Assigned MTM Pharmacist 03/28/22 Jeremy Camejo MD [address] [place] [address] Assigned OBGYN Provider 05/26/22 Nicolas Barragan MD [address] [place] [address] Assigned Surgical Provider 02/02/23 10/21/23 documented as of this encounter
--- OUTSIDE RECORDS SUMMARY | 2024-07-04 15:42 | XMS_ITS | Encounter Summary ---
Author Organization [place] Address [address] [facility] [place] [address] Care Team Providers Care Thermospray Operator Name Role Phone Sherin Garza MD Primary Care Provider [phone] Tanvir Peñaloza PA-C Unavailable Unavailab Johanna Swenson LPN Unavailable Unavailable Sherin Garza MD Unavailable [phone] Sherin Garza MD Unavailable [phone] Jose M Bearden Unavailable Unavailable Mack Arteaga Unavailable [phone] Chris Galvan MD Unavailable [phone] Asaf Perales MD Unavailable [phone] Trinh JacobsonC Unavailable Vini Joyce MD Unavailable [phone] Roberta Galvan [facility] Unavailable [phone] Alisson Roth PA-C Unavailable [phone] Adelaida WatermanC Unavailable [phone] Roberta Galvan [facility] Unavailable [phone] Roberta Galvan [facility] Unavailable [phone] Jeremy Camejo MD Unavailable [phone] Nicolas Barragan MD Unavailable [phone] Encounter Details Date Type Department Care Team (Late st Contact Info) Description 09/13/2013 MyC Medical Advice [facility] [address] [place] [phone] Sherin Garza MD [address] [place] [address] Social History Tobacco Use Types Packs/Day Years Used Date Smoking Tobacco: Never Smokeless Tobacco: Never Alcohol Use Standard Drinks/Week Comments Yes 0 (1 standard drink = 0.6 oz pur e alcohol) 1-2 drinks a week Comments No Sex and Gender Information Value Date Recorded Sex Assigned at Female 10/27/2020 11:13 PM CDT Legal Sex Female 4:00 AM POSTAL SERVICE MAIL PROCESSOR Gender Identity Female 09/17/2018 1:36 AM CDT Sexual Orientation Straight 09/17/2018 1: 36 AM CDT Occupation Industry Job Start Date Job End Date Not on file Not on file Not on file Not on file documented as of this encounter Plan of Treatment Not on file documented as of this encounter Visit Diagnoses Not on filedocumented in this encounter Care Teams Thermospray Operator Relationship Specialty Start Date End Date Sherin Garza MD [address] [facility] [place] [address] PCP - General 08/16/01 Sherin Garza MD [address] [facility] [place] [address] PCP - Assigned PCP 01/26/18 09/02/18 Tanvir Peñaloza PA-C [address] [place] [address] Physician Chemical Engraver 12/27/17 Johanna Rodríguez LPN Nurse Coordinator 12/27/17 Sherin Garza MD [address] [place] [address] Assigned PCP 06/15/18 Jose M Bearden Personal Advocate & Liaison (PAL) 05/01/19 05/16/21 Jenni MackJERROD Lead Circuitry Negative Inspector Primary Care - CC 05/22/1909/15 Chirs Galvan MD [address] [place] [address] Assigned OBGYN Provider 11/13/2005/25 Asaf Perales MD [address] [place] [address] Assigned Surgical Provider 12/18/20 12/31/20 Trinh Jacobson PA-C [address] [place], [place] [address] Assigned Surgical Provider 01/01/21 01/28/21 Vini Joyce MD [address] [place] [address] Assigned Surgical Provider 01/29/21 05/13/21 [facility] [address] [place] [address] Pharmacist Pharmacist 05/17/21 07/26/22 Alisson Roth PA-C [address] [place] [address] Assigned Surgical Provider 05/14/21 02/01/23 Adelaida Waterman PA-C [address] [place] [address] Assigned Sleep Provider 08/06/2104/19 Roberta Galvan [facility] [address] [address] Assigned MTM Pharmacist 12/23/21 Roberta Galvan [facility] [address] [address] Assigned MTM Pharmacist 03/28/22 Jeremy Camejo MD [address] [place] [address] Assigned OBGYN Provider 05/26/22 Nicolas Barragan MD [address] [place], [place] [address] Assigned Surgical Provider 02/02/23 10/21/23 documented as of this encounter
--- OUTSIDE RECORDS SUMMARY | 2024-07-04 15:42 | XMS_ITS | Encounter Summary ---
Author Organization [place] Address [address] [facility] [place] [address] Care Team Providers Care Launch Commander [employer] Name Role Phone Sherin Garza MD Primary Care Provider [phone] Tanvir Peñaloza PA-C Unavailable Unavailab Johanna Swenson LPN Unavailable Unavailable Sherin Garza MD Unavailable [phone] Sherin Garza MD Unavailable [phone] Jose M Bearden Unavailable Unavailable Mack Arteaga Unavailable [phone] Chris Galvan MD Unavailable [phone] Asaf Perales MD Unavailable [phone] Trinh JacobsonC Unavailable Vini Joyce MD Unavailable [phone] Roberta Galvan [facility] Unavailable [phone] Alisson Roth PA-C Unavailable [phone] Adelaiad WatermanC Unavailable [phone] Roberta Galvan [facility] Unavailable [phone] Roberta Galvan [facility] Unavailable [phone] Jeremy Camejo MD Unavailable Nicolas Barragan MD Unavailable Encounter Details Date Type Department Care Team (Late st Contact Info) Description 12/22/2012 [facility] [place] [address] [phone] [facility] Moderate major depression (H) (Primary Dx) Social History Tobacco Use Types Packs/Day Years Used Date Smoking Tobacco: Never Smokeless Tobacco: Never Alcohol Use Standard Drinks/Week Comments Yes 0 (1 standard drink = 0.6 oz pur e alcohol) 1-2 drinks a week Comments No Sex and Gender Information Value Date Recorded Sex Assigned at Female 10/27/2020 11:13 PM CDT Legal Sex Female 4:00 AM REFINERY PROCESS ENGINEER Gender Identity Female 09/17/2018 1:36 AM CDT Sexual Orientation Straight 09/17/2018 1: 36 AM CDT Occupation Industry Job Start Date Job End Date Not on file Not on file Not on file Not on file documented as of this encounter Miscellaneous Notes * Telephone Encounter - Cally Bo - 12/22/2012 4:50 PM CDT Refilled x 1, pt going out of town and is out of medication. * Telephone Encounter - Ave Smith - 12/22/2012 11:27 AM CDT Spoke with patient. States was switched back to prozac due to cost. Having a tough time right now. Lost her job. PHQ-9 today 18 Has been out of meds for 5 days. Do you adjust dose?? Would like med holden. Ave Smith RN documented in this encounter Plan of Treatment Not on file documented as of this encounter Visit Diagnoses Diagnosis Moderate major depression (H)- Primary Major depressive disorder, single episode, moderate documented in this encounter Care Teams Launch Commander [employer] Relationship Specialty Start Date End Date Sherin Garza MD [address] [facility] [address] [place] [address] PCP - General 08/16/01 Sherin Garza MD [address] [facility] [address] [place], [place] [address] PCP - Assigned PCP 01/26/18 09/02/18 Tanvir Peñaloza PA-C [address] [facility] [place] [address] Physician Lan Support Specialist 12/27/17 Johanna Rodríguez LPN Nurse Coordinator 12/27/17 Sherin Garza MD [address] [facility] [address] [place] [address] Assigned PCP 06/15/18 Jose M Bearden Personal Advocate & Liaison (PAL) 05/01/19 05/16/21 Mack Arteaga LSW Lead Hyster Machine Operator Primary Care - CC 05/22/1909/15 Chris Galvan MD [address] [place] [address] Assigned OBGYN Provider 11/13/2005/25 Asaf Perales MD [address] [place] [address] Assigned Surgical Provider 12/18/20 12/31/20 Trinh Jacobson PA-C [address] [place] [address] Assigned Surgical Provider 01/01/21 01/28/21 Vini Joyce MD [address] [place] [address] Assigned Surgical Provider 01/29/21 05/13/21 Roberta Galvan, [facility] [address] [address] Pharmacist Pharmacist 05/17/21 07/26/22 Alisson Roth PA-C [address] [place] [address] Assigned Surgical Provider 05/14/21 02/01/23 Adelaida Waterman PA-C [address] [place] [address] Assigned Sleep Provider 08/06/2104/19 Roberta Galvan, [facility] [address] [address] Assigned MTM Pharmacist 12/23/21 Roberta Galvan, [facility] [address] [address] Assigned MTM Pharmacist 03/28/22 Jeremy Camejo MD [facility] [place] [address] Assigned OBGYN Provider 05/26/22 Nicolas Barragan MD [address] [place] [address] Assigned Surgical Provider 02/02/23 10/21/23 documented as of this encounter
--- OUTSIDE RECORDS SUMMARY | 2024-07-04 15:42 | XMS_ITS | Encounter Summary ---
Author Organization [place] Address [address] [place] [address] Care Team Providers Care Teletray Operator Name Role Phone Sherin Garza MD Primary Care Provider [phone] Tanvir Peñaloza PA-C Unavailable Unavailab Johanna Swenson LPN Unavailable Unavailable Sherin Garza MD Unavailable [phone] Sherin Garza MD Unavailable [phone] Jose M Bearden Unavailable Unavailable Mack Arteaga Unavailable [phone] Chris Galvan MD Unavailable [phone] Asaf Perales MD Unavailable [phone] Trinh JacobsonC Unavailable [phone] Vini Joyce MD Unavailable [phone] Roberta Galvan [facility] Unavailable [phone] Alisson Roth PA-C Unavailable [phone] Adelaida WatermanC Unavailable [phone] Roberta Galvan [facility] Unavailable [phone] Roberta Galvan [facility] Unavailable [phone] Jeremy Camejo MD Unavailable Nicolas Barragan MD Unavailable Encounter Details Date Type Department Care Team (Late st Contact Info) Description 03/29/2017 MyC Medical Advice [facility] [place] [address] [facility] [address] [place] [phone] Sherin Garza MD [address] [facility] [place] [address] Social History Tobacco Use Types Packs/Day Years Used Date Smoking Tobacco: Never Smokeless Tobacco: Never Alcohol Use Standard Drinks/Week Comments Yes 0 (1 standard drink = 0.6 oz pur e alcohol) 1-2 drinks a week Comments No Sex and Gender Information Value Date Recorded Sex Assigned at Female 10/27/2020 11:13 PM CDT Legal Sex Female 4:00 AM ASSEMBLIES AND 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 Gender Identity Female 09/17/2018 1:36 AM CDT [...] Assessment Noted Time PHQ-9 Depression Total Score: 11 12/12/ 017 7:11 AM CDT documented as of this encounter Care Teams Teletray Operator Relationship Specialty Start Date End Date Sherin Garza MD [address] [place] [address] [place] [address] PCP - General 08/16/01 Sherin Garza MD [address] [facility] [employer] [place] [address] PCP - Assigned PCP 01/26/18 09/02/18 Tanvir Peñaloza PA-C [address] [place] [address] Physician Operating Engineer Apprentice 12/27/17 Johanna Rodríguez LPN Nurse Coordinator 12/27/17 Sherin Garza MD [address] [place] [address] Assigned PCP 06/15/18 Jose M Bearden Personal Advocate & Liaison (PAL) 05/01/19 05/16/21 Jenni Mack CORN LAB TECHNICIAN Lead Sap Consultant Primary Care - CC 05/22/1909/15 Chris Galvan MD [address] [place] [address] Assigned OBGYN Provider 11/13/2005/25 Asaf Perales MD [address] [place] [address] Assigned Surgical Provider 12/18/20 12/31/20 Trinh Jacobson PA-C [address] [place], [place] [address] Assigned Surgical Provider 01/01/21 01/28/21 Vini Joyce MD [address] [place] [address] Assigned Surgical Provider 01/29/21 05/13/21 Roberta Galvan, [facility] [address] [place] [address] Pharmacist Pharmacist 05/17/21 07/26/22 Alisson Roth PA-C [address] [place] [address] Assigned Surgical Provider 05/14/21 02/01/23 Adelaida Waterman PA-C [address] [place] [address] Assigned Sleep Provider 08/06/2104/19 Roberta Galvan, [facility] [address] [id number] Assigned MTM Pharmacist 12/23/21 Roberta Galvan, [facility] [address] [id number] Assigned MTM Pharmacist 03/28/22 Jeremy Camejo MD [address] [place] [address] Assigned OBGYN Provider 05/26/22 Nicolas Barragan MD [address] [place] [address] Assigned Surgical Provider 02/02/23 10/21/23 documented as of this encounter
--- OUTSIDE RECORDS SUMMARY | 2024-07-04 15:42 | XMS_ITS | Encounter Summary ---
Author Organization [place] Address [address] [place] [address] Care Team Providers Care Manager Pediatric Name Role Phone Sherin Garza MD Primary Care Provider [phone] Tanvir Peñaloza PA-C Unavailable Unavailab Johanna Swenson LPN Unavailable Unavailable Sherin Garza MD Unavailable [phone] Sherin Garza MD Unavailable [phone] Jose M Bearden Unavailable Unavailable Mack Arteaga Unavailable [phone] Chris Galvan MD Unavailable [phone] Asaf Perales MD Unavailable [phone] Trinh JacobsonC Unavailable Vini Joyce MD Unavailable [phone] Roberta Galvan [facility] Unavailable [phone] Alisson Roth PA-C Unavailable [phone] Adelaida WatermanC Unavailable +[phone] Roberta Galvan [facility] Unavailable [phone] Roberta Galvan [facility] Unavailable [phone] Jeremy Camejo MD Unavailable Nicolas Barragan MD Unavailable Encounter Details Date Type Department Care Team (Late st Contact Info) Description 06/12/2017 Documentation Only [facility] [place] [address] [facility] [address] [place] [phone] Sherin Garza MD [address] [facility] [place] [address] Social History Tobacco Use Types Packs/Day Years Used Date Smoking Tobacco: Never Smokeless Tobacco: Never Alcohol Use Standard Drinks/Week Comments Yes 0 (1 standard drink = 0.6 oz pur e alcohol) 1-2 drinks a week Comments No Sex and Gender Information Value Date Recorded Sex Assigned at Female 10/27/2020 11:13 PM CDT Legal Sex Female 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 Gender Identity Female 09/17/2018 1:36 AM [...] as of this encounter Care Teams Manager Pediatric Relationship Specialty Start Date End Date Sherin Garza MD [address] [place] [address] [place] [address] PCP - General 08/16/01 Sherin Garza MD [address] [place] [address] [place] [address] PCP - Assigned PCP 01/26/18 09/02/18 Tanvir Peñaloza PA-C [address] [facility] [place] [address] Physician Machine Marker 12/27/17 Johanna Rodríguez LPN Nurse Coordinator 12/27/17 Sherin Garza MD [address] [facility] [place] [address] Assigned PCP 06/15/18 Jose M Bearden Personal Advocate & Liaison (PAL) 05/01/19 05/16/21 Jenni Mack [employer] Lead Motor Polarizer Primary Care - CC 05/22/1909/15 Chris Galvan MD [address] [place] [address] Assigned OBGYN Provider 11/13/2005/25 Asaf Perales MD [address] [place] [address] Assigned Surgical Provider 12/18/20 12/31/20 Trinh Jacobson PA-C [address] [place], [place] [address] Assigned Surgical Provider 01/01/21 01/28/21 Vini Joyce MD [address] [place] [address] Assigned Surgical Provider 01/29/21 05/13/21 Roberta Galvan, [facility] [address] [place] [address] Pharmacist Pharmacist 05/17/21 07/26/22 Alisson Roth PA-C [address] [place] [address] Assigned Surgical Provider 05/14/21 02/01/23 Adelaida Waterman PA-C [address] [address] Assigned Sleep Provider 08/06/2104/19 Roberta Galvan, [facility] [address] [address] Assigned MTM Pharmacist 12/23/21 Roberta Galvan, [facility] [address] [id number] Assigned MTM Pharmacist 03/28/22 Jeremy Camejo MD [address] [place] [address] Assigned OBGYN Provider 05/26/22 Nicolas Barragan MD [address] [place] [address] Assigned Surgical Provider 02/02/23 10/21/23 documented as of this encounter
--- OUTSIDE RECORDS SUMMARY | 2024-07-04 15:42 | XMS_ITS | Encounter Summary ---
Author Organization [place] Address [address] [facility] [address] Care Team Providers Care Transformer Assembly Supervisor Name Role Phone Sherin Garza MD Primary Care Provider [phone] Tanvir Peñaloza PA-C Unavailable Unavailab Johanna Swenson LPN Unavailable Unavailable Sherin Garza MD Unavailable [phone] Sherin Garza MD Unavailable [phone] Jose M Bearden Unavailable Unavailable Mack Arteaga Unavailable [phone] Chris Galvan MD Unavailable [phone] Asaf Perales MD Unavailable [phone] Trinh JacobsonC Unavailable Vini Joyce MD Unavailable [phone] Roberta Galvan [facility] Unavailable [phone] Alisson Roth PA-C Unavailable [phone] Adelaida WatermanC Unavailable [phone] Roberta Galvan [facility] Unavailable [phone] Roberta Galvan [facility] Unavailable [phone] Jeremy Camejo MD Unavailable Nicolas Barragan MD Unavailable [phone] Encounter Details Date Type Department Care Team (Late st Contact Info) Description 08/08/2012 [facility] [address] [place] [address] [place] [phone] Sherin Garza MD [address] [facility] [place] [address] Social History Tobacco Use Types Packs/Day Years Used Date Smoking Tobacco: Never Smokeless Tobacco: Never Alcohol Use Standard Drinks/Week Comments Yes 0 (1 standard drink = 0.6 oz pur e alcohol) 1-2 drinks a week Comments No Sex and Gender Information Value Date Recorded Sex Assigned at Female 10/27/2020 11:13 PM CDT Legal Sex Female 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 [place] [address] PCP - Assigned PCP 01/26/18 09/02/18 Tanvir Peñaloza PA-C [address] [employer] [place] [address] Physician Build Manager 12/27/17 Johanna Rodríguez LPN Nurse Coordinator 12/27/17 Sherin Garza MD [address] [facility] [place] [address] Assigned PCP 06/15/18 Jose M Bearden Personal Advocate & Liaison (PAL) 05/01/19 05/16/21 Mack ArteagaJERROD Lead Management Coordinator Primary Care - CC 05/22/1909/15 Chris Galvan MD [address] [place] [address] Assigned OBGYN Provider 11/13/2005/25 Asaf Perales MD [address] [place] [address] Assigned Surgical Provider 12/18/20 12/31/20 Trinh Jacobson PA-C [address] [place] [address] Assigned Surgical Provider 01/01/21 01/28/21 Vini Joyce MD [address] [place] [address] Assigned Surgical Provider 01/29/21 05/13/21 [facility] [address] [place] [address] Pharmacist Pharmacist 05/17/21 07/26/22 Alisson Roth PA-C [address] [place] [address] Assigned Surgical Provider 05/14/21 02/01/23 Adelaida Waterman PA-C [address] [place] [address] Assigned Sleep Provider 08/06/2104/19 Roberta Galvan [facility] [address] [address] Assigned MTM Pharmacist 12/23/21 Roberta Galvan [facility] [address] [address] Assigned MTM Pharmacist 03/28/22 Jeremy Camejo MD [address] [place] [address] Assigned OBGYN Provider 05/26/22 Nicolas Barragan MD [address] [place], [place] [address] Assigned Surgical Provider 02/02/23 10/21/23 documented as of this encounter
--- OUTSIDE RECORDS SUMMARY | 2024-07-04 15:42 | XMS_ITS | Encounter Summary ---
Author Organization [place] Address [address] [facility] [address] Care Team Providers Care Trailer Tank Truck Driver Name Role Phone Sherin Garza MD Primary Care Provider [phone] Tanvir Peñaloza PA-C Unavailable Unavailab Johanna Swenson LPN Unavailable Unavailable Sherin Garza MD Unavailable [phone] Sherin Garza MD Unavailable [phone] Jose M Bearden Unavailable Unavailable Mack Arteaga Unavailable [phone] Chris Galvan MD Unavailable [phone] Asaf Perales MD Unavailable [phone] Trinh JacobsonC Unavailable Vini Joyce MD Unavailable [phone] Roberta Galvan [facility] Unavailable [phone] Alisson Roth PA-C Unavailable [phone] Adelaida WatermanC Unavailable [phone] Roberta Galvan [facility] Unavailable [phone] Roberta Galvan [facility] Unavailable [phone] Jeremy Camejo MD Unavailable [phone] Nicolas Barragan MD Unavailable [phone] Reason for Visit * Reason Onset Date Comments Depression 01/11/2011 Encounter Details Date Type Department Care Team (Late st Contact Info) Description 01/11/2011 [facility] Medical Advice [facility] [address] [place] [address] [place] [phone] Nikki Ferris Depression Social History Tobacco Use Types Packs/Day Years Used Date Smoking Tobacco: Never Alcohol Use Standard Drinks/Week Comments Yes 0 (1 standard drink = 0.6 oz pur e alcohol) 1-2 drinks a week Comments No Sex and Gender Information Value Date Recorded Sex Assigned at Female 10/27/2020 11:13 PM CDT Legal Sex Female 4:00 AM LICENSED OCCUPATIONAL THERAPIST Gender Identity Female 09/17/2018 1:36 AM CDT Sexual Orientation Straight 09/17/2018 1: 36 AM CDT Occupation Industry Job Start Date Job End Date Not on file Not on file Not on file Not on file documented as of this encounter Plan of Treatment Not on file documented as of this encounter Visit Diagnoses Diagnosis Major depressive disorder, single episode, in partial or unspecified remission documented in this encounter Care Teams Trailer Tank Truck Driver Relationship Specialty Start Date End Date Sherin Garza MD [address] [employer] [place] [address] PCP - General 08/16/01 Sherin Garza MD [address] [employer] [place] [address] PCP - Assigned PCP 01/26/18 09/02/18 Tanvir Peñaloza PA-C [address] [employer] [place] [address] Physician Oral Surgery Physician 12/27/17 Johanna Rodríguez LPN Nurse Coordinator 12/27/17 Sherin Garza MD [address] [employer] [place] [address] Assigned PCP 06/15/18 Jose M Bearden Personal Advocate & Liaison (PAL) 05/01/19 05/16/21 Mack ArteagaERNESTINEW Lead Methodologist Primary Care - CC 05/22/1909/15 Chris Galvan MD [address] [place] [address] Assigned OBGYN Provider 11/13/2005/25 Asaf Perales MD [address] [place] [address] Assigned Surgical Provider 12/18/20 12/31/20 Trinh Jacobson PA-C [address] [place] [address] Assigned Surgical Provider 01/01/21 01/28/21 Vini Joyce MD [address] [place], [place] [address] Assigned Surgical Provider 01/29/21 05/13/21 Roberta Galvan, [facility] [address] [place] [id number] Pharmacist Pharmacist 05/17/21 07/26/22 Alisson Roth PA-C [address] [place] [address] Assigned Surgical Provider 05/14/21 02/01/23 Adelaida Waterman PA-C [address] [place] [address] Assigned Sleep Provider 08/06/2104/19 Roberta Galvan [facility] [address] [address] Assigned MTM Pharmacist 12/23/21 Roberta Galvan [facility] [address] [address] Assigned MTM Pharmacist 03/28/22 Jeremy Camejo MD [facility] [place] [address] Assigned OBGYN Provider 05/26/22 Nicolas Barragan MD [address] [place] [address] Assigned Surgical Provider 02/02/23 10/21/23 documented as of this encounter
--- OUTSIDE RECORDS SUMMARY | 2024-07-04 15:42 | XMS_ITS | Encounter Summary ---
Author Organization [place] Address [address] [facility] [address] Care Team Providers Care Systems Integrator Name Role Phone Sherin Garza MD Primary Care Provider [phone] Tanvir Peñaloza PA-C Unavailable Unavailab Johanna Swenson LPN Unavailable Unavailable Sherin Garza MD Unavailable [phone] Sherin Garza MD Unavailable [phone] Jose M Bearden Unavailable Unavailable Mack Arteaga Unavailable [phone] Chris Galvan MD Unavailable [phone] Asaf Perales MD Unavailable [phone] Trinh JacobsonC Unavailable Vini Joyce MD Unavailable [phone] Roberta Galvan [facility] Unavailable [phone] Alisson Roth PA-C Unavailable [phone] Adelaida WatermanC Unavailable [phone] Roberta Galvan [facility] Unavailable [phone] Roberta Galvan [facility] Unavailable [phone] Jeremy Camejo MD Unavailable Nicolas Barragan MD Unavailable [phone] Encounter Details Date Type Department Care Team (Late st Contact Info) Description 12/24/2014 [facility] [address] [place] [address] [place] [phone] Mary Anne Cornell, TURFGRASS TECHNICIAN Social History Tobacco Use Types Packs/Day Years Used Date Smoking Tobacco: Never Smokeless Tobacco: Never Alcohol Use Standard Drinks/Week Comments Yes 0 (1 standard drink = 0.6 oz pur e alcohol) 1-2 drinks a week Comments No Sex and Gender Information Value Date Recorded Sex Assigned at Female 10/27/2020 11:13 PM CDT Legal Sex Female 4:00 AM QUAL FIELD MANAGER Gender Identity Female 09/17/2018 1:36 AM CDT Sexual Orientation Straight 09/17/2018 1: 36 AM CDT Occupation Industry Job Start Date Job End Date Not on file Not on file Not on file Not on file documented as of this encounter Plan of Treatment Not on file documented as of this encounter Visit Diagnoses Not on filedocumented in this encounter Care Teams Systems Integrator Relationship Specialty Start Date End Date Sherin Garza MD [address] [employer] [place] [address] PCP - General 08/16/01 Sherin Garza MD [address] [employer] [place] [address] PCP - Assigned PCP 01/26/18 09/02/18 Tanvir Peñaloza PA-C [address] [employer] [place] [address] Physician Applications Administrator 12/27/17 Johanna Rodríguez LPN Nurse Coordinator 12/27/17 Sherin Garza MD [address] [employer] [place] [address] Assigned PCP 06/15/18 Jose M Bearden Personal Advocate & Liaison (PAL) 05/01/19 05/16/21 Mack Arteaga, COMPUTING SYSTEMS MECHANIC Lead Ambulatory Nurse Primary Care - CC 05/22/1909/15 Chris Galvan MD [address] [place] [address] Assigned OBGYN Provider 11/13/2005/25 Asaf Perales MD [address] [place], [place] [address] Assigned Surgical Provider 12/18/20 12/31/20 Trinh Jacobson PA-C [address] [place], [place] [address] Assigned Surgical Provider 01/01/21 01/28/21 Vini Joyce MD [address] [place] [address] Assigned Surgical Provider 01/29/21 05/13/21 Roberta aGlvan, [facility] [address] [place], [place] [id number] Pharmacist Pharmacist 05/17/21 07/26/22 Alisson Roth PA-C [address] [place], [place] [address] Assigned Surgical Provider 05/14/21 02/01/23 Adelaida Waterman PA-C [address] [place], [place] [address] Assigned Sleep Provider 08/06/2104/19 Roberta Galvan, [facility] [address] [address] Assigned MTM Pharmacist 12/23/21 Roberta Galvan, [facility] [address] [address] Assigned MTM Pharmacist 03/28/22 Jeremy Camejo MD [address] [place] [address] Assigned OBGYN Provider 05/26/22 Nicolas Barragan MD [address] [place] [address] Assigned Surgical Provider 02/02/23 10/21/23 documented as of this encounter
--- OUTSIDE RECORDS SUMMARY | 2024-07-04 15:42 | XMS_ITS | Encounter Summary ---
Author Organization [place] Address [address] [facility] [place] [address] Care Team Providers Care Insurance Biller Name Role Phone Sherin Garza MD Primary Care Provider [phone] Tanvir Peñaloza PA-C Unavailable Unavailab Johanna Swenson LPN Unavailable Unavailable Sherin Garza MD Unavailable [phone] Sherin Garza MD Unavailable [phone] Jose M Bearden Unavailable Unavailable Mack Arteaga Unavailable [phone] Chris Galvan MD Unavailable [phone] Asaf Perales MD Unavailable [phone] Trinh JacobsonC Unavailable Vini Joyec MD Unavailable Roberta Galvan [facility] Unavailable [phone] Alisson Roth PA-C Unavailable [phone] Adelaida WatermanC Unavailable [phone] Roberta Galvan [facility] Unavailable [phone] Roberta Galvan [facility] Unavailable [phone] Jeremy Camejo MD Unavailable Nicolas Barragan MD Unavailable Encounter Details Date Type Department Care Team (Latest Contact Info) Description 08/21/2011 [facility] [address] [place] [address] [place] [phone] Sherin Garza MD [address] [employer] [place] [address] ASTHMA - MILD INTERMITTENT (Primary Dx) Social History Tobacco Use Types Packs/Day Years Used Date Smoking Tobacco: Never Alcohol Use Standard Drinks/Week Comments Yes 0 (1 standard drink = 0.6 oz pur e alcohol) 1-2 drinks a week Comments No Sex and Gender Information Value Date Recorded Sex Assigned at Female 10/27/2020 11:13 PM CDT Legal Sex Female 4:00 AM AUTOMOTIVE PARTS INTERPRETER Gender Identity Female 09/17/2018 1:36 AM CDT Sexual Orientation Straight 09/17/2018 1: 36 AM CDT Occupation Industry Job Start Date Job End Date Not on file Not on file Not on file Not on file documented as of this encounter Miscellaneous Notes * Telephone Encounter - Wendy Mckinley - 08/21/2011 1:14 PM CST ACT completed and entered. Wendy Mckinley HEAD BAGGAGE PORTER MOTIVE PARTS INTERPRETER documented in this encounter Plan of Treatment Not on file documented as of this encounter Procedures Procedure Name Priority Date/Time Associated Diagnosis Comments ASTHMA ACTION PLAN Routine 08/21/2011 2:19 PM AUTOMOTIVE PARTS INTERPRETER ASTHMA - MILD INTERMITTENT documented in this encounter Visit Diagnoses Diagnosis ASTHMA - MILD INTERMITTENT- Primary Unspecified asthma documented in this encounter Care Teams Insurance Biller Relationship Specialty Start Date End Date Sherin Garza MD [address] [employer] [place] [address] PCP - General 08/16/01 Sherin Garza MD [address] [employer] [employer] [place] [address] PCP - Assigned PCP 01/26/18 09/02/18 Tanvir Peñaloza PA-C [address] [facility] [place] [address] Physician Steeler 12/27/17 Johanna Rodríguez LPN Nurse Coordinator 12/27/17 Sherin Garza MD [address] [facility] [place] [address] Assigned PCP 06/15/18 Jose M Bearden Personal Advocate & Liaison (PAL) 05/01/19 05/16/21 Mack Arteaga LSW Lead Political Scientist Primary Care - CC 05/22/1909/15 Chris Galvan MD [address] [place] [address] Assigned OBGYN Provider 11/13/2005/25 Asaf Perales MD [address] [place] [address] Assigned Surgical Provider 12/18/20 12/31/20 Trinh Jacobson PA-C [address] [place] [address] Assigned Surgical Provider 01/01/21 01/28/21 Vini Joyce MD [address] [place] [address] Assigned Surgical Provider 01/29/21 05/13/21 Roberta Galvan, [facility] [address] [place] [address] Pharmacist Pharmacist 05/17/21 07/26/22 lAisson Roth PA-C [address] [place] [address] Assigned Surgical Provider 05/14/21 02/01/23 Adelaida Waterman PA-C [address] [place] [address] Assigned Sleep Provider 08/06/2104/19 Roberta Galvan [facility] [address] [place] [address] Assigned MTM Pharmacist 12/23/21 Roberta Galvan, [facility] [address] [place] [address] Assigned MTM Pharmacist 03/28/22 Jeremy Camejo MD [address] [place] [address] Assigned OBGYN Provider 05/26/22 Nicolas Barragan MD [address] [place] [address] Assigned Surgical Provider 02/02/23 10/21/23 documented as of this encounter
--- OUTSIDE RECORDS SUMMARY | 2024-07-04 15:42 | XMS_ITS | Encounter Summary ---
Author Organization [place] Address [address] [facility] [place] [address] Care Team Providers Care Tattoo And Body Artist Name Role Phone Sherin Garza MD Primary Care Provider [phone] Tanvir Peñaloza PA-C Unavailable Unavailab Johanna Swenson LPN Unavailable Unavailable Sherin Garza MD Unavailable [phone] Sherin Garza MD Unavailable [phone] Jose M Bearden Unavailable Unavailable Mack Arteaga Unavailable [phone] Chris Galvan MD Unavailable [phone] Asaf Perales MD Unavailable [phone] Trinh JacobsonC Unavailable Vini Joyce MD Unavailable [phone] Roberta Galvan [facility] Unavailable [phone] Alisson Roth PA-C Unavailable [phone] Adelaida WatermanC Unavailable [phone] Roberta Galvan [facility] Unavailable [phone] Roberta Galvan [facility] Unavailable [phone] Jeremy Camejo MD Unavailable [phone] Nicolas Barragan MD Unavailable [phone] Reason for Visit * Reason Onset Date Comments Refill Request 09/01/2015 Adderall Encounter Details Date Type Department Care Team (Late st Contact Info) Description 09/01/2015 MyC Medical Advice [facility] [address] [facility] [place] [address] [place] [address] [place] [address] [place] [address] Refill Request (Adderall ) Social History Tobacco Use Types Packs/Day Years Used Date Smoking Tobacco: Never Smokeless Tobacco: Never Alcohol Use Standard Drinks/Week Comments Yes 0 (1 standard drink = 0.6 oz pur e alcohol) 1-2 drinks a week Comments No Sex and Gender Information Value Date Recorded Sex Assigned at Female 10/27/2020 11:13 PM CDT Legal Sex Female 4:00 AM NAV[employer] SENIOR OFFICER Gender Identity Female 09/17/2018 1:36 AM CDT Sexual Orientation Straight 09/17/2018 1: 36 AM CDT Occupation Industry Job Start Date Job End Date Not on file Not on file Not on file Not on file documented as of this encounter Miscellaneous Notes * Telephone Encounter - Arlyn Morris - 09/02/2015 2:57 PM CST Gave rx to Geeta at 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 Thanks Jj Doyle Legal Process Specialist SENIOR OFFICER * Telephone Encounter - Sherin Garza MD - 09/02/2015 12:37 PM CST Prescription done SENIOR OFFICER * Telephone Encounter - Hannah Mullins RN - 09/02/2015 12:31 PM [employer] SENIOR OFFICER Will forward to Dr. Garza. SENIOR OFFICER * Telephone Encounter - Cally Bo, RN - 09/01/2015 3:18 PM [employer] SENIOR OFFICER Refill request for: ADDERALL XR 20 MG QD Last rx written: 12/24/14 # 30 [place] SYSTEMS ADMINISTRATOR reviewed- last filled: not on file Last OV: 11/03/14 for routine exam Unable to fill per standing order routed to Dr. Garza for approval. Place RX up front. Please send a [employer] message when this has been done. Cally Bo RN SENIOR OFFICER documented in this encounter Plan of Treatment Not on file documented as of this encounter Visit Diagnoses Diagnosis Attention deficit disorder with hyperactivity(314.01)- Primary Attention deficit disorder with hyperactivity documented in this encounter Additional Health Concerns Assessment Noted Time PHQ-9 Depression Total Score: 2 07/16/19 16 7:55 AM NAVY SENIOR OFFICER documented as of this encounter Care Teams Tattoo And Body Artist Relationship Specialty Start Date End Date Sherin Garza MD [address] [facility] [place] [address] PCP - General 08/16/01 Sherin Garza MD [address] [facility] [place] [address] PCP - Assigned PCP 01/26/18 09/02/18 Tanvir Peñaloza, PAArshC [address] [facility] [place] [address] Physician Dye Mixer 12/27/17 Johanna Rodríguez LPN Nurse Coordinator 12/27/17 Sherin Garza MD [address] [facility] [place] [address] Assigned PCP 06/15/18 Jose M Bearden Personal Advocate & Liaison (PAL) 05/01/19 05/16/21 Mack Arteaga LSW Lead Guard Immigration Primary Care - CC 05/22/1909/15 Chris Galvan MD [address] [place] [address] Assigned OBGYN Provider 11/13/2005/25 Asaf Perales MD [address] [place] [address] Assigned Surgical Provider 12/18/20 12/31/20 Trinh Jacobson PA-C [address] [place], [place] [address] Assigned Surgical Provider 01/01/21 01/28/21 Vini Joyce MD [address] [place] [address] Assigned Surgical Provider 01/29/21 05/13/21 Roberta Galvan [facility] [address] [id number] Pharmacist Pharmacist 05/17/21 07/26/22 Alisson Roth PA-C [address] [place] [address] Assigned Surgical Provider 05/14/21 02/01/23 Adelaida Waterman PA-C [address] [place] [address] Assigned Sleep Provider 08/06/2104/19 Roberta Galvan [facility] [address] [address] Assigned MTM Pharmacist 12/23/21 Roberta Galvan, [facility] [address] [address] Assigned MTM Pharmacist 03/28/22 Jeremy Camejo MD [address] [place] [address] Assigned OBGYN Provider 05/26/22 Nicolas Barragan MD [address] [place] [address] Assigned Surgical Provider 02/02/23 10/21/23 documented as of this encounter
--- OUTSIDE RECORDS SUMMARY | 2024-07-04 15:42 | XMS_ITS | Encounter Summary ---
Author Organization [place] Address [address] [place] [address] Care Team Providers Care Executive Secretary Social Welfare Name Role Phone Sherin Garza MD Primary Care Provider [phone] Tanvir Peñaloza PA-C Unavailable Unavailab Johanna Swenson LPN Unavailable Unavailable Sherin Garza MD Unavailable [phone] Sherin Garza MD Unavailable [phone] Jose M Bearden Unavailable Unavailable Mack Arteaga Unavailable [phone] Chris Galvan MD Unavailable [phone] Asaf Perales MD Unavailable [phone] Trinh JacobsonC Unavailable Vini Joyce MD Unavailable [phone] Roberta Galvan [facility] Unavailable [phone] Alisson Roth PA-C Unavailable [phone] Adelaida WatermanC Unavailable [phone] Roberta Galvan [facility] Unavailable [phone] Roberta Galvan [facility] Unavailable [phone] Jeremy Camejo MD Unavailable Nicolas Barragan MD Unavailable [phone] Encounter Details Date Type Department Care Team (Late st Contact Info) Description 07/29/2012 [facility] [address] [place] [address] [place] [phone] Sherin Garza MD [address] [facility] [place] [address] Social History Tobacco Use Types Packs/Day Years Used Date Smoking Tobacco: Never Smokeless Tobacco: Never Alcohol Use Standard Drinks/Week Comments Yes 0 (1 standard drink = 0.6 oz pur e alcohol) 1-2 drinks a week Comments No Sex and Gender Information Value Date Recorded Sex Assigned at Female 10/27/2020 11:13 PM CDT Legal Sex Female 4:00 AM STEEL TIER Gender Identity Female 09/17/2018 1:36 AM CDT Sexual Orientation Straight 09/17/2018 1: 36 AM CDT Occupation Industry Job Start Date Job End Date Not on file Not on file Not on file Not on file documented as of this encounter Plan of Treatment Not on file documented as of this encounter Visit Diagnoses Not on filedocumented in this encounter Care Teams Executive Secretary Social Welfare Relationship Specialty Start Date End Date Sherin Garza MD [address] [place] [address] PCP - General 08/16/01 Sherin Garza MD [address] [facility] [place] [address] PCP - Assigned PCP 01/26/18 09/02/18 Tanvir Peñaloza PA-C [address] [facility] [place] [address] Physician Pop Singer 12/27/17 Johanna Rodríguez LPN Nurse Coordinator 12/27/17 Sherin Garza MD [address] [facility] [place] [address] Assigned PCP 06/15/18 Jose M Bearden Personal Advocate & Liaison (PAL) 05/01/19 05/16/21 Mack ArteagaJERROD Lead Stunt Driver Primary Care - CC 05/22/1909/15 Chris Galvan MD [address] [place] [address] Assigned OBGYN Provider 11/13/2005/25 Asaf Perales MD [address] [place] [address] Assigned Surgical Provider 12/18/20 12/31/20 Trinh Jacobson PA-C [address] [place] [address] Assigned Surgical Provider 01/01/21 01/28/21 Vini Joyce MD [address] [place] [address] Assigned Surgical Provider 01/29/21 05/13/21 [facility] [address] [place] [address] Pharmacist Pharmacist 05/17/21 07/26/22 Alisson Roth PA-C [address] [place] [address] Assigned Surgical Provider 05/14/21 02/01/23 Adelaida Waterman PA-C [address] [place] [address] Assigned Sleep Provider 08/06/2104/19 Roberta Galvan [facility] [address] [address] Assigned MTM Pharmacist 12/23/21 Roberta Galvan [facility] [address] [address] Assigned MTM Pharmacist 03/28/22 Jeremy Camejo MD [address] [place] [address] Assigned OBGYN Provider 05/26/22 Nicolas Barragan MD [address] [place], [place] [address] Assigned Surgical Provider 02/02/23 10/21/23 documented as of this encounter
--- OUTSIDE RECORDS SUMMARY | 2024-07-04 15:42 | XMS_ITS | Encounter Summary ---
Author Organization [place] Address [address] [facility] [place] [address] Care Team Providers Care Adjunct Business Instructor Name Role Phone Sherin Garza MD Primary Care Provider [phone] Tanvir Peñaloza PA-C Unavailable Unavailab Johanna Swenson LPN Unavailable Unavailable Sherin Garza MD Unavailable [phone] Sherin Garza MD Unavailable [phone] Jose M Bearden Unavailable Unavailable Mack Arteaga Unavailable [phone] Chris Galvan MD Unavailable [phone] Asaf Perales MD Unavailable [phone] Trinh JacobsonC Unavailable Vini Joyce MD Unavailable [phone] Roberta Galvan [facility] Unavailable [phone] Alisson Roth PA-C Unavailable [phone] Adelaida WatermanC Unavailable [phone] Roberta Galvan [facility] Unavailable [phone] Roberta Galvan [facility] Unavailable [phone] Jeremy Camejo MD Unavailable Nicolas Barragan MD Unavailable Encounter Details Date Type Department Care Team (Late st Contact Info) Description 04/09/2017 MyC Medical Advice [facility] [address] [facility] [address] [place] [phone] Sherin Garza MD [address] [facility] [place] [address] Social History Tobacco Use Types Packs/Day Years Used Date Smoking Tobacco: Never Smokeless Tobacco: Never Alcohol Use Standard Drinks/Week Comments Yes 0 (1 standard drink = 0.6 oz pur e alcohol) 1-2 drinks a week Comments No Sex and Gender Information Value Date Recorded Sex Assigned at Female 10/27/2020 11:13 PM CDT Legal Sex Female 4:00 AM AIR BRUSH DECORATOR Gender Identity Female 09/17/2018 1:36 AM CDT [...] documented as of this encounter Care Teams Adjunct Business Instructor Relationship Specialty Start Date End Date Sherin Graza MD [address] [place] [address] [place] [address] PCP - General 08/16/01 Sherin Garza MD [facility] [place] [address] PCP - Assigned PCP 01/26/18 09/02/18 Tanvir Peñaloza PA-C [address] [facility] [place] [address] Physician Plate Worker Helper 12/27/17 Johanna Rodríguez LPN Nurse Coordinator 12/27/17 Sherin Garaz MD [address] [facility] [place] [address] Assigned PCP 06/15/18 Jose M Bearden Personal Advocate & Liaison (PAL) 05/01/19 05/16/21 Jenni Mack CORK PAINTER AND GRADER Lead Other Sales Support Worker Primary Care - CC 05/22/1909/15 Chris Galvan MD [address] [place] [address] Assigned OBGYN Provider 11/13/2005/25 Asaf Perales MD [address] [place] [address] Assigned Surgical Provider 12/18/20 12/31/20 Trinh Jacobson PA-C [address] [place], [place] [address] Assigned Surgical Provider 01/01/21 01/28/21 Vini Joyce MD [address] [place] [address] Assigned Surgical Provider 01/29/21 05/13/21 Roberta Galvan, [facility] [address] [facility] [place] [address] Pharmacist Pharmacist 05/17/21 07/26/22 Alisson Roth PA-C [address] [place] [address] Assigned Surgical Provider 05/14/21 02/01/23 Adelaida Waterman PA-C [address] [place] [address] Assigned Sleep Provider 08/06/2104/19 Roberta Galvan, [facility] [address] [id number] Assigned MTM Pharmacist 12/23/21 Roberta Galvan, [facility] [address] [id number] Assigned MTM Pharmacist 03/28/22 Jeremy Camejo MD [address] [place] [address] Assigned OBGYN Provider 05/26/22 Nicolas Barragan MD [address] [place] [address] Assigned Surgical Provider 02/02/23 10/21/23 documented as of this encounter
--- OUTSIDE RECORDS SUMMARY | 2024-07-04 15:43 | XMS_ITS | Encounter Summary ---
Author Organization [place] Address [address] [facility] [place] [address] Care Team Providers Care Fabricator Special Items Name Role Phone Sherin Garza MD Primary Care Provider [phone] Tanvir Peñaloza PA-C Unavailable Unavailab Johanna Swenson LPN Unavailable Unavailable Sherin Garza MD Unavailable [phone] Sherin Garza MD Unavailable [phone] Jose M Bearden Unavailable Unavailable Mack Arteaga Unavailable [phone] Chris Galvan MD Unavailable [phone] Asaf Perales MD Unavailable [phone] Trinh JacobsonC Unavailable Vini Joyce MD Unavailable [phone] Roberta Galvan [facility] Unavailable [phone] Alisson Roth PA-C Unavailable [phone] Adelaida WatermanC Unavailable [phone] Roberta Galvan [facility] Unavailable [phone] Roberta Galvan [facility] Unavailable [phone] Jeremy Camejo MD Unavailable Nicolas Barragan MD Unavailable [phone] Encounter Details Date Type Department Care Team (Late st Contact Info) Description 04/16/2007 [facility] [place] [address] [place] [phone] [facility] Social History Tobacco Use Types Packs/Day Years Used Date Smoking Tobacco: Never Alcohol Use Standard Drinks/Week Comments Yes 0 (1 standard drink = 0.6 oz pur e alcohol) 1-2 drinks a week Comments No Sex and Gender Information Value Date Recorded Sex Assigned at Female 10/27/2020 11:13 PM CDT Legal Sex Female 4:00 AM TEXTILE MACHINE 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 MECHANIC Gender Identity Female 09/17/2018 1:36 AM CDT Sexual Orientation Straight 09/17/2018 1: 36 AM CDT Occupation Industry Job Start Date Job End Date Not on file Not on file Not on file Not on file documented as of this encounter Plan of Treatment Not on file documented as of this encounter Visit Diagnoses Not on filedocumented in this encounter Care Teams Fabricator Special Items Relationship Specialty Start Date End Date Sherin Garza MD [address] [place] [address] PCP - General 08/16/01 Sherin Garza MD [address] [place] [address] PCP - Assigned PCP 01/26/18 09/02/18 Tanvir Peñaloza PA-C [address] [place] [address] Physician Labor And Delivery Registered Nurse 12/27/17 Johanna Rodríguez LPN Nurse Coordinator 12/27/17 Sherin Garza MD [address] [place] [address] Assigned PCP 06/15/18 Jose M Bearden Personal Advocate & Liaison (PAL) 05/01/19 05/16/21 Mack Arteaga LSW Lead Interstate Bus Dispatcher Primary Care - CC 05/22/1909/15 Chris Galvan MD [address] [place] [address] Assigned OBGYN Provider 11/13/2005/25 Asaf Perales MD [address] [place], [place] [address] Assigned Surgical Provider 12/18/20 12/31/20 Trinh Jacobson PA-C [address] [place], [place] [address] Assigned Surgical Provider 01/01/21 01/28/21 Vini Joyce MD [address] [place] [address] Assigned Surgical Provider 01/29/21 05/13/21 Roberta Galvan, [facility] [address] [place] [address] Pharmacist Pharmacist 05/17/21 07/26/22 Alisson Roth PA-C [address] [place], [place] [address] Assigned Surgical Provider 05/14/21 02/01/23 Adelaida Waterman PA-C [address] [place] [address] Assigned Sleep Provider 08/06/2104/19 Roberta Galvan, [facility] [address] [address] Assigned MTM Pharmacist 12/23/21 Roberta Galvan, [facility] [address] [address] Assigned MTM Pharmacist 03/28/22 Jeremy Camejo MD [address] [place] [address] Assigned OBGYN Provider 05/26/22 Nicolas Barragan MD [address] [place] [address] Assigned Surgical Provider 02/02/23 10/21/23 documented as of this encounter
--- OUTSIDE RECORDS SUMMARY | 2024-07-04 15:43 | XMS_ITS | Clinical Summary ---
Author Organization [facility] Address [address] [place] [address] Care Team Providers Care Pelts Skinner Name Role Phone Kathleen Davis MD Primary Care Provider [phone] Source Comments You are receiving this document as you are listed as the primary care provider,follow-up provider, or the patient has been referred to you for consultation.This is in compliance with the Medicare andMedicaid EHR Incentive Program,which states Providers who transition their patient to another setting of careor provider of care or refers their patient to another provider of care shouldprovide summary care record for each transition of care or referral. [facility] Allergies Active Allergy Reactions Criticality Noted Date Comments Other 11/06/2010 PN: LW Other1: -Proventil- tachycardia,strawberries, mushrooms Sympathomimetics Other, see comments 06/12/2006 Rapid hrt rate Medications Medication Sig Dispensed Refills Start Date End Date Status ALBUTEROL 90 MCG/ACT IN AERS Inhale 1 or 2 puffs by mouth every 4 to 6 hours as needed for wheezing or shortness of breath 1 2 06/12/2006 Active methocarbamol (AKA ROBAXIN) 500 MG tablet Take 1-2 tablets by mouth 4 times daily as needed. LW Addl Instr:Indicated for: Muscle Spasms 20 11/06/2010 Active buPROPion (AKA WELLBUTRIN XL) 150 MG 24 hour release tablet Take 1 tablet by mouth daily (every 24 hours). LW Addl Instr:Indicated for: Depression 90 3 04/11/2009 Active fluticasone (AKA FLONASE) 50 MCG/ACT nasal solution 1-2 sprays by Each Nostril route daily (every 24 hours). 32 3 11/08/2009 Active loratadine (CLARITIN) 10 MG tablet Take 1 tablet by mouth daily as needed. LW Addl Instr:Indicated for: Allergies 90 3 11/08/2009 Active ALBUterol 2.5 mg/3 mL, 0.083%, nebulizer solution 2.5 mg every 4 hours as needed. LW Addl Instr:Indicated for: Asthma LW given by:[id number] CHAVA ORONA LW admin time/site:[id number] INHAL-PO LW lot number:[id number] 3 04/11/2009 Active ALBUterol sulfate HFA 108 (90 BASE) MCG/ACT inhaler 1-2 puffs every 4 hours as needed. LW Addl Instr:Indicated for: Asthma 25.5 3 04/11/2009 Active ipratropium-albutero l (DUONEB) 0.5-2.5 MG/3ML nebulizer solution Inhale 3 mL every 6 hours as needed for Wheezing. 60 Each 0 09/20/2016 Active sertraline (ZOLOFT) 100 MG tablet Take 100 mg by mouth daily. Active amphetamine-dextroam phetamine (ADDERALL XR) 25 MG 24 hour release capsule Take 25 mg by mouth daily. Active SUMAtriptan (IMITREX) 100 MG tablet Take 100 mg by mouth as needed for Migraine. Active traMADol (ULTRAM) 50 MG tablet Take 50-100 mg by mouth every 6 hours as needed for Pain. Active cyclobenzaprine (FLEXERIL) 10 MG tablet Take 10 mg by mouth three times a day as needed for Muscle Spasms. Active Active Problems Problem Noted Date Diagnosed Date Irregular menstrual cycle 07/05/2006 Asthma 06/12/2006 Allergic rhinitis 06/12/2006 Family History Medical History Relation Name Comments Cancer, Breast Mother Relation Name Status Comments Father Alive Mother Alive Brother Sister Alive Social History Tobacco Use Types Packs/Day Years Used Date Smoking Tobacco: Never Alcohol Use Standard Drinks/Week Comments Yes 0 (1 standard drink = 0.6 oz pur e alcohol) occ Sex and Gender Information Value Date Recorded Sex Assigned at Not on file Gender Identity Not on file Sexual Orientation Not on file Last Filed Vital Signs Vital Sign Reading Time Taken Comments Blood Pressure 132/89 12/11/2017 6:36 PM CDT Pulse 65 12/11/2017 6:36 PM CDT Temperature 36.9 C (98.4 F) 12/11/2017 6:36 PM CDT Respiratory Rate 18 12/11/2017 6:36 PM CDT Oxygen Saturation 97% 12/11/2017 6:36 PM CDT Inhaled Oxygen Concentration - - Weight 99.8 kg (220 lb) 12/11/2017 6:36 PM CDT Height 162.6 cm (5' 4) 12/11/2017 6:36 PM CDT Body Mass Index 37.76 12/11/2017 6:36 PM CDT Plan of Treatment Health Maintenance Due Date Last Done Comments Colon Cancer Screening Plan Due 1973 Hep C Screening (Preventive Services) 1973 Mammogram 1973 IPV (Polio) (3 of 3 - 4-dose series) 1977 1973, 1973 HIV Screening (Preventive Services) 1989 HepB (1) 1992 Cervical Cancer Screening Due 07/20/2006 07/19/2006 Adult Preventive Visit 07/19/2007 07/19/2006 Cholesterol 2018 07/23/2006 Zoster/Shingles (1 of 2) 2023 COVID-19 Vaccine ( season) 2024 11/10/2020, 10/20/2020 Influenza (#1) 2024 04/06/2020, 1012/2019, 03/22/2019, Additional history exists DTaP/Tdap/Td (7 - Tdap) 12/11/2026 12/12/19 17, 06/03/2014, 04/10/2007, Additional history exists Pneumococcal Aged Out 02/26/2015 No longer eligi ble based on patient's age to complete this topic HepA Aged Out No longer eligi ble based on patient's age to complete this topic Hib Aged Out No longer eligi ble based on patient's age to complete this topic MCV4 Aged Out No longer eligi ble based on patient's age to complete this topic Procedures Procedure Name Priority Date/Time Associated Diagnosis Comments LIPID PANEL, FAST > 12 HOUR Routine 07/23/2006 8:00 AM MEASUREMENT TECHNICIAN [facility] PAP TEST, ROUTINE Routine 07/19/2006 8:2 0 AM MEASUREMENT TECHNICIAN [facility] from Last 3 Months or Most Recently Relevant to Health Maintenance Results * CHOLESTEROL LIPID PANEL FAST >12HR (07/23/2006 8:00 AM MEASUREMENT TECHNICIAN) Cholesterol 180 <200 mg/dl [facility] Triglyceride 162 <200 mg/dl [facility] HDL 37 >35 mg/dl [facility] LDL, Calc. 111 mg/dl [facility] Hours Fasting 12 hours [facility] 07/23/2006 8:00 AM MEASUREMENT TECHNICIAN 07/23/2006 8:01 AM MEASUREMENT TECHNICIAN Pearl Ghotra MD [facility] [address] [address] * PAP TEST, ROUTINE (07/19/2006 8:20 AM MEASUREMENT TECHNICIAN) Cytology, Pap (NOTE) Rn Lactation Cytology Report Patient Name: ALLA DIAS Taken: 07/19/2006 Received: 07/20/2006 Reported: 08/06/2006 Physician(s): RHONDA GHOTRA([id number]) Source of Specimen Liquid routine Pap, cervical/endocervi mahnaz: Specimen Adequacy Satisfactory for evaluation. Endocervical component present. Final Cytologic Interpretation/Res ult EPITHELIAL CELL ABNORMALITIES Atypical squamous cells undetermined significance (ASC-US) Human Papilloma Virus Ancillary Testing HPV HIGH RISK NEGATIVE RECOMMEND repeat Pap test in 12 months. The results of this test indicate the patient's specimen is NEGATIVE for the following high-risk viral types: HPV 16/18/31/33/35/39/ 45/51/52/56/58/59/ 68. Over 100 types of human papillomavirus (HPV) have been described in the literature. The various types of HPV can be grouped based upon similarity in DNA sequence. The [employer] HPV Reagents are designed to detect the DNA of thirteen types of HPV from four HPV groups (A5, A6, A7, A9) and the human histone ([id number]) gene located on chromosome 1q21.2. This test was developed and its performance characteristics determined by [facility]. It has not been cleared or approved by the U.S. Food and Drug Administration. The FDA has determined that such clearance or approval is not necessary. This test is used for clinical purposes. It should not be regarded as investigational or for research. This laboratory is certified under the Clinical Laboratory Improvement Amendments of 1988 (CLIA-88) as qualified to perform high complexity testing. Lorraine Caldwell MD rendered the interpretation on this Pap test. Chantel Andrew MD reviewed the HPV testing results and electronically signed out this case. Other Cytologic Findings Reactive cellular changes with inflammation, including typical repair Inflammation 08/06/2006 Electronically Signed Out By Chantel Andrew MD ([id number]) Lorraine Caldwell MD ([id number]) Chantel Andrew MD ([id number]) ANGELA Ford (ASCP) Pap Smear History Date of Last Menstrual Period: 06/28/05 Contraceptive History: Not Stated/Unknown Other Clinical Conditions: LAST PAP: Normal 2004 Outside HPV reflex testing requested with interpretation of ASCUS Other Clinical Conditions: Heavy bleeding [facility] 07/19/2006 8:20 AM MEASUREMENT TECHNICIAN 07/20/2006 12:30 PM MEASUREMENT TECHNICIAN Pearl Ghotra MD LAB_1 Performing Organization Address City/State/[facility] Co de Phone Number [facility] [address] [address] from Last 3 Months or Most Recently Relevant to Health Maintenance Care Teams Pelts Skinner Relationship Specialty Start Date End Date Kathleen Davis MD [facility] [address] [place], [place] [phone] PCP - General 10/02/10
--- NOTE | 2024-07-04 15:50 | CRLHL7_ITS ---
For Patients: As a result of the Century Cures Act, medical imaging exams and procedure reports are released immediately into your electronic medical record. You may view this report before your referring provider. If you have questions, please contact your health care provider. INDICATION: Trauma. TECHNIQUE: Left ankle radiographs, 3 views. COMPARISON: None. FINDINGS: No acute fractures or dislocation. The joint spaces are preserved. The talar dome remains smooth. The ankle mortise joint space appears preserved. Mild diffuse soft tissue edema. No radiopaque foreign bodies. IMPRESSION: No acute fractures or dislocation. Dictated by Boby Mccarthy MD @ 07/04/2024 4:28:58 PM (Electronically Signed)
--- NOTE | 2024-07-04 15:50 | ED.LOWEXIN ---
HPI - Extremity Injury (Lower) General Chief Complaint: Extremity Pain/Injury, Lower Stated Complaint: Left ankle injury, fell down flight of stairs Time Seen by Provider: 07/04/24 15:41 History of Present Illness HPI Narrative: This 49-year-old female comes in with an injury to her left ankle. She states that she was ambulating down some steps and missed the 3rd step up from the bottom and fell down the other 2 steps. She did skin her right knee but comes in with pain and swelling in her left ankle. She is able to ambulate on this ankle and does not seem to have much of a limp. She is wearing a brace on her right ankle which she injured 5 months ago. Related Data Home Medications ?Medication ?Instructions ?Recorded ?Confirmed albuterol sulfate 90 mcg/actuation 2 puff inhalation Q4H PRN dyspnea 03/07/23 07/04/24 aerosol inhaler (Ventolin HFA) celecoxib 200 mg capsule mg PO 07/04/24 Allergies Allergy/AdvReac Type Severity Reaction Status Date / Time albuterol (From Proventil AdvReac Mild Tachycardia Verified 12/17/23 09:17 HFA) Review of Systems Status of ROS: Reports: 10 or more systems reviewed and unremarkable except as noted in History and below Narrative: Constitutional: No fevers, no weight gain or loss. Eyes: No discharge. No vision changes. HENT: No congestion, no sore throat, no ear pain. Cardiovascular: No chest pain, no palpitations. Respiratory: No shortness of breath, no wheezes, no cough. Gastrointestinal: No abdominal pain, no vomiting, no diarrhea. Genitourinary: No dysuria, no hematuria. Musculoskeletal: Left ankle injury as described above. Skin: No rashes, no pruritis. Neurological: No dizziness, weakness, sensory change, speech change. Endo/Heme/Allergies: No bruising or bleeding. No polydipsia. Pysch: no suicidality, no anxiety, no insomnia. All other systems reviewed and are negative. [facility] Medical History (Updated 07/04/24 @ 16:53 by Abiel Apodaca MD) History of atrial fibrillation ?Z86.79 - Personal history of other diseases of the circulatory system (ICD-10) TBI (traumatic brain injury) ?S06.9XAA - Unspecified intracranial injury with loss of consciousness status unknown, initial encounter (ICD-10) Asthma ?J45.909 - Unspecified asthma, uncomplicated (ICD-10) Surgical History History of cardiac radiofrequency ablation ?Z98.890 - Other specified postprocedural states (ICD-10) Social History Smoking Status: Never smoker Do you use any of these nicotine containing products: None Second hand tobacco smoke exposure: No How often do you have a drink containing alcohol: 2-3 times a week AUDIT-C Alcohol total score: 3 Non-prescribed substance use: denies use Exam Narrative: Exam Narrative: Constitutional: Well-developed, well-nourished, no acute distress. HEENT: Normocephalic, atraumatic. Neck: Normal range of motion. Nontender. Supple. Heart: Intact distal pulses. Lungs: No chest discomfort. No wheezes, rhonchi, or rales. Abdomen: Nontender. Back: Normal range of motion. Extremities: Left ankle has swelling bilaterally. There is no ligament instability. Skin: Intact. No rash. Warm. No erythema or pallor. Neurologic: No altered sensation. No weakness. Alert and oriented. Psychiatric: No suicidality. No anxiety or depression. No insomnia. Nursing notes and vitals signs are reviewed. Const: Vital Signs, click to edit/add: Vital Signs - 24 hr 07/04/24 15:38 Temperature 97.1 F L Pulse Rate [Pulse Oximeter] 72 Respiratory Rate 16 Blood Pressure [Ri ght Upper Arm] 139/87 Pulse Oximetry 98 Oxygen Delivery Me thod Room Air Course Vital Signs Vital signs: Initial Vital Signs Temperature 97.1 F L 07/04/24 15:38 Temperature Source Temporal Artery Scan 07/04/24 15:38 Pulse Rate 72 07/04/24 15:38 Respiratory Rate 16 07/04/24 15:38 Blood Pressure 139/87 07/04/24 15:38 Blood Pressure Mean 104 07/04/24 15:38 Blood Pressure Position Sitting 07/04/24 15:38 Pulse Oximetry 98 07/04/24 15:38 Oxygen Delivery Method Room Air 07/04/24 15:38 Vital Signs Temperature 97.1 F L 07/04/24 15:38 Pulse Rate 72 07/04/24 15:38 Respiratory Rate 16 07/04/24 15:38 Blood Pressure 139/87 07/04/24 15:38 Pulse Oximetry 98 07/04/24 15:38 Oxygen Delivery Method Room Air 07/04/24 15:38 Temperature 97.1 F L 07/04/24 15:38 Pulse Rate 72 07/04/24 15:38 Respiratory Rate 16 07/04/24 15:38 Blood Pressure 139/87 07/04/24 15:38 Pulse Oximetry 98 07/04/24 15:38 Oxygen Delivery Method Room Air 07/04/24 15:38 MDM - Extremity Injury (Lower) MDM Narrative Medical decision making narrative: This patient comes in with an injury to her left ankle. She has a brace on her right ankle but was able to ambulate in here with new injury to her left ankle also. X-ray imaging is obtained and shows no sign of fracture dislocation. The patient does not have any sign of instability of this ankle injury and there is no evidence of joint effusion. She states that she does have crutches at home and I encouraged her to use these as needed for assistance in ambulating. She is following with an orthopedic surgeon regarding her right ankle condition. She did receive an [employer] prescription for [place] 10 tablets. Discharge Plan Discharge Clinical Impression: Ankle sprain and strain Patient Disposition: Home, Self-Care Condition: Stable Additional Instructions: Use crutches as needed for ambulating and increase activity as tolerated. Take medication also as needed and directed for pain relief. Prescriptions: No Action albuterol sulfate [Ventolin HFA] 90 mcg/actuation HFA aerosol inhaler 2 puff INHALATION Q4H PRN (Reason: dyspnea) celecoxib 200 mg capsule PO Follow Up/Referrals: Provider,Not a Local [Non-Staff] - Stand Alone Forms: [facility] Info Instructions
--- OUTSIDE RECORDS SUMMARY | 2024-07-04 16:35 | XMS_ITS | Clinical Summary ---
Author Organization [facility] Address [address] [place] [address] Phone [email or web address] Care Team Providers Care Community Administrator Name Role Phone Unavailable Primary Care Provider [...] Sex Assigned at Female 07/11/2023 3:34 PM SOLAR SALES ADVISOR Legal Sex Female 8:35 AM CDT Gender Identity Female 07/11/2023 3:34 PM SOLAR SALES ADVISOR Sexual Orientation Not on file Plan of [...] age to complete this topic Insurance [facility]
--- OUTSIDE RECORDS SUMMARY | 2024-07-04 16:36 | XMS_ITS | Encounter Summary ---
Author Organization [facility] Address [address] [facility] [place] [address] Care Team Providers Care Missile Tracking Technician Name Role Phone Sherin Garza MD Primary Care Provider [phone] Tanvir Peñaloza PA-C Unavailable Unavailab Johanna Swenson LPN Unavailable Unavailable Sherin Garza MD Unavailable [phone] Roberta Galvan [facility] Unavailable Alisson Roth PA-C Unavailable [phone] Adelaida Waterman PA-C Unavailable [phone] Roberta Galvan [facility] Unavailable [phone] Jeremy Camejo MD Unavailable Nicolas Barragan MD Unavailable Encounter Details Date Type Department Care Team (Late st Contact Info) Description 06/01/2022 [facility] [place] [place] [facility] [place] [address] [place] [address] Roberta Galvan, [facility] [address] [facility] [place] [address] Social History Tobacco Use [...] week 02/23/2022 How often do you attend [facility] or oriental orthodox services? 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 Gender Identity Female 09/17/2018 1:36 AM [...] documented as of this encounter Care Teams Missile Tracking Technician Relationship Specialty Start Date End Date Sherin Garza MD [address] [place] [address] PCP - General 08/16/01 Tanvir Peñaloza PA-C [address] [place] [address] Physician Social Staff Worker 12/27/17 Johanna Rodríguez LPN Nurse Coordinator 12/27/17 Sherin Garza MD [address] [facility] [place] [address] Assigned PCP 06/15/18 Roberta Galvan, [facility] [address] [address] Pharmacist Pharmacist 05/17/21 07/26/22 Alisson Roth PA-C [address] [place] [address] Assigned Surgical Provider 05/14/2102/01/23 Adelaida Waterman PA-C [address] [place] [address] Assigned Sleep Provider 08/06/2104/19 Roberta Galvan, [facility] [address] [address] Assigned MTM Pharmacist 03/28/22 Jeremy Camejo MD [address] [place] [address] Assigned OBGYN Provider 05/26/22 Nicolas Barragan MD [address] [place] [address] Assigned Surgical Provider 02/02/23 documented as of this encounter
--- OUTSIDE RECORDS SUMMARY | 2024-07-04 16:36 | XMS_ITS | Encounter Summary ---
Author Organization [facility] Address [address] [facility] [place] [address] Care Team Providers Care Mender Hand Name Role Phone Sherin Garza MD Primary Care Provider [phone] Tanvir Peñaloza PA-C Unavailable Unavailab Johanna Swenson LPN Unavailable Unavailable Sherin Garza MD Unavailable [phone] Chris Galvan MD Unavailable [phone] Roberta Galvan [facility] Unavailable Alisson Roth PA-C Unavailable [phone] Adelaida Waterman PA-C Unavailable [phone] Roberta Galvan [facility] Unavailable [phone] Jeremy Camejo MD Unavailable Nicolas Barragan MD Unavailable [phone] Encounter Details Date Type Department Care Team (Late st Contact Info) Description 05/07/2022 [facility] [place] [facility] [address] [place] [address] Zackary Matamoros Social History Tobacco [...] week 02/23/2022 [facility] often [facility] attend [facility] or [facility] services? More than 4 times per year 02/23/2022 Do you belong to any clubs o r organizations such as jain groups, unions, fraternal or athletic groups, or [...] Answer Date Recorded PHQ-2 Score 1 02/23/2022 [facility] Answer Date [...] place to sleep or slept in a assisted (including now)? No 02/23/2022 Education Answer Date Recorded What is the highest level of school you have completed or the highest degree you have received? 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 [address] [place] [address] Assigned OBGYN Provider 11/13/2005/25 Roberta Galvan [facility] [address] [id number] Pharmacist Pharmacist 05/17/21 07/26/22 Alisson Roth PA-C [address] [place] [address] Assigned Surgical Provider 05/14/2102/01/23 Adelaida Waterman PA-C [address] [place] [address] Assigned Sleep Provider 08/06/2104/19 Roberta Galvan [facility] [address] [address] Assigned MTM Pharmacist 03/28/22 Jeremy Camejo MD [address] [place] [address] Assigned OBGYN Provider 05/26/22 Nicolas Barragan MD [address] [place] [address] Assigned Surgical Provider 02/02/23 documented as of this encounter
--- OUTSIDE RECORDS SUMMARY | 2024-07-04 16:36 | XMS_ITS | Encounter Summary ---
Author Organization [place] Address [address] [place] [address]. [place] [address] Care Team Providers Care Director Of Knowledge Management Name Role Phone Sherin Garza MD Primary Care Provider [phone] Tanvir Peñaloza PA-C Unavailable Unavailab Johanna Swenson LPN Unavailable Unavailable Sherin Garza MD Unavailable [phone] Chris Galvan MD Unavailable [phone] Roberta Galvan [facility] Unavailable [phone] Alisson Roth PA-C Unavailable + [phone] Adelaida Waterman PA-C Unavailable + [phone] Roberta Galvan [facility] Unavailable [phone] Jeremy Camejo MD Unavailable [phone] Nicolas Barragan MD Unavailable [phone] Encounter Details Date Type Department Care Team (Late st Contact Info) Description 05/09/2022 [facility] Medical Advice Adult Call Center [address] [place] [address] Nikki Ferris Social History Tobacco Use [...] How often do you attend chur or buddhism services? 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 Gender Identity Female 09/17/2018 1:36 AM CDT [...] of this encounter Care Teams Director Of Knowledge Management Relationship Specialty Start Date End Date Sherin Garza MD [address] [place] [address] PCP - General 08/16/01 Tanvir Peñaloza PA-C [address] [place] [address] Physician Real Estate Rep 12/27/17 Johanna Rodríguez LPN Nurse Coordinator 12/27/17 Sherin Garza MD [address] [facility] [place] [address] Assigned PCP 06/15/18 Chris Galvan MD [address] [facility] [address] [place] [address] Assigned OBGYN Provider 11/13/2005/25 Roberta Galvan, [facility] [address] [address] Pharmacist Pharmacist 05/17/21 07/26/22 Alisson Roth PA-C [address] [place] [address] Assigned Surgical Provider 05/14/2102/01/23 Adelaida Waterman PA-C [address] [place] [address] Assigned Sleep Provider 08/06/2104/19 Roberta Galvan, [facility] [address] [address] Assigned MTM Pharmacist 03/28/22 Jeremy Camejo MD [address] [place] [address] Assigned OBGYN Provider 05/26/22 Nicolas Barragan MD [address] [place] [address] Assigned Surgical Provider 02/02/23 documented as of this encounter
--- OUTSIDE RECORDS SUMMARY | 2024-07-04 16:36 | XMS_ITS | Encounter Summary ---
Author Organization [place] Address [address] [place] [address]. [place] [address] Care Team Providers Care Nursing Executive Name Role Phone Sherin Garza MD Primary Care Provider [phone] Tanvir Peñaloza PA-C Unavailable Unavailab Johanna Swenson LPN Unavailable Unavailable Sherin Garza MD Unavailable [phone] Chris Galvan MD Unavailable [phone] Roberta Galvan [facility] Unavailable Alisson Roth PA-C Unavailable + [phone] Adelaida Waterman PA-C Unavailable + [phone] Roberta Galvan [facility] Unavailable [phone] Jeremy Camejo MD Unavailable Nicolas Barragan MD Unavailable [phone] Encounter Details Date Type Department Care Team (Late st Contact Info) Description 05/09/2022 [facility] Medical Advice Adult Call Center [address] [place] [phone] Nikki Ferris Social History Tobacco Use [...] How often do you attend chur or judaism services? More than 4 times per year 02/23/2022 Do you belong to any clubs o r organizations such as roman catholic groups, unions, fraternal or athletic groups, [...] Answer Date Recorded PHQ-2 Score 1 02/23/2022 [facility] of Occupat ional [facility] - Occupational Stress Questionnaire Answer Date Recorded [...] place to sleep or slept in a senior care (including now)? No 02/23/2022 Education Answer Date Recorded What is the highest level of school you have completed or the highest degree you have received? 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 Gender Identity Female 09/17/2018 1:36 AM CDT [...] documented as of this encounter Care Teams Nursing Executive Relationship Specialty Start Date End Date Sherin Garza MD [address] [place] [address] PCP - General 08/16/01 Tanvir Peñaloza PA-C [address] [place] [address] Physician Dimensional Inspector 12/27/17 Johanna Rodríguez LPN Nurse Coordinator 12/27/17 Sherin Garza MD [address] [place] [address] Assigned PCP 06/15/18 Chris Galvan MD [address] [facility] [address] [place] [address] Assigned OBGYN Provider 11/13/2005/25 Roberta Galvan, [facility] [address] [address] Pharmacist Pharmacist 05/17/21 07/26/22 Alisson Roth PA-C [address] [place] [address] Assigned Surgical Provider 05/14/2102/01/23 Adelaida Waterman PA-C [address] [place] [address] Assigned Sleep Provider 08/06/2104/19 Roberta Galvan, [facility] [address] [address] Assigned MTM Pharmacist 03/28/22 Jeremy Camejo MD [address] [place] [address] Assigned OBGYN Provider 05/26/22 Nicolas Barragan MD [address] [place] [address] Assigned Surgical Provider 02/02/23 documented as of this encounter
--- OUTSIDE RECORDS SUMMARY | 2024-07-04 16:36 | XMS_ITS | Encounter Summary ---
Author Organization [place] Address [address] [facility] [place] [address] Care Team Providers Care Cash Register Operator Name Role Phone Sherin Garza MD Primary Care Provider [phone] Tanvir Peñaloza PA-C Unavailable Unavailab Johanna Swenson LPN Unavailable Unavailable Sherin Garza MD Unavailable [phone] Alisson Roth PA-C Unavailable [phone] Adelaida Waterman PA-C Unavailable [phone] Roberta Galvan [facility] Unavailable Jeremy Camejo MD Unavailable Nicolas Barragan MD Unavailable Encounter Details Date Type Department Care Team (Late st Contact Info) Description 07/27/2022 [facility] Medical Advice [facility] [place] [address] [facility] [address] [place] [address] Roberta Galvan, [facility] [address] [facility] [place] [address] Social History [...] week 02/23/2022 How often do you attend [facility] or nondenominational services? More than 4 times per year [...] Answer Date Recorded PHQ-2 Score 1 02/23/2022 [facility] Answer Date [...] place to sleep or slept in a retirement (including now)? No 02/23/2022 Education Answer Date Recorded What is the highest level of school you have completed or the highest degree you have received? 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 Gender Identity Female 09/17/2018 1:36 AM CDT [...] documented as of this encounter Care Teams Cash Register Operator Relationship Specialty Start Date End Date Sherin Garza MD [address] [place] [id number] PCP - General 08/16/01 [employer], PAArshC [address] [facility] [place] [address] Physician Mrb Engineer 12/27/17 Johanna Rodríguez LPN Nurse Coordinator 12/27/17 Sherin Garza MD [address] [facility] [place] [address] Assigned PCP 06/15/18 Alisson Roth PA-C [address] [place] [address] Assigned Surgical Provider 05/14/2102/01/23 Adelaida Waterman PA-C [address] [place] [address] Assigned Sleep Provider 08/06/2104/19 [facility] [address] [place] [address] Assigned MTM Pharmacist 03/28/22 Jeremy Camejo MD [address] [place] [address] Assigned OBGYN Provider 05/26/22 Nicolas Barragan MD 9 [place] [address] Assigned Surgical Provider 02/02/23 documented as of this encounter
--- OUTSIDE RECORDS SUMMARY | 2024-07-04 16:36 | XMS_ITS | Encounter Summary ---
Author Organization [place] Address [address] [facility] [place] [address] Care Team Providers Care Stamp Classifier Name Role Phone Sherin Garza MD Primary Care Provider [phone] Tanvir Peñaloza PA-C Unavailable Unavailab Johanna Swenson LPN Unavailable Unavailable Sherin Garza MD Unavailable [phone] Chris Galvan MD Unavailable [phone] Roberta Galvan [facility] Unavailable Alisson Roth PA-C Unavailable [phone] Adelaida Waterman PA-C Unavailable [phone] Roberta Galvan [facility] Unavailable [phone] Roberta Galvan [facility] Unavailable [phone] Jeremy Camejo MD Unavailable Nicolas Barragan MD Unavailable [phone] Encounter Details Date Type Department Care Team (Late st Contact Info) Description 02/24/2022 [facility] [place] [address] [facility] [address] [place] [address] Sherin Garza MD [address] [facility] [place] [address] Social History Tobacco Use Types Packs/Day Years [...] How often do you attend chur or taoism services? 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 Gender Identity Female 09/17/2018 1:36 AM CDT [...] documented as of this encounter Care Teams Stamp Classifier Relationship Specialty Start Date End Date Sherin Garza MD [address] [facility] [place] [address] PCP - General 08/16/01 Tanvir Peñaloza PA-C [address] [place] [address] Physician Nondestructive Tester 12/27/17 Johanna Rodríguez LPN Nurse Coordinator 12/27/17 Sherin Garza MD [address] [facility] [place] [address] Assigned PCP 06/15/18 Chris Galvan MD [address] [facility] [address] [place] [address] Assigned OBGYN Provider 11/13/2005/25 Roberta Galvan, [facility] [address] [id number] Pharmacist Pharmacist 05/17/21 07/26/22 Alisson Roth PA-C [address] [place] [address] Assigned Surgical Provider 05/14/2102/01/23 Adelaida Waterman PA-C [address] [place] [address] Assigned Sleep Provider 08/06/2104/19 Roberta Galvan, [facility] [address] [address] Assigned MTM Pharmacist 12/23/21 Roberta Galvan [facility] [address] [place] [address] Assigned MTM Pharmacist 03/28/22 Jeremy Camejo MD [address] [place] [address] Assigned OBGYN Provider 05/26/22 Nicolas Barragan MD 9 [place] [address] Assigned Surgical Provider 02/02/23 documented as of this encounter
--- OUTSIDE RECORDS SUMMARY | 2024-07-04 16:36 | XMS_ITS | Referral Summary ---
Author Organization [place] Address [address] [facility] [place] [address] Care Team Providers Care Taproom Attendant Name Role Phone Sherin Garza MD Primary Care Provider [phone] Tanvir Peñaloza PA-C Unavailable Unavailab Johanna Swenson LPN Unavailable Unavailable Sherin Garza MD Unavailable [phone] Allergies Active Allergy Reactions Criticality Noted Date Comments Food Anaphylaxis High 11/09/2011 Strawberries, mushrooms Albuterol Palpitations Low 01/04/2012 Proventil Brand only. Tachycardia. Tolerates albuterol. Seasonal Allergies Other (See Comments) Medium 014 Runny Nose, Itchy eyes. Newcomb Extract Anaphylaxis High 09/22/2009 Medications Multiple Vitamins-Minerals (MULTIVITAL PO) Take 1 tablet by mouth daily Active calcium carb 1250 mg, 500 mg salamatof,/vitamin D 200 units (OSCAL WITH D) 500-200 [...] nasal sprayIndications: Seasonal allergic rhinitis, unspecified trigger [place] 2 sprays into both nostrils daily 48 [...] Risk Management Program in which our nursing service director provides an individual screening plan and assists [...] symptoms of ovarian cancer with their primary WALLPAPER REMOVER STEAM provider, as they may have individualized recommendations. ? Other population cancer screening options, such as those recommended by the [employer] and the National Comprehensive Cancer Network (NCCN), are also appropriate for Alla and her family. These screening recommendations may change if there are changes to Alla's personal and/or family history of cancer. Final screening recommendations should be made by each individual's managing physician. Subcutaneous mass of back 01/23/2021 Overview (01/23/2021): Added automatically from request for surgery [id number] S/P LES (total abdominal hysterectomy) H/O cystostomy 12/07/2020 Chronic right shoulder pain 10/21/2013 ADHD (attention deficit hyperactivity disorder) 02/13/2013 OCD (obsessive compulsive disorder) 02/02/2013 Overview (02/02/2013): Going to [place] [facility] Generalized anxiety disorder 02/02/2013 Chronic midline [...] (11/30/2020): Added automatically from request for surgery [id number] Ovarian cyst, right 11/30/2020 12/10/19 21 Overview (11/30/2020): Added automatically from request for surgery [id number] Right ovarian cyst 11/22/2020 Neck sprain, subsequent encounter 03/24/2018 09/10/2018 Back strain, subsequent encounter 03/24/2018 09/10/2018 Episodic tension-type headac he, not intractable 03/24/2018 09/10/2018 Sprain of right rotator cuff capsule, initial encounter 12/14/2015 11/02/2020 Shoulder pain 10/26/2013 12/06/2014 [facility] 02/25/2013 12/16/2023 Overview (02/25/2013): Pt not in [...] How often do you attend chur or congregation services? More than 4 times per year 02/23/2022 Do you belong to any clubs o r organizations such as jehovah's witness groups, unions, fraternal or athletic groups, or [...] Answer Date Recorded PHQ-2 Score 1 02/23/2022 [facility] of Occupat ional Health - Occupational [...] in a mcc (including now)? No 02/23/2022 Adolescent Education Answer [...] PM CDT Legal Sex Female 4:00 AM SEO TEAM LEAD Gender Identity Female 09/17/2018 1:36 AM CDT Sexual Orientation Straight 09/17/2018 1: 36 AM CDT Occupation Industry Job Start Date Job End Date Not on file Not on file Not on file Not on file Last Filed Vital Signs Vital Sign Reading Time Taken Comments Blood Pressure 120/82 08/06/2022 12:20 PM SEO TEAM LEAD Pulse 63 08/06/2022 12:00 PM SEO TEAM LEAD Temperature 36.6 C (97.9 F) 08/06/2022 10:50 AM SEO TEAM LEAD Respiratory Rate 16 08/06/2022 12:20 PM SEO TEAM LEAD Oxygen Saturation 98% 08/06/2022 12:20 PM SEO TEAM LEAD Inhaled Oxygen Concentration - - Weight 99.8 kg (220 lb) 08/06/2022 10:50 AM SEO TEAM LEAD Height 162.6 cm (5' 4) 08/06/2022 10:50 AM SEO TEAM LEAD Body Mass Index 37.76 08/06/2022 10:50 AM SEO TEAM LEAD Plan of Treatment Not on file Procedures Procedure Name Priority Date/Time Associated Diagnosis Comments COLONOSCOPY Routine 08/06/2022 10:50 AM SEO TEAM LEAD GLUCOSE Routine 02/23/2022 10:48 AM CDT Screening for diabetes mellitus LIPID REFLEX TO DIRECT LDL PANEL Routine 02/23/2022 10:48 AM CDT Screening for lipid disorders HEPATITIS C SCREEN REFLEX TO HCV RNA QUANT AND GENOTYPE Routine 01/29/2022 10:59 AM CDT Need for hepatitis C screening test MA SCREENING BILATERAL W/ ANTHONY Routine 08/09/2021 4:38 PM SEO TEAM LEAD Visit for screening mammogram PAP IMAGED [...] Maintenance Results * COLONOSCOPY (08/06/2022 10:50 AM SEO TEAM LEAD) COLONOSCOPY [facility] Patient Name: Alla Dias Procedure Date: [...] monitored continuously. The Olympus Pediatric Colonoscope, Model #[id number]-OS756J, Endora #251, SN#[id number] was introduced through the anus and advanced to the terminal ileum, with identification of the appendiceal orifice and IC valve. The colonoscopy was performed without difficulty. The patient tolerated the procedure well. The quality of the bowel preparation was evaluated using the BBPS ([place] Bowel Preparation Scale) with scores of: Right [...] Residual hemorrhoidal skin tags CPT copyright 2020 [employer]. All rights reserved. The codes documented in this report are preliminary and upon devulcanizer tender review may be revised to meet current [...] AM RADIOLOGY RESULTS 08/06/2022 10:5 0 AM SEO TEAM LEAD Sherin Garza MD PROCEDURES Final Result [...] - BLOOD ORDERABLES Final Re sult LABORATORY [facility] [address] [place] [address] Lab (no room number, 1st floor of [facility] [place] [address], [facility] [phone] * Glucose (02/23/2022 10:48 AM CDT) Glucose 98 70 - 99 mg/dL 02/24/2022 11:50 AM CDT OX LABORATORY Patient Fasting > 8hrs? Yes 02/24/2022 11:50 AM CDT [facility]X LABORATORY Blood STRUCTURE OF LEFT UPPER LIMB / Unknown Venipuncture / Unknown 02/23/2022 10:48 AM CDT 02/23/2022 11:10 AM CDT Sherin Garza MD LAB - BLOOD ORDERABLES Final Re sult Performing Organization Address City/[facility]/ZIP Co de Phone Number LABORATORY [facility] [address] [place] [address] Lab (no room number, 1st floor of [facility]) [place] [address], [facility] [phone] * Hepatitis C Screen Reflex to HCV [...] UM SPECIALTY CORE/PROT/ENDO UM Specialty Core/Prot/Endo [address] [facility] [address], Room [address] [place] [address], [facility] [phone] * MA Screen Bilateral w/Anthony (08/09/2021 4:38 PM SEO TEAM LEAD) Anatomical Region Laterality Modality Breast Bilateral Mammography Narrative 08/10/2021 7:43 AM SEO TEAM LEAD BILATERAL FULL FIELD DIGITAL SCREENING MAMMOGRAM [...] Reddy Report Patient Name: ALLA DIAS MR#: [id number] Specimen #: [id number] Collected: 11/04/2020 Received: 11/07/2020 Reported: 11/08/2020 10:57 [...] adenocarcinomas or other cancers. COLLECTION SITE: Client: [facility] Location: EAOB (R) The technical component of this testing was completed at the [facility], with the professional component performed at the [facility], [address] [place] [phone] ([phone]) COPATH Cytology 11/04/2020 9:00 AM CDT 11/07/2020 9:38 AM CDT Chris Galvan MD LAB - OPTIME CLINICAL SPECIMEN Final Result COPATH * HPV High Risk Types DNA Cervical (11/04/2020 8:59 AM CDT) HPV Source [facility] 11/04/2020 9:00 AM CDT [facility] BIPIN HPV 16 DNA Negative NEG^Nega tive 11/10/2020 2:11 PM CDT [facility] HPV 18 DNA Negative NEG^Nega tive 11/10/2020 2:11 PM CDT [facility] Other HR HPV Negative NEG^Nega tive 11/10/2020 2:11 PM CDT [facility] Final Diagnosis This patient's sample is negative for HPV DNA. 11/10/2020 2:11 PM CDT [facility] Comment: This test was developed and its performance characteristics determined by the [facility], Molecular Diagnostics Laboratory. It has [...] Description Cervical Cells 11/04/2020 9:00 AM CDT [facility] Cervical Cells CERVIX UTERI STRUCTURE / Unknown 11/04/2020 8:59 AM CDT 11/04/2020 9:04 AM CDT Chris Galvan MD LAB - BLOOD ORDERABLES Final R esult [facility] [address] [place] [address] [address] * PHQ-9 DEPRESSION SCREENING ORDER (10/30/2019) PHQ9 SCORE 4 Narrative Hallie Amos - 10/30/2019 [facility] PROGRESS NOTE us Provider Outside OTHER Final Result from Last 3 Months or Most Recently Relevant to Health Maintenance Insurance [facility], [facility] COMMERCIAL [employer] * Guarantor: Alla Dias Account Type Relation to Patient Date of Phone Billing Address Medication Therapy Self 1975 [address] [address] Advance Directives For more information, please contact: [phone] Documents on File Type Date Recorded Patient Cytogenetics Technologist Expl anation Advance Directives and Living Will [...] First Alternate Health Care Agent Care Teams Taproom Attendant Relationship Specialty Start Date End Date Sherin Garza MD [address] [place] [id number] PCP - General 08/16/01 Tanvir Peñaloza PA-C [address] [place] [address] Physician Legal Writing Professor 12/27/17 Johanna Rodríguez LPN Nurse Coordinator 12/27/17 Sherin Garza MD [address] [place] [address] Assigned PCP 06/15/18
--- OUTSIDE RECORDS SUMMARY | 2024-07-04 16:36 | XMS_ITS | Encounter Summary ---
Author Organization [place] Address [address] [facility] [place] [address] Care Team Providers Care Slab Depiler Operator Name Role Phone Sherin Garza MD Primary Care Provider [phone] Tanvir Peñaloza PA-C Unavailable Unavailab Johanna Swenson LPN Unavailable Unavailable Sherin Garza MD Unavailable [phone] Chris Galvan MD Unavailable [phone] Roberta Galvan [facility] Unavailable [phone] Alisson Roth PA-C Unavailable [phone] Adelaida Waterman PA-C Unavailable [phone] Roberta Galvan [facility] Unavailable [phone] Roberta Galvan [facility] Unavailable [phone] Jeremy Camejo MD Unavailable Nicolas Barragan MD Unavailable [phone] Encounter Details Date Type Department Care Team (Late st Contact Info) Description 10/20/2021 [facility] [address] [address] Adelaida Waterman PA-C [address] [facility] [address] [place] [address] Social History Tobacco Use Types Packs/Day Years [...] and Family Once a week 05/01/2019 Attends Church Services Patient declined 07/2018 Active Member of [...] Administer PHQ-9 if positive 0 09/07/2021 [facility] of Occupat ional [facility] - Occupational Stress Questionnaire Answer [...] PM CDT Legal Sex Female 4:00 AM MERCHANDISE FLOW TEAM MEMBER Gender Identity Female 09/17/2018 1:36 AM CDT [...] Depression Total Score: 5 09/09/19 7:01 AM MERCHANDISE FLOW TEAM MEMBER documented as of this encounter Care Teams Slab Depiler Operator Relationship Specialty Start Date End Date Sherin Garza MD [address] [facility] [place] [address] PCP - General 08/16/01 Tanvir Peñaloza, PAArshC [address] [facility] [place] [address] Physician Product Development Carpenter 12/27/17 Johanna Rodríguez LPN Nurse Coordinator 12/27/17 Sherin Garza MD [address] [facility] [place] [address] Assigned PCP 06/15/18 Chris Galvan MD [address] [facility] [address] [place] [address] Assigned OBGYN Provider 11/13/2005/25 Roberta Galvan [facility] [address] [address] Pharmacist Pharmacist 05/17/21 07/26/22 Alisson Roth PA-C [address] [place] [address] Assigned Surgical Provider 05/14/2102/01/23 Adelaida Waterman PA-C [address] [place] [address] Assigned Sleep Provider 08/06/2104/19 Roberta Galvan, [facility] [address] [address] Assigned MTM Pharmacist 12/23/21 Roberta Galvan, [facility] [address] [id number] Assigned MTM Pharmacist 03/28/22 Jeremy Camejo MD [address] [place] [address] Assigned OBGYN Provider 05/26/22 Nicolas Barragan MD [address] [place], [place] [address] Assigned Surgical Provider 02/02/23 documented as of this encounter
--- OUTSIDE RECORDS SUMMARY | 2024-07-04 16:36 | XMS_ITS | Encounter Summary ---
Author Organization [place] Address [address] [facility] [place] [address] Care Team Providers Care Textile Engraver Name Role Phone Sherin Garza MD Primary Care Provider [phone] Tanvir Peñaloza PA-C Unavailable Unavailab Johanna Swenson LPN Unavailable Unavailable Sherin Garza MD Unavailable [phone] Chris Galvan MD Unavailable [phone] Roberta Galvan [facility] Unavailable [phone] Alisson Roth PA-C Unavailable [phone] Adelaida Waterman PA-C Unavailable + [phone] Roberta Galvan [facility] Unavailable [phone] Roberta Galvan [facility] Unavailable [phone] Jeremy Camejo MD Unavailable [phone] Nicolas Barragan MD Unavailable [phone] Encounter Details Date Type Department Care Team (Late st Contact Info) Description 11/30/2021 [facility] [address] [address] Susie Powell RN Social History [...] points; Administer PHQ-9 if positive 0 09/07/2021 [facility] Occupat ional [facility] - Occupational [...] PM CDT Legal Sex Female 4:00 AM COLORECTAL SURGEON Gender Identity Female 09/17/2018 1:36 AM CDT [...] Total Score: 5 09/09/19 22 7:01 AM COLORECTAL SURGEON documented as of this encounter Care Teams Textile Engraver Relationship Specialty Start Date End Date Sherin Garza MD [address] [employer] [place] [address] PCP - General 08/16/01 Tanvir Peñaloza, PA-C [address] [place] [address] Physician Cloth Colors Examiner 12/27/17 Johanna Rodríguez LPN Nurse Coordinator 12/27/17 Sherin Garza MD [address] [facility] [place] [address] Assigned PCP 06/15/18 Chris Galvan MD [address] [facility] [address] [place] [address] Assigned OBGYN Provider 11/13/2005/25 Roberta Galvan, [facility] [address] [address] Pharmacist Pharmacist 05/17/21 07/26/22 Alisson Roth PA-C [address] [place] [address] Assigned Surgical Provider 05/14/2102/01/23 Adelaida Waterman PA-C [address] [place] [address] Assigned Sleep Provider 08/06/2104/19 Roberta Galvan, [facility] [address] [id number] Assigned MTM Pharmacist 12/23/21 Roberta Galvan, [facility] [address] [address] Assigned MTM Pharmacist 03/28/22 Jeremy Camejo MD [address] [place] [address] Assigned OBGYN Provider 05/26/22 Nicolas Barragan MD [address] [place] [address] Assigned Surgical Provider 02/02/23 documented as of this encounter
--- OUTSIDE RECORDS SUMMARY | 2024-07-04 16:36 | XMS_ITS | Clinical Summary ---
Author Organization [facility] Address [place], [place] [address] Care Team Providers Care Meat Carrier Name Role Phone Vini Gong PsyD, DREAD Unavailable Morelia Tineo OT Unavailable [phone] Danuta Mata Unavailable Pcp, No Primary Care Provider Unavailabl e Allergies Active Allergy Reactions Criticality Noted Date Comments Aspartame 09/22/2009 Blueberry 09/22/2009 Mushroom Combination No.1 Anaphylaxis,Hives,Naus ea And Vomiting,Rash,Shortnes s Of Breath High 11/29/2022 Albuterol Tachycardia 02/28/2014 PROVENTIL BRAND ONLY Dulzura High 09/22/2009 Dulzura Extract Anaphylaxis High 09/22/2009 Unlisted Allergen (Include [...] a concussion and began treatment at the [facility]. At a clinic visit on 04/16/2018 LEONARD Carpenter, noted: At this point, I am under the impression that Farhana's symptoms are more c s s representative of under-controlled mental health factors and stressors rather than concussion. 08/10/2021 Neuropsychological Assessment by Ted Hagan, PhD, [facility] Injury [facility]: Dr. Hagan reviews the [...] Risk Management Program in which our nursing associate provides an individual screening plan and assists [...] symptoms of ovarian cancer with their primary REVENUE TAX SPECIALIST provider, as they may have individualized recommendations. ? Other population cancer screening options, such as those recommended by the [place] [employer] and the National Comprehensive Cancer Network (NCCN), are also appropriate for Farhana and her family. These screening recommendations may change if there are changes to Farhana's personal and/or family history of cancer. Final screening recommendations should be made by each individual's managing physician. Subcutaneous mass of back 01/23/2021 Overview (10/23/2021): Added automatically from request for surgery [id number] S/P LES (total abdominal hysterectomy) Chronic right [...] Type Department Care Team Description 06/19/2024 Telephone [facility] [address] [place] [address] Yeison Villalta MD Results 06/18/2024 2:00 PM ROOTER OPERATOR Ancillary Procedure [facility] [address] [place] [address] 06/18/2024 Travel 06/13/2024 Travel 06/01/2024 3:50 PM ROOTER OPERATOR Office Visit [facility] [address] [place] [address] Yeison Villalta MD Occ Med (DOI 02/03/24 right ankle injury) 06/01/2024 Travel 05/27/2024 Travel 05/25/2024 Telephone [facility] - [address] [facility] [address] [place] [address] Consultants, Orthopedic Appointment Request 04/27/2024 11:15 AM CDT Office Visit [facility] [address] [place] [address] Yeison Villalta MD Occ Med (DOI 02/03/24 right ankle) 04/26/2024 Travel 04/07/2024 Travel 04/06/2024 Telephone [facility] [address] [place] [address] Yeison Villalta MD Results 04/03/2024 8:35 AM CDT Ancillary Procedure [facility] [address] [place] [address] 04/03/2024 7:55 AM CDT Office Visit [facility] [address] [place] [address] Yeison Villalta MD Occ Med (DOI 02/03/24) 04/03/2024 Orders Only [facility] Scanner 1 scan: (1-Ord) [...] drink = 0.6 oz pur e alcohol) [facility] Utilities Answer Date Recorded Do you [...] on file Legal Sex Female 6:17 AM ROOTER OPERATOR Gender Identity Not on file Sexual Orientation Not on file Obstetrics History Last Filed Vital Signs Vital Sign Reading Time Taken Comments Blood Pressure 124/84 06/01/2024 3:45 PM ROOTER OPERATOR Pulse 80 06/01/2024 3:45 PM ROOTER OPERATOR Temperature 36.7 C (98 F) 03/05/2024 3:55 PM CDT Respiratory Rate 18 02/28/2023 8:43 AM CDT Oxygen Saturation 98% 04/03/2024 8:01 AM CDT Inhaled Oxygen Concentration - - Weight 107.5 kg (237 lb) 06/01/2024 3:45 PM ROOTER OPERATOR Height 162.6 cm (5' 4) 02/27/2023 10:34 [...] 12/11/2016, 04/10/2007 Medical Devices Implanted Type Area Executive Sales Assistant Device Identifier Shelf Expiration Date Model / Serial / Lot Mesh Ventral 8x10in Ventralight St W/Echo Ps - [id number] Implanted:Qty: 1 on 02/27/2023 by Maico Henson MD at [facility] N/A: Abdomen [employer] 12/27/2023 [id number] / / [id number] Procedures Procedure Name Priority Date/Time Associated Diagnosis Comments MR ANKLE RIGHT WO Routine 06/18/2024 2:2 4 PM ROOTER OPERATOR Work related injury Sprain of right ankle, [...] MR ANKLE RIGHT WO (06/18/2024 2:24 PM ROOTER OPERATOR) Anatomical Region Laterality Modality ANKLE R Magnetic Resonan ce 06/19/2024 10:4 5 AM ROOTER OPERATOR Impressions 06/19/2024 10:45 AM ROOTER OPERATOR 1. Postoperative changes of the peroneal tendons [...] AM (Electronically Signed) Narrative 06/19/2024 10:45 AM ROOTER OPERATOR For Patients: As a result of the [...] care provider. XR MAMMO LOU BILAT SCREEN [[id number]] CLINICAL HISTORY: This is an asymptomatic 48 [...] Relevant to Health Maintenance Insurance HP BIPINJEFF [id number] ALLEGIANCE CBCS NON CORVEL Advance Directives * Full Code (Latest Code Status on File) Date Activated Date Inactivated Comments 02/27/2023 10:18 AM 02/28/2023 2:41 PM Question Answer Comments Code Status Discussion: Reviewed Preferences Care Teams Meat Carrier Relationship Specialty Start Date End Date Pcp, No . PCP - General 03/05/24 Vini Gong PsyD, LP [address] [place] [address] Psychology 11/29/21 Morelia Tineo, NIKKI [address] [id number] [place] [address] Occupational Therapy 11/30/21 Danuta Mata [address] [place] [address] Care Guide 01/17/22
--- OUTSIDE RECORDS SUMMARY | 2024-07-04 16:36 | XMS_ITS | Encounter Summary ---
Author Organization [place] Address [facility] [place] [address] Care Team Providers Care Burglar Alarm Assembler Name Role Phone Sherin Garza MD Primary Care Provider [phone] Tanvir Peñaloza PA-C Unavailable Unavailab Johanna Swenson LPN Unavailable Unavailable Sherin Garza MD Unavailable [phone] Chris Galvan MD Unavailable [phone] Roberta Galvan [facility] Unavailable [phone] Alisson Roth PA-C Unavailable [phone] Adelaida Waterman PA-C Unavailable [phone] Roberta Galvan [facility] Unavailable [phone] Jeremy Camejo MD Unavailable Nicolas Barragan MD Unavailable [phone] Reason for Visit * Reason Onset Date Comments MyChart Communication 04/23/2022 Nebulizer supplies Encounter Details Date Type Department Care Team (Latest Contact Info) Description 04/23/2022 [facility] [place] [address] [facility] [address] [place] [address] Sherin Garza MD [address] [facility] [place] [address] [employer] (Nebulizer supplies) Social History Tobacco [...] do you attend [facility] or tenriism services? More than 4 times per year 02/23/2022 Do you belong to any clubs o r organizations such as mandaeism groups, unions, fraternal or athletic groups, or [...] Answer Date Recorded PHQ-2 Score 1 02/23/2022 [facility] of Occupat ional Health - Occupational Stress [...] PM CDT Legal Sex Female 4:00 AM ORTHODONTIC TREATMENT COORDINATOR Gender Identity Female 09/17/2018 1:36 AM [...] documented as of this encounter Care Teams Burglar Alarm Assembler Relationship Specialty Start Date End Date Sherin Garza MD [address] [employer] [place] [address] PCP - General 08/16/01 Tanvir Peñaloza, PAArshC [address] [employer] [place] [address] Physician Epic Application Coordinator 12/27/17 Johanna Rodríguez LPN Nurse Coordinator 12/27/17 Sherin Garza MD [address] [employer] [place] [address] Assigned PCP 06/15/18 Chris Galvan MD [address] [address] Assigned OBGYN Provider 11/13/2005/25 Roberta Galvan, [facility] [address] [address] Pharmacist Pharmacist 05/17/21 07/26/22 Alisson Roth PA-C [address] [place] [address] Assigned Surgical Provider 05/14/2102/01/23 Adelaida Waterman PA-C [address] [place] [address] Assigned Sleep Provider 08/06/2104/19 Roberta Galvan [facility] [address] [address] Assigned MTM Pharmacist 03/28/22 Jeremy Camejo MD [address] [place] [address] Assigned OBGYN Provider 05/26/22 Nicolas Barragan MD [address] [place] [address] Assigned Surgical Provider 02/02/23 documented as of this encounter
--- OUTSIDE RECORDS SUMMARY | 2024-07-04 16:36 | XMS_ITS | Encounter Summary ---
Author Organization [place] Address [address] [place] [address] Care Team Providers Care Game Farm Helper Name Role Phone Sherin Garza MD Primary Care Provider [phone] Tanvir Peñaloza PA-C Unavailable Unavailab Johanna Swenson LPN Unavailable Unavailable Sherin Garza MD Unavailable [phone] Chris Galvan MD Unavailable [phone] [facility] Unavailable Alisson Roth PA-C Unavailable [phone] Adelaida Waterman PA-C Unavailable Roberta Galvan [facility] Unavailable Jeremy Camejo MD Unavailable Nicolas Barragan MD Unavailable Encounter Details Date Type Department Care Team (Late st Contact Info) Description 04/23/2022 [facility] [place] [address] [facility] [address] [place] [address] Sherin Garza MD [address] [place] [address] [place] [address] Social History Tobacco Use [...] often do you attend chur ch or protestant services? More than 4 times per year 02/23/2022 Do you belong to any clubs o r organizations such as mormon groups, unions, fraternal or athletic groups, or [...] [facility] of Occupat ional Health - [...] place to sleep or slept in a custodial (including now)? No 02/23/2022 Education Answer Date Recorded What is the highest level of school you have completed or the highest degree you have received? 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 INCLINED RAILWAY OPERATOR Gender Identity Female 09/17/2018 1:36 AM [...] documented as of this encounter Care Teams Game Farm Helper Relationship Specialty Start Date End Date Sherin Garza MD [address] [employer] [facility] [place] [address] PCP - General 08/16/01 Tanvir Peañloza PA-C [address] [employer] [facility] [place] [address] Physician Object Oriented Programmer 12/27/17 Johanna Rodríguez LPN Nurse Coordinator 12/27/17 Sherin Garza MD [address] [facility] [place] [address] Assigned PCP 06/15/18 Chris Galvan MD [address] [facility] [address] [place] [address] Assigned OBGYN Provider 11/13/2005/25 Roberta Galvan, [facility] [address] [place], [place] [address] Pharmacist Pharmacist 05/17/21 07/26/22 Alisson Roth PA-C [address] [place] [address] Assigned Surgical Provider 05/14/2102/01/23 Adelaida Waterman PA-C [address] [place] [address] Assigned Sleep Provider 08/06/2104/19 Roberta Galvan, [facility] [address] [place] [address] Assigned MTM Pharmacist 03/28/22 Jeremy Camejo MD [address] [place] [address] Assigned OBGYN Provider 05/26/22 Nicolas Barragan MD [address] [place], [place] [address] Assigned Surgical Provider 02/02/23 documented as of this encounter
--- OUTSIDE RECORDS SUMMARY | 2024-07-04 16:36 | XMS_ITS | Encounter Summary ---
Author Organization [place] Address [address] [facility] [place] [address] Care Team Providers Care Popped Corn Oven Attendant Name Role Phone Sherni Garza MD Primary Care Provider [phone] Tanvir Peñaloza PA-C Unavailable Unavailab Johanna Swenson LPN Unavailable Unavailable Sherin Garza MD Unavailable [phone] Alisson Roth PA-C Unavailable [phone] Adelaida Waterman PA-C Unavailable [phone] Jeremy Camejo MD Unavailable [phone] Nicolas Barragan MD Unavailable Encounter Details Date Type Department Care Team (Late st Contact Info) Description 01/14/2023 [facility] [address] [place] [address] [address] [place] [address] Fransisca Brown MA Social History [...] often do you attend chur ch or hoahaoism services? More than 4 times per year 02/23/2022 Do you belong to any clubs o r organizations such as episcopal groups, unions, fraternal or athletic groups, or [...] Answer Date Recorded PHQ-2 Score 1 02/23/2022 [facility] of Occupat [...] place to sleep or slept in a longterm (including now)? No 02/23/2022 Education Answer Date Recorded What is the highest level of school you have completed or the highest degree you have received? 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 DIGITAL RETOUCHER Gender Identity Female 09/17/2018 1:36 AM CDT [...] documented as of this encounter Care Teams Popped Corn Oven Attendant Relationship Specialty Start Date End Date Sherin Garza MD [address] [place] [address] PCP - General 08/16/01 Tanvir Peñaloza PA-C [address] [place] [address] Physician Theater Usher 12/27/17 Johanna Rodríguez LPN Nurse Coordinator 12/27/17 Sherin Garza MD [address] [place] [address] Assigned PCP 06/15/18 Alisson Roth PA-C [address] [place] [address] Assigned Surgical Provider 05/14/2102/01/23 Adelaida Waterman PA-C [address] [place] [address] Assigned Sleep Provider 08/06/2104/19 Jeremy Camejo MD [address] [place] [address] Assigned OBGYN Provider 05/26/22 Nicolas Barragan MD [address] [place] [address] Assigned Surgical Provider 02/02/23 documented as of this encounter
--- OUTSIDE RECORDS SUMMARY | 2024-07-04 16:36 | XMS_ITS | Clinical Summary ---
Author Organization [place] Address [address] [facility] [place] [address] Care Team Providers Care Yarn Winder Name Role Phone Sherin Garza MD Primary Care Provider [phone] Tanvir Peñaloza PA-C Unavailable Unavailab Johanna Swenson LPN Unavailable Unavailable Sherin Garza MD Unavailable [phone] Allergies Active Allergy Reactions Criticality Noted Date Comments Food Anaphylaxis High 11/09/2011 Strawberries, mushrooms Albuterol Palpitations Low 01/04/2012 Proventil Brand only. Tachycardia. Tolerates albuterol. Seasonal Allergies Other (See Comments) Medium 014 Runny Nose, Itchy eyes. [place] Extract Anaphylaxis High 09/22/2009 Medications Multiple Vitamins-Minerals (MULTIVITAL PO) Take 1 tablet by mouth daily Active calcium carb 1250 mg, 500 mg quileute,/vitamin D 200 units (OSCAL WITH D) 500-200 [...] nasal sprayIndications: Seasonal allergic rhinitis, unspecified trigger [place] 2 sprays into both nostrils daily 48 [...] Risk Management Program in which our nursing scheduler provides an individual screening plan and assists [...] symptoms of ovarian cancer with their primary BUTADIENE CONVERTER HELPER provider, as they may have individualized recommendations. ? Other population cancer screening options, such as those recommended by the [place] Cancer Society and the National Comprehensive Cancer Network (NCCN), are also appropriate for Alla and her family. These screening recommendations may change if there are changes to Alla's personal and/or family history of cancer. Final screening recommendations should be made by each individual's managing physician. Subcutaneous mass of back 01/23/2021 Overview (01/23/2021): Added automatically from request for surgery [id number] S/P LES (total abdominal hysterectomy) H/O cystostomy 12/07/2020 Chronic right shoulder pain 10/21/2013 ADHD (attention deficit hyperactivity disorder) 02/13/2013 OCD (obsessive compulsive disorder) 02/02/2013 Overview (02/02/2013): Going to [place] [facility] Generalized anxiety disorder 02/02/2013 Chronic midline low [...] (11/30/2020): Added automatically from request for surgery [id number] Ovarian cyst, right 11/30/2020 12/10/19 21 Overview (11/30/2020): Added automatically from request for surgery [id number] Right ovarian cyst 11/22/2020 Neck sprain, subsequent encounter 03/24/2018 09/10/2018 Back strain, subsequent encounter 03/24/2018 09/10/2018 Episodic tension-type headac he, not intractable 03/24/2018 09/10/2018 Sprain of right rotator cuff capsule, initial encounter 12/14/2015 11/02/2020 Shoulder pain 10/26/2013 12/06/2014 Health Group Home 02/25/2013 12/16/2023 Overview (02/25/2013): Pt not in [...] How often do you attend chur or hinduism services? More than 4 times per year 02/23/2022 Do you belong to any clubs o r organizations such as oriental orthodox groups, unions, fraternal or athletic groups, or [...] Answer Date Recorded PHQ-2 Score 1 02/23/2022 [facility] - Occupational [...] a skilled nursing (including now)? No 02/23/2022 Adolescent Education Answer [...] Legal Sex Female 4:00 AM INSIDE SALES CONSULTANT Gender Identity Female 09/17/2018 1:36 AM CDT Sexual Orientation Straight 09/17/2018 1: 36 AM CDT Occupation Industry Job Start Date Job End Date Not on file Not on file Not on file Not on file Last Filed Vital Signs Vital Sign Reading Time Taken Comments Blood Pressure 120/82 08/06/2022 12:20 PM INSIDE SALES CONSULTANT Pulse 63 08/06/2022 12:00 PM INSIDE SALES CONSULTANT Temperature 36.6 C (97.9 F) 08/06/2022 10:50 AM INSIDE SALES CONSULTANT Respiratory Rate 16 08/06/2022 12:20 PM INSIDE SALES CONSULTANT Oxygen Saturation 98% 08/06/2022 12:20 PM INSIDE SALES CONSULTANT Inhaled Oxygen Concentration - - Weight 99.8 kg (220 lb) 08/06/2022 10:50 AM INSIDE SALES CONSULTANT Height 162.6 cm (5' 4) 08/06/2022 10:50 AM INSIDE SALES CONSULTANT Body Mass Index 37.76 08/06/2022 10:50 AM INSIDE SALES CONSULTANT Plan of Treatment Health Maintenance Due Date [...] Diagnosis Comments COLONOSCOPY Routine 08/06/2022 10:50 AM INSIDE SALES CONSULTANT GLUCOSE Routine 02/23/2022 10:48 AM CDT Screening for diabetes mellitus LIPID REFLEX TO DIRECT LDL PANEL Routine 02/23/2022 10:48 AM CDT Screening for lipid disorders HEPATITIS C SCREEN REFLEX TO HCV RNA QUANT AND GENOTYPE Routine 01/29/2022 10:59 AM CDT Need for hepatitis C screening test MA SCREENING BILATERAL W/ ANTHONY Routine 08/09/2021 4:38 PM INSIDE SALES CONSULTANT Visit for screening mammogram PAP IMAGED THIN [...] Maintenance Results * COLONOSCOPY (08/06/2022 10:50 AM INSIDE SALES CONSULTANT) COLONOSCOPY [facility] Patient Name: Alla Love Dias Procedure Date: 08/06/2022 10:50 AM Date of : 1975 Admit Type: Outpatient Age: 47 Gender: Female Attending MD: RUDY CUETO MD Total Sedation Time: 30 mins Instrument Name: 251 - Pediatric Colonoscope Procedure: Colonoscopy Indications: Screening for colorectal malignant neoplasm Providers: RUDY CUTEO MD (Doctor) Referring MD: SHERIN GARZA MD [...] monitored continuously. The Olympus Pediatric Colonoscope, Model #[id number]-JQ388V, Endora #[id number], SN#[id number] was introduced through the anus and advanced to the terminal ileum, with identification of the appendiceal orifice and IC valve. The colonoscopy was performed without difficulty. The patient tolerated the procedure well. The quality of the bowel preparation was evaluated using the BBPS (Sandy Bowel Preparation Scale) with scores of: Right [...] Residual hemorrhoidal skin tags CPT copyright 2020 [place] [employer]. All rights reserved. The codes documented in this report are preliminary and upon pottery striper review may be revised to meet current [...] AM RADIOLOGY RESULTS 08/06/2022 10:5 0 AM INSIDE SALES CONSULTANT us Sherin Garza MD PROCEDURES Final Result [...] BLOOD ORDERABLES Final Re sult [facility] [address] Lab (no room number, 1st floor of clinic) [place] [address], [facility] [phone] * Glucose (02/23/2022 10:48 AM CDT) Glucose 98 70 - 99 mg/dL 02/24/2022 11:50 AM CDT [facility] Patient Fasting > 8hrs? Yes 02/24/2022 11:50 AM CDT [facility] Blood STRUCTURE OF LEFT UPPER LIMB / Unknown Venipuncture / Unknown 02/23/2022 10:48 AM CDT 02/23/2022 11:10 AM CDT us Sherin Garza MD LAB - BLOOD ORDERABLES Final Re sult LABORATORY [facility] [address] Lab (no room number, 1st floor of clinic) [place] [address], [facility] [phone] * Hepatitis C Screen Reflex to HCV [...] UM SPECIALTY CORE/PROT/ENDO UM Specialty Core/Prot/Endo [address] [facility] [address], [address] [address], [facility] [phone] * MA Screen Bilateral w/Anthony (08/09/2021 4:38 PM INSIDE SALES CONSULTANT) Anatomical Region Laterality Modality Breast Bilateral Mammography Narrative 08/10/2021 7:43 AM INSIDE SALES CONSULTANT BILATERAL FULL FIELD DIGITAL SCREENING MAMMOGRAM WITH [...] Copath Report Patient Name: ALLA DIAS MR#: [id number] Specimen #: [id number] Collected: 11/04/2020 Received: 11/07/2020 Reported: 11/08/2020 10:57 [...] adenocarcinomas or other cancers. COLLECTION SITE: Client: [facility] Location: [place] ([place]) The technical component of this testing was completed at the [facility], with the professional component performed at the [facility], [address] [place] [address] [phone]) COPATH Cytology 11/04/2020 9:00 AM CDT 11/07/2020 9:38 AM CDT Chris Galvan MD LAB - OPTIME CLINICAL SPECIMEN Final Result COPATH * HPV High Risk Types DNA Cervical (11/04/2020 8:59 AM CDT) HPV Source [facility] 11/04/2020 9:00 AM CDT [facility] BIPIN HPV 16 DNA Negative NEG^Nega tive [...] and its performance characteristics determined by the [facility], Molecular Diagnostics Laboratory. It has [...] Description Cervical Cells 11/04/2020 9:00 AM CDT [facility] BIPIN Cervical Cells CERVIX UTERI STRUCTURE / Unknown 11/04/2020 8:59 AM CDT 11/04/2020 9:04 AM CDT us Chris Galvan MD LAB - BLOOD ORDERABLES Final R esult [address] [address] * PHQ-9 DEPRESSION SCREENING ORDER (10/30/2019) PHQ9 SCORE 4 Narrative Hallie Amos - 10/30/2019 [facility] PROGRESS NOTE us Provider Outside OTHER Final Result from Last 3 Months or Most Recently Relevant to Health Maintenance Insurance [employer] * Guarantor: Alla Dias Account Type Relation to Patient Date of Phone Billing Address Worker's Compensation Self 1975 [id number] [place] [address] [facility] * Guarantor: Alla Dias Account Type Relation to Patient Date of Phone Billing Address Medication Therapy Self 1975 [address] [place] [address] Advance Directives For more information, please contact: [phone] Documents on File Type Date Recorded 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 Mining Engineering Technologist Expl anation Advance Directives and Living [...] Agents on File Name Relationship Healthcare Agent [facility] p Communication Shama Cabrera Sister Health Care Agent Kvng Dias Father First Alternate Health Care Agent Care Teams Yarn Winder Relationship Specialty Start Date End Date Sherin Garza MD [address] [place] [address] PCP - General 08/16/01 Tanvir Peñaloza, PAArshC [address] [place] [address] Physician Solar Panel Installer 12/27/17 Johanna Rodríguez LPN Nurse Coordinator 12/27/17 Sherin Garza MD [address] [facility] [place] [address] Assigned PCP 06/15/18
--- OUTSIDE RECORDS SUMMARY | 2024-07-04 16:36 | XMS_ITS | Encounter Summary ---
Author Organization [place] Address [address] [facility] [place] [address] Care Team Providers Care Cell Reliner Name Role Phone Sherin Garza MD Primary Care Provider [phone] Tanvir Peñaloza PA-C Unavailable Unavailab Johanna Swenson LPN Unavailable Unavailable Sherin Garza MD Unavailable [phone] Chris Galvan MD Unavailable [phone] Roberta Galvan [facility] Unavailable [phone] Alisson Roth PA-C Unavailable [phone] Adelaida Waterman PA-C Unavailable [phone] Roberta Galvan [facility] Unavailable [phone] Roberta Galvan [facility] Unavailable [phone] Jeremy Camejo MD Unavailable Nicolas Barragan MD Unavailable [phone] Encounter Details Date Type Department Care Team (Late st Contact Info) Description 12/11/2021 [facility] [address] [place] [address] Kaela Tee, TEJAS Social History [...] points; Administer PHQ-9 if positive 0 09/07/2021 [facility] - [...] PM CDT Legal Sex Female 4:00 AM MARINE REPORTER Gender Identity Female 09/17/2018 1:36 AM CDT [...] Total Score: 5 09/09/19 22 7:01 AM MARINE REPORTER documented as of this encounter Care Teams Cell Reliner Relationship Specialty Start Date End Date Sherin Garza MD [address] [facility] [place] [address] PCP - General 08/16/01 Tanvir Peñaloza PAArshC [address] [facility] [place] [address] Physician Solder Sprayer 12/27/17 Johanna Rodríguez LPN Nurse Coordinator 12/27/17 Sherin Garza MD [address] [facility] [place] [address] Assigned PCP 06/15/18 Chris Galvan MD [address] [facility] [address] [place] [address] Assigned OBGYN Provider 11/13/2005/25 Roberta Galvan, [facility] [address] [address] Pharmacist Pharmacist 05/17/21 07/26/22 Alisson Roth PA-C [address] [place] [address] Assigned Surgical Provider 05/14/2102/01/23 Adelaida Waterman PA-C [address] [place] [address] Assigned Sleep Provider 08/06/2104/19 Roberta Galvan [facility] [address] [address] Assigned MTM Pharmacist 12/23/21 Roberta Galvan, [facility] [address] [place] [address] Assigned MTM Pharmacist 03/28/22 Jeremy Camejo MD [address] [place] [address] Assigned OBGYN Provider 05/26/22 Nicolas Barragan MD [address] [place] [address] Assigned Surgical Provider 02/02/23 documented as of this encounter
--- OUTSIDE RECORDS SUMMARY | 2024-07-04 16:36 | XMS_ITS | Encounter Summary ---
Author Organization [place] Address [address] [facility] [place] [address] Care Team Providers Care Inclusion Specialist Name Role Phone Sherin Garza MD Primary Care Provider [phone] Tanvir Peñaloza PA-C Unavailable Unavailab Johanna Swenson LPN Unavailable Unavailable Sherin Garza MD Unavailable [phone] Chris Galvan MD Unavailable [phone] Roberta Galvan [facility] Unavailable [phone] Alisson Roth PA-C Unavailable [phone] Adelaida Waterman PA-C Unavailable Roberta Galvan [facility] Unavailable Jeremy Camejo MD Unavailable Nicolas Barragan MD Unavailable Encounter Details Date Type Department Care Team (Late st Contact Info) Description 03/28/2022 [facility] [place] [address] [place] [address] Alisson Roth PA-C [address] [facility] [address] [place] [address] Social History Tobacco Use Types Packs/Day [...] How often do you attend chur or presybeterian services? More than 4 times per year [...] Answer Date Recorded PHQ-2 Score 1 02/23/2022 [facility] [...] PM CDT Legal Sex Female 4:00 AM DEMENTIA PROGRAM DIRECTOR Gender Identity Female 09/17/2018 1:36 AM [...] documented as of this encounter Care Teams Inclusion Specialist Relationship Specialty Start Date End Date Sherin Garza MD [address] [facility] [place] [address] PCP - General 08/16/01 Tanvir Peñaloza PA-C [address] [facility] [place] [address] Physician Contracts Administrator 12/27/17 Johanna Rodríguez LPN Nurse Coordinator 12/27/17 Sherin Garza MD [address] [facility] [place] [address] Assigned PCP 06/15/18 Chris Galvan MD [address] [facility] [address] [place] [address] Assigned OBGYN Provider 11/13/2005/25 Roberta Galvan, [facility] [address] [address] Pharmacist Pharmacist 05/17/21 07/26/22 Alisson Roth PA-C [address] [place] [address] Assigned Surgical Provider 05/14/2102/01/23 Adelaida Waterman PA-C [address] [place] [address] Assigned Sleep Provider 08/06/2104/19 Roberta Galvan, [facility] [address] [address] Assigned MTM Pharmacist 03/28/22 Jeremy Camejo MD [address] [place] [address] Assigned OBGYN Provider 05/26/22 Nicolas Barragan MD [address] [place] [address] Assigned Surgical Provider 02/02/23 documented as of this encounter
--- OUTSIDE RECORDS SUMMARY | 2024-07-04 16:36 | XMS_ITS | Encounter Summary ---
Author Organization [place] Address [address] [facility] [place] [address] Care Team Providers Care Tape Machine Tailer Name Role Phone Sherin Garza MD Primary Care Provider [phone] Tanvir Peñaloza PA-C Unavailable Unavailab Johanna Swenson LPN Unavailable Unavailable Sherin Garza MD Unavailable [phone] Roberta Galvan [facility] Unavailable Alisson Roth PA-C Unavailable [phone] Adelaida Waterman PA-C Unavailable [phone] Roberta Galvan [facility] Unavailable Jeremy Camejo MD Unavailable Nicolas Barragan MD Unavailable Encounter Details Date Type Department Care Team (Late st Contact Info) Description 06/11/2022 [facility] Medical Advice [facility] [place] [address] [facility] [address] [place] [address] Sherin Garza MD [address] [facility] [place] [address] Social History Tobacco [...] week 02/23/2022 How often do you attend [facility] or presybeterian services? More than 4 times [...] PHQ-2 Score 1 02/23/2022 [facility] - Occupational [...] PM CDT Legal Sex Female 4:00 AM SENIOR STAFF SPECIALIZED EMPLOYMENT Gender Identity Female 09/17/2018 1:36 AM CDT [...] documented as of this encounter Care Teams Tape Machine Tailer Relationship Specialty Start Date End Date Sherin Garza MD [address] [facility] [place] [address] PCP - General 08/16/01 [employer] PA-C [address] [facility] [place] [address] Physician Chenille Machine Operator 12/27/17 Johanna Rodríguez LPN Nurse Coordinator 12/27/17 Sherin Garza MD [address] [facility] [place] [address] Assigned PCP 06/15/18 Roberta Galvan, [facility] [address] [place] [address] Pharmacist Pharmacist 05/17/21 07/26/22 Alisson Roth PA-C [address] [place] [address] Assigned Surgical Provider 05/14/2102/01/23 Adelaida Waterman PA-C [address] [place] [address] Assigned Sleep Provider 08/06/2104/19 Roberta Galvan, [facility] [address] [address] Assigned MTM Pharmacist 03/28/22 Jeremy Camejo MD [address] [place] [address] Assigned OBGYN Provider 05/26/22 Nicolas Barragan MD 9 [place] [address] Assigned Surgical Provider 02/02/23 documented as of this encounter
--- OUTSIDE RECORDS SUMMARY | 2024-07-04 16:37 | XMS_ITS | Encounter Summary ---
Author Organization [place] Address [address] [facility] [place] [address] Care Team Providers Care Instructor Ballroom Dancing Name Role Phone Sherin Garza MD Primary Care Provider [phone] Tanvir Peñaloza PA-C Unavailable Unavailab Johanna Swenson LPN Unavailable Unavailable Sherin Garza MD Unavailable [phone] Chris Galvan MD Unavailable [phone] Roberta Galvan [facility] Unavailable Alisson Roth PA-C Unavailable [phone] Adelaida Waterman PA-C Unavailable [phone] Roberta Galvan [facility] Unavailable Roberta Galvan [facility] Unavailable [phone] Jeremy Camejo MD Unavailable Nicolas Barragan MD Unavailable [phone] Encounter Details Date Type Department Care Team (Late st Contact Info) Description 07/10/2021 [facility] [address] [address] Alayna Garcia Social History Tobacco [...] points; Administer PHQ-9 if positive 1 01/17/2021 [facility] - Occupational [...] PM CDT Legal Sex Female 4:00 AM STRIPPER APPRENTICE Gender Identity Female 09/17/2018 1:36 AM CDT [...] as of this encounter Care Teams Instructor Ballroom Dancing Relationship Specialty Start Date End Date Sherin Garza MD [address] [facility] [place] [address] PCP - General 08/16/01 Tanvir Peñaloza PA-C [address] [place] [address] [place] [address] Physician Contracts Attorney 12/27/17 Johanna Rodríguez LPN Nurse Coordinator 12/27/17 Sherin Garza MD [address] [facility] [place] [address] Assigned PCP 06/15/18 Chris Galvan MD [address] [facility] [address] [place] [address] Assigned OBGYN Provider 11/13/2005/25 Roberta Galvan [facility] [address] [id number] Pharmacist Pharmacist 05/17/21 07/26/22 Alisson Roth PA-C [address] [place] [address] Assigned Surgical Provider 05/14/2102/01/23 Adelaida Waterman PA-C [address] [address] Assigned Sleep Provider 08/06/2104/19 Roberta Galvan [facility] [address] [place] [address] Assigned MTM Pharmacist 12/23/21 Roberta Galvan [facility] [address] [place] [address] Assigned MTM Pharmacist 03/28/22 Jeremy Camejo MD [facility] [place] [address] Assigned OBGYN Provider 05/26/22 Nicolas Barragan MD [address] [place] [address] Assigned Surgical Provider 02/02/23 documented as of this encounter
--- OUTSIDE RECORDS SUMMARY | 2024-07-04 16:37 | XMS_ITS | Encounter Summary ---
Author Organization [place] Address [address] [facility] [place] [address] Care Team Providers Care Currency Counter Name Role Phone Sherin Garza MD Primary Care Provider [phone] Tanvir Peñaloza PA-C Unavailable Unavailab Johanna Swenson LPN Unavailable Unavailable Sherin Garza MD Unavailable [phone] Jose M Bearden Unavailable Unavailable Chris Galvan MD Unavailable [phone] Vini Joyce MD Unavailable [phone] Roberta Galvan [facility] Unavailable Alisson Roth PA-C Unavailable [phone] Adelaida Waterman PA-C Unavailable [phone] Roberta Galvan [facility] Unavailable [phone] Roberta Galvan [facility] Unavailable Jeremy Camejo MD Unavailable [phone] Nicolas Barragan MD Unavailable [phone] Encounter Details Date Type Department Care Team (Late st Contact Info) Description 02/28/2021 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 Gender Identity Female 09/17/2018 1:36 AM CDT [...] as of this encounter Care Teams Currency Counter Relationship Specialty Start Date End Date Sherin Garza MD [address] [facility] [place] [address] PCP - General 08/16/01 Tanvir Peñaloza PAArshC [address] [facility] [place] [address] Physician Electric Switch Tester 12/27/17 Johanna Rodríguez LPN Nurse Coordinator 12/27/17 Sherin Garza MD [address] [facility] [place] [address] Assigned PCP 06/15/18 Jose M Bearden Personal Advocate & Liaison (PAL) 05/01/19 05/16/21 Chris Galvan MD [address] [facility] [address] [place] [address] Assigned OBGYN Provider 11/13/2005/25 Vini Joyce MD [address] [place] [address] Assigned Surgical Provider 01/29/21 Roberta Galvan, [facility] [address] [address] Pharmacist Pharmacist 05/17/21 07/26/22 Alisson Roth PA-C [address] [place] [address] Assigned Surgical Provider 05/14/2102/01/23 Adelaida Waterman PA-C [address] [place] [address] Assigned Sleep Provider 08/06/2104/19 Roberta Galvan, [facility] [address] [address] Assigned MTM Pharmacist 12/23/21 Roberta Galvan, [facility] [address] [address] Assigned MTM Pharmacist 03/28/22 Jeremy Camejo MD [address] [place] [address] Assigned OBGYN Provider 05/26/22 Nicolas Barragan MD [address] [place] [address] Assigned Surgical Provider 02/02/23 documented as of this encounter
--- OUTSIDE RECORDS SUMMARY | 2024-07-04 16:37 | XMS_ITS | Encounter Summary ---
Author Organization [place] Address [address] [facility] [place] [address] Care Team Providers Care Sliver Cutter Name Role Phone Sherin Garza MD Primary Care Provider [phone] Tanvir Peñaloza PA-C Unavailable Unavailab Johanna Swenson LPN Unavailable Unavailable Sherin Garza MD Unavailable [phone] Chris Galvan MD Unavailable [phone] Roberta Galvan [facility] Unavailable [phone] Alisson Roth PA-C Unavailable [phone] Adelaida Waterman PA-C Unavailable + [phone] Roberta Galvan [facility] Unavailable [phone] Roberta Galvan [facility] Unavailable [phone] Jeremy Camejo MD Unavailable Nicolas Barragan MD Unavailable [phone] Encounter Details Date Type Department Care Team (Late st Contact Info) Description 10/17/2021 [facility] [place] [address] [facility] [address] [place] [address] Alisson Roth PA-C [address] [place] [address] Social History Tobacco Use Types Packs/Day Years [...] points; Administer PHQ-9 if positive 0 09/07/2021 [facility] Occupat ional Health - [...] PM CDT 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 Gender Identity Female 09/17/2018 1:36 AM CDT [...] Depression Total Score: 5 09/09/19 7:01 AM HOGSHEAD WRECKER documented as of this encounter Care Teams Sliver Cutter Relationship Specialty Start Date End Date Sherin Garza MD [email or web address] [facility] [place] [address] PCP - General 08/16/01 Tanvir Peñaloza PAArshC [address] [place] [employer] [facility] [place] [address] Physician Gas Plumbing Inspector 12/27/17 Johanna Rodríguez LPN Nurse Coordinator 12/27/17 Sherin Garza MD [address] [place] [employer] [facility] [place] [address] Assigned PCP 06/15/18 Chris Galvan MD [address] [facility] [address] [place] [address] Assigned OBGYN Provider 11/13/2005/25 Roberta Galvan, [facility] [address] [address] Pharmacist Pharmacist 05/17/21 07/26/22 Alisson Roth PA-C [address] [place] [address] Assigned Surgical Provider 05/14/2102/01/23 Adelaida Waterman PA-C [address] [place] [address] Assigned Sleep Provider 08/06/2104/19 Roberta Galvan, [facility] [address] [address] Assigned MTM Pharmacist 12/23/21 [facility] [address] [address] Assigned MTM Pharmacist 03/28/22 Jeremy Camejo MD [address] [place] [address] Assigned OBGYN Provider 05/26/22 Nicolas Barragan MD 9 [place], [place] [address] Assigned Surgical Provider 02/02/23 documented as of this encounter
--- OUTSIDE RECORDS SUMMARY | 2024-07-04 16:37 | XMS_ITS | Encounter Summary ---
Author Organization [place] Address [address] [facility] [place] [address] Care Team Providers Care Import Export Agent Name Role Phone Sherin Garza MD Primary Care Provider [phone] Tanvir Peñaloza PA-C Unavailable Unavailab Johanna Swenson LPN Unavailable Unavailable Sherin Garza MD Unavailable [phone] Jose M Bearden Unavailable Unavailable Chris Galvan MD Unavailable [phone] Vini Joyce MD Unavailable [phone] Roberta Galvan [facility] Unavailable [phone] Alisson Roth PA-C Unavailable + [phone] Adelaida Waterman PA-C Unavailable [phone] Roberta Galvan [facility] Unavailable [phone] Roberta Gavlan [facility] Unavailable Jeremy Camejo MD Unavailable Nicolas Barragan MD Unavailable [phone] Encounter Details Date Type Department Care Team (Late st Contact Info) Description 05/09/2021 [facility] [address] [facility] [address] [place] [address] Sherin Garza MD [address] [place] [address] Social History Tobacco Use Types Packs/Day Years [...] and Family Once a week 05/01/2019 Attends [employer]hov[employer]'S Witness Services Patient declined 07/2018 Active Member of [...] points; Administer PHQ-9 if positive 1 01/17/2021 [facility] of Occupat ional Health - [...] PM CDT 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 Gender Identity Female 09/17/2018 1:36 AM [...] documented as of this encounter Care Teams Import Export Agent Relationship Specialty Start Date End Date Sherin Garza MD [address] [place] [address] PCP - General 08/16/01 Tanvir Peñaloza, PAArshC [address] [place] [address] Physician Field Map Technician 12/27/17 Johanna Rodríguez LPN Nurse Coordinator 12/27/17 Sherin Garza MD [address] [facility] [place] [address] Assigned PCP 06/15/18 Jose M Bearden Personal Advocate & Liaison (PAL) 05/01/19 05/16/21 Chris Galvan MD [address] [place] [address] Assigned OBGYN Provider 11/13/2005/25 Vini Joyce MD [address] [place] [address] Assigned Surgical Provider 01/29/21 Roberta Galvan, [facility] [address] [address] Pharmacist Pharmacist 05/17/21 07/26/22 Alisson Roth PA-C [address] [place] [address] Assigned Surgical Provider 05/14/2102/01/23 Adelaida Waterman PA-C [address] [place] [address] Assigned Sleep Provider 08/06/2104/19 Roberta Galvan, [facility] [address] [address] Assigned MTM Pharmacist 12/23/21 Roberta Galvan, [facility] [address] [address] Assigned MTM Pharmacist 03/28/22 Jeremy Camejo MD [address] [place] [address] Assigned OBGYN Provider 05/26/22 Nicolas Barragan MD [address] [place] [address] Assigned Surgical Provider 02/02/23 documented as of this encounter
--- OUTSIDE RECORDS SUMMARY | 2024-07-04 16:37 | XMS_ITS | Encounter Summary ---
Author Organization [place] Address [address] [facility] [place] [address] Care Team Providers Care Nib Adjuster Name Role Phone Sherin Garza MD Primary Care Provider [phone] Tanvir Peñaloza PA-C Unavailable Unavailab Johanna Swenson LPN Unavailable Unavailable Sherin Garza MD Unavailable [phone] Jose M Bearden Unavailable Unavailable Chris Galvan MD Unavailable [phone] Vini Joyce MD Unavailable [phone] Roberta Galvan [facility] Unavailable Alisson Roth PA-C Unavailable [phone] Adelaida Waterman PA-C Unavailable + [phone] Roberta Galvan [facility] Unavailable Roberta Galvan [facility] Unavailable Jeremy Camejo MD Unavailable Nicolas Barragan MD Unavailable [phone] Encounter Details Date Type Department Care Team (Late st Contact Info) Description 02/28/2021 [facility] [address] [facility] [address] [place] [address] Sherin Garza MD [address] [address] [place] [address] Social History Tobacco Use Types Packs/Day Years [...] and Family Once a week 05/01/2019 Attends [employer] Services Patient declined 07/2018 Active Member of [...] points; Administer PHQ-9 if positive 1 01/17/2021 [facility] of Occupat ional Health [...] PM CDT 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 Gender Identity Female 09/17/2018 1:36 AM CDT [...] documented as of this encounter Care Teams Nib Adjuster Relationship Specialty Start Date End Date Sherin Garza MD [address] [facility] [place] [address] PCP - General 08/16/01 Tanvir Peñaloza, PA-C [address] [facility] [place] [address] Sql Developer 12/27/17 Johanna Rodríguez LPN Nurse Coordinator 12/27/17 Sherin Garza MD [address] [facility] [place] [address] Assigned PCP 06/15/18 Jose M Bearden Personal Advocate & Liaison (PAL) 05/01/19 05/16/21 Chris Galvan MD [address] [facility] [address] [place] [address] Assigned OBGYN Provider 11/13/2005/25 Vini Joyce MD [address] [facility] [address] [place] [address] Assigned Surgical Provider 01/29/21 Roberta Galvan, [facility] [address] [place] [address] Pharmacist Pharmacist 05/17/21 07/26/22 Alisson Roth PA-C [address] [place] [address] Assigned Surgical Provider 05/14/2102/01/23 Adelaida Waterman PA-C [address] [place] [address] Assigned Sleep Provider 08/06/2104/19 Roberta Galvan, [facility] [address] [address] Assigned MTM Pharmacist 12/23/21 Roberta Galvan, [facility] [address] [address] Assigned MTM Pharmacist 03/28/22 Jeremy Camejo MD [address] [address] Assigned OBGYN Provider 05/26/22 Nicolas Barragan MD [address] [place] [address] Assigned Surgical Provider 02/02/23 documented as of this encounter
--- OUTSIDE RECORDS SUMMARY | 2024-07-04 16:37 | XMS_ITS | Encounter Summary ---
Author Organization [place] Address [address] [facility] [place] [address] Care Team Providers Care Advertising Specialist Name Role Phone Sherin Garza MD Primary Care Provider [phone] Tanvir Peñaloza PA-C Unavailable Unavailab Johanna Swenson LPN Unavailable Unavailable Sherin Garza MD Unavailable [phone] Chris Galvan MD Unavailable [phone] Roberta Galvan [facility] Unavailable Alisson Roth PA-C Unavailable + [phone] Adelaida Waterman PA-C Unavailable + [phone] Roberta Galvan [facility] Unavailable [phone] Roberta Galvan [facility] Unavailable [phone] Jeremy Camejo MD Unavailable Nicolas Barragan MD Unavailable [phone] Encounter Details Date Type Department Care Team (Late st Contact Info) Description 08/09/2021 [facility] [address] [address] Nikki Ferris Social History Tobacco [...] points; Administer PHQ-9 if positive 1 01/17/2021 [facility] of Occupat ional Health - [...] PM CDT 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 No / Unsure 08/09/2021 9:40 AM HEALTH COMMUNICATIONS SPECIALIST documented as of this encounter Plan of Treatment Not on file documented as of this encounter Visit Diagnoses Not on filedocumented in this encounter Additional Health Concerns Assessment Noted Time PHQ-9 Depression Total Score: 3 01/19/20 7:03 AM CDT documented as of this encounter Care Teams Advertising Specialist Relationship Specialty Start Date End Date Sherin Garza MD [address] [place] [id number] PCP - General 08/16/01 OTanvir Pierre, PA-C [address] [place] [address] Physician Career Guidance Counselor 12/27/17 Johanna Rodríguez LPN Nurse Coordinator 12/27/17 Sherin Garza MD [address] [place] [address] Assigned PCP 06/15/18 Chris Galvan MD [address] [facility] [address] [place] [address] Assigned OBGYN Provider 11/13/2005/25 Roberta Galvan [facility] [address] [address] Pharmacist Pharmacist 05/17/21 07/26/22 Alisson Roth PA-C [address] [place] [address] Assigned Surgical Provider 05/14/2102/01/23 Adelaida Waterman PA-C [address] [place] [address] Assigned Sleep Provider 08/06/2104/19 Roberta Galvan, [facility] [address] [id number] Assigned MTM Pharmacist 12/23/21 Roberta Galvan, [facility] [address] [address] Assigned MTM Pharmacist 03/28/22 Jeremy Camejo MD [address] [place] [address] Assigned OBGYN Provider 05/26/22 Nicolas Barragan MD 9 [place] [address] Assigned Surgical Provider 02/02/23 documented as of this encounter
--- OUTSIDE RECORDS SUMMARY | 2024-07-04 16:37 | XMS_ITS | Encounter Summary ---
Author Organization [place] Address [address] [facility] [place] [address] Care Team Providers Care Pediatrician Active Practice Name Role Phone Sherin Garza MD Primary Care Provider [phone] Tanvir Peñaloza PA-C Unavailable Unavailab Johanna Swenson LPN Unavailable Unavailable Sherin Garza MD Unavailable [phone] Jose M Bearden Unavailable Unavailable Chris Galvan MD Unavailable [phone] Vini Joyce MD Unavailable [phone] Roberta Galvan [facility] Unavailable [phone] Alisson Roth PA-C Unavailable + [phone] Adelaida Waterman PA-C Unavailable [phone] Roberta Galvan [facility] Unavailable [phone] Roberta Galvan [facility] Unavailable [phone] Jeremy Camejo MD Unavailable Nicolas Barragan MD Unavailable [phone] Reason for Referral * Consultation (Routine) - Closed Specialty Diagnoses / Procedures Referred By Contac t Referred To Contact Bariatric Diagnoses Class 2 obesity due to excess calories without serious comorbidity with body mass index (BMI) of 39.0 to 39.9 in adult Sherin Garza MD [address] [place] [address] [place] [address] Phone: tel: fax: [facility] [place] [address] [place] [address] Phone: tel: fax: Referral ID Status Reason Start Date Expiration Date Visits Re quested Visits Authorized [id number] Closed 03/15/2021 03/15/2022 1 1 Question Answer [facility] Medical Weight Management Preferred Location: [facility] Comprehensive Weight - [place] Scheduling Instructions: Please [...] Contact Info) Description 03/13/2021 MyC Medical Advice [facility] [place] [address] [facility] [address] [place] [address] Sherin Garza MD [address] [place] [address] [place] [address] Family history of malignant [...] and Family Once a week 05/01/2019 Attends J[employer] Services Patient declined 07/2018 Active Member of [...] points; Administer PHQ-9 if positive 1 01/17/2021 [facility] of Occupat ional Health - [...] PM CDT 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 * Telephone Encounter - Jainna Hussein CMA - 03/14/2021 7:50 AM CDT [...] documented as of this encounter Care Teams Pediatrician Active Practice Relationship Specialty Start Date End Date Sherin Garza MD [address] [facility] [place] [address] PCP - General 08/16/01 Tanvir Peñaloza PA-C [address] [facility] [place] [address] Physician Territory Representative 12/27/17 Johanna Rodríguez LPN Nurse Coordinator 12/27/17 Sherin Garza MD [address] [place] [place] [address] Assigned PCP 06/15/18 Jose M Bearden Personal Advocate & Liaison (PAL) 05/01/19 05/16/21 Chris Galvan MD [address] [place] [address] Assigned OBGYN Provider 11/13/2005/25 Vini Joyce MD [address] [place] [address] Assigned Surgical Provider 01/29/21 [facility] [address] [place] [address] Pharmacist Pharmacist 05/17/21 07/26/22 Alisson Roth PA-C [address] [place] [address] Assigned Surgical Provider 05/14/2102/01/23 Adelaida Waterman PA-C [address] [place] [address] Assigned Sleep Provider 08/06/2104/19 Roberta Galvan, [facility] [address] [place], [place] [address] Assigned MTM Pharmacist 12/23/21 Roberta Galvan, [facility] [address] [place] [address] Assigned MTM Pharmacist 03/28/22 Jeremy Camejo MD [address] [place] [address] Assigned OBGYN Provider 05/26/22 Nicolas Barragan MD [address] [place], [place] [address] Assigned Surgical Provider 02/02/23 documented as of this encounter
--- OUTSIDE RECORDS SUMMARY | 2024-07-04 16:37 | XMS_ITS | Encounter Summary ---
Author Organization [place] Address [address] [facility] [place] [address] Care Team Providers Care Retail Business Manager Name Role Phone Sherin Garza MD Primary Care Provider [phone] Tanvir Peñaloza PA-C Unavailable Unavailab Johanna Swenson LPN Unavailable Unavailable Sherin Garza MD Unavailable [phone] Jose M Bearden Unavailable Unavailable Chris Galvan MD Unavailable [phone] Asaf Perales MD Unavailable Trinh Jacobson-C Unavailable Vini Joyce MD Unavailable [phone] Roberta Galvan [facility] Unavailable Alisson Roth-C Unavailable [phone] Adelaida Waterman-C Unavailable [phone] Roberta Galvan [facility] Unavailable [phone] Roberta Galvan [facility] Unavailable [phone] Jeremy Camejo MD Unavailable [phone] Nicolas Barragan MD Unavailable [phone] Encounter Details Date Type Department Care Team (Late st Contact Info) Description 12/28/2020 MyC Medical Advice [facility] [place] [address] [place] [address] Mack Brown Social History Tobacco [...] and Family Once a week 05/01/2019 Attends Religion Services Patient declined 07/2018 Active Member of [...] Answer Date Recorded PHQ-2 Score 1 12/15/2020 [facility] of Occupat ional Health - [...] PM CDT 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 Gender Identity Female 09/17/2018 1:36 AM [...] documented as of this encounter Care Teams Retail Business Manager Relationship Specialty Start Date End Date Sherin Garza MD [address] [facility] [place] [address] PCP - General 08/16/01 Tanvir Peñaloza, PAArshC [address] [place] [address] [place] [address] Physician Welt Cutter 12/27/17 Johanna Rodríguez LPN Nurse Coordinator 12/27/17 Sherin Garza MD [address] [facility] [place] [address] Assigned PCP 06/15/18 Jose M Bearden Personal Advocate & Liaison (PAL) 05/01/19 05/16/21 Chris Galvan MD [address] [place] [address] Assigned OBGYN Provider 11/13/2005/25 Asaf Perales MD [address] [place] [address] Assigned Surgical Provider 12/18/2012/31/20 Trinh Jacobson PA-C [address] [place] [address] Assigned Surgical Provider 01/01/21 Vini Joyce MD [address] [facility] [address] [place] [address] Assigned Surgical Provider 01/29/21 Roberta Galvan [facility] [address] [place], [place] [address] Pharmacist Pharmacist 05/17/21 07/26/22 Alisson Roth PA-C [address] [place] [address] Assigned Surgical Provider 05/14/2102/01/23 Adelaida Waterman PA-C [address] [place] [address] Assigned Sleep Provider 08/06/2104/19 Roberta Galvan [facility] [address] [place], [place] [address] Assigned MTM Pharmacist 12/23/21 Roberta Galvan [facility] [address] [place] [address] Assigned MTM Pharmacist 03/28/22 Jeremy Camejo MD [address] [place] [address] Assigned OBGYN Provider 05/26/22 Nicolas Barragan MD [address] [place], [place] [address] Assigned Surgical Provider 02/02/23 documented as of this encounter
--- OUTSIDE RECORDS SUMMARY | 2024-07-04 16:37 | XMS_ITS | Encounter Summary ---
Author Organization [place] Address [address] [place] [address] Care Team Providers Care Farm Machinery Erector Name Role Phone Sherin Garza MD Primary Care Provider [phone] Tanvir Peñaloza PA-C Unavailable Unavailab Johanna Swenson LPN Unavailable Unavailable Sherin Garza MD Unavailable [phone] Chris Galvan MD Unavailable [phone] Roberta Galvan [facility] Unavailable [phone] Alisson Roth PA-C Unavailable [phone] Adelaida Waterman PA-C Unavailable + [phone] Roberta Galvan [facility] Unavailable [phone] Roberta Galvan [facility] Unavailable [phone] Jeremy Camejo MD Unavailable [phone] Nicolas Barragan MD Unavailable [phone] Encounter Details Date Type Department Care Team (Late st Contact Info) Description 08/01/2021 [facility] Weight [facility] [place] [address] [facility] [address] [place] [address] Alisson Roth PA-C [address] [place] [address] Social History Tobacco Use Types Packs/Day Years [...] points; Administer PHQ-9 if positive 1 01/17/2021 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 Gender Identity Female 09/17/2018 1:36 AM [...] documented as of this encounter Care Teams Farm Machinery Erector Relationship Specialty Start Date End Date Sherin Garza MD [address] [place] [employer] [facility] [place] [address] PCP - General 08/16/01 Tanvir Peñaloza, PA-C [address] [facility] [facility] [place] [address] Physician Master [employer] 12/27/17 Johanna Rodríguez LPN Nurse Coordinator 12/27/17 Sherin Garza MD [address] [facility] [place] [address] Assigned PCP 06/15/18 Chris Galvan MD [address] [facility] [address] [place] [address] Assigned OBGYN Provider 11/13/2005/25 Roberta Galvan, [facility] [address] [address] Pharmacist Pharmacist 05/17/21 07/26/22 Alisson Roth PA-C [address] [place] [address] Assigned Surgical Provider 05/14/2102/01/23 Adelaida Waterman PA-C [address] [place] [address] Assigned Sleep Provider 08/06/2104/19 Roberta Galvan, [facility] [address] [address] Assigned MTM Pharmacist 12/23/21 Roberta Galvan, [facility] [address] [address] Assigned MTM Pharmacist 03/28/22 Jeremy Camejo MD [address] [place] [address] Assigned OBGYN Provider 05/26/22 Nicolas Barragan MD 9 [place] [address] Assigned Surgical Provider 02/02/23 documented as of this encounter
--- OUTSIDE RECORDS SUMMARY | 2024-07-04 16:37 | XMS_ITS | Encounter Summary ---
Author Organization [place] Address [address] [facility] [place] [address] Care Team Providers Care Manager Apple Name Role Phone Sherin Garza MD Primary Care Provider [phone] Tanvir Peñaloza PA-C Unavailable Unavailab Johanna Swenson LPN Unavailable Unavailable Sherin Garza MD Unavailable [phone] hCris Galvan MD Unavailable [phone] Roberta Galvan [facility] Unavailable Alisson Roth PA-C Unavailable [phone] Adelaida Waterman PA-C Unavailable + [phone] Roberta Galvan [facility] Unavailable [phone] Roberta Galvan [facility] Unavailable [phone] Jeremy Camejo MD Unavailable [phone] Nicolas Barragan MD Unavailable [phone] Encounter Details Date Type Department Care Team (Late st Contact Info) Description 07/20/2021 [facility] [place] [address] [facility] [address] [place] [address] Sherin Garza MD [address] [facility] [place] [address] Social History Tobacco Use Types Packs/Day Years [...] and Family Once a week 05/01/2019 Attends Synagogue Services Patient declined 07/2018 Active Member of [...] points; Administer PHQ-9 if positive 1 01/17/2021 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 AB DEVELOPER documented in this encounter Plan of Treatment Not on file documented as of this encounter Visit Diagnoses Not on filedocumented in this encounter Additional Health Concerns Assessment Noted Time PHQ-9 Depression Total Score: 3 01/19/20 21 7:03 AM CDT documented as of this encounter Care Teams Manager Apple Relationship Specialty Start Date End Date Sherin Garza MD [address] [employer] [place] [address] PCP - General 08/16/01 Tanvir Peñaloza PAArshC [address] [place] [address] Physician Pattern Shop Supervisor 12/27/17 Johanna Rodríguez LPN Nurse Coordinator 12/27/17 Sherin Garza MD [address] [place] [address] Assigned PCP 06/15/18 Crhis Galvan MD [address] [facility] [address] [place] [address] Assigned OBGYN Provider 11/13/2005/25 Roberta Galvan [facility] [address] [address] Pharmacist Pharmacist 05/17/21 07/26/22 Alisson Roth PA-C [address] [place] [address] Assigned Surgical Provider 05/14/2102/01/23 Adelaida Waterman PA-C [address] [place] [address] Assigned Sleep Provider 08/06/2104/19 Roberta Galvan [facility] [address] [address] Assigned MTM Pharmacist 12/23/21 Roberta Galvan [facility] [address] [address] Assigned MTM Pharmacist 03/28/22 Jeremy Camejo MD [facility] [place] [address] Assigned OBGYN Provider 05/26/22 Nioclas Barragan MD [address] [place] [address] Assigned Surgical Provider 02/02/23 documented as of this encounter
--- OUTSIDE RECORDS SUMMARY | 2024-07-04 16:37 | XMS_ITS | Encounter Summary ---
Author Organization [place] Address [address] [facility] [place] [address] Care Team Providers Care Color Checker Roving Or Yarn Name Role Phone Sherin Garza MD Primary Care Provider [phone] Tanvir Peñaloza PA-C Unavailable Unavailab Johanna Swenson LPN Unavailable Unavailable Sherin Garza MD Unavailable [phone] Jose M Bearden Unavailable Unavailable Chris Galvan MD Unavailable [phone] Vini Joyce MD Unavailable [phone] Roberta Galvan [facility] Unavailable Alisson Roth PA-C Unavailable + [phone] Adelaida Waterman PA-C Unavailable + [phone] Roberta Galvan [facility] Unavailable Roberta Galvan [facility] Unavailable [phone] Jeremy Camejo MD Unavailable Nicolas Barragan MD Unavailable [phone] Reason for Visit * Reason Onset Date Comments MyChart Communication 05/05/2021 e-visit Encounter Details Date Type Department Care Team (Latest Contact Info) Description 05/05/2021 [facility] [address] [facility] [address] [place] [id number] Sherin Garza MD [address] [facility] [place] [address] MyChart Communication (e-visit) Social History Tobacco Use [...] points; Administer PHQ-9 if positive 1 01/17/2021 [facility] [place] of Occupat ional Health - Occupational Stress [...] PM CDT 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 Gender Identity Female 09/17/2018 1:36 [...] documented as of this encounter Care Teams Color Checker Roving Or Yarn Relationship Specialty Start Date End Date Sherin Garza MD [address] [employer] [facility] [place] [address] PCP - General 08/16/01 Tanvir Peñaloza, PAArhsC [address] [employer] [address] [facility] [place] [address] Physician Ironworker Helper Shop 12/27/17 Johanna Rodríguez LPN Nurse Coordinator 12/27/17 Sherin Garza MD [address] [employer] [facility] [place] [address] Assigned PCP 06/15/18 Jose M Bearden Personal Advocate & Liaison (PAL) 05/01/19 05/16/21 Chris Galvan MD [address] [facility] [address] [place] [address] Assigned OBGYN Provider 11/13/2005/25 Vini Joyce MD [address] [place] [address] Assigned Surgical Provider 01/29/21 Roberta Galvan, [facility] [address] [id number] Pharmacist Pharmacist 05/17/21 07/26/22 Alisson Roth PA-C [address] [place] [address] Assigned Surgical Provider 05/14/2102/01/23 Adelaida Waterman PA-C [address] [place] [address] Assigned Sleep Provider 08/06/2104/19 Roberta Galvan, [facility] [address] [id number] Assigned MTM Pharmacist 12/23/21 Roberta Galvan, [facility] [address] [id number] Assigned MTM Pharmacist 03/28/22 Jeremy Camejo MD [address] [place] [address] Assigned OBGYN Provider 05/26/22 Nicolas Barragan MD [address] [place] [id number] Assigned Surgical Provider 02/02/23 documented as of this encounter
--- OUTSIDE RECORDS SUMMARY | 2024-07-04 16:37 | XMS_ITS | Encounter Summary ---
Author Organization [place] Address [address] [place] [address] Care Team Providers Care Retail Sales Specialist Name Role Phone Sherin Garza MD Primary Care Provider [phone] Tanvir Peñaloza PA-C Unavailable Unavailab Johanna Swenson LPN Unavailable Unavailable Sherin Garza MD Unavailable [phone] Jose M Bearden Unavailable Unavailable Chris Galvan MD Unavailable [phone] Vini Joyce MD Unavailable [phone] Roberta Galvan [facility] Unavailable [phone] Alisson Roth PA-C Unavailable + [phone] Adelaida Waterman PA-C Unavailable + [phone] Roberta Galvan [facility] Unavailable Roberta Galvan [facility] Unavailable Jeremy Camejo MD Unavailable [phone] Nicolas Barragan MD Unavailable [phone] Encounter Details Date Type Department Care Team (Late st Contact Info) Description 02/08/2021 External Order Results [facility] [address] [place] [address] Outside, Provider Family history of malignant neoplasm [...] if positive 1 01/17/2021 [facility] - Occupational Stress Questionnaire Answer Date [...] PM CDT 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 documented in this encounter Visit Diagnoses Diagnosis Family history of malignant neoplasm of breast Family history of malignant neoplasm of ovary Family history of prostate cancer Family history of malignant neoplasm of prostate documented in this encounter Additional Health Concerns Assessment Noted Time PHQ-9 Depression Total Score: 3 01/19/20 21 7:03 AM CDT documented as of this encounter Care Teams Retail Sales Specialist Relationship Specialty Start Date End Date Sherin Garza MD [address] [facility] [place] [address] PCP - General 08/16/01 Tanvir Peñaloza PA-C [address] [facility] [place] [address] Physician Mid Teacher 12/27/17 Johanna Rodríguez LPN Nurse Coordinator 12/27/17 Sherin Garza MD [address] [facility] [place] [address] Assigned PCP 06/15/18 Jose M Bearden Personal Advocate & Liaison (PAL) 05/01/19 05/16/21 Chris Galvan MD [address] [place] [address] Assigned OBGYN Provider 11/13/2005/25 Vini Joyce MD [address] [place] [address] Assigned Surgical Provider 01/29/21 Roberta Galvan [facility] [address] [place] [address] Pharmacist Pharmacist 05/17/21 07/26/22 Alisson Roth PA-C [address] [place] [address] Assigned Surgical Provider 05/14/2102/01/23 Adelaida Waterman PA-C [address] [place] [address] Assigned Sleep Provider 08/06/2104/19 Roberta Galvan [facility] [address] [address] Assigned MTM Pharmacist 12/23/21 Roberta Galvan [facility] [address] [address] Assigned MTM Pharmacist 03/28/22 Jeremy Camejo MD [address] [place] [address] Assigned OBGYN Provider 05/26/22 Nicolas Barragan MD [address] [place] [address] Assigned Surgical Provider 02/02/23 documented as of this encounter
--- OUTSIDE RECORDS SUMMARY | 2024-07-04 16:37 | XMS_ITS | Encounter Summary ---
Author Organization [place] Address [address] [facility] [place] [address] Care Team Providers Care Welding Process Specialist Name Role Phone Sherin Garza MD Primary Care Provider [phone] Tanvir Peñaloza PA-C Unavailable Unavailab Johanna Swenson LPN Unavailable Unavailable Sherin Garza MD Unavailable [phone] Jose M Bearden Unavailable Unavailable Chris Galvan MD Unavailable [phone] Trinh JacobsonC Unavailable Vini Joyce MD Unavailable [phone] Roberta Galvan [facility] Unavailable [phone] Alisson RothC Unavailable Adelaida WatermanC Unavailable [phone] Roberta Galvan [facility] Unavailable [phone] Roberta Galvan [facility] Unavailable [phone] Jeremy Camejo MD Unavailable Nicolas Barragan MD Unavailable [phone] Encounter Details Date Type Department Care Team (Late st Contact Info) Description 01/19/2021 [facility] [address] [facility] [address] [place] [address] Charmaine Raymond, [...] PM CDT 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 Gender Identity Female 09/17/2018 1:36 AM [...] documented as of this encounter Care Teams Welding Process Specialist Relationship Specialty Start Date End Date Sherin Garza MD [address] [employer] [facility] [place] [address] PCP - General 08/16/01 Tanvir Peñaloza, PAArshC [address] [facility] [place] [address] Physician Student Support Services Director 12/27/17 Johanna Rodríguez LPN Nurse Coordinator 12/27/17 Sherin Garza MD [address] [facility] [place] [address] Assigned PCP 06/15/18 Jose M Bearden Personal Advocate & Liaison (PAL) 05/01/19 05/16/21 Chris Galvan MD [address] [facility] [address] [place] [address] Assigned OBGYN Provider 11/13/2005/25 Trinh Jacobson PA-C [address] [place] [address] Assigned Surgical Provider 01/01/21 Vini Joyce MD [address] [place] [address] Assigned Surgical Provider 01/29/21 Roberta Galvan [facility] [address] [address] Pharmacist Pharmacist 05/17/21 07/26/22 Alisson Roth PA-C [address] [place] [address] Assigned Surgical Provider 05/14/2102/01/23 Adelaida Waterman PA-C [address] [place] [address] Assigned Sleep Provider 08/06/2104/19 Roberta Galvan [facility] [address] [id number] Assigned MTM Pharmacist 12/23/21 Roberta Galvan [facility] [address] [address] Assigned MTM Pharmacist 03/28/22 Jeremy Camejo MD [address] [place] [address] Assigned OBGYN Provider 05/26/22 Nicolas Barragan MD [address] [place] [address] Assigned Surgical Provider 02/02/23 documented as of this encounter
--- OUTSIDE RECORDS SUMMARY | 2024-07-04 16:37 | XMS_ITS | Encounter Summary ---
Author Organization [place] Address [address] [place] [address] Care Team Providers Care Marketing Planning Manager Name Role Phone Sherin Garza MD Primary Care Provider [phone] Tanvir Peñaloza PA-C Unavailable Unavailab Johanna Swenson LPN Unavailable Unavailable Sherin Garza MD Unavailable [phone] Jose M Bearden Unavailable Unavailable Chris Galvan MD Unavailable [phone] Vini Joyce MD Unavailable [phone] Roberta Galvan [facility] Unavailable Alisson Roth PA-C Unavailable [phone] Adelaida Waterman PA-C Unavailable [phone] Roberta Galvan [facility] Unavailable Roberta Galvan [facility] Unavailable [phone] Jeremy Camejo MD Unavailable [phone] Nicolas Barragan MD Unavailable [phone] Encounter Details Date Type Department Care Team (Late st Contact Info) Description 02/03/[address] [place] [address] Sherin Garza MD [address] [facility] 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 Nathaniel direct number is [phone] if any questions she asked for this [...] documented as of this encounter Care Teams Marketing Planning Manager Relationship Specialty Start Date End Date Sherin Garza MD [address] [place] [address] PCP - General 08/16/01 Tanvir Peñaloza, PAArshC [address] [place] [address] Physician Water Sponger 12/27/17 Johanna Rodríguez LPN Nurse Coordinator 12/27/17 Sherin Garza MD [address] [place] [address] Assigned PCP 06/15/18 Jose M Bearden Personal Advocate & Liaison (PAL) 05/01/19 05/16/21 Chris Galvan MD [address] [place] [address] Assigned OBGYN Provider 11/13/2005/25 Vini Joyce MD [address] [place] [address] Assigned Surgical Provider 01/29/21 Roberta Galvan, [facility] [address] [address] Pharmacist Pharmacist 05/17/21 07/26/22 Alisson Roth PA-C [address] [place] [address] Assigned Surgical Provider 05/14/2102/01/23 Adelaida Waterman PA-C [address] [place] [address] Assigned Sleep Provider 08/06/2104/19 Roberta Galvan [facility] [address] [id number] Assigned MTM Pharmacist 12/23/21 Roberta Galvan, [facility] [address] [id number] Assigned MTM Pharmacist 03/28/22 Jeremy Camejo MD [address] [place] [address] Assigned OBGYN Provider 05/26/22 Nicolas Barragan MD [address] [place], [place] [address] Assigned Surgical Provider 02/02/23 documented as of this encounter
--- OUTSIDE RECORDS SUMMARY | 2024-07-04 16:37 | XMS_ITS | Encounter Summary ---
Author Organization [place] Address [address] [facility] [address] Care Team Providers Care Health Care Coach Name Role Phone Sherin Garza MD Primary Care Provider [phone] Tanvir Peñaloza PA-C Unavailable Unavailab Johanna Swenson LPN Unavailable Unavailable Sherin Garaz MD Unavailable [phone] Chris Galvan MD Unavailable [phone] Roberta Galvan [facility] Unavailable Alisson Roth PA-C Unavailable + [phone] Adelaida Waterman PA-C Unavailable + [phone] Roberta Galvan [facility] Unavailable [phone] Roberta Galvan [facility] Unavailable [phone] Jeremy Camejo MD Unavailable [phone] Nicolas Barragan MD Unavailable [phone] Encounter Details Date Type Department Care Team (Late st Contact Info) Description 05/22/2021 MyC Medical Advice [facility] [address] [place] [address] Malena Lofton, EMT Social History [...] points; Administer PHQ-9 if positive 1 01/17/2021 [facility] of Occupat ional Health - Occupational [...] PM CDT 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 Gender Identity Female 09/17/2018 1:36 AM CDT [...] documented as of this encounter Care Teams Health Care Coach Relationship Specialty Start Date End Date Sherin Garza MD [address] [place] [address] PCP - General 08/16/01 Tanvir Peñaloza PAArshC [address] [place] [address] Physician Restaurant Mgr 12/27/17 Johanna Rodríguez LPN Nurse Coordinator 12/27/17 Sherin Garza MD [address] [facility] [place] [address] Assigned PCP 06/15/18 Chris Galvan MD [address] [facility] [address] [place] [address] Assigned OBGYN Provider 11/13/2005/25 Roberta Galvan [facility] [address] [address] Pharmacist Pharmacist 05/17/21 07/26/22 Alisson Roth PA-C [address] [place] [address] Assigned Surgical Provider 05/14/2102/01/23 Adelaida Waterman PA-C [address] [place] [address] Assigned Sleep Provider 08/06/2104/19 Roberta Galvan [facility] [address] [address] Assigned MTM Pharmacist 12/23/21 Roberta Galvan [facility] [address] [address] Assigned MTM Pharmacist 03/28/22 Jeremy Camejo MD [address] [place] [address] Assigned OBGYN Provider 05/26/22 Nicolas Barragan MD [address] [place] [address] Assigned Surgical Provider 02/02/23 documented as of this encounter
--- OUTSIDE RECORDS SUMMARY | 2024-07-04 16:37 | XMS_ITS | Encounter Summary ---
Author Organization [place] Address [address] [facility] [place] [address] Care Team Providers Care Cafe Cook Name Role Phone Sherin Garza MD Primary Care Provider [phone] Tanvir Peñaloza PA-C Unavailable Unavailab Johanna Swenson LPN Unavailable Unavailable Sherin Garza MD Unavailable [phone] Chris Galvan MD Unavailable [phone] Roberta Galvan [facility] Unavailable [phone] Alisson Roth PA-C Unavailable [phone] Adelaida Waterman PA-C Unavailable [phone] Roberta Galvan [facility] Unavailable [phone] Roberta Galvan [facility] Unavailable [phone] Jeremy Camejo MD Unavailable Nicolas Barragan MD Unavailable [phone] Encounter Details Date Type Department Care Team (Late st Contact Info) Description 05/17/2021 [facility] [address] 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 Gender Identity Female 09/17/2018 1:36 AM CDT [...] documented as of this encounter Care Teams Cafe Cook Relationship Specialty Start Date End Date Sherin Garza MD [address] [employer] [facility] [place] [address] PCP - General 08/16/01 Tanvir Peñaloza, PA-C [address] [employer] [facility] [place] [address] Physician Meat Seafood Associate 12/27/17 Johanna Rodríguez LPN Nurse Coordinator 12/27/17 Sherin Garza MD [address] [employer] [facility] [place] [address] Assigned PCP 06/15/18 Chris Galvan MD [address] [place] [address] Assigned OBGYN Provider 11/13/2005/25 Roberta Galvan, [facility] [address] [address] Pharmacist Pharmacist 05/17/21 07/26/22 Alisson Roth PA-C [address] [place] [address] Assigned Surgical Provider 05/14/2102/01/23 Adelaida Waterman PA-C [address] [place] [address] Assigned Sleep Provider 08/06/2104/19 Roberta Galvan, [facility] [address] [id number] Assigned MTM Pharmacist 12/23/21 Roberta Galvan, [facility] [address] [address] Assigned MTM Pharmacist 03/28/22 Jeremy Camejo MD [address] [place] [address] Assigned OBGYN Provider 05/26/22 Nicolas Barragan MD [address] [place] [address] Assigned Surgical Provider 02/02/23 documented as of this encounter
--- OUTSIDE RECORDS SUMMARY | 2024-07-04 16:37 | XMS_ITS | Encounter Summary ---
Author Organization [place] Address [address] [place] [address] Care Team Providers Care Farm Forestry And Garden Workers Name Role Phone Sherin Garza MD Primary Care Provider [phone] Tanvir Peñaloza PA-C Unavailable Unavailab Johanna Swenson LPN Unavailable Unavailable Sherin Garza MD Unavailable [phone] Jose M Bearden Unavailable Unavailable Chris Galvan MD Unavailable [phone] Vini Joyce MD Unavailable [phone] Roberta Galvan [facility] Unavailable Alisson Roth PA-C Unavailable [phone] Adelaida Waterman PA-C Unavailable + [phone] Roberta Galvan [facility] Unavailable Roberta Galvan [facility] Unavailable [phone] Jeremy Camejo MD Unavailable Nicolas Barragan MD Unavailable Encounter Details Date Type Department Care Team (Late st Contact Info) Description 03/14/2021 [facility] Medical Advice [facility] [address] [place] [address] [address] [place] [address] Janina Hussein, VOCATIONAL CASE MANAGER Social History Tobacco Use Types Packs/Day Years [...] and Family Once a week 05/01/2019 Attends Rastafarian Services Patient declined 07/2018 Active Member of [...] points; Administer PHQ-9 if positive 1 01/17/2021 [facility] [place] - Occupational Stress Questionnaire Answer Date Recorded [...] PM CDT 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 Gender Identity Female 09/17/2018 1:36 AM CDT [...] as of this encounter Care Teams Farm Forestry And Garden Workers Relationship Specialty Start Date End Date Sherin Garza MD [address] [employer] [facility] [place] [address] PCP - General 08/16/01 Tanvir Peñaloza, PAArshC [address] [facility] [place] [address] Physician Gig Tender 12/27/17 Johanna Rodríguez LPN Nurse Coordinator 12/27/17 Sherin Garza MD [address] [facility] [place] [address] Assigned PCP 06/15/18 Jose M Bearden Personal Advocate & Liaison (PAL) 05/01/19 05/16/21 Chris Galvan MD [address] [place] [address] Assigned OBGYN Provider 11/13/2005/25 Vnii Joyce MD [address] [place] [address] Assigned Surgical Provider 01/29/21 Roberta Galvan, [facility] [address] [id number] Pharmacist Pharmacist 05/17/21 07/26/22 Alisson Roth PA-C [address] [place] [address] Assigned Surgical Provider 05/14/2102/01/23 Adelaida Waterman PA-C [address] [place] [address] Assigned Sleep Provider 08/06/2104/19 Roberta Galvan [facility] [address] [id number] Assigned MTM Pharmacist 12/23/21 Roberta Galvan, [facility] [address] [id number] Assigned MTM Pharmacist 03/28/22 Jeremy Camejo MD [address] [place] [address] Assigned OBGYN Provider 05/26/22 Nicolas Barragan MD [address] [place] [address] Assigned Surgical Provider 02/02/23 documented as of this encounter
--- OUTSIDE RECORDS SUMMARY | 2024-07-04 16:37 | XMS_ITS | Encounter Summary ---
Author Organization [place] Address [address] [place] [address] Care Team Providers Care Instrument Operator Name Role Phone Sherin Garza MD Primary Care Provider [phone] Tanvir Peñaloza PA-C Unavailable Unavailab Johanna Swenson LPN Unavailable Unavailable Sherin Garza MD Unavailable [phone] Chris Galvan MD Unavailable [phone] Roberta Galvan [facility] Unavailable [phone] Alisson Roth PA-C Unavailable + [phone] Adelaida Waterman PA-C Unavailable + [phone] Roberta Galvan [facility] Unavailable [phone] Roberta Galvan [facility] Unavailable [phone] Jeremy Camejo MD Unavailable Nicolas Barragan MD Unavailable [phone] Encounter Details Date Type Department Care Team (Late st Contact Info) Description 08/29/2021 My[facility] Medical Advice [facility] [address] [place] [address] [address] [place] [address] Peace Llanos CMA Social History [...] and Family Once a week 05/01/2019 Attends Mosque Services Patient declined 07/2018 Active Member of [...] points; Administer PHQ-9 if positive 1 01/17/2021 [facility] of Occupat [...] PM CDT Legal 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 No / Unsure 08/17/2021 3:57 PM HOSTESS PARTY SALES REPRESENTATIVE documented as of this encounter Plan of Treatment Not on file documented as of this encounter Visit Diagnoses Not on filedocumented in this encounter Additional Health Concerns Assessment Noted Time PHQ-9 Depression Total Score: 5 09/09/19 7:01 AM HOSTESS PARTY SALES REPRESENTATIVE documented as of this encounter Care Teams Instrument Operator Relationship Specialty Start Date End Date Sherin Garza MD [address] [facility] [place] [address] PCP - General 08/16/01 Tanvir Peñaloza, PA-C [address] [facility] [place] [address] Physician Parts Counter Sales Person 12/27/17 Johanna Rodríguez LPN Nurse Coordinator 12/27/17 Sherin Garza MD [address] [facility] [place] [address] Assigned PCP 06/15/18 Chris Galvan MD [address] [facility] [address] [place] [address] Assigned OBGYN Provider 11/13/2005/25 Roberta Galvan, [facility] [address] [address] Pharmacist Pharmacist 05/17/21 07/26/22 Alisson Roth PA-C [address] [place] [address] Assigned Surgical Provider 05/14/2102/01/23 Adelaida Waterman PA-C [address] [place] [address] Assigned Sleep Provider 08/06/2104/19 Roberta Galvan, [facility] [address] [id number] Assigned MTM Pharmacist 12/23/21 Roberta Galvan, [facility] [address] [address] Assigned MTM Pharmacist 03/28/22 Jeremy Camejo MD [address] [place] [address] Assigned OBGYN Provider 05/26/22 Nicolas Barragan MD [address] [place] [address] Assigned Surgical Provider 02/02/23 documented as of this encounter
--- OUTSIDE RECORDS SUMMARY | 2024-07-04 16:37 | XMS_ITS | Encounter Summary ---
Author Organization [place] Address [address] [facility] [place] [address] Care Team Providers Care Tool Distributor Name Role Phone Sherin Garza MD Primary Care Provider [phone] Tanvir Peñaloza PA-C Unavailable Unavailab Johanna Swenson LPN Unavailable Unavailable Sherin Garza MD Unavailable [phone] Chris Galvan MD Unavailable [phone] Roberta Galvan [facility] Unavailable [phone] Alisson Roth PA-C Unavailable + [phone] Adelaida Waterman PA-C Unavailable [phone] Roberta Galvan [facility] Unavailable [phone] Roberta Galvan [facility] Unavailable [phone] Jeremy Camejo MD Unavailable [phone] Nicolas Barragan MD Unavailable [phone] Encounter Details Date Type Department Care Team (Late st Contact Info) Description 10/13/[address] 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 Gender Identity Female 09/17/2018 1:36 AM CDT [...] Depression Total Score: 5 09/09/19 7:01 AM CHAIR INSTALLER documented as of this encounter Care Teams Tool Distributor Relationship Specialty Start Date End Date Sherin Garza MD [address] [place] [address] PCP - General 08/16/01 Tanvir Peñaloza, PA-C [address] [facility] [place] [address] Physician Button Clamper 12/27/17 Johanna Rodríguez LPN Nurse Coordinator 12/27/17 Sherin Garza MD [address] [facility] [place] [address] Assigned PCP 06/15/18 Chris Galvan MD [address] [facility] [address] [place] [address] Assigned OBGYN Provider 11/13/2005/25 Roberta Galvan, [facility] [address] [address] Pharmacist Pharmacist 05/17/21 07/26/22 Alisson Roth PA-C [address] [place] [address] Assigned Surgical Provider 05/14/2102/01/23 Adelaida Waterman PA-C [address] [place] [address] Assigned Sleep Provider 08/06/2104/19 Roberta Galvan, [facility] [address] [address] Assigned MTM Pharmacist 12/23/21 Roberta Galvan, [facility] [address] [address] Assigned MTM Pharmacist 03/28/22 Jeremy Camejo MD [address] [place] [address] Assigned OBGYN Provider 05/26/22 Nicolas Barragan MD [address] [place] [address] Assigned Surgical Provider 02/02/23 documented as of this encounter
--- OUTSIDE RECORDS SUMMARY | 2024-07-04 16:37 | XMS_ITS | Encounter Summary ---
Author Organization [place] Address [facility] [place] [address] Care Team Providers Care Magnetic Prospector Name Role Phone Sherin Garza MD Primary Care Provider [phone] Tanvir Peñaloza PA-C Unavailable Unavailab Johanna Swenson LPN Unavailable Unavailable Sherin Garza MD Unavailable [phone] Jose M Bearden Unavailable Unavailable Chris Galvan MD Unavailable [phone] Roberta Galvan [facility] Unavailable Alisson Roth PA-C Unavailable + [phone] Adelaida Waterman PA-C Unavailable [phone] Roberta Galvan [facility] Unavailable Roberta Galvan [facility] Unavailable [phone] Jeremy Camejo MD Unavailable Nicolas Barragan MD Unavailable [phone] Encounter Details Date Type Department Care Team (Late st Contact Info) Description 05/14/2021 MyC Medical Advice [facility] Scheduling [facility] [place] [address] Court Alex Social History Tobacco [...] and Family Once a week 05/01/2019 Attends Scientology Services Patient declined 07/2018 Active Member of [...] if positive 1 01/17/2021 [facility] of Occupat ional Health - Occupational [...] PM CDT 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 Gender Identity Female 09/17/2018 1:36 AM [...] documented as of this encounter Care Teams Magnetic Prospector Relationship Specialty Start Date End Date Sherin Garza MD [address] [employer] [place] [address] PCP - General 08/16/01 Tanvir Peñaloza PA-C [address] [employer] [place] [address] Physician Perl Developer 12/27/17 Johanna Rodríguez LPN Nurse Coordinator 12/27/17 Sherin Garza MD [address] [facility] [place] [address] Assigned PCP 06/15/18 Jose M Bearden Personal Advocate & Liaison (PAL) 05/01/19 05/16/21 Chris Galvan MD [address] [facility] [address] [place] [address] Assigned OBGYN Provider 11/13/2005/25 Roberta Galvan [facility] [address] [place] [address] Pharmacist Pharmacist 05/17/21 07/26/22 Alisson Roth PA-C [address] [place] [address] Assigned Surgical Provider 05/14/2102/01/23 Adelaida Waterman PA-C [address] [place] [address] Assigned Sleep Provider 08/06/2104/19 Roberta Galvan, [facility] [address] [address] Assigned MTM Pharmacist 12/23/21 Roberta Galvan, [facility] [address] [address] Assigned MTM Pharmacist 03/28/22 Jeremy Camejo MD [address] [place] [address] Assigned OBGYN Provider 05/26/22 Nicolas Barragan MD [address] [place] [address] Assigned Surgical Provider 02/02/23 documented as of this encounter
--- OUTSIDE RECORDS SUMMARY | 2024-07-04 16:37 | XMS_ITS | Encounter Summary ---
Author Organization [place] Address [address] [facility] [place] [address] Care Team Providers Care Light Rail Signal Technician Name Role Phone Sherin Garza MD Primary Care Provider [phone] Tanvir Peñaloza PA-C Unavailable Unavailab Johanna Swenson LPN Unavailable Unavailable Sherin Garza MD Unavailable [phone] Jose M Bearden Unavailable Unavailable Chris Galvan MD Unavailable [phone] Trinh JacobsonC Unavailable [phone] Vini Joyce MD Unavailable [phone] Roberta Galvan [facility] Unavailable Alisson RothC Unavailable Adelaida WatermanC Unavailable [phone] Roberta Galvan [facility] Unavailable Roberta Galvan [facility] Unavailable [phone] Jeremy Camejo MD Unavailable Nicolas Barragan MD Unavailable [phone] Encounter Details Date Type Department Care Team (Late st Contact Info) Description 01/18/2021 [facility] [address] [facility] [address] [place] [address] Sherin Garza MD [address] [facility] [place] [address] PCOS (polycystic ovarian [...] and Family Once a week 05/01/2019 Attends Pentecostalism Services Patient declined 07/2018 Active Member of [...] points; Administer PHQ-9 if positive 1 01/17/2021 [facility] of Occupat ional Health - [...] PM CDT Legal Sex Female 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 Gender Identity Female 09/17/2018 1:36 AM CDT [...] documented as of this encounter Care Teams Light Rail Signal Technician Relationship Specialty Start Date End Date Sherin Garza MD [address] [employer] [facility] [place] [address] PCP - General 08/16/01 Tanvir Peñaloza PA-C [address] [facility] [place] [address] Physician Mrb Engineer 12/27/17 Johanna Rodríguez LPN Nurse Coordinator 12/27/17 Sherin Garza MD [address] [employer] [facility] [place] [address] Assigned PCP 06/15/18 Jose M Bearden Personal Advocate & Liaison (PAL) 05/01/19 05/16/21 Chris Galvan MD [address] [place] [address] Assigned OBGYN Provider 11/13/2005/25 Trinh Jacobson PA-C [address] [place] [address] Assigned Surgical Provider 01/01/21 Vini Joyce MD [address] [place], [place] [address] Assigned Surgical Provider 01/29/21 Roberta Galvan, [facility] [address] [address] Pharmacist Pharmacist 05/17/21 07/26/22 Alisson Roth PA-C [address] [place] [address] Assigned Surgical Provider 05/14/2102/01/23 Adelaida Waterman PA-C [address] [address] Assigned Sleep Provider 08/06/2104/19 Roberta Galvan, [facility] [address] [address] Assigned MTM Pharmacist 12/23/21 Roberta Galvan, [facility] [address] [place] [address] Assigned MTM Pharmacist 03/28/22 Jeremy Camejo MD [address] [place] [address] Assigned OBGYN Provider 05/26/22 Nicolas Barragan MD [address] [place] [address] Assigned Surgical Provider 02/02/23 documented as of this encounter
--- OUTSIDE RECORDS SUMMARY | 2024-07-04 16:37 | XMS_ITS | Encounter Summary ---
Author Organization [place] Address [address] [facility] [place] [address] Care Team Providers Care Viscosity Worker Name Role Phone Sherin Garza MD Primary Care Provider [phone] Tanvir Peñaloza PA-C Unavailable Unavailab Johanna Swenson LPN Unavailable Unavailable Sherin Garza MD Unavailable [phone] Chris Galvan MD Unavailable [phone] Roberta Galvan [facility] Unavailable [phone] Alisson Roth PA-C Unavailable [phone] Adelaida Waterman PA-C Unavailable [phone] Roberta Galvan [facility] Unavailable [phone] Roberta Galvan [facility] Unavailable [phone] Jeremy Camejo MD Unavailable Nicolas Barragan MD Unavailable [phone] Encounter Details Date Type Department Care Team (Late st Contact Info) Description 08/08/2021 [facility] [address] [facility] [address] [place] [address] Sherin Garza MD [address] [facility] [place] [address] Social History Tobacco Use Types Packs/Day Years [...] points; Administer PHQ-9 if positive 1 01/17/2021 [facility] - Occupational Stress Questionnaire Answer Date [...] PM CDT Legal 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 No / Unsure 08/09/2021 9:40 AM IMPREGNATOR OPERATOR documented as of this encounter Miscellaneous Notes * Telephone Encounter - Jayda Nesbitt LPN - 08/09/2021 7:50 AM CST Referral is not in chart, tried to do referral for ENT specialty care and it does not come up, states not found.please put referral in, it is in message dated 07/31/21. Jayda Nesbitt LPN EGNATOR OPERATOR documented in this encounter Plan of Treatment Not on file documented as of this encounter Visit Diagnoses Not on filedocumented in this encounter Additional Health Concerns Assessment Noted Time PHQ-9 Depression Total Score: 3 01/19/20 21 7:03 AM CDT documented as of this encounter Care Teams Viscosity Worker Relationship Specialty Start Date End Date Sherin Garza MD [address] [employer] [place] [address] PCP - General 08/16/01 Tanvir Peñaloza, TONY [address] [employer] [place] [address] Physician Aircraft Systems Repairer 12/27/17 Johanna Rodríguez LPN Nurse Coordinator 12/27/17 Sherin Garza MD [address] [facility] [place] [address] Assigned PCP 06/15/18 Chris Galvan MD [address] [facility] [address] [place] [address] Assigned OBGYN Provider 11/13/2005/25 Roberta Galvan, [facility] [address] [address] Pharmacist Pharmacist 05/17/21 07/26/22 Alisson Roth PA-C [address] [place] [address] Assigned Surgical Provider 05/14/2102/01/23 Adelaida Waterman PA-C [address] [place] [address] Assigned Sleep Provider 08/06/2104/19 Roberta Galvan, [facility] [address] [address] Assigned MTM Pharmacist 12/23/21 Roberta Galvan, [facility] [address] [address] Assigned MTM Pharmacist 03/28/22 Jeremy Camejo MD [address] [place] [address] Assigned OBGYN Provider 05/26/22 Nicolas Barragan MD [address] [place] [address] Assigned Surgical Provider 02/02/23 documented as of this encounter
--- OUTSIDE RECORDS SUMMARY | 2024-07-04 16:37 | XMS_ITS | Encounter Summary ---
Author Organization [place] Address [address] [facility] [place] [address] Care Team Providers Care Senior Web Analyst Name Role Phone Sherin Garza MD Primary Care Provider [phone] Tanvir Peñaloza PA-C Unavailable Unavailab Johanna Swenson LPN Unavailable Unavailable Sherin Garza MD Unavailable [phone] Jose M Bearden Unavailable Unavailable Chris Galvan MD Unavailable [phone] Vini Joyce MD Unavailable Roberta Galvan [facility] Unavailable Alisson Roth PA-C Unavailable [phone] Adelaida Waterman PA-C Unavailable [phone] Roberta Galvan [facility] Unavailable [phone] Roberta Galvan [facility] Unavailable Jeremy Camejo MD Unavailable Nicolas Barragan MD Unavailable Encounter Details Date Type Department Care Team (Late st Contact Info) Description 05/05/2021 [facility] [address] [place] [id number] Kaela Tee, TEJAS Social History Tobacco Use [...] and Family Once a week 05/01/2019 Attends [employer] Services Patient declined 07/2018 Active Member of [...] points; Administer PHQ-9 if positive 1 01/17/2021 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 Gender Identity Female 09/17/2018 1:36 AM [...] as of this encounter Care Teams Senior Web Analyst Relationship Specialty Start Date End Date Sherin Garza MD [address] [employer] [facility] [place] [address] PCP - General 08/16/01 Tanvir Peñaloza, PA-C [address] [place] Actual Experience [facility] [place] [address] Physician Credentialing Analyst 12/27/17 Johanna Rodríguez LPN Nurse Coordinator 12/27/17 Sherin Garza MD [address] [employer] [facility] [place] [address] Assigned PCP 06/15/18 Jose M Bearden Personal Advocate & Liaison (PAL) 05/01/19 05/16/21 Chris Galvan MD [address] [place] [address] Assigned OBGYN Provider 11/13/2005/25 Vini Joyce MD [address] [place] [address] Assigned Surgical Provider 01/29/21 Roberta Galvan, [facility] [address] [address] Pharmacist Pharmacist 05/17/21 07/26/22 Alisson Roth PA-C [address] [place] [address] Assigned Surgical Provider 05/14/2102/01/23 Adelaida Waterman PA-C [address] [place] [address] Assigned Sleep Provider 08/06/2104/19 Roberta Galvan [facility] [address] [place] [address] Assigned MTM Pharmacist 12/23/21 [facility] [address] [address] Assigned MTM Pharmacist 03/28/22 Jeremy Camejo MD [facility] [place] [address] Assigned OBGYN Provider 05/26/22 Nicolas Barragan MD [address] [place] [address] Assigned Surgical Provider 02/02/23 documented as of this encounter
--- OUTSIDE RECORDS SUMMARY | 2024-07-04 16:38 | XMS_ITS | Encounter Summary ---
Author Organization [place] Address [address] [facility] [place] [address] Care Team Providers Care Manager Garage Name Role Phone Sherin Garza MD Primary Care Provider [phone] Tanvir Peñaloza PA-C Unavailable Unavailab Johanna Swenson LPN Unavailable Unavailable Sherin Garza MD Unavailable [phone] Jose M Bearden Unavailable Unavailable Chris Galvan MD Unavailable [phone] Asaf Perales MD Unavailable [phone] Trinh Jacobson-C Unavailable Vini Joyce MD Unavailable [phone] Roberta Galvan [facility] Unavailable Alisson Roht-C Unavailable [phone] Adelaida Waterman-C Unavailable [phone] Roberta Galvan [facility] Unavailable [phone] Roberta Galvan [facility] Unavailable [phone] Jeremy Camejo MD Unavailable [phone] Nicolas Barragan MD Unavailable [phone] Encounter Details Date Type Department Care Team (Late st Contact Info) Description 07/06/2020 MyC Medical Advice [facility] [place] [address] 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 No / Unsure 07/08/2020 9:40 PM COVER MAKING MACHINE OPERATOR documented as of this encounter Plan of Treatment Not on file documented as of this encounter Visit Diagnoses Not on filedocumented in this encounter Additional Health Concerns Assessment Noted Time PHQ-9 Depression Total Score: 12 020 7:08 AM CDT documented as of this encounter Care Teams Manager Garage Relationship Specialty Start Date End Date Sherin Garza MD [address] [employer] [place] [address] PCP - General 08/16/01 Tanvir Peñaloza, PAArshC [address] [employer] [facility] [place] [address] Physician Card Decorator 12/27/17 Johanna Rodríguez LPN Nurse Coordinator 12/27/17 Sherin Garza MD [address] [employer] [facility] [place] [address] Assigned PCP 06/15/18 Jose M Bearden Personal Advocate & Liaison (PAL) 05/01/19 05/16/21 Chris Galvan MD [address] [place] [address] Assigned OBGYN Provider 11/13/2005/25 Asaf Perales MD [address] [place] [address] Assigned Surgical Provider 12/18/2012/31/20 Trinh Jacobson PA-C [address] [place], [place] [address] Assigned Surgical Provider 01/01/21 Vini Joyce MD [address] [place] [address] Assigned Surgical Provider 01/29/21 Roberta Galvan, [facility] [address] [place], [place] [address] Pharmacist Pharmacist 05/17/21 07/26/22 Alisson Roth PA-C [address] [place] [address] Assigned Surgical Provider 05/14/2102/01/23 Adelaida Waterman PA-C [address] [place] [address] Assigned Sleep Provider 08/06/2104/19 Roberta Galvan, [facility] [address] [address] Assigned MTM Pharmacist 12/23/21 Roberta Galvan [facility] [place] [address] [place] [address] Assigned MTM Pharmacist 03/28/22 Jeremy Camejo MD [address] [place] [address] Assigned OBGYN Provider 05/26/22 Nicolas Barragan MD [address] [place] [address] Assigned Surgical Provider 02/02/23 documented as of this encounter
--- OUTSIDE RECORDS SUMMARY | 2024-07-04 16:38 | XMS_ITS | Encounter Summary ---
Author Organization [place] Address [address] [facility] [place] [address] Care Team Providers Care Cardroom Plastic Card Grader Name Role Phone Sherin Garza MD Primary Care Provider [phone] Tanvir Peñaloza PA-C Unavailable Unavailab Johanna Swenson LPN Unavailable Unavailable Sherin Garza MD Unavailable [phone] Jose M Bearden Unavailable Unavailable Chris Galvan MD Unavailable [phone] Asaf Perales MD Unavailable Trinh Jacobson-C Unavailable [phone] Vini Joyce MD Unavailable [phone] Roberta Galvan [facility] Unavailable Alisson Roth-C Unavailable [phone] Adelaida Waterman-C Unavailable [phone] Roberta Galvan [facility] Unavailable [phone] Roberta Galvan [facility] Unavailable [phone] Jeremy Camejo MD Unavailable [phone] Nicolas Barragan MD Unavailable [phone] Encounter Details Date Type Department Care Team (Late st Contact Info) Description 10/14/2020 MyC Medical Advice [facility] [place] [address] [facility] [address] [place] [address] Jayda Nesbitt [...] Answer Date Recorded PHQ-2 Score 2 07/05/2019 [facility] [place] of Occupat ional Health - Occupational Stress [...] PM CDT 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 Gender Identity Female 09/17/2018 1:36 AM CDT [...] documented as of this encounter Care Teams Cardroom Plastic Card Grader Relationship Specialty Start Date End Date Sherin Garza MD [address] [employer] [facility] [place] [address] PCP - General 08/16/01 Tanvir Peñaloza, PA-C [address] [facility] [place] [address] Physician Probation And Patrol Agent 12/27/17 Johanna Rodríguez LPN Nurse Coordinator 12/27/17 Sherin Garza MD [address] [facility] [place] [address] Assigned PCP 06/15/18 Jose M Bearden Personal Advocate & Liaison (PAL) 05/01/19 05/16/21 Chris Galvan MD [address] [facility] [address] [place] [address] Assigned OBGYN Provider 11/13/2005/25 Asaf Perales MD [address] [place] [address] Assigned Surgical Provider 12/18/2012/31/20 Trinh Jacobson PA-C [address] [place] [address] Assigned Surgical Provider 01/01/21 Vini Joyce MD [address] [facility] [address] [place] [address] Assigned Surgical Provider 01/29/21 Roberta Galvan [facility] [address] [place] [address] Pharmacist Pharmacist 05/17/21 07/26/22 Alisson Roth PA-C [address] [place] [address] Assigned Surgical Provider 05/14/2102/01/23 Adelaida Waterman PA-C [address] [place] [address] Assigned Sleep Provider 08/06/2104/19 Roberta Galvan [facility] [address] [place] [address] Assigned MTM Pharmacist 12/23/21 Roberta Galvan, [facility] [address] [address] Assigned MTM Pharmacist 03/28/22 Jeremy Camejo MD [address] [place] [address] Assigned OBGYN Provider 05/26/22 Nicolas Barragan MD [address] [place] [address] Assigned Surgical Provider 02/02/23 documented as of this encounter
--- OUTSIDE RECORDS SUMMARY | 2024-07-04 16:38 | XMS_ITS | Encounter Summary ---
Author Organization [place] Address [address] [place] [address] Care Team Providers Care Wallpaper Scraper Name Role Phone Sherin Garza MD Primary Care Provider [phone] Tanvir Peñaloza PA-C Unavailable Unavailab Johanna Swenson LPN Unavailable Unavailable Sherin Garza MD Unavailable [phone] Jose M Bearden Unavailable Unavailable Chris Galvan MD Unavailable [phone] Asaf Perales MD Unavailable [phone] Trinh Jacobson-C Unavailable Vini Joyce MD Unavailable [phone] Roberta Galvan [facility] Unavailable Alisson Roth-C Unavailable [phone] Adelaida Waterman-C Unavailable [phone] Roberta Galvan [facility] Unavailable [phone] Roberta Galvan [facility] Unavailable [phone] Jeremy Camejo MD Unavailable Nicolas Barragan MD Unavailable [phone] Encounter Details Date Type Department Care Team (Late st Contact Info) Description 02/04/2020 MyC Medical Advice [facility] [place] [address] [facility] [address] [place] [address] Sherin Garza MD [address] [facility] [place] [address] Social History Tobacco Use Types Packs/Day Years [...] and Family Once a week 05/01/2019 Attends Buddhist Services Patient declined 07/2018 Active Member of [...] Answer Date Recorded PHQ-2 Score 2 07/05/2019 [facility] of Occupat ional Health - Occupational Stress [...] PM CDT Legal Sex Female 4:00 AM BOBBIN FIXER Gender Identity Female 09/17/2018 1:36 AM CDT [...] Depression Total Score: 6 07/05/19 7:03 AM BOBBIN FIXER documented as of this encounter Care Teams Wallpaper Scraper Relationship Specialty Start Date End Date Sherin Garza MD [address] [facility] [place] [address] PCP - General 08/16/01 Tanvir Peñaloza, PAArshC [address] [employer] [facility] [place] [address] Physician Edi Analyst 12/27/17 Johanna Rodríguez LPN Nurse Coordinator 12/27/17 Sherin Garza MD [address] [employer] [facility] [place] [address] Assigned PCP 06/15/18 Jose M Bearden Personal Advocate & Liaison (PAL) 05/01/19 05/16/21 Chris Galvan MD [address] [facility] [address] [place] [address] Assigned OBGYN Provider 11/13/2005/25 Asaf Perales MD [address] [place] [address] Assigned Surgical Provider 12/18/2012/31/20 Trinh Jacobson PA-C [address] [place] [address] Assigned Surgical Provider 01/01/21 Vini Joyce MD [address] [facility] 300 [place] [address] Assigned Surgical Provider 01/29/21 Roberta Galvan [facility] [address] [id number] Pharmacist Pharmacist 05/17/21 07/26/22 Alisson Roth PA-C [address] [place] [address] Assigned Surgical Provider 05/14/2102/01/23 Adelaida Waterman PA-C [address] [place] [address] Assigned Sleep Provider 08/06/2104/19 Roberta Galvan [facility] [address] [id number] Assigned MTM Pharmacist 12/23/21 Roberta Galvan [facility] [address] [id number] Assigned MTM Pharmacist 03/28/22 Jeremy Camejo MD [address] [place] [address] Assigned OBGYN Provider 05/26/22 Nicolas Barragan MD [address] [place] [address] Assigned Surgical Provider 02/02/23 documented as of this encounter
--- OUTSIDE RECORDS SUMMARY | 2024-07-04 16:38 | XMS_ITS | Encounter Summary ---
Author Organization [place] Address [address] [place] [address] Care Team Providers Care Rabble Furnace Tender Name Role Phone Sherin Garza MD Primary Care Provider [phone] Tanvir Peñaloza PA-C Unavailable Unavailab Johanna Swenson LPN Unavailable Unavailable Sherin Garza MD Unavailable [phone] Jose M Bearden Unavailable Unavailable Chris Galvan MD Unavailable [phone] Asaf Perales MD Unavailable Trinh Jacobson-C Unavailable Vini Joyce MD Unavailable [phone] Roberta Galvan [facility] Unavailable [phone] Alisson Roth-C Unavailable [phone] Adelaida Waterman-C Unavailable [phone] Roberta Galvan [facility] Unavailable [phone] Roberta Galvan [facility] Unavailable [phone] Jeremy Camejo MD Unavailable Nicolas Barragan MD Unavailable [phone] Encounter Details Date Type Department Care Team (Late st Contact Info) Description 11/16/2020 MyC Medical Advice [facility] [address] [facility] [address] [place] [address] Chris Galvan MD [address] [facility] [address] [place] [address] Social History Tobacco Use Types Packs/Day Years [...] and Family Once a week 05/01/2019 Attends Scientologist Services Patient declined 07/2018 Active Member of [...] Answer Date Recorded PHQ-2 Score 2 07/05/2019 [facility] [place] of Occupat ional Health - Occupational Stress [...] CDT Legal Sex Female 4:00 AM MANAGER INFORMATION Gender Identity Female 09/17/2018 1:36 AM CDT [...] determine if she needs a referral to Front End Driver Oncology (if cancer is a possibility - [...] documented as of this encounter Care Teams Rabble Furnace Tender Relationship Specialty Start Date End Date Sherin Garza MD [address] [facility] [place] [address] PCP - General 08/16/01 Tanvir Peñaloza PA-C [address] [facility] [place] [address] Physician Bed Machine Operator 12/27/17 Johanna Rodríguez LPN Nurse Coordinator 12/27/17 Sherin Garza MD [address] [facility] [place] [address] Assigned PCP 06/15/18 Jose M Bearden Personal Advocate & Liaison (PAL) 05/01/19 05/16/21 Chris Galvan MD [address] [employer] [place] [address] Assigned OBGYN Provider 11/13/2005/25 Asaf Perales MD [address] [place] [address] Assigned Surgical Provider 12/18/2012/31/20 Trinh Jacobson PA-C [address] [place] [address] Assigned Surgical Provider 01/01/21 Vini Joyce MD [address] [place] [address] Assigned Surgical Provider 01/29/21 [facility] [address] [address] Pharmacist Pharmacist 05/17/21 07/26/22 Alisson Roth PA-C [address] [place] [address] Assigned Surgical Provider 05/14/2102/01/23 Adelaida Waterman PA-C [address] [place] [address] Assigned Sleep Provider 08/06/2104/19 Roberta Galvan, [facility] [address] [address] Assigned MTM Pharmacist 12/23/21 Roberta Galvan, [facility] [address] [address] Assigned MTM Pharmacist 03/28/22 Jeremy Camejo MD [address] [place] [address] Assigned OBGYN Provider 05/26/22 Nicolas Barragan MD [address] [place], [place] [address] Assigned Surgical Provider 02/02/23 documented as of this encounter
--- OUTSIDE RECORDS SUMMARY | 2024-07-04 16:38 | XMS_ITS | Encounter Summary ---
Author Organization [place] Address [address] [facility] [place] [address] Care Team Providers Care Master Electrician Name Role Phone Sherin Garza MD Primary Care Provider [phone] Tanvir Peñaloza PA-C Unavailable Unavailab Johanna Swenson LPN Unavailable Unavailable Sherin Garza MD Unavailable [phone] Jose M Bearden Unavailable Unavailable Chris Galvan MD Unavailable [phone] Asaf Perales MD Unavailable Trinh Jacobson-C Unavailable Vini Joyce MD Unavailable [phone] Roberta Galvan [facility] Unavailable [phone] Alisson Roth-C Unavailable [phone] Adelaida Waterman PA-C Unavailable [phone] Roberta Galvan [facility] Unavailable [phone] Roberta Galvan [facility] Unavailable [phone] Jeremy Camejo MD Unavailable Nicolas Barragan MD Unavailable [phone] Reason for Visit * Reason Onset Date Comments Refill Request 09/12/2020 fluticasone-salm eterol (AIRDUO RESPICLICK) 232-14 MCG/ACT inhaler Encounter Details Date Type Department Care Team (Late st Contact Info) Description 09/12/2020 Refill M [facility] [place] [address] [place] [address] Sherin Garza MD [address] [facility] [place] [address] Refill Request (fluticasone-salmeterol (AIRDUO [...] and Family Once a week 05/01/2019 Attends Anabaptist Services Patient declined 07/2018 Active Member of [...] Answer Date Recorded PHQ-2 Score 2 07/05/2019 [facility] [place] of Occupat ional Health - Occupational Stress [...] PM CDT Legal Sex Female 4:00 AM SKEIN DRIER Gender Identity Female 09/17/2018 1:36 AM CDT Sexual Orientation Straight 09/17/2018 1: 36 AM CDT Occupation Industry Job Start Date Job End Date Not on file Not on file Not on file Not on file documented as of this encounter Miscellaneous Notes * Telephone Encounter - Jayda Nesbitt LPN - 09/21/2020 9:32 AM CDT Sent pt a Safe N Clear message. Jayda Nesbitt LPN * Telephone Encounter - Janina Hussein CMA - 09/14/2020 9:48 AM CDT [...] as of this encounter Care Teams Master Electrician Relationship Specialty Start Date End Date Sherin Garza MD [address] [facility] [place] [address] PCP - General 08/16/01 Tanvir Peñaloza PA-C [address] [facility] [place] [address] Physician Intervention Specialist 12/27/17 Johanna Rodríguez LPN Nurse Coordinator 12/27/17 Sherin Garza MD [address] [facility] [place] [address] Assigned PCP 06/15/18 Jose M Bearden Personal Advocate & Liaison (PAL) 05/01/19 05/16/21 Chris Galvan MD [address] [facility] [address] [place] [address] Assigned OBGYN Provider 11/13/2005/25 Asaf Perales MD [address] [place] [address] Assigned Surgical Provider 12/18/2012/31/20 Trinh Jacobson PA-C [address] [place] [address] Assigned Surgical Provider 01/01/21 Vini Joyce MD [address] [place] [address] Assigned Surgical Provider 01/29/21 Roberta Galvan, [facility] [address] [address] Pharmacist Pharmacist 05/17/21 07/26/22 Alisson Roth PA-C [address] [place] [address] Assigned Surgical Provider 05/14/2102/01/23 Adelaida Waterman PA-C [address] [place] [address] Assigned Sleep Provider 08/06/2104/19 Roberta Galvan, [facility] [address] [address] Assigned MTM Pharmacist 12/23/21 Roberta Galvan, [facility] [address] [address] Assigned MTM Pharmacist 03/28/22 Jeremy Camejo MD [address] [place] [address] Assigned OBGYN Provider 05/26/22 Nicolas Barragan MD [address] [place] [address] Assigned Surgical Provider 02/02/23 documented as of this encounter
--- OUTSIDE RECORDS SUMMARY | 2024-07-04 16:38 | XMS_ITS | Encounter Summary ---
Author Organization [place] Address [address] [facility] [address] Care Team Providers Care Ship Runner Name Role Phone Sherin Garza MD Primary Care Provider [phone] Tanvir Peñaloza PA-C Unavailable Unavailab Johanna Swenson LPN Unavailable Unavailable Sherin Garza MD Unavailable [phone] Jose M Bearden Unavailable Unavailable Chris Galvan MD Unavailable [phone] Asaf Perales MD Unavailable Trinh Jacobson-C Unavailable Vini Joyce MD Unavailable [phone] Roberta Galvan [facility] Unavailable Alisson Roth-C Unavailable [phone] Adelaida Waterman-C Unavailable [phone] Roberta Galvan [facility] Unavailable [phone] Roberta Galvan [facility] Unavailable [phone] Jeremy Camejo MD Unavailable Nicolas Barragan MD Unavailable [phone] Encounter Details Date Type Department Care Team (Late st Contact Info) Description 12/09/2020 [facility] [address] [facility] [address] [place] [address] [place] [...] Answer Date Recorded PHQ-2 Score 2 07/05/2019 [facility] of Occupat ional [...] PM CDT Legal Sex Female 4:00 AM COBOL ENGINEER Gender Identity Female 09/17/2018 1:36 AM [...] documented as of this encounter Care Teams Ship Runner Relationship Specialty Start Date End Date Sherin Garza MD [address] [facility] [place] [address] PCP - General 08/16/01 Tanvir Peñaloza, PAArshC [address] [facility] [place] [address] Physician Commissions Manager 12/27/17 Johanna Rodríguez LPN Nurse Coordinator 12/27/17 Sherin Garza MD [address] [facility] [place] [address] Assigned PCP 06/15/18 Jose M Beardne Personal Advocate & Liaison (PAL) 05/01/19 05/16/21 Chris Galvan MD [address] [facility] [address] [place] [address] Assigned OBGYN Provider 11/13/2005/25 Asaf Perales MD [address] [place], [place] [address] Assigned Surgical Provider 12/18/2012/31/20 Trinh Jacobson PA-C [address] [place] [address] Assigned Surgical Provider 01/01/21 Vini Joyce MD [address] [facility] 300 [place] [address] Assigned Surgical Provider 01/29/21 Roberta Galvan [facility] [address] [address] Pharmacist Pharmacist 05/17/21 07/26/22 Alisson Roth PA-C [address] [place] [address] Assigned Surgical Provider 05/14/2102/01/23 Adelaida Waterman PA-C [address] [place] [address] Assigned Sleep Provider 08/06/2104/19 Roberta Galvan [facility] [address] [address] Assigned MTM Pharmacist 12/23/21 Roberta Galvan [facility] [address] [place] [address] Assigned MTM Pharmacist 03/28/22 Jeremy Camejo MD [address] [place] [address] Assigned OBGYN Provider 05/26/22 Nicolas Barragan MD [address] [place] [address] Assigned Surgical Provider 02/02/23 documented as of this encounter
--- OUTSIDE RECORDS SUMMARY | 2024-07-04 16:38 | XMS_ITS | Encounter Summary ---
Author Organization [place] Address [address] [facility] [place] [address] Care Team Providers Care Social Work Program Coordinator Name Role Phone Sherin Garza MD Primary Care Provider [phone] Tanvir Peñaloza PA-C Unavailable Unavailab Johanna Swenson LPN Unavailable Unavailable Sherin Garza MD Unavailable [phone] Jose M Bearden Unavailable Unavailable Chris Galvan MD Unavailable [phone] Asaf Perales MD Unavailable [phone] Trinh Jacobson-C Unavailable Vini Joyce MD Unavailable [phone] Roberta Galvan [facility] Unavailable Alisson Roth-C Unavailable [phone] Adelaida Waterman-C Unavailable [phone] Roberta Galvan [facility] Unavailable [phone] Roberta Galvan [facility] Unavailable [phone] Jeremy Camejo MD Unavailable [phone] Nicolas Barragan MD Unavailable [phone] Encounter Details Date Type Department Care Team (Late st Contact Info) Description 12/27/2020 MyC Medical Advice [facility] [place] [address] [facility] [address] [place] [address] Kaela [...] Answer Date Recorded PHQ-2 Score 1 12/15/2020 [facility] of Occupat ional Health [...] PM CDT Legal Sex Female 4:00 AM RETAIL PRESENTATION SPECIALIST Gender Identity Female 09/17/2018 1:36 AM [...] as of this encounter Care Teams Social Work Program Coordinator Relationship Specialty Start Date End Date Sherin Garza MD [address] [place] [address] [facility] [place] [address] PCP - General 08/16/01 Tanvir Peñaloza, PAArshC [address] [facility] [place] [address] Physician Trim Mounter 12/27/17 Johanna Rodríguez LPN Nurse Coordinator 12/27/17 Sherin Garza MD [address] [facility] [place] [address] Assigned PCP 06/15/18 Jose M Bearden Personal Advocate & Liaison (PAL) 05/01/19 05/16/21 Chris Galvan MD [address] [place] [address] Assigned OBGYN Provider 11/13/2005/25 Asaf Perales MD [address] [place] [address] Assigned Surgical Provider 12/18/2012/31/20 Trinh Jacobson PA-C [address] [place] [address] Assigned Surgical Provider 01/01/21 Vini Joyce MD [address] [facility] [address] [place] [address] Assigned Surgical Provider 01/29/21 Roberta Galvan [facility] [address] [place], [place] [address] Pharmacist Pharmacist 05/17/21 07/26/22 Alisson Roth PA-C [address] [place] [address] Assigned Surgical Provider 05/14/2102/01/23 Adelaida Waterman PA-C [address] [place] [address] Assigned Sleep Provider 08/06/2104/19 Roberta Galvan [facility] [address] [address] Assigned MTM Pharmacist 12/23/21 Roberta Galvan [facility] [address] [place] [address] Assigned MTM Pharmacist 03/28/22 Jeremy Camejo MD [address] [place] [address] Assigned OBGYN Provider 05/26/22 Nicolas Barragan MD 9 [place] [address] Assigned Surgical Provider 02/02/23 documented as of this encounter
--- OUTSIDE RECORDS SUMMARY | 2024-07-04 16:38 | XMS_ITS | Encounter Summary ---
Author Organization [place] Address [address] [facility] [place] [address] Care Team Providers Care Insulation Blanket Maker Name Role Phone Sherin Garza MD Primary Care Provider [phone] Tanvir Peñaloza PA-C Unavailable Unavailab Johanna Swenson LPN Unavailable Unavailable Sherin Garza MD Unavailable [phone] Jose M Bearden Unavailable Unavailable Chris Galvan MD Unavailable [phone] Asaf Perales MD Unavailable Trinh Jacobson-C Unavailable Vini Joyce MD Unavailable [phone] Roberta Galvan [facility] Unavailable Alisson Roth-C Unavailable [phone] Adelaida Waterman-C Unavailable [phone] Roberta Galvan [facility] Unavailable [phone] Roberta Galvan [facility] Unavailable [phone] Jeremy Camejo MD Unavailable [phone] Nicolas Barragan MD Unavailable [phone] Encounter Details Date Type Department Care Team (Late st Contact Info) Description 11/14/[address] [facility] [address] [facility] [address] [place] [address] Chris Galvan MD [address] [facility] [address] [place] [address] Social History Tobacco Use Types Packs/Day Years [...] and Family Once a week 05/01/2019 Attends Zoroastrianism Services Patient declined 07/2018 Active Member of [...] Answer Date Recorded PHQ-2 Score 2 07/05/2019 [facility] [place] [employer] of Occupat ional Health - Occupational Stress [...] CDT Legal Sex Female 4:00 AM SENIOR TECHNICAL TRAINER Gender Identity Female 09/17/2018 1:36 AM CDT [...] 11/14/2020 1:[address] Galvan, See [employer] message. U/s tomorrow and appt with you on the Is this okay unless sx worsen? Farhana Gonzalez R.N. documented in this encounter Plan of Treatment Not on file documented as of this encounter Visit Diagnoses Not on filedocumented in this encounter Additional Health Concerns Assessment Noted Time PHQ-9 Depression Total Score: 12 020 7:08 AM CDT documented as of this encounter Care Teams Insulation Blanket Maker Relationship Specialty Start Date End Date Sherin Garza MD [address] [email or web address] [address] PCP - General 08/16/01 Tanvir Peñaloza PA-C [address] [email or web address] [address] Physician Media Sales Consultant 12/27/17 Johanna Rodríguez LPN Nurse Coordinator 12/27/17 Sherin Garza MD [email or web address] [place] [address] Assigned PCP 06/15/18 Jose M Bearden Personal Advocate & Liaison (PAL) 05/01/19 05/16/21 Chris Galvan MD [address] [place] [address] Assigned OBGYN Provider 11/13/2005/25 Asaf Perales MD [address] [place] [address] Assigned Surgical Provider 12/18/2012/31/20 Trinh Jacobson PA-C [address] [place] [address] Assigned Surgical Provider 01/01/21 Vini Joyce MD [address] [place] [address] Assigned Surgical Provider 01/29/21 Roberta Galvan, [facility] [address] [address] Pharmacist Pharmacist 05/17/21 07/26/22 Alisson Roth PA-C [address] [place] [address] Assigned Surgical Provider 05/14/2102/01/23 Adelaida Waterman PA-C [address] [place] [address] Assigned Sleep Provider 08/06/2104/19 Roberta Galvan [facility] [address] [address] Assigned MTM Pharmacist 12/23/21 Roberta Galvan, [facility] [address] [id number] Assigned MTM Pharmacist 03/28/22 Jeremy Camejo MD [address] [place] [address] Assigned OBGYN Provider 05/26/22 Nicolas Barragan MD [address] [place] [address] Assigned Surgical Provider 02/02/23 documented as of this encounter
--- OUTSIDE RECORDS SUMMARY | 2024-07-04 16:38 | XMS_ITS | Encounter Summary ---
Author Organization [place] Address [address] [facility] [place] [address] Care Team Providers Care Mammography Technologist Name Role Phone Sherin Garza MD Primary Care Provider [phone] Tanvir Peñaloza PA-C Unavailable Unavailab Johanna Swenson LPN Unavailable Unavailable Sherin Garza MD Unavailable [phone] Jose M Bearden Unavailable Unavailable Chris Galvan MD Unavailable [phone] Asaf Perales MD Unavailable Trinh Jacobson-C Unavailable Vini Joyce MD Unavailable [phone] Roberta Galvan [facility] Unavailable Alisson Roth-C Unavailable [phone] Adelaida Waterman-C Unavailable [phone] Roberta Galvan [facility] Unavailable [phone] Roberta Galvan [facility] Unavailable [phone] Jeremy Camejo MD Unavailable Nicolas Barragan MD Unavailable [phone] Encounter Details Date Type Department Care Team (Late st Contact Info) Description 02/24/2020 MyC Medical Advice [facility] [address] [facility] [address] [place] [address] ThomasmelissamirellaSasha, HVAC DESIGN ENGINEER [address] [place] [address] Social History Tobacco Use Types Packs/Day Years [...] Score 2 07/05/2019 [facility] of Occupat ional Health - Occupational Stress [...] PM CDT Legal Sex Female 4:00 AM BOILER TUBE REAMER Gender Identity Female 09/17/2018 1:36 AM CDT [...] Total Score: 6 07/05/19 20 7:03 AM BOILER TUBE REAMER documented as of this encounter Care Teams Mammography Technologist Relationship Specialty Start Date End Date Sherin Garza MD [address] [place] [address] PCP - General 08/16/01 Tanvir Peñaloza, PAArshC [address] [place] [employer] [facility] [place] [address] Physician Tie Inspector 12/27/17 Johanna Rodríguez LPN Nurse Coordinator 12/27/17 Sherin Garza MD [address] [place] [employer] [facility] [place] [address] Assigned PCP 06/15/18 Jose M Bearden Personal Advocate & Liaison (PAL) 05/01/19 05/16/21 Chris Galvan MD [address] [place] [address] Assigned OBGYN Provider 11/13/2005/25 Asaf Perales MD [address] [place] [address] Assigned Surgical Provider 12/18/2012/31/20 Trinh Jacobson PA-C [address] [place], [place] [address] Assigned Surgical Provider 01/01/21 Vini Joyce MD [address] [place] [address] Assigned Surgical Provider 01/29/21 Roberta Galvan, [facility] [address] [address] Pharmacist Pharmacist 05/17/21 07/26/22 Alisson Roth PA-C [address] [place] [address] Assigned Surgical Provider 05/14/2102/01/23 Adelaida Waterman PA-C [address] [place] [address] Assigned Sleep Provider 08/06/2104/19 Roberta Galvan, [facility] [address] [address] Assigned MTM Pharmacist 12/23/21 Roberta Galvan [facility] [address] [place] [address] Assigned MTM Pharmacist 03/28/22 Jeremy Camejo MD [address] [place] [address] Assigned OBGYN Provider 05/26/22 Nicolas Barragan MD [address] [place] [address] Assigned Surgical Provider 02/02/23 documented as of this encounter
--- OUTSIDE RECORDS SUMMARY | 2024-07-04 16:38 | XMS_ITS | Encounter Summary ---
Author Organization [place] Address [address] [place] [address] Care Team Providers Care Advertising Traffic Manager Name Role Phone Sherin Garza MD Primary Care Provider [phone] Tanvir Peñaloza PA-C Unavailable Unavailab Johanna Swenson LPN Unavailable Unavailable Sherin Garza MD Unavailable [phone] Jose M Bearden Unavailable Unavailable Chris Galvan MD Unavailable [phone] Asaf Perales MD Unavailable Trinh Jacobson-C Unavailable Vini Joyce MD Unavailable [phone] Roberta Galvan [facility] Unavailable Alisson Roth-C Unavailable [phone] Adelaida Waterman-C Unavailable [phone] Roberta Galvan [facility] Unavailable [phone] Roberta Galvan [facility] Unavailable [phone] Jeremy Camejo MD Unavailable Nicolas Barragan MD Unavailable [phone] Encounter Details Date Type Department Care Team (Late st Contact Info) Description 08/16/2020 [facility] [address] [facility] [address] [place] [address] Trinh Navarro, [...] Answer Date Recorded PHQ-2 Score 2 07/05/2019 [facility] of Occupat ional Health - Occupational [...] PM CDT 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 Gender Identity Female 09/17/2018 1:36 AM CDT [...] as of this encounter Care Teams Advertising Traffic Manager Relationship Specialty Start Date End Date Sherin Garza MD [address] [place] [address] PCP - General 08/16/01 OTanvir Pierre, PA-C [address] [place] [address] Physician Sole Layer Hand 12/27/17 Johanna Rodríguez LPN Nurse Coordinator 12/27/17 Sherin Garza MD [address] [facility] [place] [address] Assigned PCP 06/15/18 Jose M Bearden Personal Advocate & Liaison (PAL) 05/01/19 05/16/21 Chris Galvan MD [address] [place] [address] Assigned OBGYN Provider 11/13/2005/25 Asaf Perales MD [address] [facility] [address] [place] [address] Assigned Surgical Provider 12/18/2012/31/20 Trinh Jacobson PA-C [address] [place] [address] Assigned Surgical Provider 01/01/21 Vini Joyce MD [address] [facility] [address] [place] [address] Assigned Surgical Provider 01/29/21 Roberta Galvan, [facility] [address] [place] [address] Pharmacist Pharmacist 05/17/21 07/26/22 Alisson Roth PA-C [address] [place] [address] Assigned Surgical Provider 05/14/2102/01/23 Adelaida Waterman PA-C [address] [place] [address] Assigned Sleep Provider 08/06/2104/19 Roberta Galvan [facility] [address] [address] Assigned MTM Pharmacist 12/23/21 Roberta Galvan [facility] [address] [place] [address] Assigned MTM Pharmacist 03/28/22 Jeremy Camejo MD [address] [place] [address] Assigned OBGYN Provider 05/26/22 Nicolas Barragan MD [address] [place], [place] [address] Assigned Surgical Provider 02/02/23 documented as of this encounter
--- OUTSIDE RECORDS SUMMARY | 2024-07-04 16:38 | XMS_ITS | Encounter Summary ---
Author Organization [place] Address [address] [facility] [place] [address] Care Team Providers Care Theoretical Physics Teacher Name Role Phone Sherin Garza MD Primary Care Provider [phone] Tanvir Peñaloza PA-C Unavailable Unavailab Johanna Swenson LPN Unavailable Unavailable Sherin Garza MD Unavailable [phone] Jose M Bearden Unavailable Unavailable Chris Galvan MD Unavailable [phone] Asaf Perales MD Unavailable Trinh Jacobson-C Unavailable Vini Joyce MD Unavailable [phone] [facility] Unavailable [phone] Alisson Roth-C Unavailable [phone] Adelaida Waterman PA-C Unavailable [phone] [facility] Unavailable [phone] [facility] Unavailable [phone] Jeremy Camejo MD Unavailable Nicolas Barragan MD Unavailable [phone] Reason for Visit * Reason Onset Date Comments Appointment 12/14/2020 2 week post surg stephen catheter removal Encounter Details Date Type Department Care Team (Late st Contact Info) Description 12/14/2020 Telephone [facility] [address] [place] [address] Asaf Perales MD [address] [facility] [address] [place] [address] Appointment (2 week post surgery catheter removal) [...] Answer Date Recorded PHQ-2 Score 1 12/15/2020 [facility] of Occupat ional Health - Occupational Stress [...] PM CDT 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 [address] [place] [address] PCP - General 08/16/01 Tanvir Peñaloza PA-C [address] [place] [address] Physician Drafting Teacher 12/27/17 Johanna Rodríguez LPN Nurse Coordinator 12/27/17 Sherin Garza MD [address] [place] [address] Assigned PCP 06/15/18 Jose M Bearden Personal Advocate & Liaison (PAL) 05/01/19 05/16/21 Chris Galvan MD [address] [place] [address] Assigned OBGYN Provider 11/13/2005/25 Asaf Perales MD [address] [place] [address] Assigned Surgical Provider 12/18/2012/31/20 Trinh Jacobson PA-C [address] [place] [address] Assigned Surgical Provider 01/01/21 Vini Joyce MD [address] [place] [address] Assigned Surgical Provider 01/29/21 [facility] [address] [facility] [address] [place], [place] [address] Pharmacist Pharmacist 05/17/21 07/26/22 Alisson Roth PA-C [address] [place] [address] Assigned Surgical Provider 05/14/2102/01/23 Adelaida Waterman PA-C [address] [place] [address] Assigned Sleep Provider 08/06/2104/[address] [facility] [address] [place] [address] Assigned MTM Pharmacist 12/23/[address] [facility] [address] [place] [address] Assigned MTM Pharmacist 03/28/22 Jeremy Camejo MD [address] [place] [address] Assigned OBGYN Provider 05/26/22 Nicolas Barragan MD [address] [place] [address] Assigned Surgical Provider 02/02/23 documented as of this encounter
--- OUTSIDE RECORDS SUMMARY | 2024-07-04 16:38 | XMS_ITS | Encounter Summary ---
Author Organization [place] Address [address] [facility] [place] [address] Care Team Providers Care Auto Clutch Rebuilder Name Role Phone Sherin Garza MD Primary Care Provider [phone] Tanvir Peñaloza PA-C Unavailable Unavailab Johanna Swenson LPN Unavailable Unavailable Sherin Garza MD Unavailable [phone] Jose M Bearden Unavailable Unavailable Chris Galvan MD Unavailable [phone] Asaf Perales MD Unavailable Trinh Jacobson-C Unavailable [phone] Vini Joyce MD Unavailable [phone] Roberta Galvan [facility] Unavailable [phone] Alisson Roth-C Unavailable [phone] Adelaida Waterman-C Unavailable [phone] Roberta Galvan [facility] Unavailable [phone] Roberta Galvan [facility] Unavailable [phone] Jeremy Camejo MD Unavailable Nicolas Barragan MD Unavailable [phone] Encounter Details Date Type Department Care Team (Late st Contact Info) Description 05/24/2020 MyC Medical Advice [facility] [place] [address] [facility] [address] [place] [address] Sherin Garza MD [address] [facility] [place] [address] Social History Tobacco Use Types Packs/Day Years [...] and Family Once a week 05/01/2019 Attends Christianity Services Patient declined 07/2018 Active Member of [...] Recorded PHQ-2 Score 2 07/05/2019 [facility] of Occupat ional Health - Occupational Stress [...] PM CDT 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 Gender Identity Female 09/17/2018 1:36 AM CDT [...] documented as of this encounter Care Teams Auto Clutch Rebuilder Relationship Specialty Start Date End Date Sherin Garza MD [address] [employer] [facility] [place] [address] PCP - General 08/16/01 Tanvir Peñaloza PA-C [address] [employer] [facility] [place] [address] Physician Ocular Pathologist 12/27/17 Johanna Rodríguez LPN Nurse Coordinator 12/27/17 Sherin Garza MD [address] [facility] [place] [address] Assigned PCP 06/15/18 Jose M Bearden Personal Advocate & Liaison (PAL) 05/01/19 05/16/21 Chris Galvan MD [address] [facility] [address] [place] [address] Assigned OBGYN Provider 11/13/2005/25 Asaf Perales MD [address] [place] [address] Assigned Surgical Provider 12/18/2012/31/20 Trinh Jacobson PA-C [address] [place] [address] Assigned Surgical Provider 01/01/21 Vini Joyce MD [address] [facility] [address] [place], [place] [address] Assigned Surgical Provider 01/29/21 Roberta Galvan [facility] [address] [id number] Pharmacist Pharmacist 05/17/21 07/26/22 Alisson Roth PA-C [address] [place] [address] Assigned Surgical Provider 05/14/2102/01/23 Adelaida Waterman PA-C [address] [place] [address] Assigned Sleep Provider 08/06/2104/19 Roberta Galvan [facility] [address] [id number] Assigned MTM Pharmacist 12/23/21 Roberta Galvan [facility] [address] [id number] Assigned MTM Pharmacist 03/28/22 Jeremy Camejo MD [address] [place] [address] Assigned OBGYN Provider 05/26/22 Nicolas Barragan MD [address] [place] [address] Assigned Surgical Provider 02/02/23 documented as of this encounter
--- OUTSIDE RECORDS SUMMARY | 2024-07-04 16:38 | XMS_ITS | Encounter Summary ---
Author Organization [place] Address [address] [facility] [place] [address] Care Team Providers Care Lighter Captain Name Role Phone Sherin Garza MD Primary Care Provider [phone] Tanvir Peñaloza PA-C Unavailable Unavailab Johanna Swenson LPN Unavailable Unavailable Sherin Garza MD Unavailable [phone] Jose M Bearden Unavailable Unavailable Chris Galvan MD Unavailable [phone] Asaf Perales MD Unavailable [phone] Trinh Jacobson-C Unavailable Vini Joyce MD Unavailable [phone] Roberta Galvan [facility] Unavailable Alisson Roth-C Unavailable [phone] Adelaida Waterman-C Unavailable [phone] Roberta Galvan [facility] Unavailable [phone] Roberta Galvan [facility] Unavailable [phone] Jeremy Camejo MD Unavailable Nicolas Barragan MD Unavailable [phone] Encounter Details Date Type Department Care Team (Late st Contact Info) Description 08/22/2020 MyC Medical Advice [facility] [address] [facility] [address] [place] [address] Charmaine Raymond CMA Social History Tobacco [...] Answer Date Recorded PHQ-2 Score 2 07/05/2019 [facility] of Occupat ional Health - Occupational [...] PM CDT Legal 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 Female 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 Gender Identity Female 09/17/2018 1:36 AM [...] documented as of this encounter Care Teams Lighter Captain Relationship Specialty Start Date End Date Sherin Garza MD [address] [facility] [place] [address] PCP - General 08/16/01 OTanvir Pierre, PA-C [address] [facility] [place] [address] Physician Adjunct Sociology Professor 12/27/17 Johanna Rodríguez LPN Nurse Coordinator 12/27/17 Sherin Garza MD [address] [facility] [place] [address] Assigned PCP 06/15/18 Jose M Bearden Personal Advocate & Liaison (PAL) 05/01/19 05/16/21 Chris Galvan MD [address] [place] [address] Assigned OBGYN Provider 11/13/2005/25 Asaf Perales MD [address] [facility] [address] [place] [address] Assigned Surgical Provider 12/18/2012/31/20 Trinh Jacobson PA-C [address] [place] [address] Assigned Surgical Provider 01/01/21 Vini Joyce MD [address] [facility] [address] [place] [address] Assigned Surgical Provider 01/29/21 Roberta Galvan, [facility] [address] [place], [place] [address] Pharmacist Pharmacist 05/17/21 07/26/22 Alisson Roth PA-C [address] [place] [address] Assigned Surgical Provider 05/14/2102/01/23 Adelaida Waterman PA-C [address] [place] [address] Assigned Sleep Provider 08/06/2104/19 Roberta Galvan [facility] [address] [address] Assigned MTM Pharmacist 12/23/21 Roberta Galvan [facility] [address] [place] [address] Assigned MTM Pharmacist 03/28/22 Jeremy Camejo MD [address] [place] [address] Assigned OBGYN Provider 05/26/22 Nicolas Barragan MD [address] [place], [place] [address] Assigned Surgical Provider 02/02/23 documented as of this encounter
--- OUTSIDE RECORDS SUMMARY | 2024-07-04 16:38 | XMS_ITS | Encounter Summary ---
Author Organization [place] Address [address] [facility] [place] [address] Care Team Providers Care Biomedical Technician Name Role Phone Sherin Garza MD Primary Care Provider [phone] Tanvir Peñaloza PA-C Unavailable Unavailab Johanna Swenson LPN Unavailable Unavailable Sherin Garza MD Unavailable [phone] oJse M Bearden Unavailable Unavailable Chris Galvan MD Unavailable [phone] Asaf Perales MD Unavailable Trinh Jacobson-C Unavailable Vini Joyce MD Unavailable [phone] Roberta Galvan [facility] Unavailable Alisson Roth-C Unavailable [phone] Adelaida Waterman-C Unavailable [phone] Roberta Galvan [facility] Unavailable [phone] Roberta Galvan [facility] Unavailable [phone] Jeremy Camejo MD Unavailable Nicolas Barragan MD Unavailable [phone] Encounter Details Date Type Department Care Team (Late st Contact Info) Description 11/15/2020 [facility]ice [facility] [address] [facility] [address] [place] [address] Chris Galvan MD [address] [facility] [address] [place] [address] Social History Tobacco Use Types Packs/Day Years [...] and Family Once a week 05/01/2019 Attends Shinto Services Patient declined 07/2018 Active Member of [...] Answer Date Recorded PHQ-2 Score 2 07/05/2019 [facility] [place] of Occupat ional Health - Occupational Stress [...] PM CDT 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 Gender Identity Female 09/17/2018 1:36 [...] documented as of this encounter Care Teams Biomedical Technician Relationship Specialty Start Date End Date Sherin Garza MD [address] [place] [address] PCP - General 08/16/01 Tanvir Peñaloza, PAArshC [address] [employer] [facility] [place] [address] Physician Patternmaker Wood 12/27/17 Johanna Rodríguez LPN Nurse Coordinator 12/27/17 Sherin Garza MD [address] [employer] [facility] [place] [address] Assigned PCP 06/15/18 Jose M Bearden Personal Advocate & Liaison (PAL) 05/01/19 05/16/21 Chris Galvan MD [address] [place] [address] Assigned OBGYN Provider 11/13/2005/25 Asaf Perales MD [address] [place], [place] [address] Assigned Surgical Provider 12/18/2012/31/20 Trinh Jacobson PA-C [address] [place], [place] [address] Assigned Surgical Provider 01/01/21 Vini Joyce MD [address] [place] [address] Assigned Surgical Provider 01/29/21 Roberta Galvan, [facility] [address] [address] Pharmacist Pharmacist 05/17/21 07/26/22 Alisson Roth PA-C [address] [place] [address] Assigned Surgical Provider 05/14/2102/01/23 Adelaida Waterman PA-C [address] [place] [address] Assigned Sleep Provider 08/06/2104/19 Roberta Galvan, [facility] [address] [id number] Assigned MTM Pharmacist 12/23/21 Roberta Galvan [facility] [address] [place] [address] Assigned MTM Pharmacist 03/28/22 Jeremy Camejo MD [address] [place] [address] Assigned OBGYN Provider 05/26/22 Nicolas Barragan MD [address] [place] [address] Assigned Surgical Provider 02/02/23 documented as of this encounter
--- OUTSIDE RECORDS SUMMARY | 2024-07-04 16:38 | XMS_ITS | Encounter Summary ---
Author Organization [place] Address [address] [facility] [place] [address] Care Team Providers Care Color Coater Name Role Phone Sherin Garza MD Primary Care Provider [phone] Tanvir Peñaloza PA-C Unavailable Unavailab Johanna Swenson LPN Unavailable Unavailable Sherin Garza MD Unavailable [phone] Jose M Bearden Unavailable Unavailable Chris Galvan MD Unavailable [phone] Asaf Perales MD Unavailable [phone] Trinh Jacobson-C Unavailable Vini Joyce MD Unavailable [phone] Roberta Galvan [facility] Unavailable [phone] Alisson Roth-C Unavailable [phone] Adelaida Waterman-C Unavailable [phone] Roberta Galvan [facility] Unavailable [phone] Roberta Galvan [facility] Unavailable [phone] Jeremy Camejo MD Unavailable Nicolas Barragan MD Unavailable [phone] Encounter Details Date Type Department Care Team (Late st Contact Info) Description 10/07/2019 MyC Medical Advice [facility] [address] [facility] [address] [place] [address] ThomasmelissamirellaSasha, EXTENSION SERVICE ADVISOR [address] [place] [address] Social History Tobacco Use Types Packs/Day Years [...] Date Recorded PHQ-2 Score 2 07/05/2019 [facility] [place] of Occupat ional Health - Occupational Stress [...] PM CDT Legal Sex Female 4:00 AM UNDERLINER Gender Identity Female 09/17/2018 1:36 AM CDT [...] Total Score: 6 07/05/19 20 7:03 AM UNDERLINER documented as of this encounter Care Teams Color Coater Relationship Specialty Start Date End Date Sherin Garza MD [address] [employer] [place] [address] PCP - General 08/16/01 Tanvir Peñaloza, PAArshC [address] [place] [employer] [facility] [place] [address] Physician Sugar Reprocess Operator Head 12/27/17 Johanna Rodríguez LPN Nurse Coordinator 12/27/17 Sherin Garza MD [address] [facility] [place] [address] Assigned PCP 06/15/18 Jose M Bearden Personal Advocate & Liaison (PAL) 05/01/19 05/16/21 Chris Galvan MD [address] [place] [address] Assigned OBGYN Provider 11/13/2005/25 Asaf Perales MD [address] [place] [address] Assigned Surgical Provider 12/18/2012/31/20 Trinh Jacobson PA-C [address] [place], [place] [address] Assigned Surgical Provider 01/01/21 Vini Joyce MD [address] [place] [address] Assigned Surgical Provider 01/29/21 Roberta Galvan, [facility] [address] [address] Pharmacist Pharmacist 05/17/21 07/26/22 Alisson Roth PA-C [address] [place] [address] Assigned Surgical Provider 05/14/2102/01/23 Adelaida Waterman PA-C [address] [place] [address] Assigned Sleep Provider 08/06/2104/19 Roberta Galvan, [facility] [address] [address] Assigned MTM Pharmacist 12/23/21 Roberta Galvan [facility] [address] [place] [address] Assigned MTM Pharmacist 03/28/22 Jeremy Camejo MD [address] [place] [address] Assigned OBGYN Provider 05/26/22 Nicolas Barrgaan MD [address] [place] [address] Assigned Surgical Provider 02/02/23 documented as of this encounter
--- OUTSIDE RECORDS SUMMARY | 2024-07-04 16:38 | XMS_ITS | Encounter Summary ---
Author Organization [place] Address [address] [facility] [place] [address] Care Team Providers Care Heat And Vent Aircraft Mechanic Name Role Phone Sherin Garza MD Primary Care Provider [phone] Tanvir Peñaloza PA-C Unavailable Unavailab Johanna Swenson LPN Unavailable Unavailable Sherin Garza MD Unavailable [phone] Jose M Bearden Unavailable Unavailable Chris Galvan MD Unavailable [phone] Asaf Perales MD Unavailable Trinh Jacobson-C Unavailable Vini Joyce MD Unavailable [phone] Roberta Galvan [facility] Unavailable Alisson Roth-C Unavailable [phone] Adelaida Waterman-C Unavailable [phone] Roberta Galvan [facility] Unavailable [phone] Roberta Galvan [facility] Unavailable [phone] Jeremy Camejo MD Unavailable Nicolas Barragan MD Unavailable [phone] Encounter Details Date Type Department Care Team (Late st Contact Info) Description 12/07/2020 MyC Medical Advice 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 Gender Identity Female 09/17/2018 1:36 AM [...] documented as of this encounter Care Teams Heat And Vent Aircraft Mechanic Relationship Specialty Start Date End Date Sherin Garza MD [address] [facility] [place] [address] PCP - General 08/16/01 Tanvir Peñaloza, PAArshC [address] [place] [address] [employer] [facility] [place] [address] Physician Director Investment Banking 12/27/17 Johanna Rodríguez LPN Nurse Coordinator 12/27/17 Sherin Garza MD [address] [place] [employer] [facility] [place] [address] Assigned PCP 06/15/18 Jose M Bearden Personal Advocate & Liaison (PAL) 05/01/19 05/16/21 Chris Galvan MD [address] [place] [address] Assigned OBGYN Provider 11/13/2005/25 Asaf Perales MD [address] [place] [address] Assigned Surgical Provider 12/18/2012/31/20 Trinh Jacobson PA-C [address] [place] [address] Assigned Surgical Provider 01/01/21 Vini Joyce MD [address] [facility] [address] [place] [address] Assigned Surgical Provider 01/29/21 Roberta Galvan [facility] [address] [place], [place] [address] Pharmacist Pharmacist 05/17/21 07/26/22 Alisson Roth PA-C [address] [place] [address] Assigned Surgical Provider 05/14/2102/01/23 Adelaida Waterman PA-C [address] [place] [address] Assigned Sleep Provider 08/06/2104/19 Roberta Galvan [facility] [address] [address] Assigned MTM Pharmacist 12/23/21 Roberta Galvan [facility] [address] [place] [address] Assigned MTM Pharmacist 03/28/22 Jeremy Camejo MD [address] [place] [address] Assigned OBGYN Provider 05/26/22 Nicolas Barragan MD [address] [place], [place] [address] Assigned Surgical Provider 02/02/23 documented as of this encounter
--- OUTSIDE RECORDS SUMMARY | 2024-07-04 16:38 | XMS_ITS | Encounter Summary ---
Author Organization [place] Address [address] [facility] [address] Care Team Providers Care Document Management Specialist Name Role Phone Sherin Garza MD Primary Care Provider [phone] Tanvir Peñaloza PA-C Unavailable Unavailab Johanna Swenson LPN Unavailable Unavailable Sherin Garza MD Unavailable [phone] Jose M Bearden Unavailable Unavailable Chris Galvan MD Unavailable [phone] Asaf Perales MD Unavailable Trinh Jacobson-C Unavailable Vini Joyce MD Unavailable [phone] Roberta Galvan [facility] Unavailable [phone] Alisson Roth-C Unavailable [phone] Adelaida Waterman PA-C Unavailable [phone] Roberta Galvan [facility] Unavailable [phone] Roberta Galvan [facility] Unavailable [phone] Jeremy Camejo MD Unavailable Nicolas Barragan MD Unavailable [phone] Reason for Visit * Reason Onset Date Comments Refill Request 12/06/2020 montelukast (SIN GULAIR) 10 MG tablet Encounter Details Date Type Department Care Team (Late st Contact Info) Description 12/06/2020 Telephone [facility] [place] [address] [facility] [address] [place] [address] Sherin Garza MD [address] [facility] [place] [address] Refill Request (montelukast (SINGULAIR) [...] Answer Date Recorded PHQ-2 Score 2 07/05/2019 [facility] [place] of Occupat ional Health - Occupational Stress [...] PM CDT 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 Gender Identity Female 09/17/2018 1:36 AM [...] 12/09/2020 7:28 AM CDT Message sent via Aiotra with act and to schedule physical Peace Llanos MA 7:28 AM 12/09/2020 * Telephone Encounter - Sherin Garza MD - 12/07/2020 4:34 PM CDT [...] documented as of this encounter Care Teams Document Management Specialist Relationship Specialty Start Date End Date Sherin Garza MD [address] [employer] [facility] [place] [address] PCP - General 08/16/01 Tanvir Peñaloza, PAArshC [address] [place] [employer] [facility] [place] [address] Physician Judicial Registrar 12/27/17 Johanna Rodríguez LPN Nurse Coordinator 12/27/17 Sherin Garza MD [address] [employer] [facility] [place] [address] Assigned PCP 06/15/18 Jose M Bearden Personal Advocate & Liaison (PAL) 05/01/19 05/16/21 Chris Galvan MD [address] [facility] [address] [place] [address] Assigned OBGYN Provider 11/13/2005/25 Asaf Perales MD [address] [place] [address] Assigned Surgical Provider 12/18/2012/31/20 Trinh Jacobson PA-C [address] [place] [address] Assigned Surgical Provider 01/01/21 Vini Joyce MD [address] [place] [address] Assigned Surgical Provider 01/29/21 Roberta Galvan, [facility] [address] [address] Pharmacist Pharmacist 05/17/21 07/26/22 Alisson Roth PA-C [address] [place] [address] Assigned Surgical Provider 05/14/2102/01/23 Adelaida Waterman PA-C [address] [place] [address] Assigned Sleep Provider 08/06/2104/19 Roberta Galvan, [facility] [address] [address] Assigned MTM Pharmacist 12/23/21 Roberta Galvan, [facility] [address] [place] [address] Assigned MTM Pharmacist 03/28/22 Jeremy Camejo MD [address] [place] [address] Assigned OBGYN Provider 05/26/22 Nicolas Barragan MD [address] [place] [address] Assigned Surgical Provider 02/02/23 documented as of this encounter
--- OUTSIDE RECORDS SUMMARY | 2024-07-04 16:38 | XMS_ITS | Encounter Summary ---
Author Organization [place] Address [address] [facility] [place] [address] Care Team Providers Care Acoustical Tile Drill Press Operator Name Role Phone Sherin Garza MD Primary Care Provider [phone] Tanvir Peñaloza PA-C Unavailable Unavailab Johanna Swenson LPN Unavailable Unavailable Sherin Garza MD Unavailable [phone] Jose M Bearden Unavailable Unavailable Chris Galvan MD Unavailable [phone] Asaf Perales MD Unavailable [phone] Trinh Jacobson-C Unavailable Vini Joyce MD Unavailable [phone] Roberta Galvan [facility] Unavailable [phone] Alisson Roth-C Unavailable [phone] Adelaida Waterman-C Unavailable [phone] Roberta Galvan [facility] Unavailable [phone] Roberta Galvan [facility] Unavailable [phone] Jeremy Camejo MD Unavailable Nicolas Barragan MD Unavailable [phone] Encounter Details Date Type Department Care Team (Late st Contact Info) Description 12/12/2020 [facility] [address] [facility] [address] [place] [address] Chris Galvan MD [address] [facility] [address] [place] [address] Social History Tobacco Use Types Packs/Day Years [...] and Family Once a week 05/01/2019 Attends Christian Services Patient declined 07/2018 Active Member of [...] Answer Date Recorded PHQ-2 Score 1 12/15/2020 [facility] [place] of Occupat ional Health - Occupational Stress [...] PM CDT Legal Sex Female 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 Gender Identity Female 09/17/2018 1:36 AM [...] documented as of this encounter Care Teams Acoustical Tile Drill Press Operator Relationship Specialty Start Date End Date Sherin Garza MD [address] [place] [address] PCP - General 08/16/01 Tanvir Peñaloza PA-C [address] [place] [address] Physician Greenhouse Laborer 12/27/17 Johanna Rodríguez LPN Nurse Coordinator 12/27/17 Sherin Garza MD [address] [place] [address] Assigned PCP 06/15/18 Jose M Bearden Personal Advocate & Liaison (PAL) 05/01/19 05/16/21 Chris Galvan MD [address] [place] [address] Assigned OBGYN Provider 11/13/2005/25 Asaf Perales MD [address] [place] [address] Assigned Surgical Provider 12/18/2012/31/20 Trinh Jacobson PA-C [address] [place] [address] Assigned Surgical Provider 01/01/21 Vini Joyce MD [address] [place] [address] Assigned Surgical Provider 01/29/21 Roberta Galvan, [facility] [address] [address] Pharmacist Pharmacist 05/17/21 07/26/22 Alisson Roth PA-C [address] [place] [address] Assigned Surgical Provider 05/14/2102/01/23 Adelaida Waterman PA-C [address] [place] [address] Assigned Sleep Provider 08/06/2104/19 Roberta Galvan, [facility] [address] [place] [address] Assigned MTM Pharmacist 12/23/21 [facility] [address] [address] Assigned MTM Pharmacist 03/28/22 Jreemy Camejo MD [facility] [place] [address] Assigned OBGYN Provider 05/26/22 Nicolas Barragan MD [address] [place] [address] Assigned Surgical Provider 02/02/23 documented as of this encounter
--- OUTSIDE RECORDS SUMMARY | 2024-07-04 16:38 | XMS_ITS | Encounter Summary ---
Author Organization [place] Address [address] [facility] [place] [address] Care Team Providers Care Sewing Machine Maintenance Mechanic Name Role Phone Sherin Garza MD Primary Care Provider [phone] Tanvir Peñaloza PA-C Unavailable Unavailab Johanna Swenson LPN Unavailable Unavailable Sherin Garza MD Unavailable [phone] Jose M Bearden Unavailable Unavailable Chris Galvan MD Unavailable [phone] Asaf Perales MD Unavailable [phone] Trinh Jacobson-C Unavailable Vini Joyce MD Unavailable [phone] Roberta Galvan [facility] Unavailable Alisson Roth-C Unavailable [phone] Adelaida Waterman-C Unavailable [phone] Roberta Galvan [facility] Unavailable [phone] Roberta Galvan [facility] Unavailable [phone] Jeremy Camejo MD Unavailable Nicolas Barragan MD Unavailable [phone] Encounter Details Date Type Department Care Team (Late st Contact Info) Description 12/13/2020 MyC Medical Advice [facility] [address] [place] [address] Trinh Jacobson PA-C [address] [place] [address] Social History Tobacco Use Types Packs/Day Years [...] Answer Date Recorded PHQ-2 Score 1 12/15/2020 [facility] [place] of Occupat ional Health - Occupational Stress [...] PM CDT Legal Sex Female 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 MILL 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 Gender Identity Female 09/17/2018 1:36 [...] documented as of this encounter Care Teams Sewing Machine Maintenance Mechanic Relationship Specialty Start Date End Date Sherin Garza MD [address] [facility] [place] [address] PCP - General 08/16/01 Tanvir Peñaloza PAArshC [address] [employer] [employer] [facility] [place] [address] Physician Car Dumper Operator Helper 12/27/17 Johanna Rodríguez LPN Nurse Coordinator 12/27/17 Sherin Garza MD [address] [facility] [place] [address] Assigned PCP 06/15/18 Jose M Bearden Personal Advocate & Liaison (PAL) 05/01/19 05/16/21 Chris Galvan MD [address] [place] [address] Assigned OBGYN Provider 11/13/2005/25 Asaf Perales MD [address] [place] [address] Assigned Surgical Provider 12/18/2012/31/20 Trinh Jacobson PA-C [address] [place], [place] [address] Assigned Surgical Provider 01/01/21 Vini Joyce MD [address] [place] [address] Assigned Surgical Provider 01/29/21 Roberta Galvan [facility] [address] [place] [address] Pharmacist Pharmacist 05/17/21 07/26/22 Alisson Roth PA-C [address] [place] [address] Assigned Surgical Provider 05/14/2102/01/23 Adelaida Waterman PA-C [address] [place] [address] Assigned Sleep Provider 08/06/2104/19 Roberta Galvan [facility] [address] [place] [address] Assigned MTM Pharmacist 12/23/21 Roberta Galvan [facility] [address] [place] [address] Assigned MTM Pharmacist 03/28/22 Jeremy Camejo MD [address] [place] [address] Assigned OBGYN Provider 05/26/22 Nicolas Barragan MD [address] [place] [address] Assigned Surgical Provider 02/02/23 documented as of this encounter
--- OUTSIDE RECORDS SUMMARY | 2024-07-04 16:38 | XMS_ITS | Encounter Summary ---
Author Organization [place] Address [address] [facility] [place] [address] Care Team Providers Care Outside Sales Account Manager Name Role Phone Sherin Garza MD Primary Care Provider [phone] Tanvir Peñaloza PA-C Unavailable Unavailab Johanna Swenson LPN Unavailable Unavailable Sherin Garza MD Unavailable [phone] Jose M Bearden Unavailable Unavailable Chris Galvan MD Unavailable [phone] Asaf Perales MD Unavailable Trinh Jacobson-C Unavailable Vini Joyce MD Unavailable [phone] Roberta Galvan [facility] Unavailable Alisson Roth-C Unavailable [phone] Adelaida Waterman-C Unavailable [phone] Roberta Galvan [facility] Unavailable [phone] Roberta Galvan [facility] Unavailable [phone] Jeremy Camejo MD Unavailable Nicolas Barragan MD Unavailable [phone] Encounter Details Date Type Department Care Team (Late st Contact Info) Description 09/21/2020 MyC Medical Advice [facility] [place] [address] 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 Gender Identity Female 09/17/2018 1:36 AM [...] documented as of this encounter Care Teams Outside Sales Account Manager Relationship Specialty Start Date End Date Sherin Garza MD [address] [employer] [place] [address] PCP - General 08/16/01 Tanvir Peñaloza, PA-C [address] [facility] [place] [address] Physician Thread Weaver 12/27/17 Johanna Rodríguez LPN Nurse Coordinator 12/27/17 Sherin Garza MD [address] [facility] [place] [address] Assigned PCP 06/15/18 Jose M Bearden Personal Advocate & Liaison (PAL) 05/01/19 05/16/21 Chris Galvan MD [address] [facility] [address] [place] [address] Assigned OBGYN Provider 11/13/2005/25 Asaf Perales MD [address] [place] [address] Assigned Surgical Provider 12/18/2012/31/20 Trinh Jacobson PA-C [address] [place] [address] Assigned Surgical Provider 01/01/21 Vini Joyce MD [address] [facility] [address] [place] [address] Assigned Surgical Provider 01/29/21 Roberta Galvan [facility] [address] [place] [address] Pharmacist Pharmacist 05/17/21 07/26/22 Alisson Roth PA-C [address] [place] [address] Assigned Surgical Provider 05/14/2102/01/23 Adelaida Waterman PA-C [address] [place] [address] Assigned Sleep Provider 08/06/2104/19 Roberta Galvan [facility] [address] [place] [address] Assigned MTM Pharmacist 12/23/21 Roberta Galvan, [facility] [address] [address] Assigned MTM Pharmacist 03/28/22 Jeremy Camejo MD [address] [place] [address] Assigned OBGYN Provider 05/26/22 Nicolas Barragan MD [address] [place] [address] Assigned Surgical Provider 02/02/23 documented as of this encounter
--- OUTSIDE RECORDS SUMMARY | 2024-07-04 16:38 | XMS_ITS | Encounter Summary ---
Author Organization [place] Address [address] [facility] [place] [address] Care Team Providers Care Longwall Headgate Operator Name Role Phone Sherin Garza MD Primary Care Provider [phone] Tanvir Peñaloza PA-C Unavailable Unavailab Johanna Swenson LPN Unavailable Unavailable Sherin Garza MD Unavailable [phone] Jose M Bearden Unavailable Unavailable Chris Galvan MD Unavailable [phone] Asaf Perales MD Unavailable Trinh Jacobson-C Unavailable [phone] Vini Joyce MD Unavailable [phone] Roberta Galvan [facility] Unavailable [phone] Alisson Roth-C Unavailable [phone] Adelaida Waterman-C Unavailable [phone] Roberta Galvan [facility] Unavailable [phone] Roberta Galvan [facility] Unavailable [phone] Jeremy Camejo MD Unavailable [phone] Nicolas Barragan MD Unavailable [phone] Encounter Details Date Type Department Care Team (Late st Contact Info) Description 12/27/2020 MyC Medical Advice [facility] [place] [address] [facility] [address] [place] [address] Sherin Garza MD [address] [facility] [place] [address] Social History Tobacco Use Types Packs/Day Years [...] and Family Once a week 05/01/2019 Attends [employer] Patient declined 07/2018 Active Member of [...] Answer Date Recorded PHQ-2 Score 1 12/15/2020 [facility] [place] of Occupat ional Health - Occupational Stress [...] PM CDT Legal Sex Female 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 Kaela Bolton RN, BSN documented in this encounter Plan of Treatment Not on file documented as of this encounter Visit Diagnoses Not on filedocumented in this encounter Additional Health Concerns Assessment Noted Time PHQ-9 Depression Total Score: 12 020 7:08 AM CDT documented as of this encounter Care Teams Longwall Headgate Operator Relationship Specialty Start Date End Date Sherin Garza MD [address] [employer] [place] [address] PCP - General 08/16/01 Tanvir Peñaloza PA-C [address] [employer] [place] [address] Physician Licensed Audiologist 12/27/17 Johanna Rodríguez LPN Nurse Coordinator 12/27/17 Sherin Garza MD [address] [facility] [place] [address] Assigned PCP 06/15/18 Jose M Bearden Personal Advocate & Liaison (PAL) 05/01/19 05/16/21 Chris Galvan MD [address] [place] [address] Assigned OBGYN Provider 11/13/2005/25 Asaf Perales MD [address] [place], [place] [address] Assigned Surgical Provider 12/18/2012/31/20 Trinh Jacobson PA-C [address] [place] [address] Assigned Surgical Provider 01/01/21 Vini Joyce MD [address] [place] [address] Assigned Surgical Provider 01/29/21 [facility] [address] [place] [address] Pharmacist Pharmacist 05/17/21 07/26/22 Alisson Roth PA-C [address] [place] [address] Assigned Surgical Provider 05/14/2102/01/23 Adelaida Waterman PA-C [address] [place] [address] Assigned Sleep Provider 08/06/2104/19 Roberta Galvan [facility] [address] [address] Assigned MTM Pharmacist 12/23/21 Roberta Galvan [facility] [address] [address] Assigned MTM Pharmacist 03/28/22 Jeremy Camejo MD [address] [place] [address] Assigned OBGYN Provider 05/26/22 Nicolas Barragan MD [address] [place], [place] [address] Assigned Surgical Provider 02/02/23 documented as of this encounter
--- OUTSIDE RECORDS SUMMARY | 2024-07-04 16:38 | XMS_ITS | Encounter Summary ---
Author Organization [place] Address [address] [facility] [place] [address] Care Team Providers Care Talent Consultant Name Role Phone Sherin Garza MD Primary Care Provider [phone] Tanvir Peñaloza PA-C Unavailable Unavailab Johanna Swenson LPN Unavailable Unavailable Sherin Garza MD Unavailable [phone] Jose M Bearden Unavailable Unavailable Chris Galvan MD Unavailable [phone] Asaf Perales MD Unavailable Trinh JacobsonC Unavailable Vini Joyce MD Unavailable [phone] Roberta Galvan [facility] Unavailable Alisson Roth-C Unavailable [phone] Adelaida Waterman-C Unavailable [phone] Roberta Galvan [facility] Unavailable [phone] Roberta Galvan [facility] Unavailable [phone] Jeremy Camejo MD Unavailable Nicolas Barragan MD Unavailable [phone] Reason for Referral * Mental Health Outpatient (Routine) - Closed Specialty Diagnoses / Procedures Referred By Fito carranza Referred To Contact Diagnoses Obsessive-compulsive disorder, unspecified type Generalized anxiety disorder Attention deficit hyperactivity disorder (ADHD), unspecified ADHD type Moderate episode of recurrent major depressive disorder (H) Sherin Garza MD [address] [place] [address] [place] [address] Phone: tel: fax: Referral ID Status Reason Start Date Expiration Date Visits Re quested Visits Authorized [id number] Closed 12/07/2019 12/06/2020 1 1 Question Answer Child/Adolescent or Adult Adult Which Service? Outpatient Treatment Outpatient Treatment Individual/Couples/Family/Group Therapy/Health Psychology Adult Therapy Locations [facility]: [facility] Scheduling Note: We will contact you to [...] Care Team (Latest Contact Info) Description 11/21/2019 [facility] Medical Advice [address] [place] [address] Sherin Garza MD [address] [place] [address] [place] [address] Obsessive-compulsive disorder, unspecified type (Primary Dx); Generalized [...] Date Recorded PHQ-2 Score 2 07/05/2019 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: [facility] ; We will contact you to schedule [...] Total Score: 6 01/05/20 20 7:03 AM FOOD BEVERAGE SERVER documented as of this encounter Care Teams Talent Consultant Relationship Specialty Start Date End Date Sherin Garza MD [address] [facility] [address] [place] [address] PCP - General 08/16/01 Tanvir Peñaloza PA-C [address] [facility] [place] [address] Physician Inventory Control Associate 12/27/17 Johanna Rodríguez LPN Nurse Coordinator 12/27/17 Sherin Garza MD [address] [facility] [place] [address] Assigned PCP 06/15/18 Jose M Bearden Personal Advocate & Liaison (PAL) 05/01/19 05/16/21 Chris Galvan MD [address] [place] [address] Assigned OBGYN Provider 11/13/2005/25 Asaf Perales MD [address] [place] [address] Assigned Surgical Provider 12/18/2012/31/20 Trinh Jacobson PA-C [address] [place] [address] Assigned Surgical Provider 01/01/21 Vini Joyce MD [address] [place] [address] Assigned Surgical Provider 01/29/21 Roberta Galvan, [facility] [address] [place] [address] Pharmacist Pharmacist 05/17/21 07/26/22 Alisson Roth PA-C [address] [place] [address] Assigned Surgical Provider 05/14/2102/01/23 Adelaida Waterman PA-C [address] [place] [address] Assigned Sleep Provider 08/06/2104/19 Roberta Galvan, [facility] [address] [address] Assigned MTM Pharmacist 12/23/21 Roberta Galvan, [facility] [address] [place] [id number] Assigned MTM Pharmacist 03/28/22 Jeremy Camejo MD [address] [place] [address] Assigned OBGYN Provider 05/26/22 Nicolas Barragan MD [address] [place], [place] [address] Assigned Surgical Provider 02/02/23 documented as of this encounter
--- OUTSIDE RECORDS SUMMARY | 2024-07-04 16:39 | XMS_ITS | Encounter Summary ---
Author Organization [place] Address [address] [place] [address] Care Team Providers Care Supervisor Securities Vault Name Role Phone Sherin Garza MD Primary Care Provider [phone] Tanvir Peñaloza PA-C Unavailable Unavailab Johanna Swenson LPN Unavailable Unavailable Sherin Garza MD Unavailable [phone] Jose M Bearden Unavailable Unavailable Mack Arteaga Unavailable [phone] Chris Galvan MD Unavailable [phone] Asaf Perales MD Unavailable Trinh Jacobson-C Unavailable Vini Joyce MD Unavailable [phone] Roberta Galvan [facility] Unavailable Alisson Roth-C Unavailable [phone] Adelaida Waterman-C Unavailable [phone] Roberta Galvan [facility] Unavailable [phone] Roberta Galvan [facility] Unavailable Jeremy Camejo MD Unavailable Nicolas Barragan MD Unavailable Reason for Visit * Reason Onset Date Comments Formulary Issue 10/01/2018 hydroxyzine caps on back order Medication Change 10/01/2018 to hydroxyzine tabs Encounter Details Date Type Department Care Team (Late st Contact Info) Description 10/01/[address] [facility] [place] [address] [facility] [address] [place] [address] Sherin Garza MD [address] [facility] [place] [address] Formulary Issue (hydroxyzine caps on back ... [...] PM CDT Legal Sex Female 4:00 AM PRESS OPERATOR HELPER Gender Identity Female 09/17/2018 1:36 AM CDT Sexual Orientation Straight 09/17/2018 1: 36 AM CDT Occupation Industry Job Start Date Job End Date Not on file Not on file Not on file Not on file documented as of this encounter Miscellaneous Notes * Telephone Encounter - Mary Anne Godwin RN - 10/01/2018 4:06 PM CDT Pt sent a [employer] message regarding an rx that is on [...] documented as of this encounter Care Teams Supervisor Securities Vault Relationship Specialty Start Date End Date Sherin Garza MD [address] [facility] [address] [place], [place] [address] PCP - General 08/16/01 Tanvir Peñaloza PA-C [address] [facility] [place] [address] Physician Curator Natural History Museum 12/27/17 Johanna Rodríguez LPN Nurse Coordinator 12/27/17 Sherin Garza MD [address] [facility] [address] [place] [address] Assigned PCP 06/15/18 Jose M Bearden Personal Advocate & Liaison (PAL) 05/01/19 05/16/21 Mack Arteaga [facility] Lead Church Musician Primary Care - CC 05/22/1909/15 Chris Galvan MD [address] [place] [address] Assigned OBGYN Provider 11/13/2005/25 Asaf Perales MD [address] [place] [address] Assigned Surgical Provider 12/18/20 12/31/20 Trinh Jacobson PA-C [address] [place] [address] Assigned Surgical Provider 01/01/21 01/28/21 Vini Joyce MD [address] [place] [address] Assigned Surgical Provider 01/29/21 05/13/21 Roberta Galvan, [facility] [address] [address] Pharmacist Pharmacist 05/17/21 07/26/22 Alisson Roth PA-C [address] [place] [address] Assigned Surgical Provider 05/14/21 02/01/23 Adelaida Waterman PA-C [address] [place] [address] Assigned Sleep Provider 08/06/2104/19 Roberta Galvan, [facility] [address] [address] Assigned MTM Pharmacist 12/23/21 Roberta Galvan, [facility] [address] [address] Assigned MTM Pharmacist 03/28/22 Jeremy Camejo MD [address] [place] [address] Assigned OBGYN Provider 05/26/22 Nicolas Barragan MD [address] [place], [place] [address] Assigned Surgical Provider 02/02/23 10/21/23 documented as of this encounter
--- OUTSIDE RECORDS SUMMARY | 2024-07-04 16:39 | XMS_ITS | Encounter Summary ---
Author Organization [place] Address [address] [facility] [place] [address] Care Team Providers Care Telecom Sales Consultant Name Role Phone Sherin Garza MD Primary Care Provider [phone] Tanvir Peñaloza PA-C Unavailable Unavailab Johanna Swenson LPN Unavailable Unavailable Sherin Garza MD Unavailable [phone] Sherin Garza MD Unavailable [phone] Jose M Bearden Unavailable Unavailable Mack Arteaga Unavailable [phone] Chris Galvan MD Unavailable [phone] Asaf Perales MD Unavailable [phone] Trihn JacobsonC Unavailable Vini Joyce MD Unavailable [phone] Roberta Galvan [facility] Unavailable [phone] Alisson Roth PA-C Unavailable [phone] Adelaida WatermanC Unavailable [phone] Roberta Galvan [facility] Unavailable [phone] Roberta Galvan [facility] Unavailable [phone] Jeremy Camejo MD Unavailable Nicolas Barragan MD Unavailable [phone] Encounter Details Date Type Department Care Team (Late st Contact Info) Description 09/13/2013 MyC Medical Advice [facility] [address] [place] [address] Sherin Garza MD [address] [employer] [place] [address] Social History Tobacco Use Types Packs/Day Years Used Date Smoking Tobacco: Never Smokeless Tobacco: Never Alcohol Use Standard Drinks/Week Comments Yes 0 (1 standard drink = 0.6 oz pur e alcohol) 1-2 drinks a week Comments No Sex and Gender Information Value Date Recorded Sex Assigned at Female 10/27/2020 11:13 PM CDT Legal Sex Female 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 [place] [address] PCP - General 08/16/01 Sherin Garza MD [address] [facility] [place] [address] PCP - Assigned PCP 01/26/18 09/02/18 Tanvir Peñaloza PA-C [address] [employer] [place] [address] Physician Supermarket Manager 12/27/17 Johanna Rodríguez LPN Nurse Coordinator 12/27/17 Sherin Garza MD [address] [employer] [place] [address] Assigned PCP 06/15/18 Jose M Bearden Personal Advocate & Liaison (PAL) 05/01/19 05/16/21 Jenni MackJERROD Lead Print Line Inspector Primary Care - CC 05/22/1909/15 Chris Galvan MD [address] [place] [address] Assigned OBGYN Provider 11/13/2005/25 Asaf Perales MD [address] [place] [address] Assigned Surgical Provider 12/18/20 12/31/20 Trinh Jacobson PA-C [address] [place], [place] [address] Assigned Surgical Provider 01/01/21 01/28/21 Vini Joyce MD [address] [place] [address] Assigned Surgical Provider 01/29/21 05/13/21 [facility] [address] [place] [address] Pharmacist Pharmacist 05/17/21 07/26/22 Alisson Roth PA-C [address] [place] [address] Assigned Surgical Provider 05/14/21 02/01/23 Adelaida Waterman PA-C [address] [place] [address] Assigned Sleep Provider 08/06/2104/19 Roberta Galvan [facility] [address] [address] Assigned MTM Pharmacist 12/23/21 Roberta Galvan [facility] [address] [address] Assigned MTM Pharmacist 03/28/22 Jeremy Camejo MD [address] [place] [address] Assigned OBGYN Provider 05/26/22 Nicolas Barragan MD 9 [place], [place] [address] Assigned Surgical Provider 02/02/23 10/21/23 documented as of this encounter
--- OUTSIDE RECORDS SUMMARY | 2024-07-04 16:39 | XMS_ITS | Encounter Summary ---
Author Organization [place] Address [address] [facility] [place] [address] Care Team Providers Care Ict Help Desk Technician Name Role Phone Sherin Garza MD Primary Care Provider [phone] Tanvir Peñaloza PA-C Unavailable Unavailab Johanna Swenson LPN Unavailable Unavailable Sherin Garza MD Unavailable [phone] Jose M Bearden Unavailable Unavailable Mack Arteaga Unavailable [phone] Chris Galvan MD Unavailable [phone] Asaf Perales MD Unavailable [phone] Trinh Jacobson-C Unavailable Vini Joyce MD Unavailable [phone] Roberta Galvan [facility] Unavailable [phone] Alisson Roth-C Unavailable [phone] Adelaida Waterman-C Unavailable [phone] Roberta Galvan [facility] Unavailable [phone] Roberta Galvan [facility] Unavailable Jeremy Camejo MD Unavailable Nicolas Barragan MD Unavailable Reason for Visit * Reason Onset Date Comments Refill Request 03/25/2019 buPROPion (WELLB UTRIN SR) 150 MG 12 hr tablet Encounter Details Date Type Department Care Team (Late st Contact Info) Description 03/25/2019 Refill [facility] [place] [address] [facility] [address] [place] [phone] Sherin Garza MD [address] [facility] [place] [address] Refill Request (buPROPion (WELLBUTRIN SR) 150 MG [...] CDT Legal Sex Female 4:00 AM 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 Joi Wing RN March 25, 2019 3:40 PM documented in this encounter Plan of Treatment Not on file documented as of this encounter Visit Diagnoses Diagnosis Moderate episode of recurrent major depressive disorder (H) documented in this encounter Additional Health Concerns Assessment Noted Time PHQ-9 Depression Total Score: 7 10/01/19 19 3:59 PM CDT documented as of this encounter Care Teams Ict Help Desk Technician Relationship Specialty Start Date End Date Sherin Garza MD [facility] [place] [address] PCP - General 08/16/01 Tanvir Peñaloza PA-C [address] [facility] [address] [place] [address] Physician Yard Specialist 12/27/17 Johanna Rodríguez LPN Nurse Coordinator 12/27/17 Sherin Garza MD [address] [facility] [place] [address] Assigned PCP 06/15/18 Jose M Bearden Personal Advocate & Liaison (PAL) 05/01/19 05/16/21 Mack Arteaga LSW Lead [place] Mill Operator Primary Care - CC 05/22/1909/15 Chris aGlvan MD [address] [place] [address] Assigned OBGYN Provider 11/13/2005/25 Asaf Perales MD [address] [place] [address] Assigned Surgical Provider 12/18/20 12/31/20 Trinh Jacobson PA-C [address] [place] [address] Assigned Surgical Provider 01/01/21 01/28/21 Vini Joyce MD [address] [place] [address] Assigned Surgical Provider 01/29/21 05/13/21 Roberta Galvan, [facility] [address] [facility] [place] [address] Pharmacist Pharmacist 05/17/21 07/26/22 Alisson Roth PA-C [address] [place] [address] Assigned Surgical Provider 05/14/21 02/01/23 Adelaida Waterman PA-C [address] [place] [address] Assigned Sleep Provider 08/06/2104/19 Roberta Galvan [facility] [address] [address] Assigned MTM Pharmacist 12/23/21 Roberta Galvan [facility] [address] [address] Assigned MTM Pharmacist 03/28/22 Jeremy Camejo MD [address] [place] [address] Assigned OBGYN Provider 05/26/22 i[place]as Barragan MD [address] [place] [address] Assigned Surgical Provider 02/02/23 10/21/23 documented as of this encounter
--- OUTSIDE RECORDS SUMMARY | 2024-07-04 16:39 | XMS_ITS | Encounter Summary ---
Author Organization [place] Address [address] [facility] [place] [address] Care Team Providers Care Manager Advertising Name Role Phone Sherin Garza MD Primary Care Provider [phone] Tanvir Peñaloza PA-C Unavailable Unavailab Johanna Swenson LPN Unavailable Unavailable Sherin Garza MD Unavailable [phone] Jose M Bearden Unavailable Unavailable Mack Arteaga Unavailable [phone] Chris Galvan MD Unavailable [phone] Asaf Perales MD Unavailable [phone] Trinh Jacobson-C Unavailable Vini Joyce MD Unavailable [phone] Roberta Galvan [facility] Unavailable Alisson Roth-C Unavailable [phone] Adelaida Waterman-C Unavailable [phone] Roberta Galvan [facility] Unavailable [phone] Roberta Galvan [facility] Unavailable Jeremy Camejo MD Unavailable [phone] Nicolas Barragan MD Unavailable Encounter Details Date [...] Answer Date Recorded PHQ-2 Score 6 05/01/2019 [facility] - Occupational Stress Questionnaire Answer Date [...] PM CDT Legal Sex Female 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 Gender Identity Female 09/17/2018 1:36 AM [...] as of this encounter Care Teams Manager Advertising Relationship Specialty Start Date End Date Sherin Garza MD [address] [facility] [place] [address] PCP - General 08/16/01 Tanvir Peñaloza, PAArshC [address] [facility] [place] [address] Physician Welder Manufacture 12/27/17 Johanna Rodríguez LPN Nurse Coordinator 12/27/17 Sherin Garza MD [address] [facility] [place] [address] Assigned PCP 06/15/18 Jose M Bearden Personal Advocate & Liaison (PAL) 05/01/19 05/16/21 Mack Arteaga LSW Lead Anthropology Lecturer Primary Care - CC 05/22/1909/15 Chris Galvan MD [address] [facility] [address] [place] [address] Assigned OBGYN Provider 11/13/2005/25 Asaf Perales MD [address] [place] [address] Assigned Surgical Provider 12/18/20 12/31/20 Trinh Jacobson PA-C [address] [place] [address] Assigned Surgical Provider 01/01/21 01/28/21 Vini Joyce MD [address] [facility] [address] [place], [place] [address] Assigned Surgical Provider 01/29/21 05/13/21 Roberta Galvan, [facility] [address] [address] Pharmacist Pharmacist 05/17/21 07/26/22 Alisson Roth PA-C [address] [place] [address] Assigned Surgical Provider 05/14/21 02/01/23 Adelaida Waterman PA-C [address] [place] [address] Assigned Sleep Provider 08/06/2104/19 Roberta Galvan, [facility] [address] [address] Assigned MTM Pharmacist 12/23/21 Roberta Galvan, [facility] [address] [address] Assigned MTM Pharmacist 03/28/22 Jeremy Camejo MD [address] [place] [address] Assigned OBGYN Provider 05/26/22 Nicolas Barragan MD [address] [place], [place] [address] Assigned Surgical Provider 02/02/23 10/21/23 documented as of this encounter
--- OUTSIDE RECORDS SUMMARY | 2024-07-04 16:39 | XMS_ITS | Encounter Summary ---
Author Organization [place] Address [address] [facility] [place] [address] Care Team Providers Care Ginner Name Role Phone Sherin Garza MD Primary Care Provider [phone] Tanvir Peñaloza PA-C Unavailable Unavailab Johanna Swenson LPN Unavailable Unavailable Sherin Garza MD Unavailable [phone] Jose M Bearden Unavailable Unavailable Mack Arteaga Unavailable [phone] Chris Galvan MD Unavailable [phone] Asaf Perales MD Unavailable Trinh Jacobson-C Unavailable Vini Joyce MD Unavailable [phone] Roberta Galavn [facility] Unavailable [phone] Alisson Roth-C Unavailable [phone] Adelaida Waterman-C Unavailable [phone] Roberta Galvan [facility] Unavailable [phone] Roberta Galvan [facility] Unavailable [phone] Jeremy Camejo MD Unavailable Nicolas Barragan MD Unavailable Reason for Visit * Reason Comments Medication Refill tiZANidine (ZANAFLEX ) 4 MG tablet Encounter Details Date Type Department Care Team (Late st Contact Info) Description 09/14/2019 Refill [facility] [place] [address] [facility] [address] [place] [address] Sherin Garza MD [address] [facility] [place] [address] Medication Refill (tiZANidine (ZANAFLEX) 4 MG tablet [...] and Family Once a week 05/01/2019 Attends [employer] Patient declined 07/2018 Active Member of [...] 2 07/05/2019 [facility] [place] of Occupat ional Health - Occupational Stress [...] PM CDT Legal Sex Female 4:00 AM ACCESS SERVICES LIBRARIAN Gender Identity Female 09/17/2018 1:36 AM CDT Sexual Orientation Straight 09/17/2018 1: 36 AM CDT Occupation Industry Job Start Date Job End Date Not on file Not on file Not on file Not on file documented as of this encounter Miscellaneous Notes * Telephone Encounter - Jose M Bearden CNA - 09/17/2019 1:14 PM CDT Pt has more joint terminal attack controller counselor that usually she sees once a [...] on September 17, 2019 [facility] [phone] * Telephone Encounter - Jose M Bearden CNA - 09/15/2019 9:18 AM CDT Called pt. Attempt #1. No answer, LVM to call back on my personal extension. If pt calls back: Can offer phone visit with [facility] per Sasha - she would prefer to reach out to schedule pt if possible Jose M Bearden, EMT at 9:19 AM on September 15, 2019 [facility] [phone] * Telephone Encounter - Sherin Garza MD - 09/14/2019 5:15 PM CDT Refilled - please check with patient about how she is doing. Hasn't seen [facility] recently. Sherin Garza MD * Telephone Encounter [...] Total Score: 6 07/05/19 20 7:03 AM ACCESS SERVICES LIBRARIAN documented as of this encounter Care Teams Ginner Relationship Specialty Start Date End Date Sherin Garza MD [address] [place] [address] PCP - General 08/16/01 Tanvir Peñaloza PA-C [address] [place] [address] Physician Project Development Coordinator 12/27/17 Johanna Rodríguez LPN Nurse Coordinator 12/27/17 Sherin Garza MD [address] [facility] [place] [address] Assigned PCP 06/15/18 Jose M Bearden Personal Advocate & Liaison (PAL) 05/01/19 05/16/21 Mack ArteagaJERROD Lead Flight Superintendent Primary Care - CC 05/22/1909/15 Chris Galvan MD [address] [place] [address] Assigned OBGYN Provider 11/13/2005/25 Asaf Perales MD [address] [place] [address] Assigned Surgical Provider 12/18/20 12/31/20 Trinh Jacobson PA-C [address] [place], [place] [address] Assigned Surgical Provider 01/01/21 01/28/21 Vini Joyce MD [address] [place] [address] Assigned Surgical Provider 01/29/21 05/13/21 [facility] [address] [facility] [place] [address] Pharmacist Pharmacist 05/17/21 07/26/22 Alisson Roth PA-C [address] [place] [address] Assigned Surgical Provider 05/14/21 02/01/23 Adelaida Waterman PA-C [address] [place] [address] [place] [address] Assigned Sleep Provider 08/06/2104/19 Roberta Galvan, [facility] [address] [address] Assigned MTM Pharmacist 12/23/21 Roberta Galvan, [facility] [address] [address] Assigned MTM Pharmacist 03/28/22 Jeremy Camejo MD [address] [place] [address] Assigned OBGYN Provider 05/26/22 Nicolas Barragan MD [address] [place], [place] [address] Assigned Surgical Provider 02/02/23 10/21/23 documented as of this encounter
--- OUTSIDE RECORDS SUMMARY | 2024-07-04 16:39 | XMS_ITS | Encounter Summary ---
Author Organization [place] Address [address] [place] [address] Care Team Providers Care Exhaust Equipment Operator Name Role Phone Sherin Garza MD Primary Care Provider [phone] Tanvir Peñaloza PA-C Unavailable Unavailab Johanna Swenson LPN Unavailable Unavailable Sherin Garza MD Unavailable [phone] Sherin Garza MD Unavailable [phone] Jose M Bearden Unavailable Unavailable Mack Arteaga Unavailable [phone] Chris Galvan MD Unavailable [phone] Asaf Perales MD Unavailable [phone] Trinh JacobsonC Unavailable Vini Joyce MD Unavailable [phone] Roberta Galvan [facility] Unavailable [phone] Alisson Roth PA-C Unavailable [phone] Adelaida WatermanC Unavailable [phone] Roberta Galvan [facility] Unavailable [phone] Roberta Galvan [facility] Unavailable [phone] Jeremy Camejo MD Unavailable Nicolas Barragan MD Unavailable Encounter Details Date Type Department Care Team (Late st Contact Info) Description 06/12/2017 Documentation Only [facility] [place] [address] [facility] [address] [place] [phone] Sherin Garza MD [address] [facility] [place] [address] Social History Tobacco Use Types Packs/Day Years Used Date Smoking Tobacco: Never Smokeless Tobacco: Never Alcohol Use Standard Drinks/Week Comments Yes 0 (1 standard drink = 0.6 oz pur e alcohol) 1-2 drinks a week Comments No Sex and Gender Information Value Date Recorded Sex Assigned at Female 10/27/2020 11:13 PM CDT Legal Sex Female 4:00 AM OUTSOLE MOLDER Gender Identity Female 09/17/2018 1:36 AM CDT [...] documented as of this encounter Care Teams Exhaust Equipment Operator Relationship Specialty Start Date End Date Sherin Garza MD [address] [place] [address] [place] [address] PCP - General 08/16/01 Sherin Garza MD [address] [place] [address] [place] [address] PCP - Assigned PCP 01/26/18 09/02/18 Tanvir Peñaloza PA-C [address] [facility] [place] [address] Physician Surveying Teacher 12/27/17 Johanna Rodríguez LPN Nurse Coordinator 12/27/17 Sherin Garza MD [address] [facility] [place] [address] Assigned PCP 06/15/18 Jose M Bearden Personal Advocate & Liaison (PAL) 05/01/19 05/16/21 Jenni Mack NEWS CORRESPONDENT Lead Bankman Primary Care - CC 05/22/1909/15 Chris Galvan MD [address] [place] [address] Assigned OBGYN Provider 11/13/2005/25 Asaf Perales MD [address] [place] [address] Assigned Surgical Provider 12/18/20 12/31/20 Trinh Jacobosn PA-C [address] [place], [place] [address] Assigned Surgical Provider 01/01/21 01/28/21 Vini Joyce MD [address] [place] [address] Assigned Surgical Provider 01/29/21 05/13/21 Roberta Galvan, [facility] [address] [facility] [address] [place] [address] Pharmacist Pharmacist 05/17/21 07/26/22 Alisson Roth PA-C [address] [place] [address] Assigned Surgical Provider 05/14/21 02/01/23 Adelaida Waterman PA-C [address] [address] Assigned Sleep Provider 08/06/2104/19 Roberta Galvan, [facility] [address] [address] Assigned MTM Pharmacist 12/23/21 Roberta Galvan, [facility] [address] [id number] Assigned MTM Pharmacist 03/28/22 Jeremy Camejo MD [address] [place] [address] Assigned OBGYN Provider 05/26/22 Nicolas Barragan MD 9 [place] [address] Assigned Surgical Provider 02/02/23 10/21/23 documented as of this encounter
--- OUTSIDE RECORDS SUMMARY | 2024-07-04 16:39 | XMS_ITS | Encounter Summary ---
Author Organization [place] Address [address] [facility] [place] [address] Care Team Providers Care Cutter Hand Name Role Phone Sherin Garza MD Primary Care Provider [phone] Tanvir Peñaloza PA-C Unavailable Unavailab Johanna Swenson LPN Unavailable Unavailable Sherin Garza MD Unavailable [phone] Sherin Garza MD Unavailable [phone] Jose M Bearden Unavailable Unavailable Mack Arteaga Unavailable [phone] Chris Galvan MD Unavailable [phone] Asaf Perales MD Unavailable [phone] Trinh JacobsonC Unavailable Vini Joyce MD Unavailable [phone] Roberta Galvan [facility] Unavailable [phone] Alisson Roth PA-C Unavailable [phone] Adelaida WatermanC Unavailable [phone] Roberta Galvan [facility] Unavailable [phone] Roberta Galvan [facility] Unavailable [phone] Jeremy Camejo MD Unavailable Nicolas Barragan MD Unavailable Encounter Details Date Type Department Care Team (Late st Contact Info) Description 03/29/2017 MyC Medical Advice [facility] [place] [address] [facility] [address] [place] [phone] Sherin Garza MD [address] 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 [address] Assigned PCP 06/15/18 Jose M Bearden Personal Advocate & Liaison (PAL) 05/01/19 05/16/21 Jenni Mack MOTORCYCLE ASSEMBLER Lead Medical Imaging Technician Primary Care - CC 05/22/1909/15 Chris Galvan MD [address] [place] [address] Assigned OBGYN Provider 11/13/2005/25 Asaf Perales MD [address] [place] [address] Assigned Surgical Provider 12/18/20 12/31/20 Trinh Jacobson PA-C [address] [place], [place] [address] Assigned Surgical Provider 01/01/21 01/28/21 Vini Joyce MD [address] [place] [address] Assigned Surgical Provider 01/29/21 05/13/21 Roberta Galvan, [facility] [address] [facility] [place] [address] Pharmacist Pharmacist 05/17/21 07/26/22 Alisson Roth PA-C [address] [place] [address] Assigned Surgical Provider 05/14/21 02/01/23 Adelaida Waterman PA-C [address] [place] [address] Assigned Sleep Provider 08/06/2104/19 Roberta Galvan, [facility] [address] [id number] Assigned MTM Pharmacist 12/23/21 Roberta Galvan, [facility] [address] [id number] Assigned MTM Pharmacist 03/28/22 Jeremy Camejo MD [address] [place] [address] Assigned OBGYN Provider 05/26/22 Nicolas Barragan MD 9 [place] [address] Assigned Surgical Provider 02/02/23 10/21/23 documented as of this encounter
--- OUTSIDE RECORDS SUMMARY | 2024-07-04 16:39 | XMS_ITS | Encounter Summary ---
Author Organization [place] Address [address] [facility] [place] [address] Care Team Providers Care Building Wrecker Name Role Phone Sherin Garza MD Primary Care Provider [phone] Tanvir Peñaloza PA-C Unavailable Unavailab Johanna Swenson LPN Unavailable Unavailable Sherin Garza MD Unavailable [phone] Jose M Bearden Unavailable Unavailable Mack Arteaga Unavailable [phone] Chris Galvan MD Unavailable [phone] Asaf Perales MD Unavailable Trinh Jacobson-C Unavailable [phone] Vini Joyce MD Unavailable [phone] Roberta Galvan [facility] Unavailable Alisson Roth-C Unavailable [phone] Adelaida Waterman-C Unavailable [phone] Roberta Galvan [facility] Unavailable [phone] Roberta Galvan [facility] Unavailable Jeremy Camejo MD Unavailable Nicolas Barragan MD Unavailable [phone] Encounter Details Date Type Department Care Team (Late st Contact Info) Description 02/03/2019 MyC Medical Advice [facility] [place] [address] [facility] [address] [place] [address] Monet Herrera, STUD MASTER/MISTRESS Social History Tobacco Use Types Packs/Day Years [...] PM CDT Legal Sex Female 4:00 AM SPACE AND STORAGE CLERK Gender Identity Female 09/17/2018 1:36 AM [...] documented as of this encounter Care Teams Building Wrecker Relationship Specialty Start Date End Date Sherin Garza MD [address] [place] [address] [place] [address] PCP - General 08/16/01 Tanvir Peñaloza, PA-C [address] [place] [address] [place] [address] Physician Watch Leader 12/27/17 Johanna Rodríguez LPN Nurse Coordinator 12/27/17 Sherin Garza MD [address] [place] [address] [place] [address] Assigned PCP 06/15/18 Jose M Bearden Personal Advocate & Liaison (PAL) 05/01/19 05/16/21 Mack Arteaga LSW Lead Director Digital Sales Primary Care - CC 05/22/1909/15 Chris Galvan MD [address] [place] [address] Assigned OBGYN Provider 11/13/2005/25 Asaf Perales MD [address] [place], [place] [address] Assigned Surgical Provider 12/18/20 12/31/20 Trinh Jacobson PA-C [address] [place] [address] Assigned Surgical Provider 01/01/21 01/28/21 Vini Joyce MD [address] [place] [address] Assigned Surgical Provider 01/29/21 05/13/21 Roberta Galvan [facility] [address] [place] [address] Pharmacist Pharmacist 05/17/21 07/26/22 Alisson Roth PA-C [address] [place] [address] Assigned Surgical Provider 05/14/21 02/01/23 Adelaida Waterman PA-C [address] [place] [address] Assigned Sleep Provider 08/06/2104/19 Roberta Galvan [facility] [address] [address] Assigned MTM Pharmacist 12/23/21 Roberta Galvan, [facility] [address] [address] Assigned MTM Pharmacist 03/28/22 Jeremy Camejo MD [address] [place] [address] Assigned OBGYN Provider 05/26/22 Nicolas Barragan MD [address] [place] [address] Assigned Surgical Provider 02/02/23 10/21/23 documented as of this encounter
--- OUTSIDE RECORDS SUMMARY | 2024-07-04 16:39 | XMS_ITS | Encounter Summary ---
Author Organization [place] Address [address] [place] [address] Care Team Providers Care Cad Detailer Name Role Phone Sherin Garza MD Primary Care Provider [phone] Tanvir Peñaloza PA-C Unavailable Unavailab Johanna Swenson LPN Unavailable Unavailable Sherin Garza MD Unavailable [phone] Sherin Garza MD Unavailable [phone] Jose M Bearden Unavailable Unavailable Mack Arteaga Unavailable [phone] Chris Galvan MD Unavailable [phone] Asaf Perales MD Unavailable [phone] Trinh JacobsonC Unavailable Vini Joyce MD Unavailable [phone] Roberta Galvan [facility] Unavailable [phone] Alisson Roth PA-C Unavailable [phone] Adelaida WatermanC Unavailable [phone] Roberta Galvan [facility] Unavailable [phone] Roberta Galvan [facility] Unavailable [phone] Jeremy Camejo MD Unavailable Nicolas Barragan MD Unavailable Encounter Details Date Type Department Care Team (Late st Contact Info) Description 04/09/2017 MyC Medical Advice [facility] [address] [facility] [address] [place] [phone] Sherin Garza MD [address] [facility] [place] [address] Social History Tobacco Use Types Packs/Day Years Used Date Smoking Tobacco: Never Smokeless Tobacco: Never Alcohol Use Standard Drinks/Week Comments Yes 0 (1 standard drink = 0.6 oz pur e alcohol) 1-2 drinks a week Comments No Sex and Gender Information Value Date Recorded Sex Assigned at Female 10/27/2020 11:13 PM CDT Legal Sex Female 4:00 AM DISTRIBUTION ANALYST Gender Identity Female 09/17/2018 1:36 AM [...] documented as of this encounter Care Teams Cad Detailer Relationship Specialty Start Date End Date Sherin Garza MD [address] [place] [address] [place] [address] PCP - General 08/16/01 Sherin Garza MD [facility] [employer] [place] [address] PCP - Assigned PCP 01/26/18 09/02/18 Tanvir Peñaloza PA-C [address] [facility] [employer] [place] [address] Physician Solvent Mixer 12/27/17 Johanna Rodríguez LPN Nurse Coordinator 12/27/17 Sherin Garza MD [address] [facility] [place] [address] Assigned PCP 06/15/18 Jose M Bearden Personal Advocate & Liaison (PAL) 05/01/19 05/16/21 Jenni Mack SLING OPERATOR Lead Motorboat Mechanic Helper Primary Care - CC 05/22/1909/15 Chris Galvan MD [address] [place] [address] Assigned OBGYN Provider 11/13/2005/25 Asaf Perales MD [address] [place] [address] Assigned Surgical Provider 12/18/20 12/31/20 Trinh Jacobson PA-C [address] [place], [place] [address] Assigned Surgical Provider 01/01/21 01/28/21 Vini Joyce MD [address] [place] [address] Assigned Surgical Provider 01/29/21 05/13/21 Roberta Galvan, [facility] [address] [place] [address] Pharmacist Pharmacist 05/17/21 07/26/22 Alisson Roth PA-C [address] [place] [address] Assigned Surgical Provider 05/14/21 02/01/23 Adelaida Waterman PA-C [address] [place] [address] Assigned Sleep Provider 08/06/2104/19 Roberta Galvan, [facility] [address] [id number] Assigned MTM Pharmacist 12/23/21 Roberta Galvan, [facility] [address] [id number] Assigned MTM Pharmacist 03/28/22 Jreemy Camejo MD [address] [place] [address] Assigned OBGYN Provider 05/26/22 Nicolas Barragan MD [address] [place] [address] Assigned Surgical Provider 02/02/23 10/21/23 documented as of this encounter
--- OUTSIDE RECORDS SUMMARY | 2024-07-04 16:39 | XMS_ITS | Encounter Summary ---
Author Organization [place] Address [address] [place] [address] Care Team Providers Care Studio Operations Engineer In Charge Name Role Phone Sherin Garza MD Primary Care Provider [phone] Tanvir Peñaloza PA-C Unavailable Unavailab Johanna Swenson LPN Unavailable Unavailable Sherin Garza MD Unavailable [phone] Sherin Garza MD Unavailable [phone] Jose M Bearden Unavailable Unavailable Mack Arteaga Unavailable [phone] Chris Galvan MD Unavailable [phone] Asaf Perales MD Unavailable [phone] Trinh JacobsonC Unavailable Vini Joyce MD Unavailable [phone] Roberta Galvan [facility] Unavailable [phone] Alisson Roth PA-C Unavailable [phone] Adelaida WatermanC Unavailable [phone] Roberta Galvan [facility] Unavailable [phone] Roberta Galvan [facility] Unavailable [phone] Jeremy Camejo MD Unavailable Nicolas Barragan MD Unavailable [phone] Encounter Details Date Type Department Care Team (Late st Contact Info) Description 07/13/2016 MyC Medical Advice [facility] [place] [address] [facility] [address] [place] [address] Jayashree Balesica Darling Social History Tobacco Use Types Packs/Day Years Used Date Smoking Tobacco: Never Smokeless Tobacco: Never Alcohol Use Standard Drinks/Week Comments Yes 0 (1 standard drink = 0.6 oz pur e alcohol) 1-2 drinks a week Comments No Sex and Gender Information Value Date Recorded Sex Assigned at Female 10/27/2020 11:13 PM CDT Legal Sex Female 4:00 AM BAR PILOT Gender Identity Female 09/17/2018 1:36 AM CDT [...] documented as of this encounter Care Teams Studio Operations Engineer In Charge Relationship Specialty Start Date End Date Sherin Garza MD [address] [place] [address] PCP - General 08/16/01 Sherin Garza MD [address] [place] [address] PCP - Assigned PCP 01/26/18 09/02/18 Tanvir Peñaloza PA-C [address] [place] [address] Physician Orthotic Assistant 12/27/17 Johanna Rodríguez LPN Nurse Coordinator 12/27/17 Sherin Garza MD [facility] [address] [place] [address] Assigned PCP 06/15/18 Jose M [place]arden Personal Advocate & Liaison (PAL) 05/01/19 05/16/21 Jenni MackJERROD [employer] Solutions Architect Primary Care - CC 05/22/1909/15 Chris Galvan MD [address] [place] [address] Assigned OBGYN Provider 11/13/2005/25 Asaf Perales MD [address] [place] [address] Assigned Surgical Provider 12/18/20 12/31/20 Trinh Jacobson PA-C [address] [place], [place] [address] Assigned Surgical Provider 01/01/21 01/28/21 Vini Joyce MD [address] [place] [address] Assigned Surgical Provider 01/29/21 05/13/21 [facility] [address] [place] [address] Pharmacist Pharmacist 05/17/21 07/26/22 Alisson Roth PA-C [address] [place] [address] Assigned Surgical Provider 05/14/21 02/01/23 Adelaida Waterman PA-C [address] [place] [address] Assigned Sleep Provider 08/06/2104/19 Roberta Galvan [facility] [address] [address] Assigned MTM Pharmacist 12/23/21 Roberta Galvan [facility] [address] [address] Assigned MTM Pharmacist 03/28/22 Jeremy Camejo MD [address] [place] [address] Assigned OBGYN Provider 05/26/22 Nicolas Barragan MD [address] [place], [place] [address] Assigned Surgical Provider 02/02/23 10/21/23 documented as of this encounter
--- OUTSIDE RECORDS SUMMARY | 2024-07-04 16:39 | XMS_ITS | Encounter Summary ---
Author Organization [place] Address [address] [facility] [place] [address] Care Team Providers Care Tool Grinder Set Up Operator Gear Name Role Phone Sherin Garza MD Primary Care Provider [phone] Tanvir Peñaloza PA-C Unavailable Unavailab Johanna Swenson LPN Unavailable Unavailable Sherin Garza MD Unavailable [phone] Sherin Garza MD Unavailable [phone] Jose M Bearden Unavailable Unavailable Mack Arteaga Unavailable [phone] Chris Galvan MD Unavailable [phone] Asaf Perales MD Unavailable [phone] Trinh JacobsonC Unavailable [phone] Vini Joyce MD Unavailable [phone] Roberta Galvan [facility] Unavailable [phone] Alisson Roth PA-C Unavailable [phone] Adelaida WatermanC Unavailable [phone] Roberta Galvan [facility] Unavailable [phone] Roberta Galvan [facility] Unavailable [phone] Jeremy Camejo MD Unavailable Nicolas Barragan MD Unavailable Reason for Visit * Reason Onset Date Comments Refill Request 07/16/2015 venlafaxine Encounter Details Date Type Department Care Team (Late st Contact Info) Description 07/16/2015 [facility] [address] [facility] [place] [address] Sherin Garza MD [address] [facility] [place] [address] Refill Request (venlafaxine) [...] PM CDT Legal Sex Female 4:00 AM EXPERIENCE DESIGNER Gender Identity Female 09/17/2018 1:36 AM CDT Sexual Orientation Straight 09/17/2018 1: 36 AM CDT Occupation Industry Job Start Date Job End Date Not on file Not on file Not on file Not on file documented as of this encounter Miscellaneous Notes * Telephone Encounter - Jaycee Renee RN - 07/19/2015 2:25 PM EXPERIENCE DESIGNER Routing refill request to provider for review/approval because: Labs not current: Alt/Ast and Cr Jaycee Renee RN. RIENCE DESIGNER * Telephone Encounter - Stephanie Cordova - 07/16/2015 5:25 PM CST Venlafaxine ER 150MG Last Written Prescription Date: 11/03/14 Last Fill Quantity: 90, # refills: 1 Last Office Visit with [facility] primary care provider: 11/03/14 BP Readings from [...] MyChart 2 (Minimal depression) Total Score 2 RIENCE DESIGNER documented in this encounter Plan of Treatment Not on file documented as of this encounter Visit Diagnoses Diagnosis Major depression in complete remission (H)- Primary Major depressive disorder, single episode in full remission documented in this encounter Additional Health Concerns Assessment Noted Time PHQ-9 Depression Total Score: 2 07/16/19 16 7:55 AM EXPERIENCE DESIGNER documented as of this encounter Care Teams Tool Grinder Set Up Operator Gear Relationship Specialty Start Date End Date Sherin Garza MD [address] [place] [address] PCP - General 08/16/01 Sherin Garza MD [address] [place] [address] PCP - Assigned PCP 01/26/18 09/02/18 Tanvir Peñaloza, PAArshC [address] [place] [address] Physician Mechanic Chief 12/27/17 Johanna Rodríguez LPN Nurse Coordinator 12/27/17 Sherin Garza MD [address] [place] [address] Assigned PCP 06/15/18 Jose M Bearden Personal Advocate & Liaison (PAL) 05/01/19 05/16/21 Mack Arteaga LSW Lead Plate Mill Mill Hand Primary Care - CC 05/22/1909/15 Chris Galvan MD [address] [place] [address] Assigned OBGYN Provider 11/13/2005/25 Asaf Perales MD [address] [place], [place] [address] Assigned Surgical Provider 12/18/20 12/31/20 Trinh Jacobson PA-C [address] [place], [place] [address] Assigned Surgical Provider 01/01/21 01/28/21 Vini Joyce MD [address] [place] [address] Assigned Surgical Provider 01/29/21 05/13/21 Roberta Galvan [facility] [address] [id number] Pharmacist Pharmacist 05/17/21 07/26/22 Alisson Roth PA-C [address] [place] [address] Assigned Surgical Provider 05/14/21 02/01/23 Adelaida Waterman PA-C [address] [place] [address] Assigned Sleep Provider 08/06/2104/19 Roberta Galvan [facility] [address] [id number] Assigned MTM Pharmacist 12/23/21 Roberta Galvan [facility] [address] [place] [address] Assigned MTM Pharmacist 03/28/22 Jeremy Camejo MD [address] [place] [address] Assigned OBGYN Provider 05/26/22 Nicolas Barragan MD [address] [place] [address] Assigned Surgical Provider 02/02/23 10/21/23 documented as of this encounter
--- OUTSIDE RECORDS SUMMARY | 2024-07-04 16:39 | XMS_ITS | Encounter Summary ---
Author Organization [place] Address [address] [facility] [place] [address] Care Team Providers Care Harbor Pilot Name Role Phone Sherin Garza MD Primary Care Provider [phone] Tanvir Peñaloza PA-C Unavailable Unavailab Johanna Swenson LPN Unavailable Unavailable Sherin Garza MD Unavailable [phone] Sherin Garza MD Unavailable [phone] Jose M Bearden Unavailable Unavailable Mack Arteaga Unavailable [phone] Chris Galvan MD Unavailable [phone] Asaf Perales MD Unavailable [phone] Trinh JacobsonC Unavailable Vini Joyce MD Unavailable [phone] Roberta Galvan [facility] Unavailable [phone] Alisson Roth PA-C Unavailable [phone] Adelaida WatermanC Unavailable [phone] Roberta Galvan [facility] Unavailable [phone] Roberta Galvan [facility] Unavailable [phone] Jeremy Camejo MD Unavailable Nicolas Barragan MD Unavailable [phone] Reason for Visit * Reason Onset Date Comments Refill Request 11/10/2015 CETIRIZINE 10MG Encounter Details Date Type Department Care Team (Late st Contact Info) Description 11/10/2015 [facility] [address] [employer] [facility] [place] [address] Sherin Garza MD [address] [place] [address] [place] [address] Refill Request (CETIRIZINE 10MG) Social History Tobacco Use Types Packs/Day Years Used Date Smoking Tobacco: Never Smokeless Tobacco: Never Alcohol Use Standard Drinks/Week Comments Yes 0 (1 standard drink = 0.6 oz pur e alcohol) 1-2 drinks a week Comments No Sex and Gender Information Value Date Recorded Sex Assigned at Female 10/27/2020 11:13 PM CDT Legal Sex Female 4:00 AM DRILL RIG OPERATOR Gender Identity Female 09/17/2018 1:36 AM [...] listed in chart, patient will not get [employer] message notification. Routing to Station Nurse Pool, please call to assist patient in scheduling a FASTING physical. * Telephone Encounter - Radha Bartlett - 11/10/2015 9:24 AM CDT CETIRIZINE 10MG Last Written Prescription Date: 11/03/2014 Last Fill Quantity: 90, # refills: 4 Last Office Visit with FM, P or [facility] prescribing provider: 07/21/2015 documented in this encounter Plan of Treatment Not on file documented as of this encounter Visit Diagnoses Diagnosis Allergic rhinitis- Primary Allergic rhinitis, cause unspecified documented in this encounter Additional Health Concerns Assessment Noted Time PHQ-9 Depression Total Score: 2 07/16/19 16 7:55 AM DRILL RIG OPERATOR documented as of this encounter Care Teams Harbor Pilot Relationship Specialty Start Date End Date Sherin Garza MD [address] [place] [address] PCP - General 08/16/01 Sherin Garza MD [address] [place] [address] PCP - Assigned PCP 01/26/18 09/02/18 Tanvir Peñaloza, PAArshC [address] [place] [address] Physician Manager Call 12/27/17 Johanna Rodríguez LPN Nurse Coordinator 12/27/17 Sherin Garza MD [address] [place] [address] Assigned PCP 06/15/18 Jose M Bearden Personal Advocate & Liaison (PAL) 05/01/19 05/16/21 Mack Arteaga LSW Lead Broke Beater Primary Care - CC 05/22/1909/15 Chris Galvan MD [address] [place] [address] Assigned OBGYN Provider 11/13/2005/25 Asaf Perales MD [address] [place], [place] [address] Assigned Surgical Provider 12/18/20 12/31/20 Trinh Jacobson PA-C [address] [place], [place] [address] Assigned Surgical Provider 01/01/21 01/28/21 Vini Joyce MD [address] [place] [address] Assigned Surgical Provider 01/29/21 05/13/21 Roberta Galvan [facility] [address] [place] [address] Pharmacist Pharmacist 05/17/21 07/26/22 Alisson Roth PA-C [address] [place] [address] Assigned Surgical Provider 05/14/21 02/01/23 Adeladia Waterman PA-C [address] [place] [address] Assigned Sleep Provider 08/06/2104/19 Roberta Galvan [facility] [address] [place] [address] Assigned MTM Pharmacist 12/23/21 Roberta Galvan, [facility] [address] [place] [address] Assigned MTM Pharmacist 03/28/22 Jeremy Camejo MD [address] [place] [address] Assigned OBGYN Provider 05/26/22 Nicolas Barragan MD [address] [place] [address] Assigned Surgical Provider 02/02/23 10/21/23 documented as of this encounter
--- OUTSIDE RECORDS SUMMARY | 2024-07-04 16:39 | XMS_ITS | Encounter Summary ---
Author Organization [place] Address [address] [place] [address] Care Team Providers Care Tuberculosis Specialist Name Role Phone Sherin Garza MD Primary Care Provider [phone] Tanvir Peñaloza PA-C Unavailable Unavailab Johanna Swenson LPN Unavailable Unavailable Sherin Garza MD Unavailable [phone] Jose M Bearden Unavailable Unavailable Mack Arteaga Unavailable [phone] Chris Galvan MD Unavailable [phone] Asaf Perales MD Unavailable Trinh Jacobson-C Unavailable Vini Joyce MD Unavailable [phone] Roberta Galvan [facility] Unavailable Alisson Roth-C Unavailable [phone] Adelaida Waterman-C Unavailable [phone] Roberta Galvan [facility] Unavailable [phone] Roberta Galvan [facility] Unavailable Jeremy Camejo MD Unavailable [phone] Nicolas Barragan MD Unavailable Reason for Visit * Reason Comments Medication Refill Encounter Details Date Type Department Care Team (Late st Contact Info) Description 06/23/2019 Refill [facility] [address] [facility] [address] [place] [address] Sherin Garza MD [address] [facility] [place] [address] Medication Refill Social History [...] Answer Date Recorded PHQ-2 Score 4 05/06/2019 [facility] [place] of Occupat ional Health - Occupational Stress [...] PM CDT Legal Sex Female 4:00 AM HOME CARE ASSOCIATE Gender Identity Female 09/17/2018 1:36 AM CDT Sexual Orientation Straight 09/17/2018 1: 36 AM CDT Occupation Industry Job Start Date Job End Date Not on file Not on file Not on file Not on file documented as of this encounter Miscellaneous Notes * Telephone Encounter - Peace Llanos CMA - 07/10/2019 11:33 AM HOME CARE ASSOCIATE Duplicate encounter Peace Llanos MA 11:33 AM 07/10/2019 CARE ASSOCIATE * Telephone Encounter - Chelsi Calvert MA - 07/03/2019 9:19 AM HOME CARE ASSOCIATE Called patient- no answer. Lvm to call clinic to schedule an appointment. Still waiting for ACT questionnaire. Chelsi Calvert MA CARE ASSOCIATE * Telephone Encounter - Chelsi Calvert MA - 06/29/2019 8:57 AM HOME CARE ASSOCIATE Called patient- no answer. Lvm to call clinic to schedule an appointment. Chelsi Calvert MA CARE ASSOCIATE * Telephone Encounter - Chelsi Calvert MA - 06/26/2019 9:47 AM HOME CARE ASSOCIATE Called patient- no answer. Lvm to call clinic to schedule an appointment. Sent ACT in mail. Await response. Chelsi Calvert MA CARE ASSOCIATE * Telephone Encounter - Sherin Garza MD - 06/26/2019 8:27 AM CST Please call to do ACT and schedule follow-up CARE ASSOCIATE * Telephone Encounter - Kaela Brewer, RN - 06/26/2019 8:10 AM HOME CARE ASSOCIATE fluticasone (FLOVENT DISKUS) 250 MCG/BLIST inhaler Last written prescription date: 03/25/19 Last fill quantity: 3 Inhaler, # refills: 0 Last office visit: 05/01/19 Future office visit: N/A Is this a controlled substance? No Routing refill request to provider for review/approval because: Asthma control assessment score within normal limits in last 6 months CARE ASSOCIATE documented in this encounter Plan of Treatment Not on file documented as of this encounter Visit Diagnoses Diagnosis Mild persistent asthma without complication Unspecified asthma documented in this encounter Additional Health Concerns Assessment Noted Time PHQ-9 Depression Total Score: 14 019 7:04 AM HOME CARE ASSOCIATE documented as of this encounter Care Teams Tuberculosis Specialist Relationship Specialty Start Date End Date Sherin Garza MD [address] [employer] [place] [address] PCP - General 08/16/01 O'Tanvir Brothers, PAArshC [address] [place] [address] Physician Set Up Mechanic Automatic Line 12/27/17 Johanna Rodríguez LPN Nurse Coordinator 12/27/17 Sherin Garza MD [address] [employer] [place] [address] Assigned PCP 06/15/18 Jose M Bearden Personal Advocate & Liaison (PAL) 05/01/19 05/16/21 Mack Arteaga CROP ROLLER Lead Gold Stamper Primary Care - CC 05/22/1909/15 Chris Galvan MD [address] [place] [address] Assigned OBGYN Provider 11/13/2005/25 Asaf Perales MD [address] [place], [place] [address] Assigned Surgical Provider 12/18/20 12/31/20 Trinh Jacobson PA-C [address] [place], [place] [address] Assigned Surgical Provider 01/01/21 01/28/21 Vini Joyce MD [address] [place] [address] Assigned Surgical Provider 01/29/21 05/13/21 [facility] [address] [place] [address] Pharmacist Pharmacist 05/17/21 07/26/22 Alisson Roth PA-C [address] [place] [address] Assigned Surgical Provider 05/14/21 02/01/23 Adelaida Waterman PA-C [address] [place] [address] Assigned Sleep Provider 08/06/2104/19 Roberta Galvan [facility] [address] [address] Assigned MTM Pharmacist 12/23/21 Roberta Galvan [facility] [address] [address] Assigned MTM Pharmacist 03/28/22 Jeremy Camejo MD [address] [place] [address] Assigned OBGYN Provider 05/26/22 Nicolas Barragan MD [address] [place] [address] Assigned Surgical Provider 02/02/23 10/21/23 documented as of this encounter
--- OUTSIDE RECORDS SUMMARY | 2024-07-04 16:39 | XMS_ITS | Encounter Summary ---
Author Organization [place] Address [address] [facility] [place] [address] Care Team Providers Care Synthetic Department Supervisor Name Role Phone Sherin Garza MD Primary Care Provider [phone] Tanvir Peñlaoza PA-C Unavailable Unavailab Johanna Swenson LPN Unavailable Unavailable Sherin Garza MD Unavailable [phone] Sherin Garza MD Unavailable [phone] Jose M Bearden Unavailable Unavailable Mack Arteaga Unavailable [phone] Chris Galvan MD Unavailable [phone] Asaf Perales MD Unavailable [phone] Trinh JacobsonC Unavailable Vini Joyce MD Unavailable [phone] Roberta Galvan [facility] Unavailable [phone] Alisson Roth PA-C Unavailable [phone] Adelaida WatermanC Unavailable [phone] Roberta Galvan [facility] Unavailable [phone] Roberta Galvan [facility] Unavailable [phone] Jeremy Camejo MD Unavailable Nicolas Barragan MD Unavailable Encounter Details Date Type Department Care Team (Late st Contact Info) Description 12/10/2016 [facility] Medical Advice [facility] [address] [facility] [address] [place] [phone] Roro Haddad M, WHEEL POLISHER Social History Tobacco Use Types Packs/Day Years Used Date Smoking Tobacco: Never Smokeless Tobacco: Never Alcohol Use Standard Drinks/Week Comments Yes 0 (1 standard drink = 0.6 oz pur e alcohol) 1-2 drinks a week Comments No Sex and Gender Information Value Date Recorded Sex Assigned at Female 10/27/2020 11:13 PM CDT Legal Sex Female 4:00 AM PBX INSTALLER Gender Identity Female 09/17/2018 1:36 AM [...] documented as of this encounter Care Teams Synthetic Department Supervisor Relationship Specialty Start Date End Date Sherin Garza MD [address] [employer] [place] [address] PCP - General 08/16/01 Sherin Garza MD [address] [employer] [place] [address] PCP - Assigned PCP 01/26/18 09/02/18 Tanvir Peñaloza PA-C [facility] [employer] [place] [address] Physician Mirror Fabrication Supervisor 12/27/17 Johanna Rodríguez LPN Nurse Coordinator 12/27/17 Sherin Garza MD [facility] [employer] [place] [address] Assigned PCP 06/15/18 Jose M Bearden Personal Advocate & Liaison (PAL) 05/01/19 05/16/21 Kaelyngeeta MackJERROD Lead Triage Technician Primary Care - CC 05/22/1909/15 Chris Galvan MD [address] [place] [address] Assigned OBGYN Provider 11/13/2005/25 Asaf Perales MD [address] [place] [address] Assigned Surgical Provider 12/18/20 12/31/20 Trinh Jacobson PA-C [address] [place], [place] [address] Assigned Surgical Provider 01/01/21 01/28/21 Vini Joyce MD [address] [place] [address] Assigned Surgical Provider 01/29/21 05/13/21 [facility] [address] [place] [address] Pharmacist Pharmacist 05/17/21 07/26/22 Alisson Roth PA-C [address] [place] [address] Assigned Surgical Provider 05/14/21 02/01/23 Adelaida Waterman PA-C [address] [place] [address] Assigned Sleep Provider 08/06/2104/19 Roberta Galvan, [facility] [address] [address] Assigned MTM Pharmacist 12/23/21 Roberta Galvan [facility] [address] [place] [address] Assigned MTM Pharmacist 03/28/22 Jeremy Camejo MD [address] [place] [address] Assigned OBGYN Provider 05/26/22 Nicolas Barragan MD [address] [place], [place] [address] Assigned Surgical Provider 02/02/23 10/21/23 documented as of this encounter
--- OUTSIDE RECORDS SUMMARY | 2024-07-04 16:39 | XMS_ITS | Encounter Summary ---
Author Organization [place] Address [address] [facility] [place] [address] Care Team Providers Care Machine Stuffer Automatic Name Role Phone Sherin Garza MD Primary Care Provider [phone] Tanvir Peñaloza PA-C Unavailable Unavailab Johanna Swenson LPN Unavailable Unavailable Sherin Garza MD Unavailable [phone] Sherin Garza MD Unavailable [phone] Jose M Bearden Unavailable Unavailable Mack Arteaga Unavailable [phone] Chris Galvan MD Unavailable [phone] Asaf Perales MD Unavailable [phone] Trinh JacobsonC Unavailable Vini Joyce MD Unavailable [phone] Roberta Galvan [facility] Unavailable [phone] Alisson Roth PA-C Unavailable [phone] Adelaida WatermanC Unavailable [phone] Roberta Galvan [facility] Unavailable [phone] Roberta Galvan [facility] Unavailable [phone] Jeremy Camejo MD Unavailable Nicolas Barragan MD Unavailable Encounter Details Date Type Department Care Team (Late st Contact Info) Description 11/10/2013 [facility] [address] [place] [address] [place] [phone] Chiqui Lopez LPN Social History Tobacco Use Types Packs/Day Years Used Date Smoking Tobacco: Never Smokeless Tobacco: Never Alcohol Use Standard Drinks/Week Comments Yes 0 (1 standard drink = 0.6 oz pur e alcohol) 1-2 drinks a week Comments No Sex and Gender Information Value Date Recorded Sex Assigned at Female 10/27/2020 11:13 PM CDT Legal Sex Female 4:00 AM KNIT GOODS WASHER Gender Identity Female 09/17/2018 1:36 AM CDT Sexual Orientation Straight 09/17/2018 1: 36 AM CDT Occupation Industry Job Start Date Job End Date Not on file Not on file Not on file Not on file documented as of this encounter Plan of Treatment Not on file documented as of this encounter Visit Diagnoses Not on filedocumented in this encounter Care Teams Machine Stuffer Automatic Relationship Specialty Start Date End Date Sherin Garza MD [address] [employer] [place] [address] PCP - General 08/16/01 Sherin Garza MD [address] [place] [address] PCP - Assigned PCP 01/26/18 09/02/18 Tanvir Peñaloza PA-C [address] [place] [address] Physician Pickle Cutter 12/27/17 Johanna Rodríguez LPN Nurse Coordinator 12/27/17 Sherin Garza MD [address] [employer] [place] [address] Assigned PCP 06/15/18 Jose M Bearden Personal Advocate & Liaison (PAL) 05/01/19 05/16/21 Mack Arteaga, BRUSH HEAD MAKER Lead Applied Behavior Science Specialist Primary Care - CC 05/22/1909/15 Chris Galvan MD [address] [place] [address] Assigned OBGYN Provider 11/13/2005/25 Asaf Perales MD [address] [place], [place] [address] Assigned Surgical Provider 12/18/20 12/31/20 Trinh Jacobson PA-C [address] [place], [place] [address] Assigned Surgical Provider 01/01/21 01/28/21 Vini Joyce MD [address] [place] [address] Assigned Surgical Provider 01/29/21 05/13/21 Roberta Galvan, [facility] [address] [place], [place] [address] Pharmacist Pharmacist 05/17/21 07/26/22 Alisson Roth PA-C [address] [place], [place] [address] Assigned Surgical Provider 05/14/21 02/01/23 Adelaida Waterman PA-C [address] [place], [place] [address] Assigned Sleep Provider 08/06/2104/19 Roberta Galvan, [facility] [address] [address] Assigned MTM Pharmacist 12/23/21 Roberta Galvan, [facility] [address] [address] Assigned MTM Pharmacist 03/28/22 Jeremy Camejo MD [address] [place] [address] Assigned OBGYN Provider 05/26/22 Nicolas Barragan MD [address] [place] [address] Assigned Surgical Provider 02/02/23 10/21/23 documented as of this encounter
--- OUTSIDE RECORDS SUMMARY | 2024-07-04 16:39 | XMS_ITS | Encounter Summary ---
Author Organization [place] Address [address] [place] [address] Care Team Providers Care Web Services Professional Name Role Phone Sherin Garza MD Primary Care Provider [phone] Tanvir Peñaloza PA-C Unavailable Unavailab Johanna Swenson LPN Unavailable Unavailable Sherin Garza MD Unavailable [phone] Sherin Garza MD Unavailable [phone] Jose M Bearden Unavailable Unavailable Mack Arteaga Unavailable [phone] Chris Galvan MD Unavailable [phone] Asaf Perales MD Unavailable [phone] Trinh JacobsonC Unavailable Vini Joyce MD Unavailable [phone] Roberta Galvan [facility] Unavailable [phone] Alisson Roth PA-C Unavailable [phone] Adelaida WatermanC Unavailable [phone] Roberta Galvan [facility] Unavailable [phone] Roberta Galvan [facility] Unavailable [phone] Jeremy Camejo MD Unavailable Nicolas Barragan MD Unavailable Reason for Visit * Reason Onset Date Comments Refill Request 09/01/2015 Adderall Encounter Details Date Type Department Care Team (Late st Contact Info) Description 09/01/2015 MyC Medical Advice [facility] [address] [facility] [place] [address] [place] [address] [place] [address] [place] [address] Refill Request (Adderall ) [...] PM CDT Legal Sex Female 4:00 AM PULLER OUT Gender Identity Female 09/17/2018 1:36 AM CDT Sexual Orientation Straight 09/17/2018 1: 36 AM CDT Occupation Industry Job Start Date Job End Date Not on file Not on file Not on file Not on file documented as of this encounter Miscellaneous Notes * Telephone Encounter - Arlyn Morris - 09/02/2015 2:57 PM CST Gave rx to Geeta at 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 Thanks Jj Doyle Manufacturing Leader ER OUT * Telephone Encounter - Sherin Garza MD - 09/02/2015 12:37 PM CST Prescription done ER OUT * Telephone Encounter - Hannah Mullins RN - 09/02/2015 12:31 PM PULLER OUT Will forward to Dr. Garza. ER OUT * Telephone Encounter - Cally Bo, RN - 09/01/2015 3:18 PM PULLER OUT Refill request for: ADDERALL XR 20 MG QD Last rx written: 12/24/14 # 30 [place] CORE MAKER reviewed- last filled: not on file Last OV: 11/03/14 for routine exam Unable to fill per standing order routed to Dr. Garza for approval. Place RX up front. Please send a [employer] message when this has been done. Cally Bo RN ER OUT documented in this encounter Plan of Treatment Not on file documented as of this encounter Visit Diagnoses Diagnosis Attention deficit disorder with hyperactivity(314.01)- Primary Attention deficit disorder with hyperactivity documented in this encounter Additional Health Concerns Assessment Noted Time PHQ-9 Depression Total Score: 2 07/16/19 16 7:55 AM PULLER OUT documented as of this encounter Care Teams Web Services Professional Relationship Specialty Start Date End Date Sherin Garza MD [address] [place] [address] PCP - General 08/16/01 Sherin Garza MD [address] [place] [address] PCP - Assigned PCP 01/26/18 09/02/18 Tanvir Peñaloza, PAArshC [address] [place] [address] Physician Stonecutter Apprentice Hand 12/27/17 Johanna Rodríguez LPN Nurse Coordinator 12/27/17 Sherin Garza MD [address] [place] [address] Assigned PCP 06/15/18 Jose M Bearden Personal Advocate & Liaison (PAL) 05/01/19 05/16/21 Mack Arteaga LSW Lead Clinical Specialist Vascular Primary Care - CC 05/22/1909/15 Chris Galvan MD [address] [place] [address] Assigned OBGYN Provider 11/13/2005/25 Asaf Perales MD [address] [place] [address] Assigned Surgical Provider 12/18/20 12/31/20 Trinh Jacobson PA-C [address] [place], [place] [address] Assigned Surgical Provider 01/01/21 01/28/21 Vini Joyce MD [address] [place] [address] Assigned Surgical Provider 01/29/21 05/13/21 Roberta Galvan [facility] [address] [id number] Pharmacist Pharmacist 05/17/21 07/26/22 Alisson Roth PA-C [address] [place] [address] Assigned Surgical Provider 05/14/21 02/01/23 Adelaida Waterman PA-C [address] [place] [address] Assigned Sleep Provider 08/06/2104/19 Roberta Galvan [facility] [address] [address] Assigned MTM Pharmacist 12/23/21 Roberta Galvan, [facility] [address] [address] Assigned MTM Pharmacist 03/28/22 Jeremy Camejo MD [address] [place] [address] Assigned OBGYN Provider 05/26/22 Nicolas Barragan MD [address] [place] [address] Assigned Surgical Provider 02/02/23 10/21/23 documented as of this encounter
--- OUTSIDE RECORDS SUMMARY | 2024-07-04 16:39 | XMS_ITS | Encounter Summary ---
Author Organization [place] Address [address] [facility] [place] [address] Care Team Providers Care Feed Mill Supervisor Name Role Phone Sherin Garza MD Primary Care Provider [phone] Tanvir Peñaloza PA-C Unavailable Unavailab Johanna Swenson LPN Unavailable Unavailable Sherin Garza MD Unavailable [phone] Sherin Garza MD Unavailable [phone] Jose M Bearden Unavailable Unavailable Mack Arteaga Unavailable [phone] Chris Galvan MD Unavailable [phone] Asaf Perales MD Unavailable [phone] Trinh JacobsonC Unavailable Vini Joyce MD Unavailable [phone] Roberta Galvan [facility] Unavailable [phone] Alisson Roth PA-C Unavailable [phone] Adelaida WatermanC Unavailable [phone] Roberta Galvan [facility] Unavailable [phone] Roberta Galvan [facility] Unavailable [phone] Jeremy Camejo MD Unavailable Nicolas Barragan MD Unavailable [phone] Reason for Visit * Reason Onset Date Comments Refill Request 08/16/2017 Adderall XR 30 m g Encounter Details Date Type Department Care Team (Late st Contact Info) Description 08/16/2017 MyC Medical Advice [facility] [place] [address] [facility] [address] [place] [address] Sherin Garza MD [address] [facility] [place] [address] Refill Request (Adderall XR 30 mg) Social History Tobacco Use Types Packs/Day Years Used Date Smoking Tobacco: Never Smokeless Tobacco: Never Alcohol Use Standard Drinks/Week Comments Yes 0 (1 standard drink = 0.6 oz pur e alcohol) 1-2 drinks a week Comments No Sex and Gender Information Value Date Recorded Sex Assigned at Female 10/27/2020 11:13 PM CDT Legal Sex Female 4:00 AM PEDIATRIC MEDICAL ASSISTANT Gender Identity Female 09/17/2018 1:36 [...] placed at FD and pt notified via [employer]. Peace Llanos MA ATRIC MEDICAL ASSISTANT * Telephone Encounter - Sherin Garza MD - 08/16/2017 2:42 PM CST Prescription done, script signed ATRIC MEDICAL ASSISTANT * Telephone Encounter - Cally Rai RN - 08/16/2017 1:58 PM PEDIATRIC MEDICAL ASSISTANT Refill request for: ADDERALL XR 30 MG QD Assuming - Place RX up front. Please reply to this [employer] message when this has been done. Last rx written: 06/11/17 # 30 [place] SUPERVISOR [employer] reviewed- last filled: 03/20/17 Last OV: 04/02/17 for cough Unable to fill per standing order routed to Dr. Garza for approval. Cally Rai, RN ATRIC MEDICAL ASSISTANT documented in this encounter Plan of Treatment Not on file documented as of this encounter Visit Diagnoses Diagnosis Attention deficit hyperactivity disorder (ADHD), unspecified ADHD type documented in this encounter Additional Health Concerns Assessment Noted Time PHQ-9 Depression Total Score: 2 04/02/20 8:47 AM CDT documented as of this encounter Care Teams Feed Mill Supervisor Relationship Specialty Start Date End Date Sherin Garza MD [address] [place] [address] PCP - General 08/16/01 Sherin Garza MD [address] [place] [address] PCP - Assigned PCP 01/26/18 09/02/18 Tanvir Peñaloza PA-C [address] [place], [place] [address] Physician Index Clerk 12/27/17 Johanna Rodríguez LPN Nurse Coordinator 12/27/17 Sherin Garza MD [address] [place] [address] Assigned PCP 06/15/18 Jose M Bearden Personal Advocate & Liaison (PAL) 05/01/19 05/16/21 Mack Arteaga LSW Lead Skein Yard Drier Primary Care - CC 05/22/1909/15 Chris Galvan MD [address] [place] [address] Assigned OBGYN Provider 11/13/2005/25 Asaf Perales MD [address] [place], [place] [address] Assigned Surgical Provider 12/18/20 12/31/20 Trinh Jacobson PA-C [address] [place], [place] [address] Assigned Surgical Provider 01/01/21 01/28/21 Vini Joyce MD [address] [facility] [address] [place] [address] Assigned Surgical Provider 01/29/21 05/13/21 Roberta Galvan [facility] [address] [place] [address] Pharmacist Pharmacist 05/17/21 07/26/22 Alisson Roth PA-C [address] [place] [address] Assigned Surgical Provider 05/14/21 02/01/23 Adelaida Waterman PA-C [address] [place] [address] Assigned Sleep Provider 08/06/2104/19 Roberta Galvan [facility] [address] [place], [place] [address] Assigned MTM Pharmacist 12/23/21 Roberta Galvan [facility] [address] [place] [address] Assigned MTM Pharmacist 03/28/22 Jeremy Camejo MD [address] [place] [address] Assigned OBGYN Provider 05/26/22 Nicolas Barragan MD [address] [place] [address] Assigned Surgical Provider 02/02/23 10/21/23 documented as of this encounter
--- OUTSIDE RECORDS SUMMARY | 2024-07-04 16:39 | XMS_ITS | Encounter Summary ---
Author Organization [place] Address [address] [place] [address] Care Team Providers Care Retail Greeter Name Role Phone Sherin Garza MD Primary Care Provider [phone] Tanvir Peñaloza PA-C Unavailable Unavailab Johanna Swenson LPN Unavailable Unavailable Sherin Garza MD Unavailable [phone] Sherin Garza MD Unavailable [phone] Jose M Bearden Unavailable Unavailable Mack Arteaga Unavailable [phone] Chris Galvan MD Unavailable [phone] Asaf Perales MD Unavailable [phone] Trinh JacobsonC Unavailable Vini Joyce MD Unavailable [phone] Roberta Galvan [facility] Unavailable [phone] Alisson Roth PA-C Unavailable [phone] Adelaida WatermanC Unavailable [phone] Roberta Galvan [facility] Unavailable [phone] Roberta Galvan [facility] Unavailable [phone] Jeremy Camejo MD Unavailable Nicolas Barragan MD Unavailable Reason for Referral * Diagnostic Imaging Ultrasound - Closed Specialty Diagnoses / Procedures Referred By Fito carranza Referred To Contact Diagnoses Enlarged uterus Procedures US Pelvic Complete with Transvaginal Sherin Garza MD [address] [facility] [place] [address] Phone: tel: fax: Referral ID Status Reason Start Date Expiration Date Visits Re quested Visits Authorized [id number] Closed 08/18/2018 08/18/2019 1 1 TER BLOCK LAYER Encounter Details Date Type Department Care Team (Late st Contact Info) Description 08/18/2018 MyC Medical [facility]ice [facility] [address] [facility] [address] [place] [address] Sherin Garza MD [address] [facility] [place] [address] Enlarged uterus (Primary Dx) [...] PM CDT Legal Sex Female 4:00 AM PLASTER BLOCK LAYER Gender Identity Female 09/17/2018 1:36 AM CDT [...] 09/12/2018 4:49 AM CDT ULTRASOUND - PELVIC CAR MOVER [facility] Obstetrics & Gynecology [address] [place] [address] Referring MD: Sherin Garza Primary Clinic: [facility] [place] CLINICAL INFORMATION Indications for ultrasound: Enlarged [...] Possible submucous myoma. Clinical correlation suggested. FRANCO SAHA M.D. us Sherin Garza MD IMG US ORDERABLES Final Result documented in this encounter Visit Diagnoses Diagnosis Enlarged uterus- Primary Hypertrophy of uterus Enlarged uterus Hypertrophy of uterus documented in this encounter Additional Health Concerns Assessment Noted Time PHQ-9 Depression Total Score: 3 04/17/20 18 7:06 AM CDT documented as of this encounter Care Teams Retail Greeter Relationship Specialty Start Date End Date Sherin Garza MD [address] [place] [address] PCP - General 08/16/01 Sherin Garza MD [address] [place] [address] PCP - Assigned PCP 01/26/18 09/02/18 Tanvir Peñaloza PA-C [address] [facility] [place] [address] Physician Hair Or Beauty Salon Manager 12/27/17 Johanna Rodríguez LPN Nurse Coordinator 12/27/17 Sherin Garza MD [address] [facility] [place] [address] Assigned PCP 06/15/18 Jose M Bearden Personal Advocate & Liaison (PAL) 05/01/19 05/16/21 Mack Arteaga LSW Lead Legal Referee Primary Care - CC 05/22/1909/15 Chris Galvan MD [address] [place] [address] Assigned OBGYN Provider 11/13/2005/25 Asaf Perales MD [address] [place] [address] Assigned Surgical Provider 12/18/20 12/31/20 Trinh Jacobson PA-C [address] [place] [address] Assigned Surgical Provider 01/01/21 01/28/21 Vini Joyce MD [address] [place] [address] Assigned Surgical Provider 01/29/21 05/13/21 Roberta Galvan, [facility] [address] [place] [address] Pharmacist Pharmacist 05/17/21 07/26/22 Alisson Roth PA-C [address] [place] [address] Assigned Surgical Provider 05/14/21 02/01/23 Adelaida Waterman PA-C [address] [place] [address] Assigned Sleep Provider 08/06/2104/19 Roberta Galvan, [facility] [address] [id number] Assigned MTM Pharmacist 12/23/21 Roberta Galvan, [facility] [address] [id number] Assigned MTM Pharmacist 03/28/22 Jeremy Camejo MD [address] [place] [address] Assigned OBGYN Provider 05/26/22 Nicolas Barragan MD [address] [place] [address] Assigned Surgical Provider 02/02/23 10/21/23 documented as of this encounter
--- OUTSIDE RECORDS SUMMARY | 2024-07-04 16:39 | XMS_ITS | Encounter Summary ---
Author Organization [place] Address [address] [facility] [place] [address] Care Team Providers Care Counseling Aide Name Role Phone Sherin Garza MD Primary Care Provider [phone] Tanvir Peñaloza PA-C Unavailable Unavailab Johanna Swenson LPN Unavailable Unavailable Sherin Garza MD Unavailable [phone] Jose M Bearden Unavailable Unavailable Mack Arteaga Unavailable [phone] Chris Galvan MD Unavailable [phone] Asaf Perales MD Unavailable [phone] Trinh Jacobson-C Unavailable [phone] Vini Joyce MD Unavailable [phone] Roberta Galvan [facility] Unavailable Alisson Roth-C Unavailable [phone] Adelaida Waterman-C Unavailable [phone] Roberta Galvan [facility] Unavailable [phone] Roberta Galvan [facility] Unavailable [phone] Jeremy Camejo MD Unavailable Nicolas Barragan MD Unavailable Encounter Details Date Type Department Care Team (Late st Contact Info) Description 07/03/2019 MyC Medical Advice [facility] [place] [address] [facility] [address] [place] [address] Chelsi Calvert MA Social History Tobacco [...] Answer Date Recorded PHQ-2 Score 2 07/05/2019 [facility] [place] of Occupat ional Health - Occupational Stress [...] PM CDT Legal Sex Female 4:00 AM EQUIPMENT LEAD Gender Identity Female 09/17/2018 1:36 AM CDT Sexual Orientation Straight 09/17/2018 1: 36 AM CDT Occupation Industry Job Start Date Job End Date Not on file Not on file Not on file Not on file documented as of this encounter Miscellaneous Notes * Telephone Encounter - Peace Llanos CMA - 07/10/2019 11:26 AM EQUIPMENT LEAD Questionnaire completed routing to PCP as FYI [...] 22 Peace Llanos MA 11:30 AM 07/10/2019 PMENT LEAD documented in this encounter Plan of Treatment Not on file documented as of this encounter Visit Diagnoses Not on filedocumented in this encounter Additional Health Concerns Assessment Noted Time PHQ-9 Depression Total Score: 6 07/05/19 20 7:03 AM EQUIPMENT LEAD documented as of this encounter Care Teams Counseling Aide Relationship Specialty Start Date End Date Sherin Garza MD [address] [facility] [address] [place], [place] [address] PCP - General 08/16/01 Tanvir Peñaloza, PAArshC [address] [facility] [place] [address] Physician Brush Cutter 12/27/17 Johanna Rodríguez LPN Nurse Coordinator 12/27/17 Sherin Garza MD [address] [facility] [place] [address] Assigned PCP 06/15/18 Jose M Bearden Personal Advocate & Liaison (PAL) 05/01/19 05/16/21 Mack Arteaga [facility] Lead Scheduling Manager Primary Care - CC 05/22/1909/15 Chris Galvan MD [address] [place] [address] Assigned OBGYN Provider 11/13/2005/25 Asaf Perales MD [address] [place] [address] Assigned Surgical Provider 12/18/20 12/31/20 Trinh Jacobson PA-C [address] [place] [address] Assigned Surgical Provider 01/01/21 01/28/21 Vini Joyce MD [address] [place] [address] Assigned Surgical Provider 01/29/21 05/13/21 Roberta Galvan, [facility] [address] [facility] [place] [address] Pharmacist Pharmacist 05/17/21 07/26/22 Alisson Roth PA-C [address] [place] [address] Assigned Surgical Provider 05/14/21 02/01/23 Adelaida Waterman PA-C [address] [place] [address] Assigned Sleep Provider 08/06/2104/19 Roberta Galvan, [facility] [address] [address] Assigned MTM Pharmacist 12/23/21 Roberta Galvan, [facility] [address] [address] Assigned MTM Pharmacist 03/28/22 Jeremy Camejo MD [address] [place] [address] Assigned OBGYN Provider 05/26/22 Nicolas Barragan MD [address] [place] [address] Assigned Surgical Provider 02/02/23 10/21/23 documented as of this encounter
--- OUTSIDE RECORDS SUMMARY | 2024-07-04 16:39 | XMS_ITS | Encounter Summary ---
Author Organization [place] Address [address] [facility] [place] [address] Care Team Providers Care Floor Clerk Name Role Phone Sherin Garza MD Primary Care Provider [phone] Tanvir Peñaloza PA-C Unavailable Unavailab Johanna Swenson LPN Unavailable Unavailable Sherin Garza MD Unavailable [phone] Sherin Garza MD Unavailable [phone] Jose M Bearden Unavailable Unavailable Mack Arteaga Unavailable [phone] Chris Galvan MD Unavailable [phone] Asaf Perales MD Unavailable [phone] Trinh JacobsonC Unavailable Vini Joyce MD Unavailable [phone] Roberta Galvan [facility] Unavailable [phone] Alisson Roth PA-C Unavailable [phone] Adelaida WatermanC Unavailable [phone] Roberta Galvan [facility] Unavailable [phone] Roberta Galvan [facility] Unavailable [phone] Jeremy Camejo MD Unavailable [phone] Nicolas Barragan MD Unavailable Encounter Details Date Type Department Care Team (Late st Contact Info) Description 10/24/2015 [facility] Medical Advice [address] [place] [id number] Mary Anne Cornell, SHANK BURNISHER Social History Tobacco Use Types Packs/Day Years Used Date Smoking Tobacco: Never Smokeless Tobacco: Never Alcohol Use Standard Drinks/Week Comments Yes 0 (1 standard drink = 0.6 oz pur e alcohol) 1-2 drinks a week Comments No Sex and Gender Information Value Date Recorded Sex Assigned at Female 10/27/2020 11:13 PM CDT Legal Sex Female 4:00 AM WARP DRAWER Gender Identity Female 09/17/2018 1:36 AM CDT [...] Total Score: 2 07/16/19 16 7:55 AM WARP DRAWER documented as of this encounter Care Teams Floor Clerk Relationship Specialty Start Date End Date Sherin Garza MD [address] [employer] [place] [address] PCP - General 08/16/01 Sherin Garza MD [address] [employer] [place] [address] PCP - Assigned PCP 01/26/18 09/02/18 Tanvir Peñaloza, LEONARDC [address] [employer] [place] [address] Physician Manager Track 12/27/17 Johanna Rodríguez LPN Nurse Coordinator 12/27/17 Sherin Garza MD [address] [employer] [place] [address] Assigned PCP 06/15/18 Jose M Bearden Personal Advocate & Liaison (PAL) 05/01/19 05/16/21 Mack ArteagaJERROD Lead Pharmaceutical Physician Primary Care - CC 05/22/1909/15 Chris Galvan MD [address] [place] [address] Assigned OBGYN Provider 11/13/2005/25 Asaf Perales MD [address] [place], [place] [address] Assigned Surgical Provider 12/18/20 12/31/20 Trinh Jacobson PA-C [address] [place] [address] Assigned Surgical Provider 01/01/21 01/28/21 Vini Joyce MD [address] [place] [address] Assigned Surgical Provider 01/29/21 05/13/21 [facility] [address] [place] [address] Pharmacist Pharmacist 05/17/21 07/26/22 Alisson Roth PA-C [address] [place] [address] Assigned Surgical Provider 05/14/21 02/01/23 Aedlaida Waterman PA-C [address] [place] [address] Assigned Sleep Provider 08/06/2104/19 Roberta Galvan [facility] [address] [address] Assigned MTM Pharmacist 12/23/21 Roberta Galvan [facility] [address] [address] Assigned MTM Pharmacist 03/28/22 Jeremy Camejo MD [address] [place] [address] Assigned OBGYN Provider 05/26/22 Nicolas Barragan MD [address] [place] [address] Assigned Surgical Provider 02/02/23 10/21/23 documented as of this encounter
--- OUTSIDE RECORDS SUMMARY | 2024-07-04 16:39 | XMS_ITS | Encounter Summary ---
Author Organization [place] Address [address] [facility] [place] [address] Care Team Providers Care Automobile Mechanic Apprentice Name Role Phone Sherin Garza MD Primary Care Provider [phone] Tanvir Peñaloza PA-C Unavailable Unavailab Johanna Swenson LPN Unavailable Unavailable Sherin Garza MD Unavailable [phone] Jose M Bearden Unavailable Unavailable Mack Arteaga Unavailable [phone] Chris Galvan MD Unavailable [phone] Asaf Perales MD Unavailable rTinh Jacobson-C Unavailable Vini Joyce MD Unavailable [phone] Roberta Galvan [facility] Unavailable [phone] Alisson Roth-C Unavailable [phone] Adelaida Waterman-C Unavailable [phone] Roberta Galvan [facility] Unavailable [phone] Roberta Galvan [facility] Unavailable [phone] Jeremy Camejo MD Unavailable Nicolas Barragan MD Unavailable Reason for Visit * Reason Onset Date Comments Refill Request 10/21/2018 Encounter Details Date Type Department Care Team (Late st Contact Info) Description 10/21/2018 [facility] [address] [facility] [address] [place] [address] Sherin Garza MD [address] [facility] [place] [address] Refill Request Social History Tobacco Use Types [...] PM CDT Legal Sex Female 4:00 AM CONTRACT CONSULTANT Gender Identity Female 09/17/2018 1:36 AM CDT Sexual Orientation Straight 09/17/2018 1: 36 AM CDT Occupation Industry Job Start Date Job End Date Not on file Not on file Not on file Not on file documented as of this encounter Miscellaneous Notes * Telephone Encounter - Mary Anne Godwin RN - 10/23/2018 10:47 AM CDT PICK AND SHOVEL WORKER checked-no concerns. Routing refill request to provider for review/approval because: Drug not on the [facility] refill protocol. Mary Anne Godwin RN - Triage [facility] documented in this encounter Plan of Treatment Not on file documented as of this encounter Visit Diagnoses Diagnosis Attention deficit hyperactivity disorder (ADHD), unspecified ADHD type documented in this encounter Additional Health Concerns Assessment Noted Time PHQ-9 Depression Total Score: 7 10/01/19 19 3:59 PM CDT documented as of this encounter Care Teams Automobile Mechanic Apprentice Relationship Specialty Start Date End Date Sherin Garza MD [address] [facility] [place] [address] PCP - General 08/16/01 Tanvir Peñaloza PA-C [address] [facility] [place] [address] Physician Senior Net Software Developer 12/27/17 Johanna Rodríguez LPN Nurse Coordinator 12/27/17 Sherin Garza MD [address] [facility] [place] [address] Assigned PCP 06/15/18 Jose M Bearden Personal Advocate & Liaison (PAL) 05/01/19 05/16/21 Mack Arteaga PLUMBING INSTALLER Lead Lockstitch Back Maker Primary Care - CC 05/22/1909/15 Chris Galvan MD [address] [place] [address] Assigned OBGYN Provider 11/13/2005/25 Asaf Perales MD [address] [place] [address] Assigned Surgical Provider 12/18/20 12/31/20 Trinh Jacobson PA-C [address] [place] [address] Assigned Surgical Provider 01/01/21 01/28/21 Vini Joyce MD [address] [place] [address] Assigned Surgical Provider 01/29/21 05/13/21 Roberta Galvan, [facility] [address] [address] Pharmacist Pharmacist 05/17/21 07/26/22 Alisson Roth PA-C [address] [place] [address] Assigned Surgical Provider 05/14/21 02/01/23 Adelaida Waterman PA-C [address] [place] [address] Assigned Sleep Provider 08/06/2104/19 Roberta Galvan, [facility] [address] [place] [address] Assigned MTM Pharmacist 12/23/21 Roberta Galvan, [facility] [address] [place] [address] Assigned MTM Pharmacist 03/28/22 Jeremy Camejo MD [address] [place] [address] Assigned OBGYN Provider 05/26/22 Nicolas Barragan MD [address] [place] [address] Assigned Surgical Provider 02/02/23 10/21/23 documented as of this encounter
--- OUTSIDE RECORDS SUMMARY | 2024-07-04 16:39 | XMS_ITS | Encounter Summary ---
Author Organization [place] Address [address] [facility] [place] [address] Care Team Providers Care Pen Ruler Operator Name Role Phone Sherin Garza MD Primary Care Provider [phone] Tanvir Peñaloza PA-C Unavailable Unavailab Johanna Swenson LPN Unavailable Unavailable Sherin Garza MD Unavailable [phone] Jose M Bearden Unavailable Unavailable Chris Galvan MD Unavailable [phone] Asaf Perales MD Unavailable Trinh Jacobson-C Unavailable Vini Joyce MD Unavailable [phone] Roberta Galvan [facility] Unavailable [phone] Alisson Roth-C Unavailable [phone] Adelaida Waterman-C Unavailable [phone] Roberta Galvan [facility] Unavailable [phone] Roberta Galvan [facility] Unavailable [phone] Jeremy Camejo MD Unavailable Nicolas Barragan MD Unavailable [phone] Reason for Visit * Reason Comments Medication Refill Encounter Details Date Type Department Care Team (Late st Contact Info) Description 10/06/2019 Refill [facility] [place] [address] [facility] [address] [place] [address] Sherin Garza MD [address] [facility] [place] [id number] Medication Refill Social History Tobacco Use Types [...] PHQ-2 Score 2 07/05/2019 [facility] [place] of Occupat ional Health - Occupational Stress [...] PM CDT Legal Sex Female 4:00 AM POLITICAL AIDE Gender Identity Female 09/17/2018 1:36 AM CDT [...] 10/06/2019 1:58 PM CDT Prescription approved per [facility] Refill Protocol. Kalli Harvey RN [facility] documented in this encounter Plan of Treatment Not on file documented as of this encounter Visit Diagnoses Diagnosis Mild persistent asthma without complication Unspecified asthma documented in this encounter Additional Health Concerns Assessment Noted Time PHQ-9 Depression Total Score: 6 07/05/19 20 7:03 AM POLITICAL AIDE documented as of this encounter Care Teams Pen Ruler Operator Relationship Specialty Start Date End Date Shrein Garza MD [address] [place] [address] PCP - General 08/16/01 OTanvir Pierre, PA-C [address] [place] [address] Physician Newspaper Delivery Driver 12/27/17 Johanna Rodríguez LPN Nurse Coordinator 12/27/17 Sherin Garza MD [address] [facility] [place] [address] Assigned PCP 06/15/18 Jose M Bearden Personal Advocate & Liaison (PAL) 05/01/19 05/16/21 Chris Galvan MD [address] [place] [address] Assigned OBGYN Provider 11/13/2005/25 Asaf Perales MD [address] [place] [address] Assigned Surgical Provider 12/18/2012/31/20 Trinh Jacobson PA-C [address] [place], [place] [address] Assigned Surgical Provider 01/01/21 Vini Joyce MD [address] [place] [address] Assigned Surgical Provider 01/29/21 [facility] [address] [place] [address] Pharmacist Pharmacist 05/17/21 07/26/22 Alisson Roth PA-C [address] [place] [address] Assigned Surgical Provider 05/14/2102/01/23 Adelaida Waterman PA-C [address] [place] [address] [place] [address] Assigned Sleep Provider 08/06/2104/19 Roberta Galvan, [facility] [address] [address] Assigned MTM Pharmacist 12/23/21 Roberta Galvan, [facility] [address] [address] Assigned MTM Pharmacist 03/28/22 Jeremy Camejo MD [address] [place] [address] Assigned OBGYN Provider 05/26/22 Nicolas Barragan MD [address] [place], [place] [address] Assigned Surgical Provider 02/02/23 documented as of this encounter
--- OUTSIDE RECORDS SUMMARY | 2024-07-04 16:39 | XMS_ITS | Encounter Summary ---
Author Organization [place] Address [address] [facility] [place] [address] Care Team Providers Care Maintenance Advisor Name Role Phone Sherin Garza MD Primary Care Provider [phone] Tanvir Peñaloza PA-C Unavailable Unavailab Johanna Swenson LPN Unavailable Unavailable Sherin Garza MD Unavailable [phone] Sherin Garza MD Unavailable [phone] Jose M Bearden Unavailable Unavailable Mack Arteaga Unavailable [phone] Chris Galvan MD Unavailable [phone] Asaf Perales MD Unavailable [phone] Trinh JacobsonC Unavailable Vini Joyce MD Unavailable [phone] Roberta Galvan [facility] Unavailable [phone] Alisson Roth PA-C Unavailable [phone] Adelaida WatermanC Unavailable [phone] Roberta Galvan [facility] Unavailable [phone] Roberta Galvan [facility] Unavailable [phone] Jeremy Camejo MD Unavailable Nicolas Barragan MD Unavailable [phone] Reason for Visit * Reason Onset Date Comments Refill Request 12/03/2016 Adderall Encounter Details Date Type Department Care Team (Late st Contact Info) Description 12/03/2016 Refill [facility] [place] [address] [facility] [address] [place] [phone] Sherin Garza MD [address] [facility] [place] [address] Refill Request (Adderall) Social History Tobacco Use Types Packs/Day Years Used Date Smoking Tobacco: Never Smokeless Tobacco: Never Alcohol Use Standard Drinks/Week Comments Yes 0 (1 standard drink = 0.6 oz pur e alcohol) 1-2 drinks a week Comments No Sex and Gender Information Value Date Recorded Sex Assigned at Female 10/27/2020 11:13 PM CDT Legal Sex Female 4:00 AM IRONER SOCK Gender Identity Female 09/17/2018 1:36 AM CDT [...] for 12/11, informed pt script is at manager front on first floor for pick pulling machine tender. Thanks Jj Doyle Team Coodinator * Telephone Encounter - Sherin Garza MD - 12/04/2016 2:01 PM CDT Needs appointment scheduled - please call. Prescription x1 only until seen * Telephone Encounter - Jeanie Chew RN - 12/04/2016 1:28 PM CDT Adderall XR 30 mg qd Last Written Prescription Date: 08/28/16 Last Fill Quantity: 30, # refills: 0 Last Office Visit with [facility] prescribing provider: 11/22/15 Future Office visit: Next 5 appointments (look out 90 days) Dec 11, 2016 12:10 PM CDT SHORT with Sherin Garza MD [facility] [address] [facility] [address] [place] [address] Routing refill request to provider for review/approval because: Drug not on the [facility], [facility] or [facility] refill protocol or controlled substance Lyndsey fiberglass auto body repairer Nurse documented in this encounter Plan of Treatment Not on file documented as of this encounter Visit Diagnoses Diagnosis Attention deficit hyperactivity disorder (ADHD), unspecified ADHD type documented in this encounter Additional Health Concerns Assessment Noted Time PHQ-9 Depression Total Score: 2 04/02/20 16 4:49 PM CDT documented as of this encounter Care Teams Maintenance Advisor Relationship Specialty Start Date End Date Sherin Garza MD [address] [place] [address] [place] [address] PCP - General 08/16/01 Sherin Garza MD [address] [place] [address] [place] [address] PCP - Assigned PCP 01/26/18 09/02/18 Tanvir Peñaloza PA-C [address] [place] [address] [place] [address] Physician Die Try Out Worker Stamping 12/27/17 Johanna Rodríguez LPN Nurse Coordinator 12/27/17 Sherin Garza MD [address] [place] [address] [place] [address] Assigned PCP 06/15/18 Jose M Bearden Personal Advocate & Liaison (PAL) 05/01/19 05/16/21 Mack Arteaga LSW Lead Blueprint Cutter Primary Care - CC 05/22/1909/15 Chris Galvan MD [address] [place] [address] Assigned OBGYN Provider 11/13/2005/25 Asaf Perales MD [address] [place] [address] Assigned Surgical Provider 12/18/20 12/31/20 Trinh Jacobson PA-C [address] [place], [place] [address] Assigned Surgical Provider 01/01/21 01/28/21 Vini Joyce MD [address] [place] [address] Assigned Surgical Provider 01/29/21 05/13/21 [facility] [address] [place] [address] Pharmacist Pharmacist 05/17/21 07/26/22 Alisson Roth PA-C [address] [place] [address] Assigned Surgical Provider 05/14/21 02/01/23 Adelaida Waterman PA-C [address] [place] [address] Assigned Sleep Provider 08/06/2104/19 Roberta Galvan [facility] [address] [address] Assigned MTM Pharmacist 12/23/21 Roberta Galvan [facility] [address] [address] Assigned MTM Pharmacist 03/28/22 Jeremy Camejo MD [address] [place] [address] Assigned OBGYN Provider 05/26/22 Nicolas Barragan MD [address] [place] [address] Assigned Surgical Provider 02/02/23 10/21/23 documented as of this encounter
--- OUTSIDE RECORDS SUMMARY | 2024-07-04 16:39 | XMS_ITS | Encounter Summary ---
Author Organization [place] Address [address] [facility] [place] [address] Care Team Providers Care Youth Care Professional Name Role Phone Sherin Garza MD Primary Care Provider [phone] Tanvir Peñaloza PA-C Unavailable Unavailab Johanna Swenson LPN Unavailable Unavailable Sherin Garza MD Unavailable [phone] Sherin Garza MD Unavailable [phone] Jose M Bearden Unavailable Unavailable Mack Arteaga Unavailable [phone] Chris Galvan MD Unavailable [phone] Asaf Preales MD Unavailable [phone] Trinh JacobsonC Unavailable Vini Joyce MD Unavailable [phone] Roberta Galvan [facility] Unavailable [phone] Alisson Roth PA-C Unavailable [phone] Adelaida WatermanC Unavailable [phone] Roberta Galvan [facility] Unavailable [phone] Roberta Galvan [facility] Unavailable [phone] Jeremy Camejo MD Unavailable Nicolas Barragan MD Unavailable [phone] Encounter Details Date Type Department Care Team (Late st Contact Info) Description 06/12/2017 Documentation Only [facility] [place] [address] [facility] [address] [place] [phone] Sherin Garza MD [address] [facility] [place] [address] Social History Tobacco Use Types Packs/Day Years Used Date Smoking Tobacco: Never Smokeless Tobacco: Never Alcohol Use Standard Drinks/Week Comments Yes 0 (1 standard drink = 0.6 oz pur e alcohol) 1-2 drinks a week Comments No Sex and Gender Information Value Date Recorded Sex Assigned at Female 10/27/2020 11:13 PM CDT Legal Sex Female 4:00 AM CHIEF TECHNICAL OFFICER Gender Identity Female 09/17/2018 1:36 AM [...] as of this encounter Care Teams Youth Care Professional Relationship Specialty Start Date End Date Sherin Garza MD [address] [place] [address] [place] [address] PCP - General 08/16/01 Sherin Garza MD [address] [place] [address] [place] [address] PCP - Assigned PCP 01/26/18 09/02/18 Tanvir Peñaloza PA-C [address] [facility] [place] [address] Physician Pyrotechnist 12/27/17 Johanna Rodríguez LPN Nurse Coordinator 12/27/17 Sherin Garza MD [address] [facility] [place] [address] Assigned PCP 06/15/18 Jose M Bearden Personal Advocate & Liaison (PAL) 05/01/19 05/16/21 Jenni Mack CRAFT CENTER DIRECTOR Lead Senior Applications Developer Primary Care - CC 05/22/1909/15 Chris Galvan MD [address] [place] [address] Assigned OBGYN Provider 11/13/2005/25 Asaf Perales MD [address] [place] [address] Assigned Surgical Provider 12/18/20 12/31/20 Trinh Jacobson PA-C [address] [place], [place] [address] Assigned Surgical Provider 01/01/21 01/28/21 Vini Joyce MD [address] [place] [address] Assigned Surgical Provider 01/29/21 05/13/21 Roberta Galvan, [facility] [address] [place] [address] Pharmacist Pharmacist 05/17/21 07/26/22 Alisson Roth PA-C [address] [place] [address] Assigned Surgical Provider 05/14/21 02/01/23 Adelaida Waterman PA-C [address] [address] Assigned Sleep Provider 08/06/2104/19 Roberta Galvan, [facility] [address] [address] Assigned MTM Pharmacist 12/23/21 Roberta Galvan, [facility] [address] [id number] Assigned MTM Pharmacist 03/28/22 Jeremy Camejo MD [address] [place] [address] Assigned OBGYN Provider 05/26/22 Nicolas Barragan MD [address] [place] [address] Assigned Surgical Provider 02/02/23 10/21/23 documented as of this encounter
--- OUTSIDE RECORDS SUMMARY | 2024-07-04 16:39 | XMS_ITS | Encounter Summary ---
Author Organization [place] Address [address] [facility] [address] Care Team Providers Care Laser Print Operator Name Role Phone Sherin Garza MD Primary Care Provider [phone] Tanvir Peñaloza PA-C Unavailable Unavailab Johanna Swenson LPN Unavailable Unavailable Sherin Garza MD Unavailable [phone] Sherin Garza MD Unavailable [phone] Jose M Bearden Unavailable Unavailable Mack Arteaga Unavailable [phone] Chris Galvan MD Unavailable [phone] Asaf Perales MD Unavailable [phone] Trinh JacobsonC Unavailable Vini Joyce MD Unavailable [phone] Roberta Galvan [facility] Unavailable [phone] Alisson Roth PA-C Unavailable [phone] Adelaida WatermanC Unavailable [phone] Roberta Galvan [facility] Unavailable [phone] Roberta Galvan [facility] Unavailable [phone] Jeremy Camejo MD Unavailable Nicolas Barragan MD Unavailable Encounter Details Date Type Department Care Team (Late st Contact Info) Description 12/24/2014 [facility] [address] [place] [address] [place] [phone] Mary Anne Cornell, POLICE INSPECTOR Social History Tobacco Use Types Packs/Day Years Used Date Smoking Tobacco: Never Smokeless Tobacco: Never Alcohol Use Standard Drinks/Week Comments Yes 0 (1 standard drink = 0.6 oz pur e alcohol) 1-2 drinks a week Comments No Sex and Gender Information Value Date Recorded Sex Assigned at Female 10/27/2020 11:13 PM CDT Legal Sex Female 4:00 AM VICE PRESIDENT SALES Gender Identity Female 09/17/2018 1:36 AM CDT Sexual Orientation Straight 09/17/2018 1: 36 AM CDT Occupation Industry Job Start Date Job End Date Not on file Not on file Not on file Not on file documented as of this encounter Plan of Treatment Not on file documented as of this encounter Visit Diagnoses Not on filedocumented in this encounter Care Teams Laser Print Operator Relationship Specialty Start Date End Date Sherin Garza MD [address] [employer] [place] [address] PCP - General 08/16/01 Sherin Garza MD [address] [place] [address] PCP - Assigned PCP 01/26/18 09/02/18 Tanvir Peñaloza PA-C [address] [place] [address] Physician Cyanide Pot Tender 12/27/17 Johanna Rodríguez LPN Nurse Coordinator 12/27/17 Sherin Garza MD [address] [place] [address] Assigned PCP 06/15/18 Jose M Bearden Personal Advocate & Liaison (PAL) 05/01/19 05/16/21 Mack Arteaga, CUT OFF WORKER Lead Deputy City Clerk Primary Care - CC 05/22/1909/15 Chris Galvan MD [address] [place] [address] Assigned OBGYN Provider 11/13/2005/25 Asaf Perales MD [address] [place], [place] [address] Assigned Surgical Provider 12/18/20 12/31/20 Trinh Jacobson PA-C [address] [place], [place] [address] Assigned Surgical Provider 01/01/21 01/28/21 Vini Joyce MD [address] [place] [address] Assigned Surgical Provider 01/29/21 05/13/21 Roberta Galvan, [facility] [address] [place], [place] [id number] Pharmacist Pharmacist 05/17/21 07/26/22 Alisson Roth PA-C [address] [place], [place] [address] Assigned Surgical Provider 05/14/21 02/01/23 Adelaida Waterman PA-C [address] [place], [place] [address] Assigned Sleep Provider 08/06/2104/19 Roberta Galvan, [facility] [address] [address] Assigned MTM Pharmacist 12/23/21 Roberta Galvan, [facility] [address] [address] Assigned MTM Pharmacist 03/28/22 Jeremy Camejo MD [address] [place] [address] Assigned OBGYN Provider 05/26/22 Nicolas Barragan MD [address] [place] [address] Assigned Surgical Provider 02/02/23 10/21/23 documented as of this encounter
--- OUTSIDE RECORDS SUMMARY | 2024-07-04 16:40 | XMS_ITS | Encounter Summary ---
Author Organization [place] Address [address] [facility] [place] [address] Care Team Providers Care Traffic Investigator Name Role Phone Sherin Garza MD Primary Care Provider [phone] Tanvir Peñaloza PA-C Unavailable Unavailab Johanna Swenson LPN Unavailable Unavailable Sherin Garza MD Unavailable [phone] Sherin Garza MD Unavailable [phone] Jose M Bearden Unavailable Unavailable Mack Arteaga Unavailable [phone] Chris Galvan MD Unavailable [phone] Asaf Perales MD Unavailable [phone] Trinh JacobsonC Unavailable Vini Joyce MD Unavailable [phone] Roberta Galvan [facility] Unavailable [phone] Alisson Roth PA-C Unavailable [phone] Adelaida WatermanC Unavailable [phone] Roberta Galvan [facility] Unavailable [phone] Roberta Galvan [facility] Unavailable [phone] Jeremy Camejo MD Unavailable Nicolas Barragan MD Unavailable [phone] Encounter Details Date Type Department Care Team (Latest Contact Info) Description 08/21/2011 [facility] [facility] [address] [place] [address] [place] [phone] Sherin Garza MD [address] [place] [address] ASTHMA - MILD INTERMITTENT (Primary Dx) Social History Tobacco Use Types Packs/Day Years Used Date Smoking Tobacco: Never Alcohol Use Standard Drinks/Week Comments Yes 0 (1 standard drink = 0.6 oz pur e alcohol) 1-2 drinks a week Comments No Sex and Gender Information Value Date Recorded Sex Assigned at Female 10/27/2020 11:13 PM CDT Legal Sex Female 4:00 AM TAILING MACHINE OPERATOR Gender Identity Female 09/17/2018 1:36 AM CDT Sexual Orientation Straight 09/17/2018 1: 36 AM CDT Occupation Industry Job Start Date Job End Date Not on file Not on file Not on file Not on file documented as of this encounter Miscellaneous Notes * Telephone Encounter - Wendy Mckinley - 08/21/2011 1:14 PM CST ACT completed and entered. Wendy Mckinley MORTGAGE LOAN INTERVIEWER ING MACHINE OPERATOR documented in this encounter Plan of Treatment Not on file documented as of this encounter Procedures Procedure Name Priority Date/Time Associated Diagnosis Comments ASTHMA ACTION PLAN Routine 08/21/2011 2:19 PM TAILING MACHINE OPERATOR ASTHMA - MILD INTERMITTENT documented in this encounter Visit Diagnoses Diagnosis ASTHMA - MILD INTERMITTENT- Primary Unspecified asthma documented in this encounter Care Teams Traffic Investigator Relationship Specialty Start Date End Date Sherin Garza MD [address] [place] [address] PCP - General 08/16/01 Sherin Garza MD [address] [place] [address] PCP - Assigned PCP 01/26/18 09/02/18 Tanvir Peñaloza PA-C [address] [facility] [address] Physician Sports Statistician 12/27/17 Johanna Rodríguez LPN Nurse Coordinator 12/27/17 Sherin Garza MD [address] [facility] [place] [address] Assigned PCP 06/15/18 Jose M Bearden Personal Advocate & Liaison (PAL) 05/01/19 05/16/21 Mack Arteaga LSW Lead Nurse College Primary Care - CC 05/22/1909/15 Chris Galvan MD [address] [place] [address] Assigned OBGYN Provider 11/13/2005/25 Asaf Perales MD [address] [place] [address] Assigned Surgical Provider 12/18/20 12/31/20 Trinh Jacobson PA-C [address] [place] [address] Assigned Surgical Provider 01/01/21 01/28/21 Vini Joyce MD [address] [place] [address] Assigned Surgical Provider 01/29/21 05/13/21 Roberta Galvan, [facility] [address] [place] [address] Pharmacist Pharmacist 05/17/21 07/26/22 Alisson Roth PA-C [address] [place] [address] Assigned Surgical Provider 05/14/21 02/01/23 Adelaida Waterman PA-C [address] [place] [address] Assigned Sleep Provider 08/06/2104/19 Roberta Galvan [facility] [address] [place] [address] Assigned MTM Pharmacist 12/23/21 Roberta Galvan, [facility] [address] [place] [address] Assigned MTM Pharmacist 03/28/22 Jeremy Camejo MD [address] [place] [address] Assigned OBGYN Provider 05/26/22 Nicolas Barragan MD 9 [place] [address] Assigned Surgical Provider 02/02/23 10/21/23 documented as of this encounter
--- OUTSIDE RECORDS SUMMARY | 2024-07-04 16:40 | XMS_ITS | Encounter Summary ---
Author Organization [place] Address [address] [facility] [address] Care Team Providers Care Jewelry Bench Worker Name Role Phone Sherin Garza MD Primary Care Provider [phone] Tanvir Peñaloza PA-C Unavailable Unavailab Johanna Swenson LPN Unavailable Unavailable Sherin Garza MD Unavailable [phone] Sherin Garza MD Unavailable [phone] Jose M Bearden Unavailable Unavailable Mack Arteaga Unavailable [phone] Chris Galvan MD Unavailable [phone] Asaf Perales MD Unavailable [phone] Trinh JacobsonC Unavailable Vini Joyce MD Unavailable [phone] Roberta Galvan [facility] Unavailable [phone] Alisson Roth PA-C Unavailable [phone] Adelaida WatermanC Unavailable [phone] Roberta Galvan [facility] Unavailable [phone] Roberta Galvan [facility] Unavailable [phone] Jeremy Camejo MD Unavailable Nicolas Barragan MD [...] PM CDT Legal Sex Female 4:00 AM INDUSTRIAL GREEN SYSTEMS DESIGNER Gender Identity Female 09/17/2018 1:36 AM CDT Sexual Orientation Straight 09/17/2018 1: 36 AM CDT Occupation Industry Job Start Date Job End Date Not on file Not on file Not on file Not on file documented as of this encounter Plan of Treatment Not on file documented as of this encounter Visit Diagnoses Not on filedocumented in this encounter Care Teams Jewelry Bench Worker Relationship Specialty Start Date End Date Sherin Garza MD [address] [place] [address] PCP - General 08/16/01 Sherin Garza MD [address] [place] [address] PCP - Assigned PCP 01/26/18 09/02/18 Tanvir Peñaloza PA-C [address] [place] [address] Physician Ditch Worker 12/27/17 Johanna Rodríguez LPN Nurse Coordinator 12/27/17 Sherin Garza MD [address] [place] [address] Assigned PCP 06/15/18 Jose M Bearden Personal Advocate & Liaison (PAL) 05/01/19 05/16/21 Mack Arteaga LSW Lead Information Clerk Primary Care - CC 05/22/1909/15 Chris Galvan MD [address] [place] [address] Assigned OBGYN Provider 11/13/2005/25 Asaf Perales MD [address] [place], [place] [address] Assigned Surgical Provider 12/18/20 12/31/20 Trinh Jacobson PA-C [address] [place], [place] [address] Assigned Surgical Provider 01/01/21 01/28/21 Vini Joyce MD [address] [place] [address] Assigned Surgical Provider 01/29/21 05/13/21 Roberta Galvan [facility] [address] [place] [address] Pharmacist Pharmacist 05/17/21 07/26/22 Alisson Roth PA-C [address] [place] [address] Assigned Surgical Provider 05/14/21 02/01/23 Adelaida Waterman PA-C [address] [place] [address] Assigned Sleep Provider 08/06/2104/19 Roberta Galvan [facility] [address] [address] Assigned MTM Pharmacist 12/23/21 Roberta Galvan [facility] [address] [address] Assigned MTM Pharmacist 03/28/22 Jeremy Camejo MD [address] [place] [address] Assigned OBGYN Provider 05/26/22 Nicolas Barragan MD [address] [place] [address] Assigned Surgical Provider 02/02/23 10/21/23 documented as of this encounter
--- OUTSIDE RECORDS SUMMARY | 2024-07-04 16:40 | XMS_ITS | Encounter Summary ---
Author Organization [place] Address [address] [facility] [place] [address] Care Team Providers Care Feather Duster Winder Name Role Phone Sherin Garza MD Primary Care Provider [phone] Tanvir Peñaloza PA-C Unavailable Unavailab Johanna Swenson LPN Unavailable Unavailable Sherin Garza MD Unavailable [phone] Sherin Garza MD Unavailable [phone] Jose M Bearden Unavailable Unavailable Mack Arteaga Unavailable [phone] Chris Galvan MD Unavailable [phone] Asaf Perales MD Unavailable [phone] Trinh JacobsonC Unavailable Vini Joyce MD Unavailable [phone] Roberta Galvan [facility] Unavailable [phone] Alisson Roth PA-C Unavailable [phone] Adelaida WatermanC Unavailable [phone] Roberta Galvan [facility] Unavailable [phone] Roberta Galvan [facility] Unavailable [phone] Jeremy Camejo MD Unavailable Nicolas Barragan MD Unavailable Encounter Details Date Type Department Care Team (Late st Contact Info) Description 08/08/2012 [facility] [place] [facility] [address] [place] [address] [place] [phone] Sherin Garza MD [address] [facility] [place] [address] Social History Tobacco Use Types Packs/Day Years Used Date Smoking Tobacco: Never Smokeless Tobacco: Never Alcohol Use Standard Drinks/Week Comments Yes 0 (1 standard drink = 0.6 oz pur e alcohol) 1-2 drinks a week Comments No Sex and Gender Information Value Date Recorded Sex Assigned at Female 10/27/2020 11:13 PM CDT Legal Sex Female 4:00 AM COATING MIXER Gender Identity Female 09/17/2018 1:36 AM CDT Sexual Orientation Straight 09/17/2018 1: 36 AM CDT Occupation Industry Job Start Date Job End Date Not on file Not on file Not on file Not on file documented as of this encounter Plan of Treatment Not on file documented as of this encounter Visit Diagnoses Not on filedocumented in this encounter Care Teams Feather Duster Winder Relationship Specialty Start Date End Date Sherin Garza MD [address] [place] [address] PCP - General 08/16/01 Sherin Garza MD [address] [facility] [place] [address] PCP - Assigned PCP 01/26/18 09/02/18 Tanvir Peñaloza PA-C [address] [place] [employer] [place] [address] Physician Snipper 12/27/17 Johanan Rodríguez LPN Nurse Coordinator 12/27/17 Sherin Garza MD [address] [place] [facility] [place] [address] Assigned PCP 06/15/18 Jose M Bearden Personal Advocate & Liaison (PAL) 05/01/19 05/16/21 Mack ArteagaJERROD Lead Corporate Driver Primary Care - CC 05/22/1909/15 Chris Galvan MD [address] [place] [address] Assigned OBGYN Provider 11/13/2005/25 Asaf Perales MD [address] [place] [address] Assigned Surgical Provider 12/18/20 12/31/20 Trinh Jacobson PA-C [address] [place] [address] Assigned Surgical Provider 01/01/21 01/28/21 Vini Joyce MD [address] [place] [address] Assigned Surgical Provider 01/29/21 05/13/21 [facility] [address] [place] [address] Pharmacist Pharmacist 05/17/21 07/26/22 Alisson Roth PA-C [address] [place] [address] Assigned Surgical Provider 05/14/21 02/01/23 Adelaida Waterman PA-C [address] [place] [address] Assigned Sleep Provider 08/06/2104/19 Roberta Galvan [facility] [address] [address] Assigned MTM Pharmacist 12/23/21 Roberta Galvan [facility] [address] [address] Assigned MTM Pharmacist 03/28/22 Jeremy Camejo MD [address] [place] [address] Assigned OBGYN Provider 05/26/22 Nicolas Barragan MD [address] [place], [place] [address] Assigned Surgical Provider 02/02/23 10/21/23 documented as of this encounter
--- OUTSIDE RECORDS SUMMARY | 2024-07-04 16:40 | XMS_ITS | Clinical Summary ---
Author Organization [facility] Address [address] [place] [address] Care Team Providers Care Records Analyst Name Role Phone Kathleen Davis MD Primary Care Provider [phone] Source Comments You are receiving this document [...] for each transition of care or referral. [facility] Allergies Active Allergy Reactions Criticality Noted Date [...] LW Addl Instr:Indicated for: Asthma LW given by:[id number] CHAVA ORONA LW admin time/site:[id number] INHAL-PO LW [...] > 12 HOUR Routine 07/23/2006 8:00 AM LANDFILL GAS TECHNICIAN Preventative Health Care PAP TEST, ROUTINE Routine 07/19/2006 8:2 0 AM LANDFILL GAS TECHNICIAN Preventative Health Care from Last 3 Months or Most Recently Relevant to Health Maintenance Results * CHOLESTEROL LIPID PANEL FAST >12HR (07/23/2006 8:00 AM LANDFILL GAS TECHNICIAN) Cholesterol 180 <200 mg/dl [facility] Triglyceride 162 <200 mg/dl [facility] HDL 37 >35 mg/dl [facility] LDL, Calc. 111 mg/dl [facility] Hours Fasting 12 hours [facility] 07/23/2006 8:00 AM LANDFILL GAS TECHNICIAN 07/23/2006 8:01 AM LANDFILL GAS TECHNICIAN Pearl Ghotra MD LAB_1 [facility] [address] [address] * PAP TEST, ROUTINE (07/19/2006 8:20 AM LANDFILL GAS TECHNICIAN) Cytology, Pap (NOTE) Flat Bed Operator Cytology Report Patient Name: ALLA DIAS Taken: 07/19/2006 Received: 07/20/2006 Reported: 08/06/2006 Physician(s): RHONDA GHOTRA([id number]) Source of Specimen Liquid routine Pap, cervical/endocervi [...] based upon similarity in DNA sequence. The InvadeDigify HPV Reagents are designed to detect the DNA of thirteen types of HPV from four HPV groups (A5, A6, A7, A9) and the human histone ([id number]) gene located on chromosome 1q21.2. This test was developed and its performance characteristics determined by [facility]. It has not been cleared or [...] Electronically Signed Out By Chantel Andrew MD ([id number]) Lorraine Caldwell MD ([id number]) Chantel Andrew MD ([id number]) ANGELA Ford (ASCP) Pap Smear History Date of Last Menstrual Period: 06/28/05 Contraceptive History: Not Stated/Unknown Other Clinical Conditions: LAST PAP: Normal 2004 Outside HPV reflex testing requested with interpretation of ASCUS Other Clinical Conditions: Heavy bleeding [facility] 07/19/2006 8:20 AM LANDFILL GAS TECHNICIAN 07/20/2006 12:30 PM LANDFILL GAS TECHNICIAN Pearl Ghotra MD LAB_1 Performing Organization Address City/State/[facility] Co de Phone Number [facility] [address] [address] from Last 3 Months or Most Recently Relevant to Health Maintenance Care Teams Records Analyst Relationship Specialty Start Date End Date Kathleen Davis MD [facility] [address] [place], [place] [id number] PCP - General 10/02/10
--- OUTSIDE RECORDS SUMMARY | 2024-07-04 16:40 | XMS_ITS | Encounter Summary ---
Author Organization [place] Address [address] [facility] [place] [address] Care Team Providers Care Therapeutic Activities Services Worker Name Role Phone Sherin Garza MD Primary Care Provider [phone] Tanvir Peñaloza PA-C Unavailable Unavailab Johanna Swenson LPN Unavailable Unavailable Sherin Garza MD Unavailable [phone] Sherin Garza MD Unavailable [phone] Jose M Bearden Unavailable Unavailable Mack Arteaga Unavailable [phone] Chris Galvan MD Unavailable [phone] Asaf Perales MD Unavailable [phone] Trinh JacobsonC Unavailable [phone] Vini Joyce MD Unavailable [phone] Roberta Galvan [facility] Unavailable [phone] Alisson Roth PA-C Unavailable [phone] Adelaida WatermanC Unavailable [phone] Roberta Galvan [facility] Unavailable [phone] Roberta Galvan [facility] Unavailable [phone] Jeremy Camejo MD Unavailable Nicolas Barragan MD Unavailable Reason for Visit * Reason Onset Date Comments Refill Request 09/11/2011 wellbutrin alter caitlin Encounter Details Date Type Department Care Team (Late st Contact Info) Description 09/11/2011 [facility] [address] [facility] [place] [phone] Sherin Garza MD [address] [place] [address] [place] [address] Refill Request (wellbutrin alternate) Social History Tobacco Use Types Packs/Day Years Used Date Smoking Tobacco: Never Alcohol Use Standard Drinks/Week Comments Yes 0 (1 standard drink = 0.6 oz pur e alcohol) 1-2 drinks a week Comments No Sex and Gender Information Value Date Recorded Sex Assigned at Female 10/27/2020 11:13 PM CDT Legal Sex Female 4:00 AM REMEDIAL PROJECT MANAGER Gender Identity Female 09/17/2018 1:36 AM [...] Sánchez - 09/11/2011 3:40 PM CDTMessage from [facility]: Original authorizing provider: MD Farhana Renae would like a refill of the following medications: buPROPion (WELLBUTRIN XL) 150 MG 24 hr tablet [Sherin Garza MD] Preferred pharmacy: [facility] [address] & Comment: I would like to try the other medication we discussed previously instead of this one. Please send to [facility] on [address] in [place]. Please call me at [phone] with any questions. documented in this encounter Plan of Treatment Not on file documented as of this encounter Visit Diagnoses Diagnosis Moderate major depression (H)- Primary Major depressive disorder, single episode, moderate documented in this encounter Care Teams Therapeutic Activities Services Worker Relationship Specialty Start Date End Date Sherin Garza MD [address] [facility] [address] PCP - General 08/16/01 Sherin Garza MD [address] [employer] [facility] [place] [address] PCP - Assigned PCP 01/26/18 09/02/18 Tanvir Peñaloza, PAArshC [address] [place] [address] [employer] [facility] [address] Physician Roof Truss Machine Tender 12/27/17 Johanna Rodríguez LPN Nurse Coordinator 12/27/17 Sherin Garza MD [address] [employer] [facility] [place] [address] Assigned PCP 06/15/18 Jose M Bearden Personal Advocate & Liaison (PAL) 05/01/19 05/16/21 Mack Arteaga LSW Lead Float Operator Primary Care - CC 05/22/1909/15 Chris Galvan MD [address] [facility] [address] [place] [address] Assigned OBGYN Provider 11/13/2005/25 Asaf Perales MD [address] [place] [address] Assigned Surgical Provider 12/18/20 12/31/20 Trinh Jacosbon PA-C [address] [place] [address] Assigned Surgical Provider 01/01/21 01/28/21 Vini Joyce MD [address] [place] [address] Assigned Surgical Provider 01/29/21 05/13/21 Roberta Galvan [facility] [address] [id number] Pharmacist Pharmacist 05/17/21 07/26/22 Alisson Roth PA-C [address] [place] [address] Assigned Surgical Provider 05/14/21 02/01/23 Adelaida Waterman PA-C [address] [place] [address] Assigned Sleep Provider 08/06/2104/19 Roberta Galvan [facility] [address] [address] Assigned MTM Pharmacist 12/23/21 Roberta Galvan [facility] [address] [address] Assigned MTM Pharmacist 03/28/22 Jeremy Camejo MD [address] [place] [address] Assigned OBGYN Provider 05/26/22 Nicolas Barragan MD [address] [place] [address] Assigned Surgical Provider 02/02/23 10/21/23 documented as of this encounter
--- OUTSIDE RECORDS SUMMARY | 2024-07-04 16:40 | XMS_ITS | Encounter Summary ---
Author Organization [place] Address [address] [facility] [place] [address] Care Team Providers Care Engraving Press Operator Name Role Phone Sherin Garza MD Primary Care Provider [phone] Tanvir Peñaloza PA-C Unavailable Unavailab Johanna Swenson LPN Unavailable Unavailable Sherin Garza MD Unavailable [phone] Sherin Garza MD Unavailable [phone] Jose M Bearden Unavailable Unavailable Mack Arteaga Unavailable [phone] Chris Galvan MD Unavailable [phone] Asaf Perales MD Unavailable [phone] Trinh JacobsonC Unavailable Vini Joyce MD Unavailable [phone] Roberta Galvan [facility] Unavailable [phone] Alisson Roth PA-C Unavailable [phone] Adelaida WatermanC Unavailable [phone] Roberta Galvan [facility] Unavailable [phone] Roberta Galvan [facility] Unavailable [phone] Jeremy Camejo MD Unavailable Nicolas Barragan MD Unavailable [phone] Encounter Details Date Type Department Care Team (Late st Contact Info) Description 01/11/2011 [facility] [place] Medical Advice [address] [place] [phone] [facility] Social History Tobacco Use Types Packs/Day Years Used Date Smoking Tobacco: Never Alcohol Use Standard Drinks/Week Comments Yes 0 (1 standard drink = 0.6 oz pur e alcohol) 1-2 drinks a week Comments No Sex and Gender Information Value Date Recorded Sex Assigned at Female 10/27/2020 11:13 PM CDT Legal Sex Female 4:00 AM METAL SPINNER Gender Identity Female 09/17/2018 1:36 AM CDT Sexual Orientation Straight 09/17/2018 1: 36 AM CDT Occupation Industry Job Start Date Job End Date Not on file Not on file Not on file Not on file documented as of this encounter Plan of Treatment Not on file documented as of this encounter Visit Diagnoses Not on filedocumented in this encounter Care Teams Engraving Press Operator Relationship Specialty Start Date End Date Sherin Garza MD [address] [place] [address] PCP - General 08/16/01 Sherin Garza MD [address] [place] [address] PCP - Assigned PCP 01/26/18 09/02/18 Tanvir Peñaloza PA-C [address] [place] [address] Physician Shellfish Bed Worker 12/27/17 Johanna Rodríguez LPN Nurse Coordinator 12/27/17 Sherin Garza MD [address] [place] [address] Assigned PCP 06/15/18 Jose M Bearden Personal Advocate & Liaison (PAL) 05/01/19 05/16/21 Mack Arteaga LSW Lead Map Plotter Primary Care - CC 05/22/1909/15 Chris Galvan MD [address] [place] [address] Assigned OBGYN Provider 11/13/2005/25 Asaf Perales MD [address] [place], [place] [address] Assigned Surgical Provider 12/18/20 12/31/20 Trinh Jacobson PA-C [address] [place], [place] [address] Assigned Surgical Provider 01/01/21 01/28/21 Vini Joyce MD [address] [place] [address] Assigned Surgical Provider 01/29/21 05/13/21 Roberta Galvan, [facility] [address] [place] [address] Pharmacist Pharmacist 05/17/21 07/26/22 Alisson Roth PA-C [address] [place], [place] [address] Assigned Surgical Provider 05/14/21 02/01/23 Adelaida Waterman PA-C [address] [place] [address] Assigned Sleep Provider 08/06/2104/19 Roberta Galvan, [facility] [address] [address] Assigned MTM Pharmacist 12/23/21 Roberta Galvan, [facility] [address] [address] Assigned MTM Pharmacist 03/28/22 Jeremy Camejo MD [address] [place] [address] Assigned OBGYN Provider 05/26/22 Nicolas Barragan MD [address] [place] [address] Assigned Surgical Provider 02/02/23 10/21/23 documented as of this encounter
--- OUTSIDE RECORDS SUMMARY | 2024-07-04 16:40 | XMS_ITS | Encounter Summary ---
Author Organization [place] Address [address] [facility] [place] [address] Care Team Providers Care Cage Clerk Name Role Phone Sherin Garza MD Primary Care Provider [phone] Tanvir Peñaloza PA-C Unavailable Unavailab Johanna Swenson LPN Unavailable Unavailable Sherin Garza MD Unavailable [phone] Sherin Garza MD Unavailable [phone] Jose M Bearden Unavailable Unavailable Mack Arteaga Unavailable [phone] Chris Galvan MD Unavailable [phone] Asaf Perales MD Unavailable [phone] Trinh JacobsonC Unavailable Vini Joyce MD Unavailable [phone] Roberta Galvan [facility] Unavailable [phone] Alisson Roth PA-C Unavailable [phone] Adelaida WatermanC Unavailable [phone] Roberta Galvan [facility] Unavailable [phone] Roberta Galvan [facility] Unavailable [phone] Jeremy Camejo MD Unavailable Nicolas Barragan MD Unavailable Encounter Details Date Type Department Care Team (Late st Contact Info) Description 04/16/2007 [facility] Medical Advice [address] [place] [id number] [facility] Social History Tobacco Use Types Packs/Day Years Used Date Smoking Tobacco: Never Alcohol Use Standard Drinks/Week Comments Yes 0 (1 standard drink = 0.6 oz pur e alcohol) 1-2 drinks a week Comments No Sex and Gender Information Value Date Recorded Sex Assigned at Female 10/27/2020 11:13 PM CDT Legal Sex Female 4:00 AM SKILLED NURSING PROFESSIONAL Gender Identity Female 09/17/2018 1:36 AM CDT Sexual Orientation Straight 09/17/2018 1: 36 AM CDT Occupation Industry Job Start Date Job End Date Not on file Not on file Not on file Not on file documented as of this encounter Plan of Treatment Not on file documented as of this encounter Visit Diagnoses Not on filedocumented in this encounter Care Teams Cage Clerk Relationship Specialty Start Date End Date Sherin Garza MD [address] [employer] [place] [address] PCP - General 08/16/01 Sherin Garza MD [address] [employer] [place] [address] PCP - Assigned PCP 01/26/18 09/02/18 Tanvir Peñaloza PA-C [address] [employer] [place] [address] Physician Felt Cutter 12/27/17 Johanna Rodríguez LPN Nurse Coordinator 12/27/17 Sherin Garza MD [address] [employer] [place] [address] Assigned PCP 06/15/18 Jose M Bearden Personal Advocate & Liaison (PAL) 05/01/19 05/16/21 Mack Arteaga LSW Lead Data Communications Analyst Primary Care - CC 05/22/1909/15 Chris Galvan MD [address] [place] [address] Assigned OBGYN Provider 11/13/2005/25 Asaf Perales MD [address] [place], [place] [address] Assigned Surgical Provider 12/18/20 12/31/20 Trinh Jacobson PA-C [address] [place], [place] [address] Assigned Surgical Provider 01/01/21 01/28/21 Vini Joyce MD [address] [place] [address] Assigned Surgical Provider 01/29/21 05/13/21 Roberta Galvan, [facility] [address] [place] [address] Pharmacist Pharmacist 05/17/21 07/26/22 Alisson Roth PA-C [address] [place], [place] [address] Assigned Surgical Provider 05/14/21 02/01/23 Adelaida Waterman PA-C [address] [place] [address] Assigned Sleep Provider 08/06/2104/19 Roberta Galvan, [facility] [address] [address] Assigned MTM Pharmacist 12/23/21 Roberta Galvan, [facility] [address] [address] Assigned MTM Pharmacist 03/28/22 Jeremy Camejo MD [address] [place] [address] Assigned OBGYN Provider 05/26/22 Nicolas Barragan MD [address] [place] [address] Assigned Surgical Provider 02/02/23 10/21/23 documented as of this encounter
--- OUTSIDE RECORDS SUMMARY | 2024-07-04 16:40 | XMS_ITS | Encounter Summary ---
Author Organization [place] Address [address] [facility] [place] [address] Care Team Providers Care Exchange Clerk Name Role Phone Sherin Garza MD Primary Care Provider [phone] Tanvir Peñaloza PA-C Unavailable Unavailab Johanna Swenson LPN Unavailable Unavailable Sherin Garza MD Unavailable [phone] Sherin Garza MD Unavailable [phone] Jose M Bearden Unavailable Unavailable Mack Arteaga Unavailable [phone] Chris Galvan MD Unavailable [phone] Asaf Perales MD Unavailable [phone] Tirnh JacobsonC Unavailable Vini Joyce MD Unavailable [phone] Roberta Galvan [facility] Unavailable [phone] Alisson Roth PA-C Unavailable [phone] Adelaida WatermanC Unavailable [phone] Roberta Galvan [facility] Unavailable [phone] Roberta Galvan [facility] Unavailable [phone] Jeremy Camejo MD Unavailable Nicolas Barragan MD Unavailable [phone] Reason for Referral * - Closed Specialty Diagnoses / Procedures Referred By Fito carranza Referred To Contact Diagnoses Major depressive disorder, recurrent episode, in partial or unspecified remission Sherin Garza MD Phone: tel: fax: Referral ID Status Reason Start Date Expiration Date Visits Re quested Visits Authorized [id number] Closed 12/31/2012 06/29/2013 1 1 Comments Your provider has referred you to: [facility] - Child, Adolescent, and Adult Referrals (Behavioral Healthcare Providers [phone]), Adult Psychiatry - [place] - Dr. Vini Torres - Order/Referral from Patient's Primary Care Physician Required -[facility], , of Phys[facility]) [phone] Dr. Madrigal and Insurance Phone [facility] at [phone] Numbers for Patients to Verify Coverage: [facility]' Triage (can handle any insurance services include adult psychiatry) at [phone] Please be aware that coverage of these services is subject to the terms and limitations of your health insurance plan. Call member services at your health plan with any benefit or coverage questions. Please bring the following to your appointment: >> Any x-rays, CTs or MRIs which have been performed. Contact the facility where they were done to arrange for rock picker prior to your scheduled appointment. Any new CT, MRI or other procedures ordered by your specialist must be performed at a [facility] facility or coordinated by your clinic's referral office. >> List of current medications >> This referral request >> Any documents/labs given to you for this referral Reason for Visit * Reason Onset Date Comments Orders 12/30/2012 Psychiatrist Encounter Details Date Type Department Care Team (Late st Contact Info) Description 12/30/2012 MyC Medical Advice [facility] [address] [place] [address] Sherin Garza MD [address] [facility] [place] [address] Orders (Psychiatrist) Social History Tobacco Use Types Packs/Day Years Used Date Smoking Tobacco: Never Smokeless Tobacco: Never Alcohol Use Standard Drinks/Week Comments Yes 0 (1 standard drink = 0.6 oz pur e alcohol) 1-2 drinks a week Comments No Sex and Gender Information Value Date Recorded Sex Assigned at Female 10/27/2020 11:13 PM CDT Legal Sex Female 4:00 AM ROTARY DRILL OPERATOR HELPER Gender Identity Female 09/17/2018 1:36 [...] Patient calling to follow up on her Trac Emc & Safety message she sent Dr Garza. She does [...] remission documented in this encounter Care Teams Exchange Clerk Relationship Specialty Start Date End Date Sherin Garza MD [address] [employer] [place] [address] PCP - General 08/16/01 Sherin Garza MD [address] [employer] [facility] [place] [address] PCP - Assigned PCP 01/26/18 09/02/18 Tanvir Peñaloza PA-C [address] [employer] [facility] [place] [address] Physician Sales Account Leader 12/27/17 Johanna Rodríguez LPN Nurse Coordinator 12/27/17 Sherin Garza MD [facility] [facility] [address] Assigned PCP 06/15/18 Jose M Bearden Personal Advocate & Liaison (PAL) 05/01/19 05/16/21 Mack Arteaga LSW Lead Ip Litigation Paralegal Primary Care - CC 05/22/1909/15 Chris Galvan MD [address] [place] [address] Assigned OBGYN Provider 11/13/2005/25 Asaf Perales MD [address] [place] [address] Assigned Surgical Provider 12/18/20 12/31/20 Trinh Jacboson PA-C [address] [place] [address] Assigned Surgical Provider 01/01/21 01/28/21 Vini Joyce MD [address] [place] [address] Assigned Surgical Provider 01/29/21 05/13/21 Roberta Galvan, [facility] [address] [address] Pharmacist Pharmacist 05/17/21 07/26/22 Alisson Roth PA-C [address] [place] [address] Assigned Surgical Provider 05/14/21 02/01/23 Adelaida Waterman PA-C [address] [place] [address] Assigned Sleep Provider 08/06/2104/19 Roberta Galvan, [facility] [address] [address] Assigned MTM Pharmacist 12/23/21 Roberta Galvan, [facility] [address] [address] Assigned MTM Pharmacist 03/28/22 Jeremy Camejo MD [address] [place] [address] Assigned OBGYN Provider 05/26/22 Nicolas Barragan MD [address] [place] [address] Assigned Surgical Provider 02/02/23 10/21/23 documented as of this encounter
--- OUTSIDE RECORDS SUMMARY | 2024-07-04 16:40 | XMS_ITS | Encounter Summary ---
Author Organization [place] Address [address] [facility] [place] [address] Care Team Providers Care Auto Brake Technician Name Role Phone Sherin Garza MD Primary Care Provider [phone] Tanvir Peñaloza PA-C Unavailable Unavailab Johanna Swenson LPN Unavailable Unavailable Sherin Garza MD Unavailable [phone] Sherin Garza MD Unavailable [phone] Jose M Bearden Unavailable Unavailable Mack Arteaga Unavailable [phone] Chris Galvan MD Unavailable [phone] Asaf Perales MD Unavailable [phone] Trinh JacobsonC Unavailable Vini Joyce MD Unavailable [phone] Roberta Galvan [facility] Unavailable [phone] Alisson Roth PA-C Unavailable [phone] Adelaida WatermanC Unavailable [phone] Roberta Galvan [facility] Unavailable [phone] Roberta Galvan [facility] Unavailable [phone] Jeremy Camejo MD Unavailable Nicolas Barragan MD Unavailable Reason for Visit * Reason Onset Date Comments Depression 01/11/2011 Encounter Details Date Type Department Care Team (Late st Contact Info) Description 01/11/2011 [facility] Medical Advice [facility] [address] [place] [address] [place] [phone] Nikki Ferris Depression Social History Tobacco Use Types Packs/Day Years Used Date Smoking Tobacco: Never Alcohol Use Standard Drinks/Week Comments Yes 0 (1 standard drink = 0.6 oz pur e alcohol) 1-2 drinks a week Comments No Sex and Gender Information Value Date Recorded Sex Assigned at Female 10/27/2020 11:13 PM CDT 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 Gender Identity Female 09/17/2018 1:36 AM CDT [...] remission documented in this encounter Care Teams Auto Brake Technician Relationship Specialty Start Date End Date Sherin Garza MD [address] [place] [address] PCP - General 08/16/01 Sherin Garza MD [address] [place] [address] PCP - Assigned PCP 01/26/18 09/02/18 Tanvri Peñaloza PA-C [address] [place] [address] Physician Hand Coper 12/27/17 Johanna Rodríguez LPN Nurse Coordinator 12/27/17 Sherin Garza MD [address] [place] [address] Assigned PCP 06/15/18 Jose M Bearden Personal Advocate & Liaison (PAL) 05/01/19 05/16/21 Mack ArteagaERNESTINEW Lead Safety Deposit Clerk Primary Care - CC 05/22/1909/15 Chris Galvan MD [address] [place] [address] Assigned OBGYN Provider 11/13/2005/25 Asaf Perales MD [address] [place] [address] Assigned Surgical Provider 12/18/20 12/31/20 Trinh Jacobson PA-C [address] [place] [address] Assigned Surgical Provider 01/01/21 01/28/21 Vini Joyce MD [address] [place], [place] [address] Assigned Surgical Provider 01/29/21 05/13/21 Roberta Galvan, [facility] [address] [place] [id number] Pharmacist Pharmacist 05/17/21 07/26/22 Alisson Roth PA-C [address] [place] [address] Assigned Surgical Provider 05/14/21 02/01/23 Adelaida Waterman PA-C [address] [place] [address] Assigned Sleep Provider 08/06/2104/19 Roberta Galvan [facility] [address] [address] Assigned MTM Pharmacist 12/23/21 Roberta Galvan [facility] [address] [address] Assigned MTM Pharmacist 03/28/22 Jeremy Camejo MD [facility] [place] [address] Assigned OBGYN Provider 05/26/22 Nicolas Barragan MD [address] [place] [address] Assigned Surgical Provider 02/02/23 10/21/23 documented as of this encounter
--- OUTSIDE RECORDS SUMMARY | 2024-07-04 16:40 | XMS_ITS | Encounter Summary ---
Author Organization [place] Address [address] [facility] [place] [address] Care Team Providers Care Lime Sludge Mixer Name Role Phone Sherin Garza MD Primary Care Provider [phone] Tanvir Peñaloza PA-C Unavailable Unavailab Johanna Swenson LPN Unavailable Unavailable Sherin Garza MD Unavailable [phone] Sherin Garza MD Unavailable [phone] Jose M Bearden Unavailable Unavailable Mack Arteaga Unavailable [phone] Chris Galvan MD Unavailable [phone] Asaf Perales MD Unavailable [phone] Trinh JacobsonC Unavailable Vini Joyce MD Unavailable [phone] Roberta Galvan [facility] Unavailable [phone] Alisson Roth PA-C Unavailable [phone] Adelaida WatermanC Unavailable [phone] Roberta Galvan [facility] Unavailable [phone] Roberta Galvan [facility] Unavailable [phone] Jeremy Camejo MD Unavailable [phone] Nicolas Barragan MD Unavailable [phone] Encounter Details Date Type Department Care Team (Late st Contact Info) Description 07/29/2012 [facility] [address] [place] [address] [place] [id number] Sherin Garza MD [address] [facility] [place] [address] Social History Tobacco Use Types Packs/Day Years Used Date Smoking Tobacco: Never Smokeless Tobacco: Never Alcohol Use Standard Drinks/Week Comments Yes 0 (1 standard drink = 0.6 oz pur e alcohol) 1-2 drinks a week Comments No Sex and Gender Information Value Date Recorded Sex Assigned at Female 10/27/2020 11:13 PM CDT 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 Gender Identity Female 09/17/2018 1:36 AM CDT Sexual Orientation Straight 09/17/2018 1: 36 AM CDT Occupation Industry Job Start Date Job End Date Not on file Not on file Not on file Not on file documented as of this encounter Plan of Treatment Not on file documented as of this encounter Visit Diagnoses Not on filedocumented in this encounter Care Teams Lime Sludge Mixer Relationship Specialty Start Date End Date Sherin Garza MD [address] [employer] [place] [address] PCP - General 08/16/01 Sherin Garza MD [address] [employer] [facility] [place] [address] PCP - Assigned PCP 01/26/18 09/02/18 Tanvir Peñaloza PA-C [address] [employer] [place] [address] Physician Solderer Assembler 12/27/17 Johanna Rodríguez LPN Nurse Coordinator 12/27/17 Sherin Garza MD [address] [employer] [facility] [place] [address] Assigned PCP 06/15/18 Jose M Bearden Personal Advocate & Liaison (PAL) 05/01/19 05/16/21 Mack ArteagaJERROD Lead Centrifugal Machine Tender Primary Care - CC 05/22/1909/15 Chris Galvan MD [address] [place] [address] Assigned OBGYN Provider 11/13/2005/25 Asaf Perales MD [address] [place] [address] Assigned Surgical Provider 12/18/20 12/31/20 Trinh Jacobson PA-C [address] [place] [address] Assigned Surgical Provider 01/01/21 01/28/21 Vini Joyce MD [address] [place] [address] Assigned Surgical Provider 01/29/21 05/13/21 [facility] [address] [place] [address] Pharmacist Pharmacist 05/17/21 07/26/22 Alisson Roth PA-C [address] [place] [address] Assigned Surgical Provider 05/14/21 02/01/23 Adelaida Waterman PA-C [address] [place] [address] Assigned Sleep Provider 08/06/2104/19 Roberta Galvan [facility] [address] [address] Assigned MTM Pharmacist 12/23/21 Roberta Galvan [facility] [address] [address] Assigned MTM Pharmacist 03/28/22 Jeremy Camejo MD [address] [place] [address] Assigned OBGYN Provider 05/26/22 Nicolas Barragan MD [address] [place], [place] [address] Assigned Surgical Provider 02/02/23 10/21/23 documented as of this encounter
--- OUTSIDE RECORDS SUMMARY | 2024-07-04 16:40 | XMS_ITS | Encounter Summary ---
Author Organization [place] Address [address] [facility] [place] [address] Care Team Providers Care Post Anesthesia Nurse Name Role Phone Sherin Garza MD Primary Care Provider [phone] Tanvir Peñaloza PA-C Unavailable Unavailab Johanna Swenson LPN Unavailable Unavailable Sherin Garza MD Unavailable [phone] Sherin Garza MD Unavailable [phone] Jose M Bearden Unavailable Unavailable Mack Arteaga Unavailable [phone] Chris Galvan MD Unavailable [phone] Asaf Perales MD Unavailable [phone] Trinh JacobsonC Unavailable Vini Joyce MD Unavailable [phone] Roberta Galvan [facility] Unavailable [phone] Alisson Roth PA-C Unavailable [phone] Adelaida WatermanC Unavailable [phone] Roberta Galvan [facility] Unavailable [phone] Roberta Galvan [facility] Unavailable [phone] Jeremy Camejo MD Unavailable Nicolas Barragan MD Unavailable Encounter Details Date Type Department Care Team (Late st Contact Info) Description 12/22/2012 [facility] Medical Advice [address] [address] [facility] Moderate major depression (H) (Primary Dx) Social History Tobacco Use Types Packs/Day Years Used Date Smoking Tobacco: Never Smokeless Tobacco: Never Alcohol Use Standard Drinks/Week Comments Yes 0 (1 standard drink = 0.6 oz pur e alcohol) 1-2 drinks a week Comments No Sex and Gender Information Value Date Recorded Sex Assigned at Female 10/27/2020 11:13 PM CDT 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 Gender Identity Female 09/17/2018 1:36 AM [...] moderate documented in this encounter Care Teams Post Anesthesia Nurse Relationship Specialty Start Date End Date Sherin Garza MD [address] [facility] [address] [place] [address] PCP - General 08/16/01 Sherin Garza MD [address] [facility] [address] [place] [address] PCP - Assigned PCP 01/26/18 09/02/18 Tanvir Peñaloza PA-C [address] [facility] [place] [address] Physician Well Tender 12/27/17 Johanna Rodríguez LPN Nurse Coordinator 12/27/17 Sherin Garza MD [address] [facility] [address] [place], [place] [address] Assigned PCP 06/15/18 Jose M Bearden Personal Advocate & Liaison (PAL) 05/01/19 05/16/21 Mack Arteaga LSW [employer] Group Insurance Special Agent Primary Care - CC 05/22/1909/15 Chris Galvan MD [address] [place] [address] Assigned OBGYN Provider 11/13/2005/25 Asaf Perales MD [address] [place] [address] Assigned Surgical Provider 12/18/20 12/31/20 Trinh Jacobson PA-C [address] [place] [address] Assigned Surgical Provider 01/01/21 01/28/21 Vini Joyce MD [address] [place] [address] Assigned Surgical Provider 01/29/21 05/13/21 Roberta Galvan, [facility] [address] [address] Pharmacist Pharmacist 05/17/21 07/26/22 Alisson Roth PA-C [address] [place] [address] Assigned Surgical Provider 05/14/21 02/01/23 Adelaida Waterman PA-C [address] [place] [address] Assigned Sleep Provider 08/06/2104/19 Roberta Galvan, [facility] [address] [address] Assigned MTM Pharmacist 12/23/21 Roberta Galvan, [facility] [address] [address] Assigned MTM Pharmacist 03/28/[address] [facility] [place] [address] Assigned OBGYN Provider 05/26/22 Nicolas Barragan MD [address] [place] [address] Assigned Surgical Provider 02/02/23 10/21/23 documented as of this encounter
--- OUTSIDE RECORDS SUMMARY | 2024-07-04 16:40 | XMS_ITS | Encounter Summary ---
Author Organization [place] Address [address] [facility] [place] [address] Care Team Providers Care Evp Sales Name Role Phone Sherin Garza MD Primary Care Provider [phone] Tanvir Peñaloza PA-C Unavailable Unavailab Johanna Swenson LPN Unavailable Unavailable Sherin Garza MD Unavailable [phone] Sherin Garza MD Unavailable [phone] Jose M Bearden Unavailable Unavailable Mack Arteaga Unavailable [phone] Chris Galvan MD Unavailable [phone] Asaf Perales MD Unavailable [phone] Trinh JacobsonC Unavailable Vini Joyce MD Unavailable [phone] Roberta Galvan [facility] Unavailable [phone] Alisson Roth PA-C Unavailable [phone] Adelaida WatermanC Unavailable [phone] Roberta Galvan [facility] Unavailable [phone] Roberta Galvan [facility] Unavailable [phone] Jeremy Camejo MD Unavailable Nicolas Barragan MD Unavailable Reason for Visit * Reason Onset Date Comments Medication Question 07/31/2011 Alternate or PA for Wellbutrin Encounter Details Date Type Department Care Team (Late st Contact Info) Description 07/31/2011 My[facility] Medical Advice [address] [place] [phone] Sherin Garza MD [address] [place] [address] Medication Question (Alternate or PA for W... 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 ANCE LEARNING COORDINATOR documented in this encounter Plan of Treatment Not on file documented as of this encounter Visit Diagnoses Diagnosis Screening for depression- Primary documented in this encounter Care Teams Evp Sales Relationship Specialty Start Date End Date Sherin Garza MD [address] [place] [address] PCP - General 08/16/01 Sherin Garza MD [address] [place], [place] [address] PCP - Assigned PCP 01/26/18 09/02/18 Tanvir Peñaloza PA-C [address] [facility] [place] [address] Physician Devulcanizer Loader 12/27/17 Johanna Rodríguez LPN Nurse Coordinator 12/27/17 Sherin Garza MD [address] [facility] [address] [place] [address] Assigned PCP 06/15/18 Jose M Bearden Personal Advocate & Liaison (PAL) 05/01/19 05/16/21 Mack Arteaga UNDERGRADUATE ADVISOR Lead Box Spinner Primary Care - CC 05/22/1909/15 Chris Galvan MD [address] [place] [address] Assigned OBGYN Provider 11/13/2005/25 Asaf Perales MD [address] [place] [address] Assigned Surgical Provider 12/18/20 12/31/20 Trinh Jacobson PA-C [address] [place] [address] Assigned Surgical Provider 01/01/21 01/28/21 Vini Joyce MD [address] [place] [address] Assigned Surgical Provider 01/29/21 05/13/21 Roberta Galvan, [facility] [address] [address] Pharmacist Pharmacist 05/17/21 07/26/22 Alisson Roth PA-C [address] [place] [address] Assigned Surgical Provider 05/14/21 02/01/23 Adelaida Waterman PA-C [address] [place] [address] Assigned Sleep Provider 08/06/2104/19 Roberta Galvan, [facility] [address] [address] Assigned MTM Pharmacist 12/23/21 Robreta Galvan, [facility] [address] [address] Assigned MTM Pharmacist 03/28/22 Jeremy Camejo MD [address] [place] [address] Assigned OBGYN Provider 05/26/22 Nicolas Barragan MD [address] [place], [place] [address] Assigned Surgical Provider 02/02/23 10/21/23 documented as of this encounter
--- OUTSIDE RECORDS SUMMARY | 2024-07-04 16:40 | XMS_ITS | Encounter Summary ---
Author Organization [place] Address [address] [facility] [place] [address] Care Team Providers Care Linux System Admin Name Role Phone Sherin Garza MD Primary Care Provider [phone] Tanvir Peñaloza PA-C Unavailable Unavailab Johanna Swenson LPN Unavailable Unavailable Sherin Garza MD Unavailable [phone] Sherin Garza MD Unavailable [phone] Jose M Bearden Unavailable Unavailable Mack Arteaga Unavailable [phone] Chris Galvan MD Unavailable [phone] Asaf Perales MD Unavailable [phone] Trinh JacobsonC Unavailable Vini Joyce MD Unavailable [phone] Roberta Galvan [facility] Unavailable [phone] Alisson Roth PA-C Unavailable [phone] Adelaida WatermanC Unavailable [phone] Roberta Galvan [facility] Unavailable [phone] Roberta Galvan [facility] Unavailable [phone] Jeremy Camejo MD Unavailable Nicolas Barragan MD Unavailable [phone] Encounter Details Date Type Department Care Team (Late st Contact Info) Description 01/07/2012 [facility] [facility] [address] [place] [address] [place] [phone] Sherin Garza MD [address] [facility] [place] [address] Social History Tobacco Use Types Packs/Day Years Used Date Smoking Tobacco: Never Smokeless Tobacco: Never Alcohol Use Standard Drinks/Week Comments Yes 0 (1 standard drink = 0.6 oz pur e alcohol) 1-2 drinks a week Comments No Sex and Gender Information Value Date Recorded Sex Assigned at Female 10/27/2020 11:13 PM CDT 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 Gender Identity Female 09/17/2018 1:36 AM CDT Sexual Orientation Straight 09/17/2018 1: 36 AM CDT Occupation Industry Job Start Date Job End Date Not on file Not on file Not on file Not on file documented as of this encounter Plan of Treatment Not on file documented as of this encounter Visit Diagnoses Not on filedocumented in this encounter Care Teams Linux System Admin Relationship Specialty Start Date End Date Sherin Garza MD [address] [place] [address] PCP - General 08/16/01 Sherin Garza MD [address] [facility] [place] [address] PCP - Assigned PCP 01/26/18 09/02/18 Tanvir Peñaloza PA-C [address] [place] [address] Physician Solar Crew Member 12/27/17 Johanna Rodríguez LPN Nurse Coordinator 12/27/17 Sherin Garza MD [address] [facility] [place] [address] Assigned PCP 06/15/18 Jose M Bearden Personal Advocate & Liaison (PAL) 05/01/19 05/16/21 Mack ArteagaJERROD Lead Licensed Staff Mft Primary Care - CC 05/22/1909/15 Chris Galvan MD [address] [place] [address] Assigned OBGYN Provider 11/13/2005/25 Asaf Perales MD [address] [place] [address] Assigned Surgical Provider 12/18/20 12/31/20 Trinh Jacobson PA-C [address] [place] [address] Assigned Surgical Provider 01/01/21 01/28/21 Vini Joyce MD [address] [place] [address] Assigned Surgical Provider 01/29/21 05/13/21 [facility] [address] [place] [address] Pharmacist Pharmacist 05/17/21 07/26/22 Alisson Roth PA-C [address] [place] [address] Assigned Surgical Provider 05/14/21 02/01/23 Adelaida Waterman PA-C [address] [place] [address] Assigned Sleep Provider 08/06/2104/19 Roberta Galvan [facility] [address] [address] Assigned MTM Pharmacist 12/23/21 Roberta Galvan [facility] [address] [address] Assigned MTM Pharmacist 03/28/22 Jeremy Camejo MD [address] [place] [address] Assigned OBGYN Provider 05/26/22 Nicolas Barragan MD [address] [place], [place] [address] Assigned Surgical Provider 02/02/23 10/21/23 documented as of this encounter
== END 2024-07-04 17:30 | disposition home or self-care (01) ==
PROVIDERS: Emergency Provider Emergency Medicine Emergency Medical Services; PCP Student in an Organized Health Care Education/Training Program
DX: S93.402A Sprain of unspecified ligament of left ankle, initial encounter (principal); W10.9XXA Fall (on) (from) unspecified stairs and steps, initial encounter
CPT/HCPCS: 73610; 99283; 99284

== ENCOUNTER 2025-06-22 09:44 | Outpatient (CLI) | payer BC, SELFPAY ==
--- NOTE | 2025-06-22 10:00 | CRLHL7_ITS ---
For Patients: As a result of the 21st Century Cures Act, medical imaging exams and procedure reports are released immediately into your electronic medical record. You may view this report before your referring provider. If you have questions, please contact your health care provider. EXAM: NM GASTRIC EMPTYING SCAN Indication : 50 year-old woman with nausea with vomiting. TECHNIQUE: Radiopharmaceutical: 0.8 cm 3 Millic[place] 99m Tc sulfur colloid, combined with a standard egg meal, administered orally. Patient consumed 100% of solid portion of standard meal and water. Image acquisition: Static anterior/posterior images were obtained immediately after administration, and at 30, 60, 90, 120, and 240 minutes post radiotracer administration. At each time point, the geometric mean was calculated based on ROIs placed over the stomach. Comparison: None Findings: Radiotracer is seen to progress from the gastric fundus to the antrum and into the small bowel. Summary of gastric activity*: 1 hour: 42% empty, 58% retained (normal is <30 and <90% retention). 2 hours: 65% empty, 35% retained (normal is <60% retention). 4 hours: 96% empty, 4%retained (normal is <10% retention). Impression: Normal solid gastric emptying with only 4% retained radiolabeled gastric contents at 4 hours post ingestion. * Data are from Am J Gastroenterol. 2008; 103:753-763 Dictated by Jose Rafael Camargo MD @ 06/22/2025 6:46:49 PM (Electronically Signed)
== END 2025-06-22 09:45 | disposition home or self-care (01) ==
LOC: NM 09:46
PROVIDERS: PCP Student in an Organized Health Care Education/Training Program; Visit Provider Physician Assistant
DX: R11.2 Nausea with vomiting, unspecified (principal)
CPT/HCPCS: 78264; A9541